=== PATIENT | female | born 1975 | race Caucasian/White ===

== ENCOUNTER 2016-08-24 03:08 | Emergency (ER) | payer OTHER ==
[2016-08-24] MEDS ORDERED: diphenhydrAMINE 50 MG/ML 1 ML VIAL IVP STA (03:38)
[2016-08-24] MEDS ORDERED: KETOROLAC 30 MG/ML 1 ML VIAL IVP STA (03:38)
[2016-08-24] MEDS ORDERED: SODIUM CHLORIDE 0.9% 1,000 ML IV STA (03:38)
[2016-08-24] MEDS ORDERED: ACETAMINOPHEN IV (For NPO) 1,000 MG in EMPTY BAG 1 BAG IVPB STA (03:38)
[2016-08-24] MEDS ORDERED: METOCLOPRAMIDE 5 MG/ML 2 ML VIAL IVP STA (03:38)
--- NOTE | 2016-08-24 03:50 | ED ---
Headache HPI - General Chief Complaint: Headache Stated Complaint: Migraine Time Seen by Provider: 08/24/16 03:33 Source: RN notes reviewed Mode of arrival: ambulatory Limitations: no limitations - History of Present Illness Initial Comments: Patient is a 41-year-old feel presenting to the with chief complaint of 1 day of migraine-like headache. Patient reports that it occurs across the right side of her forehead and radiates down towards her neck. Patient reports that she took her at-home medications including Motrin and this did not help with her headache. Patient reports that she also attempted take a Percocet at approximately 9 PM and did not help with her headache. Patient reports no neurological deficits at this time. She is been seen in the emergency room for similar symptoms as this. Patient reports that this pain is similar to her chronic migraines. Patient denies any fever or chills.Patient denies any recent fever, chills, shortness of breath, chest pain, back pain, abdominal pain , nausea vomiting, numbness or tingling, dysuria or hematuria, constipation or diarrhea, headaches or visual changes, or any other current symptoms - Related Data Home Medications Medication Instructions Recorded Confirmed oxyCODONE-APAP 10-325MG [Percocet 1 tab PO Q6HR PRN 02/09/15 08/24/16 10-325] ARIPiprazole [Abilify] 2 mg PO HS 10/18/15 08/24/16 buPROPion HCL [Wellbutrin XL] 300 mg PO DAILY 10/18/15 08/24/16 ALPRAZolam [Xanax] 2 mg PO TID 11/21/15 08/24/16 Docusate [Colace] 100 mg PO BID 11/21/15 08/24/16 Lisinopril/Hydrochlorothiazide 1 tab PO DAILY 11/21/15 08/24/16 [Lisinopril-Hctz 20-12.5 mg Tab] Ibuprofen [Motrin] 800 mg PO Q8H PRN 04/30/16 08/24/16 Previous Rx's Medication Instructions Recorded SUMAtriptan SUCCINATE [Imitrex] 50 mg PO Q2H PRN #10 tablet 11/21/15 Metoclopramide HCl [Reglan] 10 mg PO DIRECTED PRN #10 tablet 03/24/16 Metoclopramide HCl [Reglan] 10 mg PO BID #12 tablet 08/24/16 Allergies Allergy/AdvReac Type Severity Reaction Status Date / Time levofloxacin [From Levaquin] Allergy Anaphylaxis Verified 08/24/16 03:24 shellfish derived [Shellfish] Allergy Anaphylaxis Verified 08/24/16 03:24 Sulfa (Sulfonamide Allergy Unknown Verified 08/24/16 03:24 Antibiotics) Childhood doxycycline AdvReac Nausea & Verified 08/24/16 03:24 Vomiting Review of Systems ROS Statement: Those systems with pertinent positive or pertinent negative responses have been documented in the HPI. ROS Other: All systems not noted in ROS Statement are negative. Past Medical History Past Medical History: Asthma, Hypertension, Thyroid Disorder Additional Past Medical History / Comment(s): migraine headaches, thyroid biopsy at [facility] History of Any Multi-Drug Resistant Organisms: None Reported Past Surgical History: Uterine Ablation Additional Past Surgical History / Comment(s): finger reattatched. carpal tunnel Past Anesthesia/Blood Transfusion Reactions: Postoperative Nausea & Vomiting ( PONV) Past Psychological History: Anxiety, Depression Smoking Status: Current every day smoker Past Alcohol Use History: Rare Past Drug Use History: None Reported, Marijuana - Past Family History Father Additional Family Medical History / Comment(s): lymphoma General Exam - General Exam Comments Initial Comments: Patient is a 41-year-old female. She does not appear to be in any acute distress. Patient is laying in the bed in the dark with a towel over her eyes for her migraine. Limitations: no limitations General appearance: alert, in no apparent distress Head exam: Present: atraumatic, normocephalic, normal inspection Eye exam: Present: normal appearance, PERRL, EOMI. Absent: scleral icterus, conjunctival injection, periorbital swelling ENT exam: Present: normal exam, mucous membranes moist Neck exam: Present: normal inspection. Absent: tenderness, meningismus, lymphadenopathy Respiratory exam: Present: normal lung sounds bilaterally. Absent: respiratory distress, wheezes, rales, rhonchi, stridor Cardiovascular Exam: Present: regular rate, normal rhythm, normal heart sounds. Absent: systolic murmur, diastolic murmur, rubs, gallop, clicks GI/Abdominal exam: Present: soft, normal bowel sounds. Absent: distended, tenderness, guarding, rebound, rigid Extremities exam: Present: normal inspection, full ROM, normal capillary refill. Absent: tenderness, pedal edema, joint swelling, calf tenderness Back exam: Present: normal inspection Neurological exam: Present: alert, oriented X3, CN II-XII intact Expanded Patient oriented to: Present: person, place, time Speech: Present: fluid speech Cranial nerves: EOM's Intact: Normal, Gag Reflex: Normal, Tongue Deviation: Normal, Facial Sensation: Normal Cerebellar function: Finger to Nose: Normal Upper motor neuron: Pipo Neglect: Normal Sensory exam: Upper Extremity Light Touch: Normal, Lower Extremity Light Touch: Normal Motor strength exam: RUE: 5, LUE: 5, RLE: 5, LLE: 5 Eye Response: (4) open spontaneously Motor Response: (6) obeys commands Verbal Response: (5) oriented Richard Total: 15 Psychiatric exam: Present: normal affect, normal mood Skin exam: Present: warm, dry, intact, normal color. Absent: rash Course Vital Signs 08/24/16 08/24/16 03:20 04:21 Temperature 97.5 F L 98.2 F Pulse Rate 86 72 Respiratory 20 18 Rate Blood Pressure 123/83 100/62 O2 Sat by Pulse 95 98 Oximetry - Reevaluation(s) Reevaluation #1: 08/24/16 04:28Patient was reevaluated at this time and states that she feels much better after receiving IV medications. Patient reports that she feels sleepy enough and wants to be discharged home at this time to continue to sleep. Medical Decision Making - Medical Decision Making Patient is a 41 year old with chief complaint of migraine for one evening. Patient has no neurlogical deficits at this time. Patient reports it is similiar to previous migraines. Patient given toradol, reglan, benadryl, and ofirmev. Patient reports headache is relieved at this time and wants to go home. I advised primary care follow up and return parameters. Patient understands and will comply. Disposition Clinical Impression: Migraine Disposition: HOME SELF-CARE Condition: Good Instructions: Migraine Headache (ED) Additional Instructions: Patient instructed to use nausea medications as directed. Patient instructed to return to the [facility] if any alarming signs or symptoms occur. Follow-up with primary care provider regards to maintenance medication to prevent migraines. Prescriptions: Metoclopramide HCl [Reglan] 10 mg PO BID #12 tablet Referrals: Dinorah,Dieudonne, DO [Primary Care Provider] - 1-2 days Time of Disposition: 04:28
[2016-08-24 04:22] VITALS: BP 100/62; PULSE 72; RESP 18; TEMP 98.2
== END 2016-08-24 04:39 | disposition home or self-care (01) ==
LOC: EC 03:08
DX: G43.909 Migraine, unspecified, not intractable, without status migrainosus (principal); I10 Essential (primary) hypertension; F41.9 Anxiety disorder, unspecified; F32.9 Major depressive disorder, single episode, unspecified; Z79.899 Other long term (current) drug therapy; Z88.2 Allergy status to sulfonamides; Z88.1 Allergy status to other antibiotic agents; Z91.013 Allergy to seafood; F17.200 Nicotine dependence, unspecified, uncomplicated
CPT/HCPCS: 96365; 96375 ×3; 99283; J1200; J2765; J1885; J0131

== ENCOUNTER 2016-09-23 16:14 | Emergency (ER) | payer OTHER ==
[2016-09-23 16:54] VITALS: RESP 18
[2016-09-23] MEDS ORDERED: IPRATROPIUM-ALBUTEROL 3 ML NEB INHALATION STA (17:20)
--- NOTE | 2016-09-23 17:23 | ED ---
General Adult HPI - General Chief complaint: Headache Stated complaint: Headache Time Seen by Provider: 09/23/16 17:12 Source: patient, RN notes reviewed Mode of arrival: ambulatory Limitations: no limitations - History of Present Illness Initial comments: Patient 41-year-old female who presents emergency room today with chief complaint of cough congestion that started yesterday. She does admit to positive sputum production it's been green in color. Does admit to having body aches with fever and chills. Patient denies any other complaints or associated symptoms. Patient denies any shortness of breath, chest pain, back pain, abdominal pain, nausea or vomiting, numbness or tingling, dysuria or hematuria, constipation or diarrhea, headaches or visual changes, or any other complaints. - Related Data Home Medications Medication Instructions Recorded Confirmed oxyCODONE-APAP 10-325MG [Percocet 1 tab PO Q6HR PRN 02/09/15 08/24/16 10-325] ARIPiprazole [Abilify] 2 mg PO HS 10/18/15 08/24/16 buPROPion HCL [Wellbutrin XL] 300 mg PO DAILY 10/18/15 08/24/16 ALPRAZolam [Xanax] 2 mg PO TID 11/21/15 08/24/16 Docusate [Colace] 100 mg PO BID 11/21/15 08/24/16 Lisinopril/Hydrochlorothiazide 1 tab PO DAILY 11/21/15 08/24/16 [Lisinopril-Hctz 20-12.5 mg Tab] Ibuprofen [Motrin] 800 mg PO Q8H PRN 04/30/16 08/24/16 Previous Rx's Medication Instructions Recorded SUMAtriptan SUCCINATE [Imitrex] 50 mg PO Q2H PRN #10 tablet 11/21/15 Metoclopramide HCl [Reglan] 10 mg PO DIRECTED PRN #10 tablet 03/24/16 Metoclopramide HCl [Reglan] 10 mg PO BID #12 tablet 08/24/16 Azithromycin [Zithromax Z-pack] 0 mg PO DIRECTED #6 tab 09/23/16 predniSONE 60 mg PO DAILY 5 Days 09/23/16 Allergies Allergy/AdvReac Type Severity Reaction Status Date / Time levofloxacin [From Levaquin] Allergy Anaphylaxis Verified 09/23/16 16:55 shellfish derived [Shellfish] Allergy Anaphylaxis Verified 09/23/16 16:55 Sulfa (Sulfonamide Allergy Unknown Verified 09/23/16 16:55 Antibiotics) Childhood doxycycline AdvReac Nausea & Verified 09/23/16 16:55 Vomiting Review of Systems ROS Statement: Those systems with pertinent positive or pertinent negative responses have been documented in the HPI. ROS Other: All systems not noted in ROS Statement are negative. Past Medical History Past Medical History: Asthma, Hypertension, Thyroid Disorder Additional Past Medical History / Comment(s): migraine headaches, thyroid biopsy at [facility] History of Any Multi-Drug Resistant Organisms: None Reported Past Surgical History: Uterine Ablation Additional Past Surgical History / Comment(s): finger reattatched. carpal tunnel Past Anesthesia/Blood Transfusion Reactions: Postoperative Nausea & Vomiting ( PONV) Past Psychological History: Anxiety, Depression Smoking Status: Current every day smoker Past Alcohol Use History: Rare Past Drug Use History: None Reported, Marijuana - Past Family History Father Additional Family Medical History / Comment(s): lymphoma General Exam - General Exam Comments Initial Comments: General: The patient is awake and alert, in no distress, and does not appear acutely ill. Eye: Pupils are equal, round and reactive to light, extra-ocular movements are intact. No nystagmus. There is normal conjunctiva bilaterally. No signs of icterus. Ears, nose, mouth and throat: There are moist mucous membranes and no oral lesions. Neck: The neck is supple, there is no tenderness or JVD. Cardiovascular: There is a regular rate and rhythm. No murmur, rub or gallop is appreciated. Respiratory: Lungs are clear to auscultation, respirations are non-labored, breath sounds are equal. No wheezes, stridor, rales, or rhonchi. Gastrointestinal: Soft, non-distended, non-tender abdomen without masses or organomegaly noted. There is no rebound or guarding present. No CVA tenderness. Bowel sounds are unremarkable. Musculoskeletal: Normal ROM, no tenderness. Strength 5/5. Sensation intact. Pulses equal bilaterally 2+. Neurological: A&O x 3. CN II-XII intact, There are no obvious motor or sensory deficits. Coordination appears grossly intact. Speech is normal. Skin: Skin is warm and dry and no rashes or lesions are noted. Psychiatric: Cooperative, appropriate mood & affect, normal judgment. Limitations: no limitations Course Vital Signs 09/23/16 09/23/16 09/23/16 16:52 17:47 17:51 Temperature 100.5 F H Pulse Rate 104 H 100 108 H Respiratory 18 Rate Blood Pressure 115/74 O2 Sat by Pulse 94 L Oximetry Medical Decision Making - Medical Decision Making Patient reexamined at this time shows no signs of distress. Given breathing treatment here in the emergency room states she is feeling better. Lung sounds are clear bilaterally. Patient's chest x-ray reviewed and shows no sign of pneumonia. No other acute abnormalities. Results were discussed with the patient. Patient will be discharged home placed on a Z-Dez cover for a bronchitis infection due to history of asthma. Patient will also be given a steroid Dosepak. Advised follow-up family doctor over the next 2 days or return here to emergency room if any symptoms increase or worsen or for any other concerns. Disposition Clinical Impression: Acute bronchitis Disposition: HOME SELF-CARE Condition: Good Instructions: Acute Bronchitis (ED) Additional Instructions: Please use medication as discussed. Please follow-up with family doctor in the next 2 days of symptoms have not improved. Please return to emergency room if the symptoms increase or worsen or for any other concerns. Prescriptions: Azithromycin [Zithromax Z-pack] 0 mg PO DIRECTED #6 tab predniSONE 60 mg PO DAILY 5 Days Time of Disposition: 18:14
--- NOTE | 2016-09-23 17:42 | XR ---
EXAMINATION TYPE: XR chest 2V DATE OF EXAM: 09/23/2016 5:29 PM COMPARISON: Chest x-ray May 24, 2014. HISTORY: Cough and aching pain. TECHNIQUE: Frontal and lateral views of the chest are obtained. FINDINGS: There is no focal air space opacity, pleural effusion, or pneumothorax seen. The cardiac silhouette size is within normal limits. The osseous structures are intact. IMPRESSION: No acute cardiopulmonary process. No significant change from prior.
[2016-09-23 18:22] VITALS: BP 116/75; PULSE 98; TEMP 98.3
== END 2016-09-23 18:27 | disposition home or self-care (01) ==
LOC: EC 16:14
DX: J20.9 Acute bronchitis, unspecified (principal); I10 Essential (primary) hypertension; G43.909 Migraine, unspecified, not intractable, without status migrainosus; F41.9 Anxiety disorder, unspecified; F32.9 Major depressive disorder, single episode, unspecified; F17.200 Nicotine dependence, unspecified, uncomplicated; Z79.899 Other long term (current) drug therapy; Z88.1 Allergy status to other antibiotic agents; Z88.2 Allergy status to sulfonamides; Z87.09 Personal history of other diseases of the respiratory system
CPT/HCPCS: 71020; 94640; 99284

== ENCOUNTER → 2017-06-12 | Outpatient (CLI) | payer OTHER ==
--- NOTE | 2017-06-13 16:14 | CT ---
EXAMINATION TYPE: CT abdomen pelvis wo/w con DATE OF EXAM: 06/13/2017 COMPARISON: NONE HISTORY: RLQ pain, nausea, elevated WBC CT DLP: 3452.6 mGycm Automated exposure control for dose reduction was used. TECHNIQUE: Helical acquisition of images was performed from the lung bases through the pelvis. CONTRAST: Performed with Oral Contrast and without and with IV Contrast, patient injected with 100 mL of Omnipa que 300. FINDINGS: LUNG BASES: There is a pleural based soft tissue nodule measuring 7mm in the right lower lobe which i s indeterminate. LIVER/GB: The gallbladder is absent and the liver enlarged and shows low attenuation possible due to hepatic steatosis. PANCREAS: No significant abnormality is seen. SPLEEN: No significant abnormality is seen. ADRENALS: The left adrenal gland shows low attenuation 17mm nodule, 16 mm right adrenal low attenuati on nodule likely adenomas. KIDNEYS: The right kidney is lobular and shows areas of probable scarring. Small local metallic densi ty in the suprarenal fat likely of no significance. FREE AIR: No free air is visualized. RETROPERITONEAL ADENOPATHY: None visualized REPRODUCTIVE ORGANS: Left ovarian cyst measures 4 cm. Fallopian tube ligation clips are in place. URINARY BLADDER: No significant abnormality is seen. PELVIC ADENOPATHY: None visualized. OSSEOUS STRUCTURES: No significant abnormality is seen. BOWEL: Diverticular change in the colon, query wall thickening. The appendix is absent, query post o p change. OTHER: Within the rectus muscle on the right axial image 64 there is 2 cm dense focus which is indete rminate. IMPRESSION: Correlate to exclude colitis. Diverticulosis. Ovarian cyst, post op changes. Hepatomegaly. Rectus mus bogdan density as described. Additional findings above. Probable adrenal adenomas.
== END | disposition home or self-care (01) ==
LOC: RADCTMAIN 11:44
PROVIDERS: ATTEND Family Medicine
DX: N83.209 Unspecified ovarian cyst, unspecified side (principal); R16.0 Hepatomegaly, not elsewhere classified; K57.90 Diverticulosis of intestine, part unspecified, without perforation or abscess without bleeding; M62.89 Other specified disorders of muscle; Z98.890 Other specified postprocedural states
CPT/HCPCS: 74178; Q9967

== ENCOUNTER → 2017-08-23 | Outpatient (CLI) | payer OTHER ==
--- NOTE | 2017-08-23 09:48 | CT ---
EXAMINATION TYPE: CT chest wo/w con DATE OF EXAM: 08/23/2017 COMPARISON: CT scan abdomen pelvis 06/12/2017 HISTORY: Lung Nodule CT DLP: 1717 mGycm Automated exposure control for dose reduction was used. CONTRAST: CT scan of the chest is performed without and with IV Contrast, patient injected with 100 ml mL of Om nipaque 300. FINDINGS: LUNGS: There is a 4 mm pleural-based nodule right upper lobe image 17. There is a 3 mm nodule left upper lobe. There is a 3 mm nodule right upper lobe. #4 within the anterior segment right upper lobe image 30 the re is a 2 mm nodule There is a subpleural nodule anterior segment right upper lobe image 31 measuring 2 mm an additional nodule image 33 measuring 3 mm. No pleural effusion or pneumothorax. No consolidation. MEDIASTINUM: There are no greater than 1 cm hilar or mediastinal lymph nodes. No pericardial effusi on is seen. OTHER: Tiny area of presents involving the dome of the liver stable and pre and postcontrast measuri ng 3 mm and likely representing granuloma. Previously noted adrenal nodules are stable and evidence o f previous cholecystectomy. Only a portion of the upper pole the right kidney is included which demon strates cortical irregularity. Correlate with the CT abdomen and pelvis report. This could be related to chronic renal disease. Hypertrophic change of the spine noted. IMPRESSION: 1. Multiple less than 5 mm pulmonary nodules are too small to characterize. Recommend a 6 month follo w-up exam to assess for stability.
== END | disposition home or self-care (01) ==
LOC: RADCTMAIN 08:20
PROVIDERS: ATTEND Family Medicine
DX: R91.8 Other nonspecific abnormal finding of lung field (principal)
CPT/HCPCS: 71270; Q9967

== ENCOUNTER 2017-11-06 05:14 | Observation (INO) | payer OTHER ==
[2017-11-06] MEDS ORDERED: ONDANSETRON 4 MG/2 ML VIAL IVP STA (05:27)
[2017-11-06] MEDS ORDERED: PANTOPRAZOLE 40 MG/10 ML VIAL IVP STA (05:27)
[2017-11-06] MEDS ORDERED: RX INFO: IV CONTRAST WAS GIVEN 1 EACH MISC MISCELLANE PRN (05:27)
[2017-11-06] MEDS ORDERED: SODIUM CHLORIDE 0.9% 1,000 ML IV STA (05:27)
[2017-11-06] MEDS ORDERED: MORPHINE SULFATE 4MG/4ML SYRG IVP STA (05:28)
[2017-11-06 05:56] LABS: Basophils # (A) 0.1 k/uL (0-0.2); Basophils % (A) 1 %; Eosinophils # (A) 0.5 k/uL (0-0.7); Eosinophils % (A) 3 %; HCT 42.6 % (34.0-46.0); HGB 14.1 gm/dL (11.4-16.0); Lymphocytes # (A) 3.4 k/uL (1.0-4.8); Lymphocytes % (A) 20 %; MCH 27.2 pg (25.0-35.0); MCV 82.5 fL (80.0-100.0); Mean Platelet Volume 7.7; Monocytes # (A) 0.6 k/uL (0-1.0); Monocytes % (A) 4 %; Neutrophils # (A) 12.1 k/uL (1.3-7.7); Neutrophils % (A) 71 %; Platelet Count 386 k/uL (150-450); RBC 5.17 m/uL (3.80-5.40); RDW 14.5 % (11.5-15.5)
[2017-11-06 06:11] LABS: ALT 12 U/L (9-52); AST 10 U/L (14-36); Albumin 3.2 g/dL (3.5-5.0); Alkaline Phosphatase 84 U/L (38-126); Amylase 34 U/L (30-110); Anion Gap 9 mmol/L; Blood Urea Nitrogen 6 mg/dL (7-17); Calcium 8.9 mg/dL (8.4-10.2); Carbon Dioxide 28 mmol/L (22-30); Chloride 103 mmol/L (98-107); Glucose 121 mg/dL (74-99); Lipase 58 U/L (23-300); Potassium 3.4 mmol/L (3.5-5.1); Sodium 140 mmol/L (137-145); Total Bilirubin 0.5 mg/dL (0.2-1.3); Total Protein 6.3 g/dL (6.3-8.2)
--- NOTE | 2017-11-06 06:12 | ED ---
General Adult HPI - General Chief complaint: Abdominal Pain Stated complaint: Abdominal Pain, back pain Time Seen by Provider: 11/06/17 05:26 Source: patient, RN notes reviewed, old records reviewed Mode of arrival: wheelchair Limitations: no limitations - History of Present Illness Initial comments: This is a 42-year-old female the ER prevention of bowel pain. Patient has history of bowel pain. Unknown cause. Doppler his right suprapubic right flank and radiating to groin. No vaginal bleeding no dysuria no nausea vomiting. No recent fevers or travel history no sick contacts. - Related Data Home Medications Medication Instructions Recorded Confirmed oxyCODONE-APAP 10-325MG [Percocet 1 tab PO BID 02/09/15 11/07/17 10-325 mg] ALPRAZolam [Xanax] 2 mg PO TID PRN 11/21/15 11/07/17 Docusate [Colace] 100 mg PO BID 11/21/15 11/07/17 Lisinopril/Hydrochlorothiazide 1 tab PO DAILY 11/21/15 11/07/17 [Lisinopril-Hctz 20-12.5 mg Tab] DULoxetine HCL [Cymbalta] 60 mg PO DAILY 06/11/17 11/07/17 Loratadine [Claritin] 10 mg PO DAILY 06/11/17 11/07/17 Ranitidine HCl 150 mg PO DAILY 06/11/17 11/07/17 Albuterol Nebulized [Ventolin 2.5 mg INHALATION RT-QID PRN 11/06/17 11/07/17 Nebulized] Previous Rx's Medication Instructions Recorded Omeprazole 40 mg PO DAILY #20 capsule. 11/07/17 Ondansetron Odt [Zofran Odt] 4 mg PO Q8HR PRN #12 tab 11/07/17 Allergies Allergy/AdvReac Type Severity Reaction Status Date / Time levofloxacin [From Levaquin] Allergy Anaphylaxis Verified 11/07/17 18:23 shellfish derived [Shellfish] Allergy Anaphylaxis Verified 11/07/17 18:23 Sulfa (Sulfonamide Allergy Unknown Verified 11/07/17 18:23 Antibiotics) Childhood doxycycline AdvReac Nausea & Verified 11/07/17 18:23 Vomiting Review of Systems ROS Statement: Those systems with pertinent positive or pertinent negative responses have been documented in the HPI. ROS Other: All systems not noted in ROS Statement are negative. Past Medical History Past Medical History: Asthma, Hypertension, Thyroid Disorder Additional Past Medical History / Comment(s): migraine headaches, thyroid biopsy at [facility] History of Any Multi-Drug Resistant Organisms: None Reported Past Surgical History: Adenoidectomy, Appendectomy, Section, Cholecystectomy, Tonsillectomy, Uterine Ablation Additional Past Surgical History / Comment(s): finger reattatched. carpal tunnel Past Anesthesia/Blood Transfusion Reactions: Postoperative Nausea & Vomiting ( PONV) Past Psychological History: Anxiety, Depression Smoking Status: Current every day smoker Past Alcohol Use History: Rare Past Drug Use History: Marijuana - Past Family History Father Additional Family Medical History / Comment(s): lymphoma Mother Family Medical History: Coronary Artery Disease (CAD), CVA/TIA, Diabetes Mellitus Additional Family Medical History / Comment(s): Mother at the age of 73yrs. General Exam Limitations: no limitations General appearance: alert, in no apparent distress, obese Head exam: Present: atraumatic, normocephalic, normal inspection Eye exam: Present: normal appearance, PERRL, EOMI. Absent: scleral icterus, conjunctival injection, periorbital swelling ENT exam: Present: normal exam, mucous membranes moist Neck exam: Present: normal inspection, tenderness (Right lower quadrant). Absent: meningismus, lymphadenopathy Respiratory exam: Present: normal lung sounds bilaterally. Absent: respiratory distress, wheezes, rales, rhonchi, stridor Cardiovascular Exam: Present: regular rate, normal rhythm, normal heart sounds. Absent: systolic murmur, diastolic murmur, rubs, gallop, clicks GI/Abdominal exam: Present: soft, normal bowel sounds. Absent: distended, tenderness, guarding, rebound, rigid Extremities exam: Present: normal inspection, full ROM, normal capillary refill. Absent: tenderness, pedal edema, joint swelling, calf tenderness Back exam: Present: normal inspection Neurological exam: Present: alert, oriented X3, CN II-XII intact Psychiatric exam: Present: normal affect, normal mood Skin exam: Present: warm, dry, intact, normal color. Absent: rash Course Vital Signs 11/06/17 11/06/17 05:17 08:22 Temperature 98.4 F 97.4 F L Pulse Rate 89 88 Respiratory 18 18 Rate Blood Pressure 135/75 166/66 O2 Sat by Pulse 95 98 Oximetry - Reevaluation(s) Reevaluation #1: Spoke with general surgery, will see patient on the floor Medical Decision Making - Medical Decision Making 42 female with nonspecific abdominal pain. Patient is possible cyst and abdominal wall, on computed tomography scan. Patient be admitted for surgical evaluation - Lab Data Result diagrams: 11/06/17 12:42 11/06/17 05:40 Lab Results 11/06/17 11/06/17 11/06/17 Range/Units 05:40 05:40 05:40 WBC 17.0 H (3.8-10.6) k/uL RBC 5.17 (3.80-5.40) m/uL Hgb 14.1 (11.4-16.0) gm/dL Hct 42.6 (34.0-46.0) % MCV 82.5 (80.0-100.0) fL MCH 27.2 (25.0-35.0) pg MCHC 33.0 (31.0-37.0) g/dL RDW 14.5 (11.5-15.5) % Plt Count 386 (150-450) k/uL Neutrophils % 71 % Lymphocytes % 20 % Monocytes % 4 % Eosinophils % 3 % Basophils % 1 % Neutrophils # 12.1 H (1.3-7.7) k/uL Lymphocytes # 3.4 (1.0-4.8) k/uL Monocytes # 0.6 (0-1.0) k/uL Eosinophils # 0.5 (0-0.7) k/uL Basophils # 0.1 (0-0.2) k/uL Sodium 140 (137-145) mmol/L Potassium 3.4 L (3.5-5.1) mmol/L Chloride 103 (98-107) mmol/L Carbon Dioxide 28 (22-30) mmol/L Anion Gap 9 mmol/L BUN 6 L (7-17) mg/dL Creatinine 0.70 (0.52-1.04) mg/dL Est GFR (CKD-EPI)AfAm >90 (>60 ml/min/1.73 sqM) Est GFR (CKD-EPI)NonAf >90 (>60 ml/min/1.73 sqM) Glucose 121 H (74-99) mg/dL Plasma Lactic Acid Fredy 0.9 (0.7-2.0) mmol/L Calcium 8.9 (8.4-10.2) mg/dL Magnesium (1.6-2.3) mg/dL Total Bilirubin 0.5 (0.2-1.3) mg/dL AST 10 L (14-36) U/L ALT 12 (9-52) U/L Alkaline Phosphatase 84 (38-126) U/L Total Protein 6.3 (6.3-8.2) g/dL Albumin 3.2 L (3.5-5.0) g/dL Amylase 34 (30-110) U/L Lipase 58 (23-300) U/L Urine Color Urine Appearance (Clear) Urine pH (5.0-8.0) Ur Specific [place] (1.001-1.035) Urine Protein (Negative) Urine Glucose (UA) (Negative) Urine Ketones (Negative) Urine Blood (Negative) Urine Nitrite (Negative) Urine Bilirubin (Negative) Urine Urobilinogen (<2.0) mg/dL Ur Leukocyte Esterase (Negative) Urine RBC (0-5) /hpf Urine WBC (0-5) /hpf Ur Squamous Epith Cells (0-4) /hpf Urine Bacteria (None) /hpf Urine Mucus (None) /hpf 11/06/17 11/06/17 Range/Units 05:40 05:52 WBC (3.8-10.6) k/uL RBC (3.80-5.40) m/uL Hgb (11.4-16.0) gm/dL Hct (34.0-46.0) % MCV (80.0-100.0) fL MCH (25.0-35.0) pg MCHC (31.0-37.0) g/dL RDW (11.5-15.5) % Plt Count (150-450) k/uL Neutrophils % % Lymphocytes % % Monocytes % % Eosinophils % % Basophils % % Neutrophils # (1.3-7.7) k/uL Lymphocytes # (1.0-4.8) k/uL Monocytes # (0-1.0) k/uL Eosinophils # (0-0.7) k/uL Basophils # (0-0.2) k/uL Sodium (137-145) mmol/L Potassium (3.5-5.1) mmol/L Chloride (98-107) mmol/L Carbon Dioxide (22-30) mmol/L Anion Gap mmol/L BUN (7-17) mg/dL Creatinine (0.52-1.04) mg/dL Est GFR (CKD-EPI)AfAm (>60 ml/min/1.73 sqM) Est GFR (CKD-EPI)NonAf (>60 ml/min/1.73 sqM) Glucose (74-99) mg/dL Plasma Lactic Acid Fredy (0.7-2.0) mmol/L Calcium (8.4-10.2) mg/dL Magnesium 2.0 (1.6-2.3) mg/dL Total Bilirubin (0.2-1.3) mg/dL AST (14-36) U/L ALT (9-52) U/L Alkaline Phosphatase (38-126) U/L Total Protein (6.3-8.2) g/dL Albumin (3.5-5.0) g/dL Amylase (30-110) U/L Lipase (23-300) U/L Urine Color Yellow Urine Appearance Cloudy H (Clear) Urine pH 7.0 (5.0-8.0) Ur Specific [place] 1.011 (1.001-1.035) Urine Protein Negative (Negative) Urine Glucose (UA) Negative (Negative) Urine Ketones Negative (Negative) Urine Blood Trace H (Negative) Urine Nitrite Negative (Negative) Urine Bilirubin Negative (Negative) Urine Urobilinogen <2.0 (<2.0) mg/dL Ur Leukocyte Esterase Negative (Negative) Urine RBC 2 (0-5) /hpf Urine WBC 2 (0-5) /hpf Ur Squamous Epith Cells 9 H (0-4) /hpf Urine Bacteria Rare H (None) /hpf Urine Mucus Rare H (None) /hpf - Radiology Data Radiology results: report reviewed (CT of pelvis ultrasound pelvis, CT is positive for positive cystic structure abdominal wall), image reviewed Disposition Clinical Impression: Nausea & vomiting, Menorrhagia Disposition: ADMITTED IP TO THIS [facility] Condition: Good
[2017-11-06 06:22] LABS: Appearance,Urine Cloudy (Clear); Bacteria,Urine Rare /hpf; Bilirubin,Urine Negative (Negative); Blood,Urine Trace (Negative); Color,Urine Yellow; Glucose,Urine (UA) Negative (Negative); Ketones,Urine Negative (Negative); Leukocyte Esterase,Urine Negative (Negative); Mucus,Urine Rare /hpf; Nitrite,Urine Negative (Negative); Protein,Urine Negative (Negative); RBC,Urine 2 /hpf (0-5); Specific Gravity,Urine 1.011 (1.001-1.035); Squamous Epithelial Cell,Urine 9 /hpf (0-4); Urobilinogen,Urine <2.0 mg/dL (<2.0); WBC,Urine 2 /hpf (0-5)
--- NOTE | 2017-11-06 07:33 | CT ---
EXAM: CT Abdomen and Pelvis With Intravenous Contrast CLINICAL HISTORY: ITS.REASON CT Reason: abdominal pain TECHNIQUE: Axial computed tomography images of the abdomen and pelvis with intravenous contrast. DLP is 3310.1 mGy-cm. This CT exam was performed using one or more of the following dose reduction techniques: automated exposure control, adjustment of the mA and/or kV according to patient size, and/or use of iterative reconstruction technique. COMPARISON: CT abdomen pelvis dated 06/12/2017. Prior cholecystectomy. FINDINGS: Lower thorax: No acute findings. ABDOMEN: Liver: Unremarkable. No mass. Gallbladder and bile ducts: Unremarkable. No calcified stones. No ductal dilation. Pancreas: Unremarkable. No evidence of mass. No ductal dilation. Spleen: Unremarkable. No splenomegaly. Adrenals: Unchanged bilateral adrenal nodules measuring up to 13 mm on the right and 60 mm on the left. Indeterminant by today's technique. Kidneys and ureters: Reidentified multifocal right renal cortical scarring. No hydronephrosis. Stomach and bowel: Mild diverticulosis without evidence of diverticulitis. No obstruction. Appendix: Nonvisualization of the appendix and apparent postoperative findings related to prior appendectomy. PELVIS: Bladder: Unremarkable. No evidence of mass. Reproductive: Unremarkable as visualized. ABDOMEN and PELVIS: Intraperitoneal space: Unremarkable. No free air. No significant fluid collection. Bones/joints: No acute fracture. Soft tissues: Small fat-containing umbilical hernia. A hypoattenuating nodule within the medial right rectus sheath currently measures 2.6 x 1.5 cm, previously 2.3 x 1.2 cm. This is of uncertain etiology. Vasculature: Unremarkable. No abdominal aortic aneurysm. Lymph nodes: Unremarkable. No enlarged lymph nodes. IMPRESSION: 1. Unchanged bilateral adrenal nodules measuring up to 13 mm on the right and 60 mm on the left. Indeterminant by today's technique. 2. Mild diverticulosis without evidence of diverticulitis. 3. A hypoattenuating nodule within the medial right rectus sheath currently measures 2.6 x 1.5 cm, previously 2.3 x 1.2 cm. This is of uncertain etiology.
[2017-11-06] MEDS ORDERED: SODIUM CHLORIDE 0.9% 1,000 ML IV ONE ×2 (07:49→13:38)
[2017-11-06] MEDS ORDERED: MORPHINE SULF 5MG/10ML VL IVP PRN (07:50)
[2017-11-06] MEDS ORDERED: POTASSIUM CHLORIDE 20 MEQ in WATER FOR INJECTION 1 100ML.BAG IVPB SCH (09:00)
[2017-11-06] MEDS ORDERED: SODIUM CHLORIDE 0.9% 2,000 ML IV ONE (09:30)
[2017-11-06 10:03] VITALS: BP 140/91; PULSE 66; RESP 16; TEMP 98.1
[2017-11-06] MEDS ORDERED: ONDANSETRON 4 MG/2 ML VIAL IVP PRN (10:49)
--- NOTE | 2017-11-06 10:56 | US ---
EXAMINATION TYPE: US transvaginal DATE OF EXAM: 11/06/2017 COMPARISON: CT today showing unremarkable reproductive organs and a rectus sheath mass CLINICAL HISTORY: right pelvic pain. TECHNIQUE: Transvaginal (TV). Date of LMP: 2 years prior, patient had ablation EXAM MEASUREMENTS: Uterus: 7.4 x 3.3 x 4.4 cm Endometrial Stripe: unable to visualize Right Ovary: unable to visualize due to overlying bowel gas/obesity Left Ovary: unable to visualize due to overlying bowel gas/obesity Morbidly obese patient. Technically difficult study. 1. Uterus: Anteverted, small amount of free fluid in endocervical canal 2. Endometrium: Obscured by scar/ablation 3. Right Ovary: unable to visualize due to overlying bowel gas/obesity 4. Left Ovary: unable to visualize due to overlying bowel gas/obesity 5. Bilateral Adnexa: wnl 6. Posterior cul-de-sac: wnl Rectus abdominis sheath mass is not identified by transvaginal ultrasound. IMPRESSION: 1. Examination is limited due to patient body habitus. Suspicious abnormality is not identified.
[2017-11-06] MEDS ORDERED: POTASSIUM CHLORIDE ER 20 MEQ TAB.ER PO STA (11:28)
[2017-11-06 13:09] LABS: HCT 40.3 % (34.0-46.0); HGB 12.9 gm/dL (11.4-16.0); MCH 27.3 pg (25.0-35.0); MCHC 32.1 g/dL (31.0-37.0); MCV 84.9 fL (80.0-100.0); Platelet Count 373 k/uL (150-450); RBC 4.75 m/uL (3.80-5.40); RDW 14.6 % (11.5-15.5); WBC 15.3 k/uL (3.8-10.6)
--- NOTE | 2017-11-06 14:30 | P.GSHP ---
<Jessenia Villegas - Last Filed: 11/06/17 14:20> History of Present Illness H&P Date: 11/06/17 42-year-old presented on the day of admission to the emergency room with a chief complaint of developing right suprapubic pain radiating to the right flank radiating down to the groin. No vaginal bleeding. No burning on urination. Patient stated the pain came on suddenly. [place] nauseated and vomited at home. Became concerned and came into the emergency room to be evaluated for the above-mentioned symptoms. Patient stated her last hospitalization was several weeks ago at [facility] for what patient was told was for kidney stone. Patient states she was having right flank pain at that time. Patient stated passing gas no stool. No recent fever. No recent travel. No other family members sick. No sick contacts. Patient was started on IV fluid and antiemetics. Computed tomography scan of the abdomen pelvis in the emergency room obtained in summary showed mild diverticulosis no evidence of diverticulitis. Hypoattenuating nodule within the medial right rectus sheath currently measured 2.6 x 1.5 uncertain etiology. Patient was felt to be clinically dehydrated and was started on IV fluid for hydration and admitted to the services of the attending. Per patient report past surgical history appendectomy, cholecystectomy. Patient stated these were done greater than 70 years ago. Additionally has had a . Past medical history asthma, hypertension, anxiety depressive disorder, thyroid disorder. Social patient is a current every day smoker - Review of Systems Comment: Essentially unremarkable except as mentioned in the present illness Past Medical History Past Medical History: Asthma, GERD/Reflux, Hypertension, Thyroid Disorder Additional Past Medical History / Comment(s): migraine headaches, pt states she was admitted to [facility] with similar R flank/low abdominal pain and told she had kidney stones, sinus problems. History of Any Multi-Drug Resistant Organisms: None Reported Past Surgical History: Adenoidectomy, Appendectomy, Section, Cholecystectomy, Ear Surgery, Orthopedic Surgery, Tonsillectomy, Tubal Ligation , Uterine Ablation Additional Past Surgical History / Comment(s): L index finger reattatched, bilateral carpal tunnel releases, hysteroscopy with failed uterine ablation then D&C with successful uterine ablation, thyroid bx, bilateral myrinotomies/ tubes. Past Anesthesia/Blood Transfusion Reactions: Postoperative Nausea & Vomiting ( PONV) Smoking Status: Current every day smoker - Past Family History Father Additional Family Medical History / Comment(s): Father of lymphoma at the age of 60yrs. Mother Family Medical History: Coronary Artery Disease (CAD), CVA/TIA, Diabetes Mellitus Additional Family Medical History / Comment(s): Mother at the age of 73yrs. Medications and Allergies Home Medications Medication Instructions Recorded Confirmed Type oxyCODONE-APAP 10-325MG [Percocet 1 tab PO BID 02/09/15 11/06/17 History 10-325 mg] ALPRAZolam [Xanax] 2 mg PO TID PRN 11/21/15 11/06/17 History Docusate [Colace] 100 mg PO BID 11/21/15 11/06/17 History Lisinopril/Hydrochlorothiazide 1 tab PO DAILY 11/21/15 11/06/17 History [Lisinopril-Hctz 20-12.5 mg Tab] DULoxetine HCL [Cymbalta] 60 mg PO DAILY 06/11/17 11/06/17 History Loratadine [Claritin] 10 mg PO DAILY 06/11/17 11/06/17 History Ranitidine HCl 150 mg PO DAILY 06/11/17 11/06/17 History Albuterol Nebulized [Ventolin 2.5 mg INHALATION RT-QID 11/06/17 11/06/17 History Nebulized] Allergies Allergy/AdvReac Type Severity Reaction Status Date / Time levofloxacin [From Levaquin] Allergy Anaphylaxis Verified 11/06/17 08:46 shellfish derived [Shellfish] Allergy Anaphylaxis Verified 11/06/17 08:46 Sulfa (Sulfonamide Allergy Unknown Verified 11/06/17 08:46 Antibiotics) Childhood doxycycline AdvReac Nausea & Verified 11/06/17 08:46 Vomiting Surgical - Exam Vital Signs Temp Pulse Resp BP Pulse Ox 98.4 F 89 18 135/75 95 11/06/17 05:17 11/06/17 05:17 11/06/17 05:17 11/06/17 05:17 11/06/17 05:17 GENERAL APPEARANCE: 42-year-old female alert, oriented, in no acute distress. VITAL SIGNS: Reviewed HEENT: Head is normocephalic and atraumatic. Pupils are equal and reactive. The nares are patent. Oropharynx is clear without lesions. NECK: Supple without lymphadenopathy. Traches midline. HEART: S1, S2. Regular rate and rhythm. No murmur denying chest pain LUNGS: No crackles or wheezes are heard. Adequate air movement bilaterally ABDOMEN: Soft, obese to nontender, nondistended with good bowel sounds. No peritoneal signs. No palpable organomegaly or masses. Reports a nausea sensation no emesis EXTREMITIES: Normal skin color and turgor. No cyanosis, rash, ulceration, clubbing or edema. Radial pedal pulses are 2/4 bilaterally. NEUROLOGICAL: No focal deficits. Strength and sensation are grossly intact. Results - Labs 11/06/17 12:42 11/06/17 05:40 Abnormal Lab Results - Last 24 Hours (Table) 11/06/17 11/06/17 11/06/17 Range/Units 05:40 05:40 05:52 WBC 17.0 H (3.8-10.6) k/uL Neutrophils # 12.1 H (1.3-7.7) k/uL Potassium 3.4 L (3.5-5.1) mmol/L BUN 6 L (7-17) mg/dL Glucose 121 H (74-99) mg/dL AST 10 L (14-36) U/L Albumin 3.2 L (3.5-5.0) g/dL Urine Appearance Cloudy H (Clear) Urine Blood Trace H (Negative) Ur Squamous Epith Cells 9 H (0-4) /hpf Urine Bacteria Rare H (None) /hpf Urine Mucus Rare H (None) /hpf 11/06/17 Range/Units 12:42 WBC 15.3 H (3.8-10.6) k/uL Neutrophils # (1.3-7.7) k/uL Potassium (3.5-5.1) mmol/L BUN (7-17) mg/dL Glucose (74-99) mg/dL AST (14-36) U/L Albumin (3.5-5.0) g/dL Urine Appearance (Clear) Urine Blood (Negative) Ur Squamous Epith Cells (0-4) /hpf Urine Bacteria (None) /hpf Urine Mucus (None) /hpf Diabetes panel 11/06/17 Range/Units 05:40 Sodium 140 (137-145) mmol/L Potassium 3.4 L (3.5-5.1) mmol/L Chloride 103 (98-107) mmol/L Carbon Dioxide 28 (22-30) mmol/L BUN 6 L (7-17) mg/dL Creatinine 0.70 (0.52-1.04) mg/dL Glucose 121 H (74-99) mg/dL Calcium 8.9 (8.4-10.2) mg/dL AST 10 L (14-36) U/L ALT 12 (9-52) U/L Alkaline Phosphatase 84 (38-126) U/L Total Protein 6.3 (6.3-8.2) g/dL Albumin 3.2 L (3.5-5.0) g/dL Calcium panel 11/06/17 Range/Units 05:40 Calcium 8.9 (8.4-10.2) mg/dL Albumin 3.2 L (3.5-5.0) g/dL Pituitary panel 11/06/17 Range/Units 05:40 Sodium 140 (137-145) mmol/L Potassium 3.4 L (3.5-5.1) mmol/L Chloride 103 (98-107) mmol/L Carbon Dioxide 28 (22-30) mmol/L BUN 6 L (7-17) mg/dL Creatinine 0.70 (0.52-1.04) mg/dL Glucose 121 H (74-99) mg/dL Calcium 8.9 (8.4-10.2) mg/dL Adrenal panel 11/06/17 Range/Units 05:40 Sodium 140 (137-145) mmol/L Potassium 3.4 L (3.5-5.1) mmol/L Chloride 103 (98-107) mmol/L Carbon Dioxide 28 (22-30) mmol/L BUN 6 L (7-17) mg/dL Creatinine 0.70 (0.52-1.04) mg/dL Glucose 121 H (74-99) mg/dL Calcium 8.9 (8.4-10.2) mg/dL Total Bilirubin 0.5 (0.2-1.3) mg/dL AST 10 L (14-36) U/L ALT 12 (9-52) U/L Alkaline Phosphatase 84 (38-126) U/L Total Protein 6.3 (6.3-8.2) g/dL Albumin 3.2 L (3.5-5.0) g/dL Assessment and Plan Assessment: Impression Present on admission leukocytosis suspect reactive Present on admission clinical dehydration due to nausea vomiting poor oral intake Present on admission right lower quadrant abdominal pain with nausea vomiting suspect viral gastroenteritis Depressive disorder Current every day smoker CAT scan abdomen and pelvis report indicates mild diverticulosis no evidence of diverticulitis Morbid obesity BMI 46 Present on admission right suprapubic right flank pain radiating to right groin with transvaginal ultrasound no acute findings rectus abdominal sheath mass not identified Plan IV fluid bolus as ordered for hydration Anti-emetics as needed Full liquid diet advance as tolerated Home meds as appropriate Prepped for discharge Follow-up in the outpatient setting with Dr. Hatch The above impression and plan of care have been discussed and directed by signing physician. Jessenia Villegas nurse practitioner acting as scribe for signing physician. <Debi Hatch N - Last Filed: 11/06/17 19:05> Surgical - Exam Vital Signs Temp Pulse Resp BP Pulse Ox 98.4 F 89 18 135/75 95 11/06/17 05:17 11/06/17 05:17 11/06/17 05:17 11/06/17 05:17 11/06/17 05:17 Results - Labs 11/06/17 12:42 11/06/17 05:40 Abnormal Lab Results - Last 24 Hours (Table) 11/06/17 11/06/17 11/06/17 Range/Units 05:40 05:40 05:52 WBC 17.0 H (3.8-10.6) k/uL Neutrophils # 12.1 H (1.3-7.7) k/uL Potassium 3.4 L (3.5-5.1) mmol/L BUN 6 L (7-17) mg/dL Glucose 121 H (74-99) mg/dL AST 10 L (14-36) U/L Albumin 3.2 L (3.5-5.0) g/dL Urine Appearance Cloudy H (Clear) Urine Blood Trace H (Negative) Ur Squamous Epith Cells 9 H (0-4) /hpf Urine Bacteria Rare H (None) /hpf Urine Mucus Rare H (None) /hpf 11/06/17 Range/Units 12:42 WBC 15.3 H (3.8-10.6) k/uL Neutrophils # (1.3-7.7) k/uL Potassium (3.5-5.1) mmol/L BUN (7-17) mg/dL Glucose (74-99) mg/dL AST (14-36) U/L Albumin (3.5-5.0) g/dL Urine Appearance (Clear) Urine Blood (Negative) Ur Squamous Epith Cells (0-4) /hpf Urine Bacteria (None) /hpf Urine Mucus (None) /hpf Microbiology - Last 24 Hours (Table) 11/06/17 05:52 Urine Culture - Preliminary Urine,Voided Diabetes panel 11/06/17 Range/Units 05:40 Sodium 140 (137-145) mmol/L Potassium 3.4 L (3.5-5.1) mmol/L Chloride 103 (98-107) mmol/L Carbon Dioxide 28 (22-30) mmol/L BUN 6 L (7-17) mg/dL Creatinine 0.70 (0.52-1.04) mg/dL Glucose 121 H (74-99) mg/dL Calcium 8.9 (8.4-10.2) mg/dL AST 10 L (14-36) U/L ALT 12 (9-52) U/L Alkaline Phosphatase 84 (38-126) U/L Total Protein 6.3 (6.3-8.2) g/dL Albumin 3.2 L (3.5-5.0) g/dL Calcium panel 11/06/17 Range/Units 05:40 Calcium 8.9 (8.4-10.2) mg/dL Albumin 3.2 L (3.5-5.0) g/dL Pituitary panel 11/06/17 Range/Units 05:40 Sodium 140 (137-145) mmol/L Potassium 3.4 L (3.5-5.1) mmol/L Chloride 103 (98-107) mmol/L Carbon Dioxide 28 (22-30) mmol/L BUN 6 L (7-17) mg/dL Creatinine 0.70 (0.52-1.04) mg/dL Glucose 121 H (74-99) mg/dL Calcium 8.9 (8.4-10.2) mg/dL Adrenal panel 11/06/17 Range/Units 05:40 Sodium 140 (137-145) mmol/L Potassium 3.4 L (3.5-5.1) mmol/L Chloride 103 (98-107) mmol/L Carbon Dioxide 28 (22-30) mmol/L BUN 6 L (7-17) mg/dL Creatinine 0.70 (0.52-1.04) mg/dL Glucose 121 H (74-99) mg/dL Calcium 8.9 (8.4-10.2) mg/dL Total Bilirubin 0.5 (0.2-1.3) mg/dL AST 10 L (14-36) U/L ALT 12 (9-52) U/L Alkaline Phosphatase 84 (38-126) U/L Total Protein 6.3 (6.3-8.2) g/dL Albumin 3.2 L (3.5-5.0) g/dL Assessment and Plan Plan: Patient was seen and evaluated. After IV fluid hydration she reports her abdominal pain has moderately improved. Transvaginal ultrasound was negative for acute pathology. Patient will follow up as an outpatient. No acute surgical intervention needed this time.
--- NOTE | 2017-11-06 14:36 | P.DS ---
Providers Date of admission: 11/06/17 07:49 Expected date of discharge: 11/06/17 Attending physician: Debi Hatch Primary care physician: Dieudonne [facility] Course: 42-year-old presented on the day of admission to the emergency room with a chief complaint of developing right suprapubic pain radiating to the right flank radiating down to the groin. No vaginal bleeding. No burning on urination. Patient stated the pain came on suddenly. [place] nauseated and vomited at home. Became concerned and came into the emergency room to be evaluated for the above-mentioned symptoms. Patient stated her last hospitalization was several weeks ago at [facility] for what patient was told was for kidney stone. Patient states she was having right flank pain at that time. Patient stated passing gas no stool. No recent fever. No recent travel. No other family members sick. No sick contacts. Patient was started on IV fluid and antiemetics. Computed tomography scan of the abdomen pelvis in the emergency room obtained in summary showed mild diverticulosis no evidence of diverticulitis. Hypoattenuating nodule within the medial right rectus sheath currently measured 2.6 x 1.5 uncertain etiology. Transvaginal ultrasound showed no evidence of a medial right rectus sheath mass. Patient was given a total of 3 L IV fluid diet was advanced. Patient's nausea resolved abdominal pain improved patient was felt to be appropriate to be discharged home Impression Present on admission leukocytosis suspect reactive Present on admission clinical dehydration due to nausea vomiting poor oral intake Present on admission right lower quadrant abdominal pain with nausea vomiting suspect viral gastroenteritis Depressive disorder Current every day smoker CAT scan abdomen and pelvis report indicates mild diverticulosis no evidence of diverticulitis Morbid obesity BMI 46 Present on admission right suprapubic right flank pain radiating to right groin with transvaginal ultrasound no acute findings rectus abdominal sheath mass not identified Chronic pain with opiate dependency on Percocet The above impression and plan of care have been discussed and directed by signing physician. Jessenia Villegas nurse practitioner acting as scribe for signing physician. Plan - Discharge Summary Discharge Rx Participant: No New Discharge Prescriptions: Continue oxyCODONE-APAP 10-325MG [Percocet 10-325 mg] 1 tab PO BID Lisinopril/Hydrochlorothiazide [Lisinopril-Hctz 20-12.5 mg Tab] 1 tab PO DAILY Docusate [Colace] 100 mg PO BID ALPRAZolam [Xanax] 2 mg PO TID PRN PRN Reason: Anxiety Ranitidine HCl 150 mg PO DAILY Loratadine [Claritin] 10 mg PO DAILY DULoxetine HCL [Cymbalta] 60 mg PO DAILY Albuterol Nebulized [Ventolin Nebulized] 2.5 mg INHALATION RT-QID Discharge Medication List oxyCODONE-APAP 10-325MG [Percocet 10-325 mg] 1 tab PO BID 02/09/15 [History] ALPRAZolam [Xanax] 2 mg PO TID PRN 11/21/15 [History] Docusate [Colace] 100 mg PO BID 11/21/15 [History] Lisinopril/Hydrochlorothiazide [Lisinopril-Hctz 20-12.5 mg Tab] 1 tab PO DAILY 11/21/15 [History] DULoxetine HCL [Cymbalta] 60 mg PO DAILY 06/11/17 [History] Loratadine [Claritin] 10 mg PO DAILY 06/11/17 [History] Ranitidine HCl 150 mg PO DAILY 06/11/17 [History] Albuterol Nebulized [Ventolin Nebulized] 2.5 mg INHALATION RT-QID 11/06/17 [ History] Follow up Appointment(s)/Referral(s): Debi Hatch MD [STAFF PHYSICIAN] - 12/03/17 (Follow up appointment is on November 12 at 9:30am.) Dieudonne Copeland DO [Primary Care Provider] - 1-2 days Activity/Diet/Wound Care/Special Instructions: Full liquid diet advance to low fiber Discharge Disposition: HOME SELF-CARE
== END 2017-11-06 15:14 | disposition home or self-care (01) ==
LOC: EC 05:14 → 3OBS 07:49
PROVIDERS: ADMIT Surgery Plastic and Reconstructive Surgery; ATTEND Surgery Plastic and Reconstructive Surgery
DX: R10.31 Right lower quadrant pain (principal); R10.9 Unspecified abdominal pain; M54.9 Dorsalgia, unspecified; D72.829 Elevated white blood cell count, unspecified; E86.0 Dehydration; R11.2 Nausea with vomiting, unspecified; F32.9 Major depressive disorder, single episode, unspecified; F17.200 Nicotine dependence, unspecified, uncomplicated; Z68.42 Body mass index [BMI] 45.0-49.9, adult; E66.01 Morbid (severe) obesity due to excess calories; G89.29 Other chronic pain; F11.20 Opioid dependence, uncomplicated; J45.909 Unspecified asthma, uncomplicated; I10 Essential (primary) hypertension; E07.9 Disorder of thyroid, unspecified; F41.9 Anxiety disorder, unspecified; K21.9 Gastro-esophageal reflux disease without esophagitis; N92.0 Excessive and frequent menstruation with regular cycle; Z79.899 Other long term (current) drug therapy; Z88.2 Allergy status to sulfonamides; Z88.1 Allergy status to other antibiotic agents; Z91.013 Allergy to seafood; Z80.7 Family history of other malignant neoplasms of lymphoid, hematopoietic and related tissues; Z83.3 Family history of diabetes mellitus; Z82.49 Family history of ischemic heart disease and other diseases of the circulatory system; Z82.3 Family history of stroke; Z90.49 Acquired absence of other specified parts of digestive tract
CPT/HCPCS: 99285 ×2; 96375 ×4; 96361 ×3; 96365; 96366; 96376; 36415; 80053; 82150; 83605; 83690; 83735; 85025; 85027; 81001; 87086; 76830; 74177; G0378; J3480; J2405; C9113; Q9967; J2270

== ENCOUNTER 2017-11-07 16:41 | Emergency (ER) | payer OTHER ==
[2017-11-07] MEDS ORDERED: SODIUM CHLORIDE 0.9% 1,000 ML IV STA (17:49)
[2017-11-07] MEDS ORDERED: KETOROLAC 30 MG/ML 1 ML VIAL IVP STA (17:49)
[2017-11-07] MEDS ORDERED: diphenhydrAMINE 50 MG/ML 1 ML VIAL IVP STA (17:49)
[2017-11-07] MEDS ORDERED: ONDANSETRON 4 MG/2 ML VIAL IVP STA (17:49)
--- NOTE | 2017-11-07 17:52 | ED ---
General Adult HPI - General Chief complaint: Nausea/Vomiting/Diarrhea Stated complaint: Abd pain-revisit Time Seen by Provider: 11/07/17 17:35 Source: patient, RN notes reviewed, old records reviewed Mode of arrival: wheelchair Limitations: no limitations - History of Present Illness Initial comments: This patient is a 42-year-old female presents emergency Department chief complaint of episodes of dry heaving and nausea. She reports she was admitted yesterday for intractable abdominal pain in her right lower quadrant and right upper quadrant area. She was seen by Dr. Bello and discharged yesterday. She reports that she is feeling well at time of discharge but after she took a nap today she started to have more abdominal pain started dry heave. She states she's had soft stools. Normal urination or bowel habits for her. Patient states that she is just been dry heaving. She was told that she has some nodules within her abdomen which they're just going to watch acute benign while managing her out patiently. There is no acute surgical necessary for admission at that time. She had a CT and transvaginal ultrasound 2 days ago. Surgical history includes cholecystectomy, and adenoidectomy, appendectomy, D&C and 3 C-sections. She had surgery for for endometriosis. - Related Data Home Medications Medication Instructions Recorded Confirmed oxyCODONE-APAP 10-325MG [Percocet 1 tab PO BID 02/09/15 11/07/17 10-325 mg] ALPRAZolam [Xanax] 2 mg PO TID PRN 11/21/15 11/07/17 Docusate [Colace] 100 mg PO BID 11/21/15 11/07/17 Lisinopril/Hydrochlorothiazide 1 tab PO DAILY 11/21/15 11/07/17 [Lisinopril-Hctz 20-12.5 mg Tab] DULoxetine HCL [Cymbalta] 60 mg PO DAILY 06/11/17 11/07/17 Loratadine [Claritin] 10 mg PO DAILY 06/11/17 11/07/17 Ranitidine HCl 150 mg PO DAILY 06/11/17 11/07/17 Albuterol Nebulized [Ventolin 2.5 mg INHALATION RT-QID PRN 11/06/17 11/07/17 Nebulized] Previous Rx's Medication Instructions Recorded Omeprazole 40 mg PO DAILY #20 capsule. 11/07/17 Ondansetron Odt [Zofran Odt] 4 mg PO Q8HR PRN #12 tab 11/07/17 Allergies Allergy/AdvReac Type Severity Reaction Status Date / Time levofloxacin [From Levaquin] Allergy Anaphylaxis Verified 11/07/17 18:23 shellfish derived [Shellfish] Allergy Anaphylaxis Verified 11/07/17 18:23 Sulfa (Sulfonamide Allergy Unknown Verified 11/07/17 18:23 Antibiotics) Childhood doxycycline AdvReac Nausea & Verified 11/07/17 18:23 Vomiting Review of Systems ROS Statement: Those systems with pertinent positive or pertinent negative responses have been documented in the HPI. ROS Other: All systems not noted in ROS Statement are negative. Past Medical History Past Medical History: Asthma, GERD/Reflux, Hypertension, Thyroid Disorder Additional Past Medical History / Comment(s): migraine headaches, pt states she was admitted to [facility] with similar R flank/low abdominal pain and told she had kidney stones, sinus problems. History of Any Multi-Drug Resistant Organisms: None Reported Past Surgical History: Adenoidectomy, Appendectomy, Section, Cholecystectomy, Ear Surgery, Orthopedic Surgery, Tonsillectomy, Tubal Ligation , Uterine Ablation Additional Past Surgical History / Comment(s): L index finger reattatched, bilateral carpal tunnel releases, hysteroscopy with failed uterine ablation then D&C with successful uterine ablation, thyroid bx, bilateral myrinotomies/ tubes. Past Anesthesia/Blood Transfusion Reactions: Postoperative Nausea & Vomiting ( PONV) Past Psychological History: Anxiety, Depression Smoking Status: Current every day smoker Past Alcohol Use History: None Reported Past Drug Use History: Marijuana - Past Family History Father Additional Family Medical History / Comment(s): Father of lymphoma at the age of 60yrs. Mother Family Medical History: Coronary Artery Disease (CAD), CVA/TIA, Diabetes Mellitus Additional Family Medical History / Comment(s): Mother at the age of 73yrs. General Exam - General Exam Comments Initial Comments: This patient is a 42-year-old female. No acute distress. Limitations: no limitations General appearance: alert, in no apparent distress Head exam: Present: atraumatic, normocephalic, normal inspection Eye exam: Present: normal appearance, PERRL, EOMI. Absent: scleral icterus, conjunctival injection, periorbital swelling ENT exam: Present: normal exam, mucous membranes moist Neck exam: Present: normal inspection. Absent: tenderness, meningismus, lymphadenopathy Respiratory exam: Present: normal lung sounds bilaterally. Absent: respiratory distress, wheezes, rales, rhonchi, stridor Cardiovascular Exam: Present: regular rate, normal rhythm, normal heart sounds. Absent: systolic murmur, diastolic murmur, rubs, gallop, clicks GI/Abdominal exam: Present: soft, tenderness (Minimal right upper quadrant and right lower quadrant tenderness.), normal bowel sounds. Absent: distended, guarding, rebound, rigid Extremities exam: Present: normal inspection, full ROM, normal capillary refill. Absent: tenderness, pedal edema, joint swelling, calf tenderness Back exam: Present: normal inspection Neurological exam: Present: alert, oriented X3, CN II-XII intact Psychiatric exam: Present: normal affect, normal mood Skin exam: Present: warm, dry, intact, normal color. Absent: rash Course Vital Signs 11/07/17 11/07/17 17:06 18:30 Temperature 98 F Pulse Rate 89 71 Respiratory 18 16 Rate Blood Pressure 130/73 124/96 O2 Sat by Pulse 98 96 Oximetry - Reevaluation(s) Reevaluation #1: 11/07/17 19:16 is reevaluated this time she is nontender and feeling better. Her nausea subsided. Medical Decision Making - Medical Decision Making Patient is 42-year-old female presents emergency department today with worsening nausea. She was recently admitted a few days ago. Had multiple tests ran at that time. She is some nodules in her hands and she's falling up out patiently. Patient was given IV fluids labwork obtained. She is given Zofran and Benadryl. Patient's nausea subsided. Her lab work is improved from her previous admission. White blood cell count is 15,000 compared to previous 17,000. Discussed this could be related to her vomiting as well. Discussed that she should follow up out patiently. We'll discharge the patient with nausea medication. Discussed appropriate follow-up and return parameters were discussed. She agrees she does not want any further imaging studies with normal chest in [place] x-ray and abdominal x-ray. - Lab Data Result diagrams: 11/07/17 18:00 11/07/17 18:00 Lab Results 11/07/17 11/07/17 11/07/17 Range/Units 18:00 18:00 18:00 WBC 15.0 H (3.8-10.6) k/uL RBC 4.86 (3.80-5.40) m/uL Hgb 13.6 (11.4-16.0) gm/dL Hct 40.7 (34.0-46.0) % MCV 83.7 (80.0-100.0) fL MCH 27.9 (25.0-35.0) pg MCHC 33.3 (31.0-37.0) g/dL RDW 14.3 (11.5-15.5) % Plt Count 401 (150-450) k/uL Neutrophils % 75 % Lymphocytes % 17 % Monocytes % 4 % Eosinophils % 3 % Basophils % 1 % Neutrophils # 11.2 H (1.3-7.7) k/uL Lymphocytes # 2.6 (1.0-4.8) k/uL Monocytes # 0.5 (0-1.0) k/uL Eosinophils # 0.4 (0-0.7) k/uL Basophils # 0.1 (0-0.2) k/uL Sodium 140 (137-145) mmol/L Potassium 3.6 (3.5-5.1) mmol/L Chloride 105 (98-107) mmol/L Carbon Dioxide 25 (22-30) mmol/L Anion Gap 10 mmol/L BUN 7 (7-17) mg/dL Creatinine 0.71 (0.52-1.04) mg/dL Est GFR (CKD-EPI)AfAm >90 (>60 ml/min/1.73 sqM) Est GFR (CKD-EPI)NonAf >90 (>60 ml/min/1.73 sqM) Glucose 110 H (74-99) mg/dL Calcium 8.8 (8.4-10.2) mg/dL Total Bilirubin 0.4 (0.2-1.3) mg/dL AST 10 L (14-36) U/L ALT 16 (9-52) U/L Alkaline Phosphatase 93 (38-126) U/L Total Protein 6.4 (6.3-8.2) g/dL Albumin 3.3 L (3.5-5.0) g/dL Amylase 41 (30-110) U/L Lipase 65 (23-300) U/L Urine Color Light Yellow Urine Appearance Clear (Clear) Urine pH 7.0 (5.0-8.0) Ur Specific [place] 1.010 (1.001-1.035) Urine Protein Negative (Negative) Urine Glucose (UA) Negative (Negative) Urine Ketones Negative (Negative) Urine Blood Negative (Negative) Urine Nitrite Negative (Negative) Urine Bilirubin Negative (Negative) Urine Urobilinogen <2.0 (<2.0) mg/dL Ur Leukocyte Esterase Negative (Negative) Disposition Clinical Impression: Nausea & vomiting Disposition: HOME SELF-CARE Condition: Good Instructions: Acute Nausea and Vomiting (ED) Additional Instructions: Patient has a follow-up with primary care provider. He continues the nausea medicine every 8 hours. Clear liquid diet for the next 2 days and then slowly manage her diet after that. Return to the emergency department if any alarming signs or symptoms occur. Prescriptions: Omeprazole 40 mg PO DAILY #20 capsule. Ondansetron Odt [Zofran Odt] 4 mg PO Q8HR PRN #12 tab PRN Reason: Nausea Referrals: Dieudonne Copeland DO [Primary Care Provider] - 1-2 days Time of Disposition: 19:18
[2017-11-07 18:16] LABS: Appearance,Urine Clear (Clear); Bilirubin,Urine Negative (Negative); Blood,Urine Negative (Negative); Color,Urine Light Yellow; Glucose,Urine (UA) Negative (Negative); Ketones,Urine Negative (Negative); Leukocyte Esterase,Urine Negative (Negative); Nitrite,Urine Negative (Negative); Protein,Urine Negative (Negative); Urobilinogen,Urine <2.0 mg/dL (<2.0)
[2017-11-07 18:17] LABS: Basophils # (A) 0.1 k/uL (0-0.2); Basophils % (A) 1 %; Eosinophils # (A) 0.4 k/uL (0-0.7); Eosinophils % (A) 3 %; HCT 40.7 % (34.0-46.0); HGB 13.6 gm/dL (11.4-16.0); Lymphocytes # (A) 2.6 k/uL (1.0-4.8); Lymphocytes % (A) 17 %; MCH 27.9 pg (25.0-35.0); MCHC 33.3 g/dL (31.0-37.0); MCV 83.7 fL (80.0-100.0); Mean Platelet Volume 7.4; Monocytes # (A) 0.5 k/uL (0-1.0); Monocytes % (A) 4 %; Neutrophils # (A) 11.2 k/uL (1.3-7.7); Neutrophils % (A) 75 %; Platelet Count 401 k/uL (150-450); RBC 4.86 m/uL (3.80-5.40); RDW 14.3 % (11.5-15.5)
[2017-11-07 18:27] LABS: ALT 16 U/L (9-52); AST 10 U/L (14-36); Albumin 3.3 g/dL (3.5-5.0); Alkaline Phosphatase 93 U/L (38-126); Amylase 41 U/L (30-110); Anion Gap 10 mmol/L; Blood Urea Nitrogen 7 mg/dL (7-17); Calcium 8.8 mg/dL (8.4-10.2); Carbon Dioxide 25 mmol/L (22-30); Chloride 105 mmol/L (98-107); Glucose 110 mg/dL (74-99); Lipase 65 U/L (23-300); Potassium 3.6 mmol/L (3.5-5.1); Sodium 140 mmol/L (137-145); Total Bilirubin 0.4 mg/dL (0.2-1.3); Total Protein 6.4 g/dL (6.3-8.2)
[2017-11-07 18:32] VITALS: RESP 16
--- NOTE | 2017-11-07 18:32 | XR ---
EXAMINATION TYPE: XR chest 2V DATE OF EXAM: 11/07/2017 COMPARISON: 09/23/2016 INDICATION: Pain vomiting nausea TECHNIQUE: Frontal and lateral views of the chest are obtained. FINDINGS: The heart size is normal. The pulmonary vasculature is normal. The lungs are clear. IMPRESSION: 1. No acute pulmonary process.
--- NOTE | 2017-11-07 18:35 | XR ---
EXAMINATION TYPE: XR KUB DATE OF EXAM: 11/07/2017 COMPARISON: 01/01/2010 INDICATION: Abdomen pain vomiting right side abdomen pain TECHNIQUE: Single view abdomen upright view FINDINGS: There is a nonspecific bowel gas pattern. Air is within the colon. A few scattered small bowel loops contain air Psoas margins are normal. Cholecystectomy clips in the right upper quadrant. IMPRESSION: 1. Nonspecific abdomen
[2017-11-07] MEDS ORDERED: ONDANSETRON 4 MG ODT STARTER PACK 2 TAB BTL PO STA (19:18)
[2017-11-07 19:27] VITALS: BP 133/65; PULSE 61; TEMP 98.5
== END 2017-11-07 19:44 | disposition home or self-care (01) ==
LOC: EC 16:41
DX: R11.2 Nausea with vomiting, unspecified (principal); K21.9 Gastro-esophageal reflux disease without esophagitis; I10 Essential (primary) hypertension; F41.9 Anxiety disorder, unspecified; F32.9 Major depressive disorder, single episode, unspecified; F17.200 Nicotine dependence, unspecified, uncomplicated; Z90.49 Acquired absence of other specified parts of digestive tract; Z98.51 Tubal ligation status; Z79.891 Long term (current) use of opiate analgesic; Z79.899 Other long term (current) drug therapy; Z88.1 Allergy status to other antibiotic agents; Z88.2 Allergy status to sulfonamides; Z91.030 Bee allergy status
CPT/HCPCS: 36415; 80053; 82150; 83690; 85025; 81003; 71046; 74018; 99284; 96374; 96375 ×2; 96361; J1200; J2405; J1885; S0119

== ENCOUNTER 2018-01-23 00:32 | Observation (INO) | payer OTHER ==
--- NOTE | 2018-01-23 00:44 | ED ---
General Adult HPI - General Chief complaint: Shortness of Breath Stated complaint: OSMAR Time Seen by Provider: 01/23/18 00:41 Source: patient, RN notes reviewed, old records reviewed Mode of arrival: wheelchair Limitations: physical limitation - History of Present Illness Initial comments: This is a 42-year-old female the ER for evaluation. Patient states she comes in today for inability inability to catch her breath. Symptoms for a few days now. Initially worse today. She does have increased cough and congestion. No travel history no fevers. Hospitalization a few months ago for unrelated issue. Patient denies fever. Denies chest pain. Patient admits to mild increased anxiety and inability to catch her breath. No modifying factors for symptoms. Increased recent fatigue sleeping, shortness of breath - Related Data Home Medications Medication Instructions Recorded Confirmed oxyCODONE-APAP 10-325MG [Percocet 1 tab PO BID 02/09/15 11/07/17 10-325 mg] ALPRAZolam [Xanax] 2 mg PO TID PRN 11/21/15 11/07/17 Docusate [Colace] 100 mg PO BID 11/21/15 11/07/17 Lisinopril/Hydrochlorothiazide 1 tab PO DAILY 11/21/15 11/07/17 [Lisinopril-Hctz 20-12.5 mg Tab] DULoxetine HCL [Cymbalta] 60 mg PO DAILY 06/11/17 11/07/17 Loratadine [Claritin] 10 mg PO DAILY 06/11/17 11/07/17 Ranitidine HCl 150 mg PO DAILY 06/11/17 11/07/17 Albuterol Nebulized [Ventolin 2.5 mg INHALATION RT-QID PRN 11/06/17 11/07/17 Nebulized] Previous Rx's Medication Instructions Recorded Omeprazole 40 mg PO DAILY #20 capsule. 11/07/17 Ondansetron Odt [Zofran Odt] 4 mg PO Q8HR PRN #12 tab 11/07/17 Allergies Allergy/AdvReac Type Severity Reaction Status Date / Time levofloxacin [From Levaquin] Allergy Anaphylaxis Verified 01/23/18 00:38 shellfish derived [Shellfish] Allergy Anaphylaxis Verified 01/23/18 00:38 Sulfa (Sulfonamide Allergy Unknown Verified 01/23/18 00:38 Antibiotics) Childhood doxycycline AdvReac Nausea & Verified 01/23/18 00:38 Vomiting Review of Systems ROS Statement: Those systems with pertinent positive or pertinent negative responses have been documented in the HPI. ROS Other: All systems not noted in ROS Statement are negative. Past Medical History Past Medical History: Asthma, GERD/Reflux, Hypertension, Thyroid Disorder Additional Past Medical History / Comment(s): migraine headaches, pt states she was admitted to [facility] with similar R flank/low abdominal pain and told she had kidney stones, sinus problems. History of Any Multi-Drug Resistant Organisms: None Reported Past Surgical History: Adenoidectomy, Appendectomy, Section, Cholecystectomy, Ear Surgery, Orthopedic Surgery, Tonsillectomy, Tubal Ligation , Uterine Ablation Additional Past Surgical History / Comment(s): L index finger reattatched, bilateral carpal tunnel releases, hysteroscopy with failed uterine ablation then D&C with successful uterine ablation, thyroid bx, bilateral myrinotomies/ tubes. Past Anesthesia/Blood Transfusion Reactions: Postoperative Nausea & Vomiting ( PONV) Past Psychological History: Anxiety, Depression Smoking Status: Current every day smoker Past Alcohol Use History: None Reported Past Drug Use History: Marijuana - Past Family History Father Additional Family Medical History / Comment(s): lymphoma Mother Family Medical History: Coronary Artery Disease (CAD), CVA/TIA, Diabetes Mellitus Additional Family Medical History / Comment(s): Mother at the age of 73yrs. General Exam Limitations: physical limitation General appearance: alert, in no apparent distress, anxious Head exam: Present: atraumatic, normocephalic, normal inspection Eye exam: Present: normal appearance, PERRL, EOMI. Absent: scleral icterus, conjunctival injection, periorbital swelling ENT exam: Present: normal exam, mucous membranes moist Neck exam: Present: normal inspection. Absent: tenderness, meningismus, lymphadenopathy Respiratory exam: Present: wheezes, accessory muscle use, decreased breath sounds, prolonged expiratory. Absent: respiratory distress, rales, rhonchi, stridor Cardiovascular Exam: Present: regular rate, normal rhythm, normal heart sounds. Absent: systolic murmur, diastolic murmur, rubs, gallop, clicks GI/Abdominal exam: Present: soft, normal bowel sounds. Absent: distended, tenderness, guarding, rebound, rigid Extremities exam: Present: normal inspection, full ROM, normal capillary refill. Absent: tenderness, pedal edema, joint swelling, calf tenderness Back exam: Present: normal inspection Neurological exam: Present: alert, oriented X3, CN II-XII intact Psychiatric exam: Present: normal affect, normal mood Skin exam: Present: warm, dry, intact, normal color. Absent: rash Course Vital Signs 01/23/18 01/23/18 01/23/18 00:35 00:57 01:05 Temperature 98.9 F Pulse Rate 97 87 Respiratory 22 22 Rate Blood Pressure 130/83 O2 Sat by Pulse 99 Oximetry 01/23/18 01:23 Temperature Pulse Rate 97 Respiratory Rate Blood Pressure O2 Sat by Pulse Oximetry - Reevaluation(s) Reevaluation #1: 01/23/18 01:49 Mild improvement with breathing treatment EKG Findings - EKG Comments: EKG Findings:: EKG shows normal sinus rhythm rate of 90, MA 176, QRS 90, QTc 435 Medical Decision Making - Medical Decision Making 42 female the ER for shortness of breath increased cough and congestion, mild improvement with breathing treatment will admit for continued breathing treatments and steroids, patient also complaining of anxiety. Patient feeling better with anxiolysis - Lab Data Result diagrams: 01/23/18 00:54 01/23/18 00:54 Lab Results 01/23/18 01/23/18 01/23/18 Range/Units 00:54 00:54 00:54 WBC 15.0 H (3.8-10.6) k/uL RBC 5.08 (3.80-5.40) m/uL Hgb 14.0 (11.4-16.0) gm/dL Hct 41.9 (34.0-46.0) % MCV 82.5 (80.0-100.0) fL MCH 27.6 (25.0-35.0) pg MCHC 33.4 (31.0-37.0) g/dL RDW 14.5 (11.5-15.5) % Plt Count 405 (150-450) k/uL Neutrophils % 63 % Lymphocytes % 28 % Monocytes % 4 % Eosinophils % 3 % Basophils % 1 % Neutrophils # 9.4 H (1.3-7.7) k/uL Lymphocytes # 4.2 (1.0-4.8) k/uL Monocytes # 0.6 (0-1.0) k/uL Eosinophils # 0.5 (0-0.7) k/uL Basophils # 0.1 (0-0.2) k/uL PT (9.0-12.0) sec INR (<1.2) APTT (22.0-30.0) sec Sodium 138 (137-145) mmol/L Potassium 3.5 (3.5-5.1) mmol/L Chloride 104 (98-107) mmol/L Carbon Dioxide 28 (22-30) mmol/L Anion Gap 6 mmol/L BUN 8 (7-17) mg/dL Creatinine 0.80 (0.52-1.04) mg/dL Est GFR (CKD-EPI)AfAm >90 (>60 ml/min/1.73 sqM) Est GFR (CKD-EPI)NonAf >90 (>60 ml/min/1.73 sqM) Glucose 93 (74-99) mg/dL Calcium 8.7 (8.4-10.2) mg/dL Magnesium 2.2 (1.6-2.3) mg/dL Total Bilirubin 0.3 (0.2-1.3) mg/dL AST 14 (14-36) U/L ALT 21 (9-52) U/L Alkaline Phosphatase 80 (38-126) U/L Total Creatine Kinase 34 (30-135) U/L CK-MB (CK-2) <0.2 (0.0-2.4) ng/mL CK-MB (CK-2) Rel Index Troponin I <0.012 (0.000-0.034) ng/mL NT-Pro-B Natriuret Pep pg/mL Total Protein 5.9 L (6.3-8.2) g/dL Albumin 3.3 L (3.5-5.0) g/dL 01/23/18 01/23/18 Range/Units 00:54 00:54 WBC (3.8-10.6) k/uL RBC (3.80-5.40) m/uL Hgb (11.4-16.0) gm/dL Hct (34.0-46.0) % MCV (80.0-100.0) fL MCH (25.0-35.0) pg MCHC (31.0-37.0) g/dL RDW (11.5-15.5) % Plt Count (150-450) k/uL Neutrophils % % Lymphocytes % % Monocytes % % Eosinophils % % Basophils % % Neutrophils # (1.3-7.7) k/uL Lymphocytes # (1.0-4.8) k/uL Monocytes # (0-1.0) k/uL Eosinophils # (0-0.7) k/uL Basophils # (0-0.2) k/uL PT 9.7 (9.0-12.0) sec INR 1.0 (<1.2) APTT 25.1 (22.0-30.0) sec Sodium (137-145) mmol/L Potassium (3.5-5.1) mmol/L Chloride (98-107) mmol/L Carbon Dioxide (22-30) mmol/L Anion Gap mmol/L BUN (7-17) mg/dL Creatinine (0.52-1.04) mg/dL Est GFR (CKD-EPI)AfAm (>60 ml/min/1.73 sqM) Est GFR (CKD-EPI)NonAf (>60 ml/min/1.73 sqM) Glucose (74-99) mg/dL Calcium (8.4-10.2) mg/dL Magnesium (1.6-2.3) mg/dL Total Bilirubin (0.2-1.3) mg/dL AST (14-36) U/L ALT (9-52) U/L Alkaline Phosphatase (38-126) U/L Total Creatine Kinase (30-135) U/L CK-MB (CK-2) (0.0-2.4) ng/mL CK-MB (CK-2) Rel Index Troponin I (0.000-0.034) ng/mL NT-Pro-B Natriuret Pep 475 pg/mL Total Protein (6.3-8.2) g/dL Albumin (3.5-5.0) g/dL - Radiology Data Radiology results: report reviewed (Chest x-rays negative for acute disease), image reviewed Disposition Clinical Impression: Nausea & vomiting, Acute exacerbation of chronic obstructive airways disease, Anxiety Disposition: ADMITTED IP TO THIS [facility] Condition: Good Instructions: Acute Bronchitis (ED), Asthma (ED) Is patient prescribed a controlled substance at d/c from ED?: No Referrals: Dieudonne Copeland DO [Primary Care Provider] - 1-2 days
[2018-01-23] MEDS ORDERED: IPRATROPIUM 0.5 MG/2.5 ML NEBU INHALATION STA (00:56)
[2018-01-23] MEDS ORDERED: SODIUM CHLORIDE 0.9% 1,000 ML IV STA (00:56)
[2018-01-23] MEDS ORDERED: ALBUTEROL NEBULIZED 2.5 MG/3 ML INHALATION STA (00:56)
[2018-01-23] MEDS ORDERED: LORazepam 2 MG/ML INJ IV STA (00:57)
[2018-01-23 01:06] LABS: Basophils # (A) 0.1 k/uL (0-0.2); Basophils % (A) 1 %; Eosinophils # (A) 0.5 k/uL (0-0.7); Eosinophils % (A) 3 %; HCT 41.9 % (34.0-46.0); Lymphocytes # (A) 4.2 k/uL (1.0-4.8); Lymphocytes % (A) 28 %; MCH 27.6 pg (25.0-35.0); MCHC 33.4 g/dL (31.0-37.0); MCV 82.5 fL (80.0-100.0); Mean Platelet Volume 7.4; Monocytes # (A) 0.6 k/uL (0-1.0); Monocytes % (A) 4 %; Neutrophils # (A) 9.4 k/uL (1.3-7.7); Neutrophils % (A) 63 %; Platelet Count 405 k/uL (150-450); RBC 5.08 m/uL (3.80-5.40); RDW 14.5 % (11.5-15.5)
[2018-01-23 01:16] LABS: ALT 21 U/L (9-52); AST 14 U/L (14-36); Albumin 3.3 g/dL (3.5-5.0); Alkaline Phosphatase 80 U/L (38-126); Anion Gap 6 mmol/L; Blood Urea Nitrogen 8 mg/dL (7-17); Calcium 8.7 mg/dL (8.4-10.2); Carbon Dioxide 28 mmol/L (22-30); Chloride 104 mmol/L (98-107); Glucose 93 mg/dL (74-99); Magnesium 2.2 mg/dL (1.6-2.3); Potassium 3.5 mmol/L (3.5-5.1); Sodium 138 mmol/L (137-145); Total Bilirubin 0.3 mg/dL (0.2-1.3); Total Protein 5.9 g/dL (6.3-8.2)
[2018-01-23 01:17] LABS: Partial Thromboplastin Time 25.1 sec (22.0-30.0); Prothrombin Time 9.7 sec (9.0-12.0)
[2018-01-23 01:19] LABS: Creatine Kinase 34 U/L (30-135)
[2018-01-23 01:33] LABS: Creatine Kinase MB <0.2 ng/mL (0.0-2.4); Troponin I <0.012 ng/mL (0.000-0.034)
[2018-01-23] MEDS ORDERED: methylPREDNISolone SOD SUCCI 125 MG/2 ML VIAL IV STA (01:47)
--- NOTE | 2018-01-23 01:56 | XR ---
EXAMINATION TYPE: XR chest 1V portable DATE OF EXAM: 01/23/2018 COMPARISON: 11/07/2017 HISTORY: Difficulty breathing TECHNIQUE: Single frontal view of the chest is obtained. FINDINGS: Heart and mediastinum are normal. Lungs are clear of infiltrate. There is no pleural effu cesar. There are chest leads. IMPRESSION: Normal chest. No change.
[2018-01-23] MEDS ORDERED: SODIUM CHLORIDE 0.9% 1,000 ML IV SCH (02:00)
--- NOTE | 2018-01-23 03:20 | CT ---
EXAMINATION TYPE: CT angio chest DATE OF EXAM: 01/23/2018 2:59 AM COMPARISON: NONE HISTORY: OSMAR, elevated d-dimer, R/O PE CT DLP: 796.30 mGycm Automated exposure control for dose reduction was used. CONTRAST: CTA scan of the thorax is performed with IV Contrast, patient injected with 70 mL of Isovue 370, pulm onary embolism protocol. There are 3-D post processed images.. FINDINGS: The lungs are clear of consolidation. There is minimal subsegmental atelectasis at the lung bases. He art size is normal. There is no pericardial effusion. There is suboptimal contrast density in the pul monary arteries. I see no filling defects. There is no evidence of thoracic aortic aneurysm or dissec tion. There are mediastinal and bronchial lymph nodes that measure less than 1 cm. The bony thorax ap pears intact. IMPRESSION: NO EVIDENCE OF PULMONARY EMBOLISM. MILD SUBSEGMENTAL ATELECTASIS AT THE LUNG BASES. SUBOPTIMAL EXAM.
[2018-01-23 06:24] VITALS: BP 118/67; RESP 18; TEMP 97.9
[2018-01-23] MEDS: methylPREDNISolone SOD SUCCI 125 MG/2 ML VIAL IV SCH ×2 (06:31→11:14)
[2018-01-23] MEDS: IPRATROPIUM-ALBUTEROL 3 ML NEB INHALATION SCH ×2 (07:32→11:31)
[2018-01-23] MEDS ORDERED: AZITHROMYCIN 500 MG TAB PO SCH (09:00)
[2018-01-23] MEDS ORDERED: NICOTINE 21MG/24HR PATCH TRANSDERM SCH (09:45)
[2018-01-23] MEDS ORDERED: ALPRAZolam 0.5 MG TAB PO PRN (10:15)
[2018-01-23] MEDS ORDERED: ALBUTEROL INHALER 60 PUFF/8 GM INHALER INHALATION PRN (10:15)
[2018-01-23] MEDS ORDERED: ALBUTEROL NEBULIZED 2.5 MG/3 ML INHALATION PRN (10:15)
[2018-01-23] MEDS ORDERED: FAMOTIDINE 20 MG TAB PO SCH (10:30)
[2018-01-23] MEDS ORDERED: HEPARIN SODIUM,PORCINE 5,000 UNIT/ML 1 ML VIAL SQ SCH (10:30)
[2018-01-23] MEDS ORDERED: NICOTINE 14MG/24HR PATCH TRANSDERM SCH (10:30)
[2018-01-23 11:47] VITALS: PULSE 104
--- NOTE | 2018-01-23 12:48 | P.HPIM ---
History of Present Illness H&P Date: 01/23/18 Chief Complaint: Respiratory failure, COPD exacerbation, severe bronchitis, 42-year-old female one of Dr. Lopez patient was morbidly obese with history of chronic smoking history of COPD multiple other medical problem who presented to demurs department at [facility] on 01/23/2018 shortly after midnight complaining of worsening shortness of breath cough wheezes with productive sputum and extremely tight lung hearing herself wheezing in and out not been able to ambulate and walk become and worsening respiratory failure over the last few days. Was giving steroid IV started on bronchodilator and oxygen patient started to feel much better shortly after her presentation to the emergency department. Patient was started on azithromycin IV along with Solu-Medrol and started on bronchodilator O2 and admitted to the hospital shortly after with above problem. Review of Systems CONSTITUTIONAL: More beat obesity with significant shortness of breath EYES: negative. EARS, NOSE, MOUTH, THROAT and FACE: negative. RESPIRATORY: Shortness of breath cough wheezes.. CARDIOVASCULAR: No CP, Palpitation,PND or Orthopnea. GASTROINTESTINAL: No Abd pain, Nausea or vomiting, no Diarrhea or constipation , No GI Bleed.. GENITOURINARY: Negative for Hematuria,or UTI, no kidney stones. INTEGUMENT/BREAST: Negative. HEMATOLOGIC/LYMPHATIC: Negative for Bleed or purpura. MUSCULOSKELETAL: Negative for Myalgia or arthralgia. NEUROLOGICAL: No LOC, Sz or syncope. BEHAVIORAL/PSYCH: Negative. ENDOCRINE: Negative . Past Medical History Past Medical History: Asthma, GERD/Reflux, Hypertension, Thyroid Disorder Additional Past Medical History / Comment(s): migraine headaches, pt states she was admitted to [facility] with similar R flank/low abdominal pain and told she had kidney stones, sinus problems. History of Any Multi-Drug Resistant Organisms: None Reported Past Surgical History: Adenoidectomy, Appendectomy, Section, Cholecystectomy, Ear Surgery, Orthopedic Surgery, Tonsillectomy, Tubal Ligation , Uterine Ablation Additional Past Surgical History / Comment(s): L index finger reattatched, bilateral carpal tunnel releases, hysteroscopy with failed uterine ablation then D&C with successful uterine ablation, thyroid bx, bilateral myrinotomies/ tubes. Past Anesthesia/Blood Transfusion Reactions: Postoperative Nausea & Vomiting ( PONV) Past Psychological History: Anxiety, Depression Additional Psychological History / Comment(s): Pt resides with her significant other and 3 children ages 25, 22 and 7 yrs. Pt is independent. She is a homemaker. Smoking Status: Current every day smoker Past Alcohol Use History: None Reported Additional Past Alcohol Use History / Comment(s): Pt started smoking in 1956 and smokes 3-4 packs of cigarettes per week. Past Drug Use History: Marijuana Additional Drug Use History / Comment(s): Pt smokes 3 joints per day. Last smoked alittle yesterday. - Past Family History Father Additional Family Medical History / Comment(s): lymphoma Mother Family Medical History: Coronary Artery Disease (CAD), CVA/TIA, Diabetes Mellitus Additional Family Medical History / Comment(s): Mother at the age of 73yrs. Medications and Allergies Home Medications Medication Instructions Recorded Confirmed Type ALPRAZolam [Xanax] 2 mg PO TID PRN 11/21/15 01/23/18 History Docusate [Colace] 100 mg PO DAILY 11/21/15 01/23/18 History Lisinopril/Hydrochlorothiazide 1 tab PO DAILY 11/21/15 01/23/18 History [Lisinopril-Hctz 20-12.5 mg Tab] Loratadine [Claritin] 10 mg PO DAILY 06/11/17 01/23/18 History Ranitidine HCl 150 mg PO DAILY 06/11/17 01/23/18 History Albuterol Nebulized [Ventolin 2.5 mg INHALATION RT-QID PRN 11/06/17 01/23/18 History Nebulized] ARIPiprazole [Abilify] 10 mg PO HS 01/23/18 01/23/18 History Albuterol Inhaler [Ventolin Hfa 1 - 2 puff INHALATION RT-Q6H PRN 01/23/18 History Inhaler] Allergies Allergy/AdvReac Type Severity Reaction Status Date / Time levofloxacin [From Levaquin] Allergy Anaphylaxis Verified 01/23/18 00:38 shellfish derived [Shellfish] Allergy Anaphylaxis Verified 01/23/18 00:38 Sulfa (Sulfonamide Allergy Unknown Verified 01/23/18 00:38 Antibiotics) Childhood doxycycline AdvReac Nausea & Verified 01/23/18 00:38 Vomiting Physical Exam Vitals: Vital Signs Temp Pulse Pulse Resp BP BP Pulse Ox 01/23/18 07:44 108 H 01/23/18 07:32 104 H 01/23/18 06:00 97.9 F 103 H 18 118/67 95 01/23/18 04:22 102 H 01/23/18 03:40 98.1 F 102 H 20 118/69 95 01/23/18 03:26 98.7 F 100 18 112/66 97 01/23/18 02:31 108 H 18 110/55 94 L 01/23/18 01:53 104 H 01/23/18 01:23 97 01/23/18 01:05 87 01/23/18 00:57 22 01/23/18 00:35 98.9 F 97 22 130/83 99 Intake and Output 01/22/18 01/23/18 01/23/18 22:59 06:59 14:59 Other: # Voids 0 Weight 113.398 kg General Appearance: Morbidly obese, alert oriented moving all her 4 extremity look in mild respiratory distress. Neck HEENT supple, no lymphadenopathy, no thyroid enlargement, no carotid bruits Lungs: Decreased breath sounds bilaterally with fine rhonchi with mild crackles in the bases positive inspiratory expiratory wheezes more on the right than the left side. Chest Wall: Chest wall decrease expansion with deep inspiration no tenderness and no deformity was found on exam, no costochondral pain or discomfort. Heart: Regular rate and rhythm, S1, S2 normal, no murmur, rub or gallop Back Symmetric, no curvature, ROM normal, no CVA tenderness Abdomen: Soft, non-tender, bowel sounds active all four quadrants, no masses , no organomegaly Extremities: Extremities normal, atraumatic, no cyanosis, trace edema Pulses: >2+ and symmetric Skin: Skin color, texture, turgor normal, no rashes or lesions Neurologic: alert oriented 3 cranial nerves II through XII intact, no motor deficit, no abnormal balance or gait. Results CBC & Chem 7: 01/23/18 00:54 01/23/18 00:54 Labs: Abnormal Lab Results - Last 24 Hours (Table) 01/23/18 01/23/18 01/23/18 Range/Units 00:54 00:54 00:54 WBC 15.0 H (3.8-10.6) k/uL Neutrophils # 9.4 H (1.3-7.7) k/uL D-Dimer 0.63 H (<0.60) mg/L FEU Total Protein 5.9 L (6.3-8.2) g/dL Albumin 3.3 L (3.5-5.0) g/dL Thrombosis Risk Factor Assmnt - DVT/VTE Prophylaxis DVT/VTE Prophylaxis: Pharmacologic Prophylaxis ordered, Mechanical Prophylaxis ordered - Choose All That Apply Any of the Below Risk Factors Present?: Yes Each Factor Represents 1 point: Age 41-60 years, Obesity (BMI >25), Swollen legs (current) Thrombosis Risk Factor Assessment Total Risk Factor Score: 3 Thrombosis Risk Factor Assessment Level: Moderate Risk Assessment and Plan Plan: 1 acute respiratory failure: Combination of severe COPD with mild exacerbation along with severe bronchitis. We'll admit patient to the hospital, continue updraft, continue steroid, continue antibiotics for now. 2 COPD excessive patient: Most likely brought by severe bronchitis, patient will continue on DuoNeb along with Pulmicort continue Solu-Medrol and O2. 3 severe bronchitis: Most likely community-acquired at this point specially in a smoker patient. Patient was started on Zithromax 500 mg daily we'll continue same antibiotic for total of 7 days as an outpatient when she is ready to leave the hospital. If sputum for Gram stain and culture was done. Change the antibiotic accordingly. 4 chronic smoking: Smoking cessation was addressed, patient is agreeable to go on nicotine patch. 5 hypertension: Has been on lisinopril HCTZ 20/12.5 mg daily continue medication. 6 depression: Has been on Cymbalta along with Xanax, Xanax dose will be decreased to 0.5 mg only. 7 severe GERD/hiatal hernia: Patient has been on ranitidine 150 mg daily. 8 chronic pain syndrome: Has been on oxycodone 10 mg every 12 hours as needed. 9 DVT prophylaxis: Patient was started on heparin subcutaneous along with knee- high MARY LOU hose. 10 GI prophylaxis: Patient will be on ranitidine 150 mg daily. CODE STATUS: Full code. Admit patient to inpatient status for more than 2 nights.
--- NOTE | 2018-01-23 12:52 | P.DS ---
Providers Date of admission: 01/23/18 01:47 Attending physician: Geeta Nelson Consults: 01/23/18 10:13 Consult Physician Routine Consulting Provider: Sally Cazares Consult Reason/Comments: COPD Do you want consulting provider notified?: Yes Primary care physician: Dieudonne [facility] Course: Chief Complaint: Respiratory failure, COPD exacerbation, severe bronchitis, 42-year-old female one of Dr. Lopez patient was morbidly obese with history of chronic smoking history of COPD multiple other medical problem who presented to demurs department at [facility] on 01/23/2018 shortly after midnight complaining of worsening shortness of breath cough wheezes with productive sputum and extremely tight lung hearing herself wheezing in and out not been able to ambulate and walk become and worsening respiratory failure over the last few days. Was giving steroid IV started on bronchodilator and oxygen patient started to feel much better shortly after her presentation to the emergency department. Patient was started on azithromycin IV along with Solu-Medrol and started on bronchodilator O2 and admitted to the hospital shortly after with above problem. Patient started to feel much better after few hours be in the hospital. She decided to sign AGAINST MEDICAL ADVICE because nobody staying with her kids. Despite going AMA send her Zithromax and Medrol Dosepak to prevent patient from worsening symptoms and prevent her from coming back to the emergency room until she seen her PCP. Assessment and Plan Plan: 1 acute respiratory failure: Combination of severe COPD with mild exacerbation along with severe bronchitis. We'll admit patient to the hospital, continue updraft, continue steroid, continue antibiotics for now. 2 COPD excessive patient: Most likely brought by severe bronchitis, patient will continue on DuoNeb along with Pulmicort continue Solu-Medrol and O2. 3 severe bronchitis: Most likely community-acquired at this point specially in a smoker patient. Patient was started on Zithromax 500 mg daily we'll continue same antibiotic for total of 7 days as an outpatient when she is ready to leave the hospital. If sputum for Gram stain and culture was done. Change the antibiotic accordingly. 4 chronic smoking: Smoking cessation was addressed, patient is agreeable to go on nicotine patch. 5 hypertension: Has been on lisinopril HCTZ 20/12.5 mg daily continue medication. 6 depression: Has been on Cymbalta along with Xanax, Xanax dose will be decreased to 0.5 mg only. 7 severe GERD/hiatal hernia: Patient has been on ranitidine 150 mg daily. 8 chronic pain syndrome: Has been on oxycodone 10 mg every 12 hours as needed. 9 DVT prophylaxis: Patient was started on heparin subcutaneous along with knee- high MARY LOU hose. 10 GI prophylaxis: Patient will be on ranitidine 150 mg daily. Patient left AMA. Patient Condition at Discharge: Fair Plan - Discharge Summary New Discharge Prescriptions: New Azithromycin [Zithromax] 500 mg PO DAILY #7 tab methylPREDNISolone [Medrol Dose Pack] 4 mg PO DIRECTED #1 pack Continue Lisinopril/Hydrochlorothiazide [Lisinopril-Hctz 20-12.5 mg Tab] 1 tab PO DAILY Docusate [Colace] 100 mg PO DAILY ALPRAZolam [Xanax] 2 mg PO TID PRN PRN Reason: Anxiety Ranitidine HCl 150 mg PO DAILY Loratadine [Claritin] 10 mg PO DAILY Albuterol Nebulized [Ventolin Nebulized] 2.5 mg INHALATION RT-QID PRN PRN Reason: Shortness Of Breath ARIPiprazole [Abilify] 10 mg PO HS Albuterol Inhaler [Ventolin Hfa Inhaler] 1 - 2 puff INHALATION RT-Q6H PRN PRN Reason: Shortness Of Breath Discharge Medication List ALPRAZolam [Xanax] 2 mg PO TID PRN 11/21/15 [History] Docusate [Colace] 100 mg PO DAILY 11/21/15 [History] Lisinopril/Hydrochlorothiazide [Lisinopril-Hctz 20-12.5 mg Tab] 1 tab PO DAILY 11/21/15 [History] Loratadine [Claritin] 10 mg PO DAILY 06/11/17 [History] Ranitidine HCl 150 mg PO DAILY 06/11/17 [History] Albuterol Nebulized [Ventolin Nebulized] 2.5 mg INHALATION RT-QID PRN 11/06/17 [ History] ARIPiprazole [Abilify] 10 mg PO HS 01/23/18 [History] Albuterol Inhaler [Ventolin Hfa Inhaler] 1 - 2 puff INHALATION RT-Q6H PRN [History] Azithromycin [Zithromax] 500 mg PO DAILY #7 tab 01/23/18 [Rx] methylPREDNISolone [Medrol Dose Pack] 4 mg PO DIRECTED #1 pack 01/23/18 [Rx] Follow up Appointment(s)/Referral(s): Dieudonne Copeland DO [Primary Care Provider] - 1-2 days Patient Instructions/Handouts: Asthma (ED), Acute Bronchitis (ED) Discharge Disposition: Left Against Medical Advice
[2018-01-23] MEDS ORDERED: BUDESONIDE 0.5 MG/2 ML NEBU INHALATION SCH (20:00)
[2018-01-23] MEDS ORDERED: ARIPiprazole 10 MG TAB PO SCH (21:00)
[2018-01-24] MEDS ORDERED: DOCUSATE 100 MG CAP PO SCH (09:00)
[2018-01-24] MEDS ORDERED: LISINOPRIL-HCTZ 20-12.5 MG 1 EACH TAB PO SCH (09:00)
[2018-01-24] MEDS ORDERED: LORATADINE 10 MG TAB PO SCH (09:00)
== END 2018-01-23 12:14 | disposition left against medical advice (07) ==
LOC: EC 00:32 → 4MS4W 01:47
PROVIDERS: ADMIT Internal Medicine; ATTEND Internal Medicine
DX: J96.00 Acute respiratory failure, unspecified whether with hypoxia or hypercapnia (principal); J44.1 Chronic obstructive pulmonary disease with (acute) exacerbation; J44.0 Chronic obstructive pulmonary disease with (acute) lower respiratory infection; F17.210 Nicotine dependence, cigarettes, uncomplicated; J20.9 Acute bronchitis, unspecified; K21.9 Gastro-esophageal reflux disease without esophagitis; I10 Essential (primary) hypertension; E07.9 Disorder of thyroid, unspecified; G43.909 Migraine, unspecified, not intractable, without status migrainosus; F41.9 Anxiety disorder, unspecified; F32.9 Major depressive disorder, single episode, unspecified; F12.90 Cannabis use, unspecified, uncomplicated; K44.9 Diaphragmatic hernia without obstruction or gangrene; G89.4 Chronic pain syndrome; E66.01 Morbid (severe) obesity due to excess calories; Z68.41 Body mass index [BMI] 40.0-44.9, adult; Z79.891 Long term (current) use of opiate analgesic; Z79.899 Other long term (current) drug therapy; Z88.2 Allergy status to sulfonamides; Z88.1 Allergy status to other antibiotic agents; Z91.013 Allergy to seafood; Z87.442 Personal history of urinary calculi; Z90.49 Acquired absence of other specified parts of digestive tract; Z90.89 Acquired absence of other organs; Z80.7 Family history of other malignant neoplasms of lymphoid, hematopoietic and related tissues; Z83.3 Family history of diabetes mellitus; Z82.49 Family history of ischemic heart disease and other diseases of the circulatory system; Z82.3 Family history of stroke
CPT/HCPCS: 99285 ×2; 96374 ×2; 96375 ×2; 96361 ×5; 96376; 36415; 94640; 94644; 93005; 85379; 83880; 80053; 82550; 82553; 83735; 84484; 85025; 85610; 85730; 71045; 71275; G0378; S4990; J2060; J2930; Q9967

== ENCOUNTER 2018-10-28 23:09 | Emergency (ER) | payer OTHER ==
[2018-10-28 23:39] VITALS: TEMP 97.8
[2018-10-29] MEDS ORDERED: HYDROcodone/APAP 5-325MG 1 EACH TAB PO STA (00:09)
--- NOTE | 2018-10-29 00:37 | XR ---
EXAM: XR Right Ankle Complete, 3 or More Views CLINICAL HISTORY: ITS.REASON XR Reason: Pain TECHNIQUE: Frontal, lateral and oblique views of the right ankle. COMPARISON: Right ankle radiographs on 02/09/2015 FINDINGS: Bones/joints: No acute fracture or dislocation identified. Ankle mortise is intact. Small well-corticated ossification adjacent to the medial malleolus is likely related to remote trauma. Plantar and posterior calcaneal spurs. Degenerative changes of the midfoot. Soft tissues: Soft tissue swelling /edema over the right medial malleolus in the right lower leg. Edema in Kager's fat pad with right ankle joint effusion. IMPRESSION: No acute fracture or dislocation identified.
--- NOTE | 2018-10-29 01:33 | ED ---
Lower Extremity Injury HPI - General Chief Complaint: Extremity Injury, Lower Stated Complaint: Ankle Pain/Injury Time Seen by Provider: 10/28/18 23:40 Source: patient Mode of arrival: wheelchair Limitations: physical limitation - History of Present Illness Initial Comments: The patient presents with complaint of right ankle pain. She denies any trauma. States the pain began earlier today and progress over the day. Admits that she has been able to walk however it is painful. The pain is located on the medial aspect of her right ankle. There is an area of redness appreciated in this region. She has not taken any medications at home for her symptoms. Denies any numbness or tingling in her foot. Admits to painful range of motion at the ankl e. Denies any pain in her toes or knee. No calf pain or swelling. No history of DVT or PE. No chest pain, shortness of breath. No reported fevers or chills. She did go to [facility] for evaluation. She was told it was cellulitis however she wanted a second opinion and so came to our emergency department for evaluation. - Related Data Home Medications Medication Instructions Recorded Confirmed ALPRAZolam [Xanax] 2 mg PO TID PRN 11/21/15 01/23/18 Docusate [Colace] 100 mg PO DAILY 11/21/15 01/23/18 Lisinopril/Hydrochlorothiazide 1 tab PO DAILY 11/21/15 01/23/18 [Lisinopril-Hctz 20-12.5 mg Tab] Loratadine [Claritin] 10 mg PO DAILY 06/11/17 01/23/18 Ranitidine HCl 150 mg PO DAILY 06/11/17 01/23/18 Albuterol Nebulized [Ventolin 2.5 mg INHALATION RT-QID PRN 11/06/17 01/23/18 Nebulized] ARIPiprazole [Abilify] 10 mg PO HS 01/23/18 01/23/18 Albuterol Inhaler [Ventolin Hfa 1 - 2 puff INHALATION RT-Q6H PRN 01/23/18 01/23/18 Inhaler] Previous Rx's Medication Instructions Recorded Azithromycin [Zithromax] 500 mg PO DAILY #7 tab 01/23/18 methylPREDNISolone [Medrol Dose 4 mg PO DIRECTED #1 pack 01/23/18 Pack] Cephalexin [Keflex] 500 mg PO QID 7 Days #28 cap 10/29/18 Allergies Allergy/AdvReac Type Severity Reaction Status Date / Time levofloxacin [From Levaquin] Allergy Anaphylaxis Verified 10/28/18 23:39 shellfish derived [Shellfish] Allergy Anaphylaxis Verified 10/28/18 23:39 Sulfa (Sulfonamide Allergy Unknown Verified 10/28/18 23:39 Antibiotics) Childhood doxycycline AdvReac Nausea & Verified 10/28/18 23:39 Vomiting Review of Systems ROS Statement: Those systems with pertinent positive or pertinent negative responses have been documented in the HPI. ROS Other: All systems not noted in ROS Statement are negative. Past Medical History Past Medical History: Asthma, GERD/Reflux, Hypertension, Thyroid Disorder Additional Past Medical History / Comment(s): migraine headaches, pt states she was admitted to [facility] with similar R flank/low abdominal pain and told she had kidney stones, sinus problems., History of Any Multi-Drug Resistant Organisms: None Reported Past Surgical History: Adenoidectomy, Appendectomy, Section, Cholecystectomy, Ear Surgery, Orthopedic Surgery, Tonsillectomy, Tubal Ligation, Uterine Ablation Additional Past Surgical History / Comment(s): L index finger reattatched, bilateral carpal tunnel releases, hysteroscopy with failed uterine ablation then D&C with successful uterine ablation, thyroid bx, bilateral myrinotomies/tubes. Past Anesthesia/Blood Transfusion Reactions: Postoperative Nausea & Vomiting (PONV) Past Psychological History: Anxiety, Depression Smoking Status: Current every day smoker Past Alcohol Use History: None Reported Past Drug Use History: Marijuana - Past Family History Father Additional Family Medical History / Comment(s): lymphoma Mother Family Medical History: Coronary Artery Disease (CAD), CVA/TIA, Diabetes Mellitus Additional Family Medical History / Comment(s): Mother at the age of 73yrs. General Exam Limitations: physical limitation Extremities exam: Present: other (The patient has no calf pain or swelling. Negative Homans sign. Intact Achilles and patellar reflexes. Intact 2 point discrimination and soft touch over the medial, lateral dorsal aspect of the foot. 2 postersand posterior tibial pulses. The patient does have an area of redness over the right medial malleolus. Tenderness to palpation in this area. There is minimal soft tissue swelling. She does demonstrate 5 out of 5 muscle strength in her bilateral lower extremity strength include her hip flexors, knee extensors, ankle and great toe dorsiflexors and foot plantar flexors.) Course Vital Signs 10/28/18 10/29/18 23:36 01:36 Temperature 97.8 F Pulse Rate 87 88 Respiratory 18 16 Rate Blood Pressure 97/66 109/68 O2 Sat by Pulse 97 Oximetry Medical Decision Making - Medical Decision Making The patient's seen in room 17. I did ultrasound the area and there is no identifiable fluid collection for drainage. I did recommend an x-ray of the patient's right lower extremity. She is given a [place] 5/325 mg for pain. Upon return of the results I did discuss them with the patient. The patient was placed in an Manish bandage. She is given a prescription for Keflex 500 mg to be taken 4 times a day for cellulitis. There were no concerning signs of septic joint. She is going to follow up with her primary care physician in the morning. If she has any new or worsening symptoms she should return to the emergency room. Patient was in agreement treatment plan and discharged home ambulatory in stable condition - Differential Diagnosis Ankle sprain, cellulitis - Radiology Data Right ankle x-ray demonstrates no acute fracture. There is mild soft tissue swelling noted over the medial malleolus. No subcutaneous emphysema Disposition Clinical Impression: Cellulitis Disposition: HOME SELF-CARE Condition: Good Instructions (If sedation given, give patient instructions): Cellulitis (ED) Prescriptions: Cephalexin [Keflex] 500 mg PO QID 7 Days #28 cap Is patient prescribed a controlled substance at d/c from ED?: No Referrals: Dieudonne Copeland DO [Primary Care Provider] - 1-2 days Time of Disposition: 01:39
[2018-10-29 01:37] VITALS: BP 109/68; PULSE 88; RESP 16
== END 2018-10-29 01:54 | disposition home or self-care (01) ==
LOC: EC 23:09
DX: L03.115 Cellulitis of right lower limb (principal); J45.909 Unspecified asthma, uncomplicated; K21.9 Gastro-esophageal reflux disease without esophagitis; I10 Essential (primary) hypertension; F17.200 Nicotine dependence, unspecified, uncomplicated; Z79.899 Other long term (current) drug therapy; Z88.1 Allergy status to other antibiotic agents; Z91.013 Allergy to seafood; Z88.2 Allergy status to sulfonamides
CPT/HCPCS: 99283

== ENCOUNTER → 2018-11-18 | Outpatient (CLI) | payer OTHER ==
[2018-11-18 19:24] LABS: Uric Acid 24 Hour,Urine 1.13 g/24Hr (0.25-0.75)
== END | disposition home or self-care (01) ==
LOC: LABWHC1 11:19
PROVIDERS: ATTEND Family Medicine
DX: M10.9 Gout, unspecified (principal)
CPT/HCPCS: 81050; 84560

== ENCOUNTER 2019-02-24 17:03 | Inpatient (IN) | payer OTHER ==
[2019-02-24] MEDS ORDERED: SODIUM CHLORIDE 0.9% 1,000 ML IV STA (19:05)
[2019-02-24] MEDS ORDERED: ONDANSETRON 4 MG/2 ML VIAL IVP STA (19:05)
[2019-02-24] MEDS ORDERED: KETOROLAC 30 MG/ML 1 ML VIAL IVP STA (19:05)
[2019-02-24] MEDS ORDERED: FAMOTIDINE 20 MG/2 ML VIAL IV STA (19:08)
[2019-02-24] MEDS ORDERED: MORPHINE SULFATE 4 MG/ML SYRINGE IVP STA (19:08)
--- NOTE | 2019-02-24 19:09 | ED ---
General Adult HPI - General Source: patient, RN notes reviewed Mode of arrival: ambulatory Limitations: no limitations <Jonah Bangura P - Last Filed: 02/24/19 22:03> <Sheila Paiz P - Last Filed: 02/27/19 13:33> - General Chief complaint: Nausea/Vomiting/Diarrhea Stated complaint: N/V/D Time Seen by Provider: 02/24/19 18:52 - History of Present Illness Initial comments: Stacy is a 43-year-old female with a past medical history of asthma, GERD, hypertension who presents to the emergency department for a chief complaint of diarrhea. Patient states she has had diarrhea about 10 times per day for about 5 days. Patient states she has had intermittent right lower quadrant abdominal pain as well. Denies any alleviating or aggravating factors. Does admit to nausea but denies vomiting. Admits that she has some body aches. Denies any recent camping or recent travel. 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 Denies any blood in the stool.Patient has no other complaints at this time including shortness of breath, chest pain, abdominal pain, nausea or vomiting, headache, or visual changes. (Jonah Bangura) - Related Data Home Medications Medication Instructions Recorded Confirmed Docusate [Colace] 100 mg PO DAILY 11/21/15 02/24/19 Lisinopril/Hydrochlorothiazide 1 tab PO DAILY 11/21/15 02/24/19 [Lisinopril-Hctz 20-12.5 mg Tab] Albuterol Nebulized [Ventolin 2.5 mg INHALATION RT-QID PRN 11/06/17 02/24/19 Nebulized] Albuterol Inhaler [Ventolin Hfa 1 - 2 puff INHALATION RT-Q6H PRN 01/23/18 02/24/19 Inhaler] Allopurinol [Zyloprim] 100 mg PO DAILY 02/24/19 02/24/19 Citalopram Hydrobromide [CeleXA] 20 mg PO DAILY 02/24/19 02/24/19 DULoxetine HCL [Cymbalta] 60 mg PO DAILY 02/24/19 02/24/19 Ibuprofen [Motrin] 800 mg PO TID PRN 02/24/19 02/24/19 Previous Rx's Medication Instructions Recorded Loperamide [Imodium] 2 mg PO QID PRN cap 02/27/19 metroNIDAZOLE [Flagyl] 500 mg PO TID #21 tab 02/27/19 Allergies Allergy/AdvReac Type Severity Reaction Status Date / Time levofloxacin [From Levaquin] Allergy Anaphylaxis Verified 02/24/19 23:49 shellfish derived [Shellfish] Allergy Anaphylaxis Verified 02/24/19 23:49 Sulfa (Sulfonamide Allergy Unknown Verified 02/24/19 23:49 Antibiotics) Childhood doxycycline AdvReac Nausea & Verified 02/24/19 23:49 Vomiting Review of Systems ROS Other: All systems not noted in ROS Statement are negative. <Jonah Bangura P - Last Filed: 02/24/19 22:03> ROS Other: All systems not noted in ROS Statement are negative. <Sheila Paiz P - Last Filed: 02/27/19 13:33> ROS Statement: Those systems with pertinent positive or pertinent negative responses have been documented in the HPI. Past Medical History Past Medical History: Asthma, GERD/Reflux, Hypertension, Thyroid Disorder Additional Past Medical History / Comment(s): migraine headaches, pt states she was admitted to [facility] with similar R flank/low abdominal pain and told she had kidney stones, sinus problems., History of Any Multi-Drug Resistant Organisms: None Reported Past Surgical History: Adenoidectomy, Appendectomy, Section, Cholecystectomy, Ear Surgery, Orthopedic Surgery, Tonsillectomy, Tubal Ligation, Uterine Ablation Additional Past Surgical History / Comment(s): L index finger reattatched, bilateral carpal tunnel releases, hysteroscopy with failed uterine ablation then D&C with successful uterine ablation, thyroid bx, bilateral myrinotomies/tubes. Past Anesthesia/Blood Transfusion Reactions: Postoperative Nausea & Vomiting (PONV) Past Psychological History: Anxiety, Depression Smoking Status: Current every day smoker Past Alcohol Use History: None Reported Past Drug Use History: Marijuana - Past Family History Father Additional Family Medical History / Comment(s): lymphoma Mother Family Medical History: Coronary Artery Disease (CAD), CVA/TIA, Diabetes Mellitus Additional Family Medical History / Comment(s): Mother at the age of 73yrs. <Jonah Bangura P - Last Filed: 02/24/19 22:03> - Past Family History Sister(s) Family Medical History: No Reported History (Patient has 2 sisters no major medical problems.) Additional Family Medical History / Comment(s): Patient is living with her fianc has 8 kids 2 are not hers. <Sheila Paiz P - Last Filed: 02/27/19 13:33> General Exam Limitations: no limitations General appearance: alert, in no apparent distress Head exam: Present: atraumatic, normocephalic, normal inspection Eye exam: Present: normal appearance, PERRL, EOMI. Absent: scleral icterus, conjunctival injection, periorbital swelling ENT exam: Present: normal exam, mucous membranes moist Neck exam: Present: normal inspection, full ROM. Absent: tenderness, meningismus, lymphadenopathy Respiratory exam: Present: normal lung sounds bilaterally. Absent: respiratory distress, wheezes, rales, rhonchi, stridor Cardiovascular Exam: Present: regular rate, normal rhythm, normal heart sounds. Absent: systolic murmur, diastolic murmur, rubs, gallop, clicks GI/Abdominal exam: Present: soft, tenderness (Mild epigastric tenderness as well as right lower quadrant tenderness), normal bowel sounds. Absent: distended, guarding, rebound, rigid Neurological exam: Present: alert, oriented X3, CN II-XII intact Psychiatric exam: Present: normal affect, normal mood <Jonah Bangura P - Last Filed: 02/24/19 22:03> Course Vital Signs 02/24/19 02/24/19 02/24/19 17:27 19:34 21:54 Temperature 98.9 F 101.1 F H 98.8 F Pulse Rate 96 92 96 Respiratory 18 18 18 Rate Blood Pressure 138/85 124/82 133/86 O2 Sat by Pulse 95 94 L 94 L Oximetry Medical Decision Making - Lab Data Result diagrams: 02/24/19 19:33 02/24/19 19:33 <Jonah Bangura P - Last Filed: 02/24/19 22:03> - Lab Data Result diagrams: 02/24/19 19:33 02/24/19 19:33 <Sheila Paiz P - Last Filed: 02/27/19 13:33> - Medical Decision Making Stacy is a 43-year-old female with a past medical history of asthma GERD and hypertension who presents for a chief complaint of diarrhea. States she has had diarrhea about 10 times per day for 5 days. Patient states she is also having diffuse abdominal pain worsen the right lower quadrant and epigastric area. Denies alleviating or aggravating factors. Does admit to nausea but denies vomiting. Denies any recent travel, denies camping denies correction visits. Denies hematochezia or melena. Admits to body aches and chills but denies fevers. However patient did develop a fever while in the emergency department. Patient given Tylenol. Exam shows mild generalized tenderness worse in the right lower quadrant epigastric areas without guarding or rebound. She has a history of appendectomy and cholecystectomy. CBC shows a white count of 11. CMP is unremarkable. Lactic acid within normal limits. Urine shows 27 red blood cells however no evidence of infection. CT abdomen and pelvis shows mild pancreatic nonspecific findings suggest subtle edematous reticular pattern in the anterior pararenal space. Amylase and lipase are WNL. C. diff pending. Gi timbo patient's symptoms with fever and diarrhea she'll be admitted for IV antibiotics. Dr. Paiz spoke with Dr. Nelson about this. (Jonah Bangura) I personally saw and evaluated the patient. I discussed patient care with Dr. Diamond her who suspects that the patient's fever and GI symptoms are secondary to a viral illness he recommends we not administer any antibiotics. He does accept the patient to observation for IV fluid resuscitation and reevaluation. (Sheila Alba) - Lab Data Lab Results 02/24/19 02/24/19 02/24/19 Range/Units 19:33 19:33 19:33 WBC 11.4 H (3.8-10.6) k/uL RBC 5.41 H (3.80-5.40) m/uL Hgb 14.8 (11.4-16.0) gm/dL Hct 45.9 (34.0-46.0) % MCV 84.8 (80.0-100.0) fL MCH 27.3 (25.0-35.0) pg MCHC 32.2 (31.0-37.0) g/dL RDW 15.1 (11.5-15.5) % Plt Count 319 (150-450) k/uL Neutrophils % 79 % Lymphocytes % 12 % Monocytes % 5 % Eosinophils % 2 % Basophils % 1 % Neutrophils # 9.0 H (1.3-7.7) k/uL Lymphocytes # 1.4 (1.0-4.8) k/uL Monocytes # 0.6 (0-1.0) k/uL Eosinophils # 0.2 (0-0.7) k/uL Basophils # 0.1 (0-0.2) k/uL Sodium 138 (137-145) mmol/L Potassium 3.6 (3.5-5.1) mmol/L Chloride 103 (98-107) mmol/L Carbon Dioxide 27 (22-30) mmol/L Anion Gap 8 mmol/L BUN 9 (7-17) mg/dL Creatinine 0.82 (0.52-1.04) mg/dL Est GFR (CKD-EPI)AfAm >90 (>60 ml/min/1.73 sqM) Est GFR (CKD-EPI)NonAf 87 (>60 ml/min/1.73 sqM) Glucose 122 H (74-99) mg/dL Plasma Lactic Acid Timbo (0.7-2.0) mmol/L Calcium 8.8 (8.4-10.2) mg/dL Total Bilirubin 0.5 (0.2-1.3) mg/dL AST 15 (14-36) U/L ALT 6 L (9-52) U/L Alkaline Phosphatase 86 (38-126) U/L Total Protein 6.7 (6.3-8.2) g/dL Albumin 3.7 (3.5-5.0) g/dL Amylase 40 (30-110) U/L Lipase 46 (23-300) U/L Urine Color Urine Appearance (Clear) Urine pH (5.0-8.0) Ur Specific [place] (1.001-1.035) Urine Protein (Negative) Urine Glucose (UA) (Negative) Urine Ketones (Negative) Urine Blood (Negative) Urine Nitrite (Negative) Urine Bilirubin (Negative) Urine Urobilinogen (<2.0) mg/dL Ur Leukocyte Esterase (Negative) Urine RBC (0-5) /hpf Urine WBC (0-5) /hpf Ur Squamous Epith Cells (0-4) /hpf Amorphous Sediment (None) /hpf Urine Bacteria (None) /hpf Urine Mucus (None) /hpf Urine HCG, Qual Not Detected (Not Detectd) Stool Lactoferrin (NEGATIVE) C. difficile (EIA) Intrp (Negative) 02/24/19 02/24/19 02/25/19 Range/Units 19:33 21:20 11:54 WBC (3.8-10.6) k/uL RBC (3.80-5.40) m/uL Hgb (11.4-16.0) gm/dL Hct (34.0-46.0) % MCV (80.0-100.0) fL MCH (25.0-35.0) pg MCHC (31.0-37.0) g/dL RDW (11.5-15.5) % Plt Count (150-450) k/uL Neutrophils % % Lymphocytes % % Monocytes % % Eosinophils % % Basophils % % Neutrophils # (1.3-7.7) k/uL Lymphocytes # (1.0-4.8) k/uL Monocytes # (0-1.0) k/uL Eosinophils # (0-0.7) k/uL Basophils # (0-0.2) k/uL Sodium (137-145) mmol/L Potassium (3.5-5.1) mmol/L Chloride (98-107) mmol/L Carbon Dioxide (22-30) mmol/L Anion Gap mmol/L BUN (7-17) mg/dL Creatinine (0.52-1.04) mg/dL Est GFR (CKD-EPI)AfAm (>60 ml/min/1.73 sqM) Est GFR (CKD-EPI)NonAf (>60 ml/min/1.73 sqM) Glucose (74-99) mg/dL Plasma Lactic Acid Timbo 0.7 (0.7-2.0) mmol/L Calcium (8.4-10.2) mg/dL Total Bilirubin (0.2-1.3) mg/dL AST (14-36) U/L ALT (9-52) U/L Alkaline Phosphatase (38-126) U/L Total Protein (6.3-8.2) g/dL Albumin (3.5-5.0) g/dL Amylase (30-110) U/L Lipase (23-300) U/L Urine Color Yellow Urine Appearance Cloudy H (Clear) Urine pH 6.5 (5.0-8.0) Ur Specific [place] 1.025 (1.001-1.035) Urine Protein 1+ H (Negative) Urine Glucose (UA) Negative (Negative) Urine Ketones Negative (Negative) Urine Blood Moderate H (Negative) Urine Nitrite Negative (Negative) Urine Bilirubin Negative (Negative) Urine Urobilinogen 6.0 (<2.0) mg/dL Ur Leukocyte Esterase Negative (Negative) Urine RBC 27 H (0-5) /hpf Urine WBC 5 (0-5) /hpf Ur Squamous Epith Cells 36 H (0-4) /hpf Amorphous Sediment Occasional H (None) /hpf Urine Bacteria Rare H (None) /hpf Urine Mucus Rare H (None) /hpf Urine HCG, Qual (Not Detectd) Stool Lactoferrin POSITIVE H (NEGATIVE) C. difficile (EIA) Intrp (Negative) 02/25/19 Range/Units 13:15 WBC (3.8-10.6) k/uL RBC (3.80-5.40) m/uL Hgb (11.4-16.0) gm/dL Hct (34.0-46.0) % MCV (80.0-100.0) fL MCH (25.0-35.0) pg MCHC (31.0-37.0) g/dL RDW (11.5-15.5) % Plt Count (150-450) k/uL Neutrophils % % Lymphocytes % % Monocytes % % Eosinophils % % Basophils % % Neutrophils # (1.3-7.7) k/uL Lymphocytes # (1.0-4.8) k/uL Monocytes # (0-1.0) k/uL Eosinophils # (0-0.7) k/uL Basophils # (0-0.2) k/uL Sodium (137-145) mmol/L Potassium (3.5-5.1) mmol/L Chloride (98-107) mmol/L Carbon Dioxide (22-30) mmol/L Anion Gap mmol/L BUN (7-17) mg/dL Creatinine (0.52-1.04) mg/dL Est GFR (CKD-EPI)AfAm (>60 ml/min/1.73 sqM) Est GFR (CKD-EPI)NonAf (>60 ml/min/1.73 sqM) Glucose (74-99) mg/dL Plasma Lactic Acid Timbo (0.7-2.0) mmol/L Calcium (8.4-10.2) mg/dL Total Bilirubin (0.2-1.3) mg/dL AST (14-36) U/L ALT (9-52) U/L Alkaline Phosphatase (38-126) U/L Total Protein (6.3-8.2) g/dL Albumin (3.5-5.0) g/dL Amylase (30-110) U/L Lipase (23-300) U/L Urine Color Urine Appearance (Clear) Urine pH (5.0-8.0) Ur Specific [place] (1.001-1.035) Urine Protein (Negative) Urine Glucose (UA) (Negative) Urine Ketones (Negative) Urine Blood (Negative) Urine Nitrite (Negative) Urine Bilirubin (Negative) Urine Urobilinogen (<2.0) mg/dL Ur Leukocyte Esterase (Negative) Urine RBC (0-5) /hpf Urine WBC (0-5) /hpf Ur Squamous Epith Cells (0-4) /hpf Amorphous Sediment (None) /hpf Urine Bacteria (None) /hpf Urine Mucus (None) /hpf Urine HCG, Qual (Not Detectd) Stool Lactoferrin (NEGATIVE) C. difficile (EIA) Intrp Negative (Negative) Disposition Is patient prescribed a controlled substance at d/c from ED?: No Time of Disposition: 22:04 <Jonah Bangura P - Last Filed: 02/24/19 22:03> <Sheila Paiz P - Last Filed: 02/27/19 13:33> Clinical Impression: Fever, Infectious diarrhea, Abdominal pain Disposition: ADMITTED IP TO THIS HOSP Condition: Good
[2019-02-24 19:41] LABS: Basophils # (A) 0.1 k/uL (0-0.2); Basophils % (A) 1 %; Eosinophils # (A) 0.2 k/uL (0-0.7); Eosinophils % (A) 2 %; HCT 45.9 % (34.0-46.0); HGB 14.8 gm/dL (11.4-16.0); Lymphocytes # (A) 1.4 k/uL (1.0-4.8); Lymphocytes % (A) 12 %; MCH 27.3 pg (25.0-35.0); MCHC 32.2 g/dL (31.0-37.0); MCV 84.8 fL (80.0-100.0); Mean Platelet Volume 7.5; Monocytes # (A) 0.6 k/uL (0-1.0); Monocytes % (A) 5 %; Neutrophils % (A) 79 %; Platelet Count 319 k/uL (150-450); RBC 5.41 m/uL (3.80-5.40); RDW 15.1 % (11.5-15.5); WBC 11.4 k/uL (3.8-10.6)
[2019-02-24] MEDS ORDERED: ACETAMINOPHEN TAB 500 MG TAB PO STA (19:42)
[2019-02-24 19:50] LABS: ALT 6 U/L (9-52); AST 15 U/L (14-36); African American GFR (CKD) >90 (>60 ml/min/1.73 sqM); Albumin 3.7 g/dL (3.5-5.0); Alkaline Phosphatase 86 U/L (38-126); Amylase 40 U/L (30-110); Anion Gap 8 mmol/L; Blood Urea Nitrogen 9 mg/dL (7-17); Calcium 8.8 mg/dL (8.4-10.2); Carbon Dioxide 27 mmol/L (22-30); Chloride 103 mmol/L (98-107); Glucose 122 mg/dL (74-99); Potassium 3.6 mmol/L (3.5-5.1); Sodium 138 mmol/L (137-145); Total Bilirubin 0.5 mg/dL (0.2-1.3); Total Protein 6.7 g/dL (6.3-8.2)
[2019-02-24 19:51] LABS: Amorphous Sediment,Urine Occasional /hpf; Appearance,Urine Cloudy (Clear); Bacteria,Urine Rare /hpf; Bilirubin,Urine Negative (Negative); Blood,Urine Moderate (Negative); Color,Urine Yellow; Glucose,Urine (UA) Negative (Negative); Ketones,Urine Negative (Negative); Leukocyte Esterase,Urine Negative (Negative); Mucus,Urine Rare /hpf; Nitrite,Urine Negative (Negative); PH, Urine 6.5 (5.0-8.0); Protein,Urine 1+ (Negative); RBC,Urine 27 /hpf (0-5); Specific Gravity,Urine 1.025 (1.001-1.035); Squamous Epithelial Cell,Urine 36 /hpf (0-4); WBC,Urine 5 /hpf (0-5)
--- NOTE | 2019-02-24 20:28 | XR ---
EXAMINATION: XR chest 2V DATE AND TIME: 02/24/2019 7:55 PM CLINICAL INDICATION: PHH; Pain TECHNIQUE: Departmental protocol COMPARISON: 01/23/2018 FINDINGS: The lungs are clear. The pleural spaces are negative. The cardiac silhouette is not enlarged. The remainder of the mediastinal silhouette is unremarkable. The skeletal structures and soft tissues are negative for acute findings. IMPRESSION: NO ACUTE PROCESS.
--- NOTE | 2019-02-24 21:13 | CT ---
EXAMINATION TYPE: CT abdomen pelvis w con DATE OF EXAM: 02/24/2019 COMPARISON: 11/06/2017 HISTORY: abdominal pain, fever, N/V/D. hx of stones. CT DLP: 2567.4 mGycm Automated exposure control for dose reduction was used. TECHNIQUE: Helical acquisition of images was performed from the lung bases through the pelvis. CONTRAST: Performed without Oral Contrast and with IV Contrast, patient injected with 100 mL of Isovue 300. FINDINGS: LUNG BASES: No acute findings. LIVER/GB: No significant abnormality is appreciated. PANCREAS: There is a subtle finding in the peripancreatic anterior pararenal space, related to the un cinate process, but there is a subtle edematous reticulation pattern. This nonspecific subtle finding can correlate with a clinical diagnosis of acute pancreatitis. The pancreatic parenchymal contrast e nhancement pattern is normal. SPLEEN: No significant abnormality is seen. ADRENALS: Left adrenal nodule redemonstrated, similar in appearance. Negative for adrenal. KIDNEYS: No significant abnormality is seen. FREE AIR: No free air is visualized. RETROPERITONEAL ADENOPATHY: None visualized REPRODUCTIVE ORGANS: No significant abnormality is seen URINARY BLADDER: No significant abnormality is seen. PELVIC ADENOPATHY: None visualized. OSSEOUS STRUCTURES: No significant abnormality is seen. BOWEL: No significant abnormality is seen. OTHER: No acute vascular findings. IMPRESSION: MILD PANCREATIC NONSPECIFIC FINDINGS, DISCUSSED.
[2019-02-24] MEDS ORDERED: metroNIDAZOLE-NS PMX 500 MG in SALINE 1 100ML.BAG IVPB SCH (22:00)
[2019-02-24] MEDS ORDERED: metroNIDAZOLE-NS PMX 500 MG in SALINE 1 100ML.BAG IVPB ONE (22:00)
[2019-02-24] MEDS ORDERED: NALOXONE 0.4 MG/ML 1 ML VIAL IV PRN (22:05)
[2019-02-24] MEDS: SODIUM CHLORIDE 0.9% 1,000 ML IV SCH (22:51)
[2019-02-25] MEDS: SODIUM CHLORIDE 0.9% 1,000 ML IV SCH ×3 (06:06→20:40)
[2019-02-25] MEDS: MORPHINE SULFATE 2 MG/ML SYRINGE IV PRN (08:06)
[2019-02-25] MEDS ORDERED: ALBUTEROL NEBULIZED 2.5 MG/3 ML INHALATION PRN (11:04)
[2019-02-25] MEDS ORDERED: IBUPROFEN 800 MG TAB PO PRN (11:04)
[2019-02-25] MEDS ORDERED: ONDANSETRON 4 MG/2 ML VIAL IVP PRN (11:04)
[2019-02-25] MEDS: DULoxetine HCL 60 MG CAPSULE.DR PO SCH (12:11)
[2019-02-25] MEDS: CITALOPRAM HYDROBROMIDE 20 MG TAB PO SCH (12:11)
[2019-02-25] MEDS: ALLOPURINOL 100 MG TAB PO SCH (12:56)
[2019-02-25] MEDS: LISINOPRIL-HCTZ 20-12.5 MG 1 EACH TAB PO SCH (12:56)
[2019-02-25] MEDS: metroNIDAZOLE-NS PMX 500 MG in SALINE 1 100ML.BAG IVPB SCH ×2 (12:57→20:40)
--- NOTE | 2019-02-25 13:06 | P.HPIM ---
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 Copeland with a previous medical history significant for hypertension and hypertensive cardiovascular disease, gout, obesity, aspirin, GERD, depression, osteoarthritis, patient presented to the emergency department at [facility] after on and off abdominal pain/cramping associated with increased diarrhea over the last week him a patient was supposed to see Dr. Copeland next month however he started to have increase abdominal cramps about a week ago associated with increased diarrhea the patient initially was in the right side subsequently was diffuse all over she was nauseated without any vomiting she did complain of fever and chills she denies any recent travel she denies any recent sick contacts and no recent antibiotic use, patient was evaluated in the ER she was started on IV fluid and she underwent computed tomography scan of the abdomen that showed pancreatic edema without evidence of any acute abnormalities, patient was admitted to the hospital for possible infectious diarrhea and she was started on IV antibiotic in the form of metronidazole 500 mg IV piggyback every 8 hours stools will be send for Clostridium difficile toxins a and B along with culture and sensitivity, WBC in the stool, Gram stain and culture as well. Review of Systems Constitutional: Reports weight gain, Denies anorexia, Denies chronic headaches, Denies chronic pain, Denies fever, Denies lethargy, Denies malaise, Denies weakness, Denies weight loss Eyes: denies blurred vision, denies bulging eye, denies decreased vision Ears: deny: decreased hearing Ears, nose, mouth and throat: Denies dysphagia, Denies neck lump, Denies swelling in throat, Denies sore throat Cardiovascular: Reports decreased exercise tolerance, Reports dyspnea on exertion, Denies chest pain, Denies lightheadedness, Denies rapid heart beat, Denies shortness of breath, Denies syncope Respiratory: Reports snoring, Denies congestion, Denies cough with sputum, Denies home oxygen, Denies sleep apnea, Denies wheezing Gastrointestinal: Reports abdominal pain, Reports bloating, Reports change in bowel habits, Reports diarrhea, Reports excessive gas, Reports nausea, Denies dyspepsia, Denies heartburn, Denies hematemesis, Denies hematochezia, Denies indigestion, Denies jaundice, Denies lactose intolerance, Denies loss of appetite, Denies melena, Denies vomiting Genitourinary: Denies dysuria, Denies hematuria Musculoskeletal: Denies myalgias Musculoskeletal: absent: ankle pain, ankle stiffness, ankle swelling, elbow pain, elbow stiffness, elbow swelling, foot pain, foot stiffness, foot swelling, hand pain, hand stiffness, hand swelling, hip pain, hip stiffness, hip swelling, knee pain, knee stiffness, knee swelling, shoulder pain, shoulder stiffness, shoulder swelling, wrist pain, wrist stiffness, wrist swelling Integumentary: Denies pruritus, Denies rash Neurological: Denies numbness, Denies weakness Psychiatric: Reports anxiety, Reports depression, Denies paranoia, Denies sadness/tearfulness, Denies sleep disturbances, Denies suicidal ideation Endocrine: Denies fatigue, Denies weight change Past Medical History Past Medical History: Asthma, GERD/Reflux, Hypertension, Thyroid Disorder Additional Past Medical History / Comment(s): migraine headaches, pt states she was admitted to [facility] with similar R flank/low abdominal pain and told she had kidney stones, sinus problems., History of Any Multi-Drug Resistant Organisms: None Reported Past Surgical History: Adenoidectomy, Appendectomy, Section, Cholecystectomy, Ear Surgery, Orthopedic Surgery, Tonsillectomy, Tubal Ligation, Uterine Ablation Additional Past Surgical History / Comment(s): L index finger reattatched, bi lateral carpal tunnel releases, hysteroscopy with failed uterine ablation then D&C with successful uterine ablation, thyroid bx, bilateral myrinotomies/tubes. Past Anesthesia/Blood Transfusion Reactions: Postoperative Nausea & Vomiting (PONV) Past Psychological History: Anxiety, Depression Smoking Status: Current every day smoker (Patient currently smokes about half a pack every day she used to smoke 2 pack every day for 32 years.) Past Alcohol Use History: None Reported Past Drug Use History: Marijuana - Past Family History Father Family Medical History: Cancer (Father at age of 60 from T-cell lymphoma.) Additional Family Medical History / Comment(s): lymphoma Mother Family Medical History: Coronary Artery Disease (CAD) (Mother at age 73 from CAD also has history of diabetes and CVA.), CVA/TIA, Diabetes Mellitus Additional Family Medical History / Comment(s): Mother at the age of 73yrs. Sister(s) Family Medical History: No Reported History (Patient has 2 sisters no major medical problems.) Additional Family Medical History / Comment(s): Patient is living with her fianc has 8 kids 2 are not hers. Medications and Allergies Home Medications Medication Instructions Recorded Confirmed Type Docusate [Colace] 100 mg PO DAILY 11/21/15 02/24/19 History Lisinopril/Hydrochlorothiazide 1 tab PO DAILY 11/21/15 02/24/19 History [Lisinopril-Hctz 20-12.5 mg Tab] Albuterol Nebulized [Ventolin 2.5 mg INHALATION RT-QID PRN 11/06/17 02/24/19 History Nebulized] Albuterol Inhaler [Ventolin Hfa 1 - 2 puff INHALATION RT-Q6H PRN 01/23/18 02/24/19 History Inhaler] Allopurinol [Zyloprim] 100 mg PO DAILY 02/24/19 02/24/19 History Citalopram Hydrobromide [CeleXA] 20 mg PO DAILY 02/24/19 02/24/19 History DULoxetine HCL [Cymbalta] 60 mg PO DAILY 02/24/19 02/24/19 History Ibuprofen [Motrin] 800 mg PO TID PRN 02/24/19 02/24/19 History Allergies Allergy/AdvReac Type Severity Reaction Status Date / Time levofloxacin [From Levaquin] Allergy Anaphylaxis Verified 02/24/19 23:49 shellfish derived [Shellfish] Allergy Anaphylaxis Verified 02/24/19 23:49 Sulfa (Sulfonamide Allergy Unknown Verified 02/24/19 23:49 Antibiotics) Childhood doxycycline AdvReac Nausea & Verified 02/24/19 23:49 Vomiting Physical Exam Vitals: Vital Signs Temp Pulse Pulse Resp BP BP Pulse Ox 02/25/19 07:55 98.7 F 94 16 146/90 93 L 02/24/19 23:18 98.0 F 68 15 147/72 96 02/24/19 23:12 98.3 F 68 18 125/75 95 02/24/19 21:54 98.8 F 96 18 133/86 94 L 02/24/19 19:34 101.1 F H 92 18 124/82 94 L 02/24/19 17:27 98.9 F 96 18 138/85 95 Intake and Output 02/24/19 02/25/19 02/25/19 22:59 06:59 14:59 Other: Voiding Method Toilet Toilet Weight 122.47 kg - Constitutional General appearance: no acute distress, obese - EENT Eyes: anicteric sclerae, EOMI, PERRLA, no ptosis, no scleral icterus, normal appearance ENT: hearing grossly normal, NA/AT, normal oropharynx, no thrush Ears: bilateral: normal - Neck Neck: no lymphadenopathy, normal ROM, no rigidity, no stridor, no thyromegaly Carotids: bilateral: upstroke normal Thyroid: bilateral: normal size - Respiratory Respiratory: bilateral: diminished, negative: dullness, rales, rhonchi, wheezing, prolonged expiration, prolonged inspiration - Cardiovascular Rhythm: regular Heart sounds: normal: S1, S2 Abnormal Heart Sounds: no systolic murmur, no diastolic murmur, no S3 Gallop, no S4 Gallop - Gastrointestinal General gastrointestinal: normal bowel sounds, soft, no splenomegaly, tenderness, no umbilical hernia, no ventral hernia - Integumentary Integumentary: normal, normal turgor - Neurologic Neurologic: CNII-XII intact - Musculoskeletal Musculoskeletal: gait normal, strength equal bilaterally - Psychiatric Psychiatric: A&O x's 3, appropriate affect, intact judgment & insight Results CBC & Chem 7: 02/24/19 19:33 02/24/19 19:33 Labs: Abnormal Lab Results - Last 24 Hours (Table) 02/24/19 02/24/19 02/24/19 Range/Units 19:33 19:33 19:33 WBC 11.4 H (3.8-10.6) k/uL RBC 5.41 H (3.80-5.40) m/uL Neutrophils # 9.0 H (1.3-7.7) k/uL Glucose 122 H (74-99) mg/dL ALT 6 L (9-52) U/L Urine Appearance Cloudy H (Clear) Urine Protein 1+ H (Negative) Urine Blood Moderate H (Negative) Urine RBC 27 H (0-5) /hpf Ur Squamous Epith Cells 36 H (0-4) /hpf Amorphous Sediment Occasional H (None) /hpf Urine Bacteria Rare H (None) /hpf Urine Mucus Rare H (None) /hpf Thrombosis Risk Factor Assmnt - DVT/VTE Prophylaxis DVT/VTE Prophylaxis: Pharmacologic Prophylaxis ordered, Mechanical Prophylaxis ordered - Choose All That Apply Any of the Below Risk Factors Present?: Yes Each Factor Represents 1 point: Age 41-60 years, Obesity (BMI >25), Swollen legs (current) Other Risk Factors: No Other congenital or acquired thrombophilia - If yes, enter type in comment: No Thrombosis Risk Factor Assessment Total Risk Factor Score: 3 Thrombosis Risk Factor Assessment Level: Moderate Risk Assessment and Plan Assessment: Assessment and plan: 1. Acute abdominal pain with diarrhea likely secondary to infectious etiology. IV fluid resuscitation in the form of normal saline at 100 mL an hour, metronidazole 500 mg IV piggyback every 8 hours, stool cultures, stool for C. diff toxins a and B, Gram stain and culture as well as WBC in the stool. 2. Hypertension and hypertensive cardiovascular disease. Continue lisinopril 20/12.5 mg orally once every day. 3. Gout. Continue allopurinol 100 mg orally once every day. 4. Asthma. Continue patient on current medical history. 5. Depression. Currently on Cymbalta 60 mg orally once every day as well as citalopram 20 mg orally once every day. 6. Obesity. Patient may have underlying sleep apnea she was counseled about getting sleep study as an outpatient. 7. DVT prophylaxis. Continue heparin 5000 units subcutaneously every 8 hours. 8. GI prophylaxis. Continue patient on PPI. 9. Observation. 10. Patient is full code.
[2019-02-26] MEDS: metroNIDAZOLE-NS PMX 500 MG in SALINE 1 100ML.BAG IVPB SCH ×3 (03:35→19:54)
[2019-02-26] MEDS ORDERED: ALLOPURINOL 100 MG TAB PO SCH (09:00)
[2019-02-26] MEDS ORDERED: LISINOPRIL-HCTZ 20-12.5 MG 1 EACH TAB PO SCH (09:00)
[2019-02-26] MEDS: DULoxetine HCL 60 MG CAPSULE.DR PO SCH (09:06)
[2019-02-26] MEDS: ALLOPURINOL 100 MG TAB PO SCH (09:07)
[2019-02-26] MEDS: LISINOPRIL-HCTZ 20-12.5 MG 1 EACH TAB PO SCH (09:07)
[2019-02-26] MEDS: CITALOPRAM HYDROBROMIDE 20 MG TAB PO SCH (09:07)
[2019-02-26] MEDS: MORPHINE SULFATE 2 MG/ML SYRINGE IV PRN (12:36)
[2019-02-26] MEDS ORDERED: LOPERAMIDE 2 MG CAP PO STA (12:42)
[2019-02-26] MEDS ORDERED: LOPERAMIDE 2 MG CAP PO PRN (12:42)
--- NOTE | 2019-02-26 15:00 | P.PN ---
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 Copeland next month however he started to have increase abdominal cramps about a week ago associated with increased diarrhea the patient initially was in the right side subsequently was diffuse all over she was nauseated without any vomiting she did complain of fever and chills she denies any recent travel she denies any recent sick contacts and no recent antibiotic use, patient was evaluated in the ER she was started on IV fluid and she underwent computed tomography scan of the abdomen that showed pancreatic edema without evidence of any acute abnormalities, patient was adm itted to the hospital for possible infectious diarrhea and she was started on IV antibiotic in the form of metronidazole 500 mg IV piggyback every 8 hours stools will be send for Clostridium difficile toxins a and B along with culture and sensitivity, WBC in the stool, Gram stain and culture as well. 02/26: Stool for lactoferrin was positive, C. difficile toxin negative. Stool culture in progress. Blood culture no growth at 24 hours. The patient is currently on a regular diet. She is still having diarrhea 4-5 times. She complains of abdominal cramping. We will start her on Imodium and plan for discharge home tomorrow. Objective - Vital Signs Vital signs: Vital Signs Temp 98.7 F 02/26/19 07:46 Pulse 77 02/26/19 07:46 Resp 18 02/26/19 07:46 BP 130/86 02/26/19 07:46 Pulse Ox 92 L 02/26/19 07:46 Intake & Output 02/25/19 02/26/19 02/26/19 18:59 06:59 18:59 Intake Total 340 Balance 340 Intake: Oral 340 Other: Voiding Method Toilet Toilet Toilet # Voids 1 # Bowel Movements 1 - Exam Review of Systems Constitutional: Reports weight gain, Denies anorexia, Denies chronic headaches, Denies chronic pain, Denies fever, Denies lethargy, Denies malaise, Denies weakness, Denies weight loss Eyes: denies blurred vision, denies bulging eye, denies decreased vision Ears: deny: decreased hearing Ears, nose, mouth and throat: Denies dysphagia, Denies neck lump, Denies swelling in throat, Denies sore throat Cardiovascular: Reports decreased exercise tolerance, Reports dyspnea on exertion, Denies chest pain, Denies lightheadedness, Denies rapid heart beat, Denies shortness of breath, Denies syncope Respiratory: Reports snoring, Denies congestion, Denies cough with sputum, Denies home oxygen, Denies sleep apnea, Denies wheezing Gastrointestinal: Reports abdominal pain, Reports bloating, Reports diarrhea, Reports excessive gas, denies nausea, Denies dyspepsia, Denies heartburn, Denies hematemesis, Denies hematochezia, Denies indigestion, Denies jaundice, Denies lactose intolerance, Denies loss of appetite, Denies melena, Denies vomiting Genitourinary: Denies dysuria, Denies hematuria Musculoskeletal: Denies myalgias Musculoskeletal: absent: ankle pain, ankle stiffness, ankle swelling, elbow pain, elbow stiffness, elbow swelling, foot pain, foot stiffness, foot swelling, hand pain, hand stiffness, hand swelling, hip pain, hip stiffness, hip swelling, knee pain, knee stiffness, knee swelling, shoulder pain, shoulder stiffness, shoulder swelling, wrist pain, wrist stiffness, wrist swelling Integumentary: Denies pruritus, Denies rash Neurological: Denies numbness, Denies weakness Psychiatric: Reports anxiety, Reports depression, Denies paranoia, Denies sadness/tearfulness, Denies sleep disturbances, Denies suicidal ideation Endocrine: Denies fatigue, Denies weight change - Constitutional General appearance: no acute distress, obese female. She is sitting up in bed and appears to be comfortable. - EENT Eyes: anicteric sclerae, EOMI, PERRLA, no ptosis, no scleral icterus, normal appearance ENT: hearing grossly normal, NA/AT, normal oropharynx, no thrush Ears: bilateral: normal - Neck Neck: no lymphadenopathy, normal ROM, no rigidity, no stridor, no thyromegaly Carotids: bilateral: upstroke normal Thyroid: bilateral: normal size - Respiratory Respiratory: bilateral: diminished, negative: dullness, rales, rhonchi, wheezing, prolonged expiration, prolonged inspiration - Cardiovascular Rhythm: regular Heart sounds: normal: S1, S2 Abnormal Heart Sounds: no systolic murmur, no diastolic murmur, no S3 Gallop, no S4 Gallop - Gastrointestinal General gastrointestinal: normal bowel sounds, soft, no splenomegaly, tenderness, no umbilical hernia, no ventral hernia - Integumentary Integumentary: normal, normal turgor - Neurologic Neurologic: CNII-XII intact - Musculoskeletal Musculoskeletal: gait normal, strength equal bilaterally - Psychiatric Psychiatric: A&O x's 3, appropriate affect, intact judgment & insight - Labs CBC & Chem 7: 02/24/19 19:33 02/24/19 19:33 Labs: Abnormal Lab Results - Last 24 Hours (Table) 02/25/19 Range/Units 11:54 Stool Lactoferrin POSITIVE H (NEGATIVE) Microbiology - Last 24 Hours (Table) 02/24/19 21:20 Blood Culture - Preliminary Blood No Growth after 24 hours 02/25/19 11:54 Stool Culture - Preliminary Stool Assessment and Plan Plan: 1. Acute abdominal pain with diarrhea likely secondary to infectious etiology. IV fluid discontinued today. Continue metronidazole 500 mg IV piggyback every 8 hours. Stool studies as above. Patient started on Imodium. 2. Hypertension and hypertensive cardiovascular disease. Continue lisinopril 20/12.5 mg orally once every day. 3. Gout. Continue allopurinol 100 mg orally once every day. 4. Asthma. Continue patient on current medical history. 5. Depression. Currently on Cymbalta 60 mg orally once every day as well as citalopram 20 mg orally once every day. 6. Obesity. Patient may have underlying sleep apnea she was counseled about getting sleep study as an outpatient. 7. DVT prophylaxis. Continue heparin 5000 units subcutaneously every 8 hours. 8. GI prophylaxis. Continue patient on PPI. Patient is full code. Discharge plan: Home tomorrow Impression and plan of care have been directed as dictated by the signing physician. Marry Rodriguez nurse practitioner acting as scribe for signing physician.
[2019-02-26] MEDS: SODIUM CHLORIDE 0.9% 1,000 ML IV SCH (19:32)
[2019-02-27 07:36] VITALS: BP 137/84; PULSE 72; RESP 16; TEMP 98.7
[2019-02-27] MEDS: metroNIDAZOLE-NS PMX 500 MG in SALINE 1 100ML.BAG IVPB SCH (08:55)
[2019-02-27] MEDS: CITALOPRAM HYDROBROMIDE 20 MG TAB PO SCH (08:55)
[2019-02-27] MEDS: ALLOPURINOL 100 MG TAB PO SCH (08:55)
[2019-02-27] MEDS: DULoxetine HCL 60 MG CAPSULE.DR PO SCH (08:56)
[2019-02-27] MEDS: LISINOPRIL-HCTZ 20-12.5 MG 1 EACH TAB PO SCH (08:56)
--- NOTE | 2019-02-27 14:06 | P.DS ---
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 Copeland next month however he started to have increase abdominal cramps about a week ago associated with increased diarrhea the patient initially was in the right side subsequently was diffuse all over she was nauseated without any vomiting she did complain of fever and chills she denies any recent travel she denies any recent sick contacts and no recent antibiotic use, patient was evaluated in the ER she was started on IV fluid and she underwent computed tomography scan of the abdomen that showed pancreatic edema without evidence of any acute abnormalities, patient was admitted to the hospital for possible infectious diarrhea and she was started on IV antibiotic in the form of metronidazole 500 mg IV piggyback every 8 hours stools will be send for Clostridium difficile toxins a and B along with culture and sensitivity, WBC in the stool, Gram stain and culture as well. 02/26: Stool for lactoferrin was positive, C. difficile toxin negative. Stool culture in progress. Blood culture no growth at 24 hours. The patient is currently on a regular diet. She is still having diarrhea 4-5 times. She complains of abdominal cramping. We will start her on Imodium and plan for discharge home tomorrow. 02/27: Patient remains afebrile, heart rate 72, blood pressure 137/84, pulse ox 94% on room air. The patient is eating 75% of arm meals, regular diet. She is tolerating without nausea or vomiting. Patient was started on Imodium yesterday and is only received initial 4 mg dose and has had no diarrhea since that time. Abdominal pain is improved. Patient will be discharged home today in stable condition. Discharge diagnoses: 1. Acute abdominal pain with diarrhea likely secondary to infectious etiology. 2. Hypertension and hypertensive cardiovascular disease. 3. Gout, chronic. 4. Asthma, mild intermittent. 5. Depression, recurrent. 6. Obesity, morbid with BMI 43. Discharge plan: Home Impression and plan of care have been directed as dictated by the signing physician. Marry Rodriguez nurse practitioner acting as scribe for signing physician. Patient Condition at Discharge: Good Plan - Discharge Summary Discharge Rx Participant: No New Discharge Prescriptions: New metroNIDAZOLE [Flagyl] 500 mg PO TID #21 tab Loperamide [Imodium] 2 mg PO QID PRN cap PRN Reason: Diarrhea Continue Lisinopril/Hydrochlorothiazide [Lisinopril-Hctz 20-12.5 mg Tab] 1 tab PO DAILY Docusate [Colace] 100 mg PO DAILY Albuterol Nebulized [Ventolin Nebulized] 2.5 mg INHALATION RT-QID PRN PRN Reason: Shortness Of Breath Albuterol Inhaler [Ventolin Hfa Inhaler] 1 - 2 puff INHALATION RT-Q6H PRN PRN Reason: Shortness Of Breath Allopurinol [Zyloprim] 100 mg PO DAILY Ibuprofen [Motrin] 800 mg PO TID PRN PRN Reason: Pain DULoxetine HCL [Cymbalta] 60 mg PO DAILY Citalopram Hydrobromide [CeleXA] 20 mg PO DAILY Discharge Medication List Docusate [Colace] 100 mg PO DAILY 11/21/15 [History] Lisinopril/Hydrochlorothiazide [Lisinopril-Hctz 20-12.5 mg Tab] 1 tab PO DAILY 11/21/15 [History] Albuterol Nebulized [Ventolin Nebulized] 2.5 mg INHALATION RT-QID PRN 11/06/17 [History] Albuterol Inhaler [Ventolin Hfa Inhaler] 1 - 2 puff INHALATION RT-Q6H PRN 01/23/18 [History] Allopurinol [Zyloprim] 100 mg PO DAILY 02/24/19 [History] Citalopram Hydrobromide [CeleXA] 20 mg PO DAILY 02/24/19 [History] DULoxetine HCL [Cymbalta] 60 mg PO DAILY 02/24/19 [History] Ibuprofen [Motrin] 800 mg PO TID PRN 02/24/19 [History] Loperamide [Imodium] 2 mg PO QID PRN cap 02/27/19 [Rx] metroNIDAZOLE [Flagyl] 500 mg PO TID #21 tab 02/27/19 [Rx] Follow up Appointment(s)/Referral(s): Dieudonne Copeland DO [Primary Care Provider] - 1 Week (please call to make follow up appointment) Patient Instructions/Handouts: Acute Nausea and Vomiting (DC), Acute Diarrhea (ED), Acute Abdominal Pain (DC) Discharge Disposition: HOME SELF-CARE
== END 2019-02-27 12:44 | disposition home or self-care (01) | DRG 392 ==
LOC: EC 17:03 → 1SOBS 22:01 → OBSVTOIN 02-26 14:14
PROVIDERS: ADMIT Internal Medicine; ATTEND Internal Medicine
DX: A09 Infectious gastroenteritis and colitis, unspecified (principal); Z68.41 Body mass index [BMI] 40.0-44.9, adult; I11.9 Hypertensive heart disease without heart failure; K21.9 Gastro-esophageal reflux disease without esophagitis; F32.9 Major depressive disorder, single episode, unspecified; M19.90 Unspecified osteoarthritis, unspecified site; J45.909 Unspecified asthma, uncomplicated; G43.909 Migraine, unspecified, not intractable, without status migrainosus; E66.01 Morbid (severe) obesity due to excess calories; M1A.9XX0 Chronic gout, unspecified, without tophus (tophi); F41.9 Anxiety disorder, unspecified; F17.200 Nicotine dependence, unspecified, uncomplicated; Z79.899 Other long term (current) drug therapy; Z88.2 Allergy status to sulfonamides; Z88.1 Allergy status to other antibiotic agents; Z91.013 Allergy to seafood; Z80.7 Family history of other malignant neoplasms of lymphoid, hematopoietic and related tissues; Z90.49 Acquired absence of other specified parts of digestive tract; Z90.89 Acquired absence of other organs; Z82.3 Family history of stroke; Z82.49 Family history of ischemic heart disease and other diseases of the circulatory system; Z83.3 Family history of diabetes mellitus; Z98.51 Tubal ligation status; Z87.442 Personal history of urinary calculi
CPT/HCPCS: 36415; 71046; 74177; 80053; 81001; 81025; 82150; 83605; 83630; 83690; 85025; 87040; 87045; 87046; 87324; 96361; 96374; 96375; 99285

== ENCOUNTER 2019-05-06 08:40 | Emergency (ER) | payer OTHER ==
[2019-05-06 08:45] VITALS: TEMP 98
[2019-05-06] MEDS ORDERED: SODIUM CHLORIDE 0.9% 1,000 ML IV ONE (09:01)
--- NOTE | 2019-05-06 09:04 | ED ---
Skin/Abscess/FB HPI - General Chief complaint: Skin/Abscess/Foreign Body Stated complaint: Abcess Time Seen by Provider: 05/06/19 08:47 Source: patient, RN notes reviewed, old records reviewed Mode of arrival: ambulatory - History of Present Illness Initial comments: Patient is a 43-year-old female, she presents emergency department today for concerns for an abscess over her left buttocks. Patient reports that she started to notice the area of redness and swelling and abscess One week ago. She states that she is currently on Keflex for a cyst on her groin which is improved. Patient states that she is not diabetic. Patient states that she was supposed to see surgery but has not been able to. Patient reports that it's painful for her to have a bowel movement or sit for long period of time due to the swelling and pain. - Related Data Home Medications Medication Instructions Recorded Confirmed Docusate [Colace] 100 mg PO BID 11/21/15 05/06/19 Lisinopril/Hydrochlorothiazide 1 tab PO DAILY 11/21/15 05/06/19 [Lisinopril-Hctz 20-12.5 mg Tab] Albuterol Inhaler [Ventolin Hfa 1 - 2 puff INHALATION RT-Q6H PRN 01/23/18 05/06/19 Inhaler] Allopurinol [Zyloprim] 100 mg PO DAILY 02/24/19 05/06/19 Citalopram Hydrobromide [CeleXA] 20 mg PO DAILY 02/24/19 05/06/19 DULoxetine HCL [Cymbalta] 60 mg PO DAILY 02/24/19 05/06/19 Ibuprofen [Motrin] 800 mg PO TID PRN 02/24/19 05/06/19 ALPRAZolam [Xanax] 1 mg PO TID 05/06/19 05/06/19 ARIPiprazole [Abilify] 10 mg PO HS 05/06/19 05/06/19 Cetirizine HCl [Zyrtec] 10 mg PO DAILY 05/06/19 05/06/19 DULoxetine HCL [Cymbalta] 30 mg PO DAILY 05/06/19 05/06/19 Ranitidine HCl 150 mg PO DAILY 05/06/19 05/06/19 Previous Rx's Medication Instructions Recorded Acetaminophen-Codeine 300-30mg 1 tab PO Q6H PRN 3 Days #12 tablet 05/06/19 [Tylenol w/codeine #3] Clindamycin [Cleocin] 450 mg PO TID 7 Days capsule 05/06/19 Allergies Allergy/AdvReac Type Severity Reaction Status Date / Time levofloxacin [From Levaquin] Allergy Anaphylaxis Verified 05/06/19 08:54 milk Allergy Unknown Verified 05/06/19 08:54 shellfish derived [Shellfish] Allergy Anaphylaxis Verified 05/06/19 08:54 Sulfa (Sulfonamide Allergy Unknown Verified 05/06/19 08:54 Antibiotics) Childhood doxycycline AdvReac Nausea & Verified 05/06/19 08:54 Vomiting RYE BREAD Allergy Unknown Uncoded 05/06/19 08:54 Review of Systems ROS Statement: Those systems with pertinent positive or pertinent negative responses have been documented in the HPI. ROS Other: All systems not noted in ROS Statement are negative. Past Medical History Past Medical History: Asthma, GERD/Reflux, Hypertension, Thyroid Disorder Additional Past Medical History / Comment(s): migraine headaches, pt states she was admitted to [facility] with similar R flank/low abdominal pain and told she had kidney stones, sinus problems., History of Any Multi-Drug Resistant Organisms: None Reported Past Surgical History: Adenoidectomy, Appendectomy, Section, C holecystectomy, Ear Surgery, Orthopedic Surgery, Tonsillectomy, Tubal Ligation, Uterine Ablation Additional Past Surgical History / Comment(s): L index finger reattatched, nicolas ateral carpal tunnel releases, hysteroscopy with failed uterine ablation then D&C with successful uterine ablation, thyroid bx, bilateral myrinotomies/tubes. Past Anesthesia/Blood Transfusion Reactions: Postoperative Nausea & Vomiting (PONV) Past Psychological History: Anxiety, Depression Smoking Status: Current every day smoker Past Alcohol Use History: None Reported Past Drug Use History: Marijuana - Past Family History Sister(s) Family Medical History: No Reported History (Patient has 2 sisters no major medical problems.) Additional Family Medical History / Comment(s): Patient is living with her fianc has 8 kids 2 are not hers. General Exam - General Exam Comments Initial Comments: 43-year-old female. No distress. General appearance: alert, in no apparent distress Head exam: Present: atraumatic, normocephalic, normal inspection Eye exam: Present: normal appearance, PERRL, EOMI. Absent: scleral icterus, conjunctival injection, periorbital swelling ENT exam: Present: normal exam, mucous membranes moist Neck exam: Present: normal inspection. Absent: tenderness, meningismus, lympha denopathy Respiratory exam: Present: normal lung sounds bilaterally. Absent: respiratory distress, wheezes, rales, rhonchi, stridor Cardiovascular Exam: Present: regular rate, normal rhythm, normal heart sounds. Absent: systolic murmur, diastolic murmur, rubs, gallop, clicks GI/Abdominal exam: Present: soft, normal bowel sounds. Absent: distended, tenderness, guarding, rebound, rigid Extremities exam: Present: normal inspection, full ROM, normal capillary refill. Absent: tenderness, pedal edema, joint swelling, calf tenderness Back exam: Present: normal inspection Neurological exam: Present: alert, oriented X3, CN II-XII intact Psychiatric exam: Present: normal affect, normal mood Skin exam: Present: warm, dry, intact, normal color, erythema ( is erythema, sinusitis of the left gluteus, with a central abscess. somewhat the rectum but no rectal tenderness.), other. Absent: rash Course Vital Signs 05/06/19 08:42 Temperature 98.0 F Pulse Rate 105 H Respiratory 18 Rate Blood Pressure 131/70 O2 Sat by Pulse 98 Oximetry Procedures - Incision & Drainage Indication: 2 Site: buttock Size (cm): 3 Anesthetic Used: lidocaine 1% Amount (mLs): 4 I&D Cleaning Method: Iodine Sterile Field Used?: Yes Scalpel Used: #11 Needle Aspiration Performed?: Yes Irrigation Performed?: Yes I&D Drainage Obtained: Pus, Blood Packing: Iodoform Culture Obtained?: Yes Patient Tolerated Procedure: well, no complications Medical Decision Making - Medical Decision Making 43-year-old female presents prescribed today for one week of a gluteal abscess. She states that she needs to have this area drained. She is to see a surgeon by from her PCP but referrals left in place. At this time Patient does report ALLERGY to multiple antibiotics that would cover for MRSA. Patient has been on Keflex and finish this week ago for a set abscess in her groin. At this time Patient had a CT head and pelvis completed, concern for possible perirectal abscess. There are signs of gluteal sinus infection but no deep abscess at this time. I discussed this with Dr. MUHAMMAD he recommended incision and drainage here. We'll put Patient on clindamycin to cover for MRSA. Culture was completed. Blood work was reviewed, mildly sick leukocytosis is noted as well. Patient understands that she has follow up with a surgeon and have packing removed. All questions were answered. - Lab Data Result diagrams: 05/06/19 09:30 05/06/19 09:30 Lab Results 05/06/19 05/06/19 Range/Units 09:30 09:30 WBC 14.2 H (3.8-10.6) k/uL RBC 5.30 (3.80-5.40) m/uL Hgb 14.5 (11.4-16.0) gm/dL Hct 45.5 (34.0-46.0) % MCV 86.0 (80.0-100.0) fL MCH 27.4 (25.0-35.0) pg MCHC 31.8 (31.0-37.0) g/dL RDW 13.9 (11.5-15.5) % Plt Count 359 (150-450) k/uL Neutrophils % 64 % Lymphocytes % 25 % Monocytes % 5 % Eosinophils % 4 % Basophils % 1 % Neutrophils # 9.1 H (1.3-7.7) k/uL Lymphocytes # 3.5 (1.0-4.8) k/uL Monocytes # 0.7 (0-1.0) k/uL Eosinophils # 0.5 (0-0.7) k/uL Basophils # 0.2 (0-0.2) k/uL Sodium 141 (137-145) mmol/L Potassium 3.4 L (3.5-5.1) mmol/L Chloride 101 (98-107) mmol/L Carbon Dioxide 33 H (22-30) mmol/L Anion Gap 7 mmol/L BUN 9 (7-17) mg/dL Creatinine 0.80 (0.52-1.04) mg/dL Est GFR (CKD-EPI)AfAm >90 (>60 ml/min/1.73 sqM) Est GFR (CKD-EPI)NonAf 90 (>60 ml/min/1.73 sqM) Glucose 114 H (74-99) mg/dL Calcium 9.6 (8.4-10.2) mg/dL Total Bilirubin 0.5 (0.2-1.3) mg/dL AST 13 L (14-36) U/L ALT 8 L (9-52) U/L Alkaline Phosphatase 88 (38-126) U/L Total Protein 7.0 (6.3-8.2) g/dL Albumin 3.7 (3.5-5.0) g/dL - Radiology Data Radiology results: report reviewed (Little soft tissue infection or cellulitis with tiny subcentimeter manner focal fluid collection or abscess are present. Disposition Clinical Impression: Cellulitis, gluteal, Gluteal abscess Disposition: HOME SELF-CARE Condition: Good Instructions (If sedation given, give patient instructions): Abscess Incision and Drainage (ED) Additional Instructions: Patient is advised to follow-up with surgeon in 2 days to have packing reassessed and removed. Take the antibiotics as prescribed. Return to the emergency department if any alarming signs or symptoms occur. Prescriptions: Clindamycin [Cleocin] 450 mg PO TID 7 Days capsule Acetaminophen-Codeine 300-30mg [Tylenol w/codeine #3] 1 tab PO Q6H PRN 3 Days #12 tablet PRN Reason: Pain Is patient prescribed a controlled substance at d/c from ED?: Yes If prescribed controlled substance>3 days was MAPS reviewed?: Prescribed <3 Days If opioid is for acute pain is fill amount 7 days or less?: Yes If Rx opioid, was Start Talking consent form obtained?: Yes Referrals: Dieudonne Copeland DO [Primary Care Provider] - 1-2 days Time of Disposition: 11:29
[2019-05-06] MEDS ORDERED: SODIUM CHLORIDE 0.9% 1,000 ML IV SCH (09:15)
[2019-05-06 10:13] LABS: ALT 8 U/L (9-52); AST 13 U/L (14-36); African American GFR (CKD) >90 (>60 ml/min/1.73 sqM); Albumin 3.7 g/dL (3.5-5.0); Alkaline Phosphatase 88 U/L (38-126); Anion Gap 7 mmol/L; Blood Urea Nitrogen 9 mg/dL (7-17); Calcium 9.6 mg/dL (8.4-10.2); Carbon Dioxide 33 mmol/L (22-30); Chloride 101 mmol/L (98-107); Glucose 114 mg/dL (74-99); Potassium 3.4 mmol/L (3.5-5.1); Sodium 141 mmol/L (137-145); Total Bilirubin 0.5 mg/dL (0.2-1.3)
[2019-05-06 10:14] LABS: Basophils # (A) 0.2 k/uL (0-0.2); Basophils % (A) 1 %; Eosinophils # (A) 0.5 k/uL (0-0.7); Eosinophils % (A) 4 %; HCT 45.5 % (34.0-46.0); HGB 14.5 gm/dL (11.4-16.0); Lymphocytes # (A) 3.5 k/uL (1.0-4.8); Lymphocytes % (A) 25 %; MCH 27.4 pg (25.0-35.0); MCHC 31.8 g/dL (31.0-37.0); Mean Platelet Volume 7.6; Monocytes # (A) 0.7 k/uL (0-1.0); Monocytes % (A) 5 %; Neutrophils # (A) 9.1 k/uL (1.3-7.7); Neutrophils % (A) 64 %; Platelet Count 359 k/uL (150-450); RDW 13.9 % (11.5-15.5); WBC 14.2 k/uL (3.8-10.6)
--- NOTE | 2019-05-06 10:17 | CT ---
EXAMINATION TYPE: CT pelvis w con DATE OF EXAM: 05/06/2019 COMPARISON: CT abdomen and pelvis February 24, 2019 HISTORY: cheryl rectal abscess x [address] DLP: 2420 mGycm Automated exposure control for dose reduction was used. CONTRAST: Performed with IV Contrast, patient injected with 100 mL of Isovue 300. FINDINGS: Corresponding to patient history there is moderate ill-defined fluid and fat stranding involving the left gluteal soft tissue with suspected tiny 6 to 7 mm fluid collection axial image 60 near skin surf charly could reflect subcentimeter abscess and surrounding inflammatory change. The perirectal fat planes superior to this are maintained near Axial image 46. No concerning pelvic fluid collection or adenopathy. Prominent bilateral groin lymph nodes slightly l arger on the left with few enlarged lymph nodes measuring up to 1.9 x 1.4 cm noted axial image 49. Anteverted uterus with tubal ligation clips along the periphery. No bowel dilatation. Small fat-conta ining umbilical hernia axial image 16. Transitional type vertebra lumbosacral junction redemonstrated . IMPRESSION: Left periGluteal soft tissue infection or cellulitis with tiny subcentimeter focal fluid collection or abscess though Present.
[2019-05-06] MEDS ORDERED: LIDOCAINE 1% INJ 10MG/ML (20 ML MDV) SQ ONE (11:10)
[2019-05-06] MEDS ORDERED: CLINDAMYCIN 150 MG CAP PO STA (11:26)
[2019-05-06 11:43] VITALS: BP 130/90; PULSE 90; RESP 16
== END 2019-05-06 11:43 | disposition home or self-care (01) ==
LOC: EC 08:40
DX: L02.31 Cutaneous abscess of buttock (principal); L03.317 Cellulitis of buttock; J45.909 Unspecified asthma, uncomplicated; I10 Essential (primary) hypertension; F41.9 Anxiety disorder, unspecified; F32.9 Major depressive disorder, single episode, unspecified; F17.200 Nicotine dependence, unspecified, uncomplicated; Z79.899 Other long term (current) drug therapy; Z88.1 Allergy status to other antibiotic agents; Z88.2 Allergy status to sulfonamides; Z91.011 Allergy to milk products; Z91.018 Allergy to other foods
CPT/HCPCS: 36415; 80053; 85025; 87040; 87070; 87205; 72193; 99284; 10060; 96360; 96361; Q9967

== ENCOUNTER 2019-06-30 00:41 | Emergency (ER) | payer OTHER ==
--- NOTE | 2019-06-30 15:52 | US ---
EXAM: US Duplex Left Lower Extremity Veins CLINICAL HISTORY: Left lower extremity swelling x 5 days. TECHNIQUE: Real-time duplex ultrasound scan of the left lower extremity veins integrating B-mode two-dimensional vascular structure, Doppler spectral analysis, color flow Doppler imaging and compression. COMPARISON: No relevant prior studies available. FINDINGS: Deep veins: No DVT. Superficial veins: Unremarkable. No thrombus in the visualized great saphenous vein. Soft tissues: There also appears to be an anechoic area in the popliteal fossa measurin.2 x 3.8 x 1.1 cm. This is compatible with a popliteal cyst. Lymph nodes: There appears to be a hypoechoic area with hyperechoic center in the left groin measurin.0 x 1.1 x 0.7 cm. This either represents an enlarged lymph node. IMPRESSION: 1. No DVT. 2. Left groin adenopathy, nonspecific. Correlate and follow clinically. 3. Left popliteal cyst.
== END 2019-06-30 05:40 | disposition home or self-care (01) ==
LOC: EC 00:41
DX: M71.22 Synovial cyst of popliteal space [Baker], left knee (principal); F32.9 Major depressive disorder, single episode, unspecified; F41.9 Anxiety disorder, unspecified; Z79.899 Other long term (current) drug therapy; Z88.1 Allergy status to other antibiotic agents; Z88.2 Allergy status to sulfonamides; Z91.013 Allergy to seafood; Z88.8 Allergy status to other drugs, medicaments and biological substances
CPT/HCPCS: 99283

== ENCOUNTER → 2020-01-29 | Outpatient (CLI) | payer OTHER ==
[2020-01-29 09:59] LABS: Basophils # (A) 0.1 k/uL (0-0.2); Basophils % (A) 1 %; Eosinophils # (A) 0.6 k/uL (0-0.7); Eosinophils % (A) 4 %; HCT 46.6 % (34.0-46.0); HGB 14.6 gm/dL (11.4-16.0); Lymphocytes # (A) 3.5 k/uL (1.0-4.8); Lymphocytes % (A) 21 %; MCH 27.3 pg (25.0-35.0); MCHC 31.3 g/dL (31.0-37.0); MCV 87.2 fL (80.0-100.0); Mean Platelet Volume 8.3; Monocytes # (A) 0.7 k/uL (0-1.0); Monocytes % (A) 4 %; Neutrophils # (A) 11.7 k/uL (1.3-7.7); Neutrophils % (A) 69 %; Platelet Count 302 k/uL (150-450); RBC 5.35 m/uL (3.80-5.40); RDW 14.8 % (11.5-15.5)
[2020-01-29 16:44] LABS: African American GFR (CKD) 69.7 (60.0-200.0); Albumin 3.9 g/dL (3.80-4.90); Albumin/Globulin Ratio 1.56 (1.60-3.17); Anion Gap 7.3 mmol/L (4.00-12.00); BUN/Creat Ratio 11.82 Ratio (12.00-20.00); Calcium 8.8 mg/dL (8.7-10.3); Carbon Dioxide 29.7 mmol/L (21.6-31.8); Globulin 2.5 g/dL (1.6-3.3); Non-African American GFR(CKD) 60.2 (60.0-200.0); Potassium 3.3 mmol/L (3.5-5.5); Total Bilirubin 0.5 mg/dL (0.3-1.2); Total Protein 6.4 g/dL (6.2-8.2); Uric Acid 5.1 mg/dL (2.9-7.7)
[2020-01-29 17:37] LABS: Hemoglobin A1C 6.4 % (4.0-6.0)
== END | disposition home or self-care (01) ==
LOC: LABWHC1 09:20
PROVIDERS: ATTEND Family Medicine
DX: M10.9 Gout, unspecified (principal); I50.9 Heart failure, unspecified; R06.02 Shortness of breath; R73.9 Hyperglycemia, unspecified; R60.9 Edema, unspecified
CPT/HCPCS: 36415; 80053; 83036; 83880; 84439; 84443; 84484; 84550; 85025; 85379

== ENCOUNTER → 2020-02-02 | Outpatient (CLI) | payer OTHER ==
--- NOTE | 2020-02-02 16:52 | XR ---
EXAMINATION TYPE: XR chest 2V DATE OF EXAM: 02/02/2020 COMPARISON: Prior chest x-ray 02/24/2019 HISTORY: Pneumonia, cough and shortness of breath TECHNIQUE: Frontal and lateral views of the chest are obtained. FINDINGS: There is no focal air space opacity, pleural effusion, or pneumothorax seen. The cardiac silhouette size is within normal limits. The osseous structures are intact. There is bronchial wall thickening. IMPRESSION: Correlate for reactive airways disease, bronchiolitis.
== END | disposition home or self-care (01) ==
LOC: RADXRMAIN 14:13
PROVIDERS: ATTEND Family Medicine
DX: J15.9 Unspecified bacterial pneumonia (principal)
CPT/HCPCS: 71046

== ENCOUNTER → 2020-02-02 | Outpatient (CLI) | payer OTHER ==
--- NOTE | 2020-02-02 11:13 | US ---
EXAMINATION TYPE: US venous doppler duplex LE DATE OF EXAM: 02/02/2020 10:38 AM COMPARISON: NONE CLINICAL HISTORY: I82.90 Acute embolism and thrombosis of unspecified SIDE PERFORMED: Bilateral TECHNIQUE: The lower extremity deep venous system is examined utilizing real time linear array sonog funmi with graded compression, doppler sonography and color-flow sonography. VESSELS IMAGED: External Iliac Vein (EIV) Common Femoral Vein Deep Femoral Vein Greater Saphenous Vein * Femoral Vein Popliteal Vein Small Saphenous Vein * Proximal Calf Veins (* superficial vessels) Morbidly obese patient, technically difficult and somewhat limited study. Right Leg: Appears negative for DVT as seen. Left Leg: Appears negative for DVT as seen. Swelling worse on this leg unable to visualize mid or di stal femoral vein for compression views. Bilateral Narayanan's cysts measuring 5.3 x 0.8 x 3.8 on right, left 6.6 x 1.2 x 5.4cm IMPRESSION: negative for DVT
== END | disposition home or self-care (01) ==
LOC: RADUSWWP 09:50
PROVIDERS: ATTEND Family Medicine
DX: I82.90 Acute embolism and thrombosis of unspecified vein (principal); Z88.2 Allergy status to sulfonamides; Z88.1 Allergy status to other antibiotic agents
CPT/HCPCS: 93970

== ENCOUNTER → 2020-03-17 | Outpatient (CLI) | payer OTHER ==
--- NOTE | 2020-03-17 14:56 | US ---
EXAMINATION TYPE: US thyroid st tissue head/neck DATE OF EXAM: 03/17/2020 COMPARISON: US 2015 CLINICAL HISTORY: E06.3 Autoimmune thyroiditis. abnormal labs. Hx of nodules with FNA GLAND SIZE: Right Lobe: 4.7 x 2.2 x 1.5 cm Overall Parenchyma: heterogenous Left Lobe: 4.1 x 1.5 x 1.5 cm Overall Parenchyma: heterogeneous Isthmus Thickness: 0.8 cm NODULES RIGHT: # of nodules measured on right: 2 1. 1.7 x 1.4 x 1.1 cm hypoechoic nodule at the upper pole with well-defined margins. This nodule is wider than tall and shows intranodular vascularity. Prior size: Unable to accurately follow ultrasound nodules from US 2015 2. 1.4 X 1.4 x 1.0 cm isoechoic nodule at the lower pole with well-defined margins. This nodule is wider than tall and shows intranodular vascularity. Prior size: Unable to accurately follow ultrasound nodules from US 2015 LEFT: # of nodules measured on left: 1 1. 1.5 x 0.8 x 1.3 cm hypoechoic nodule at the mid lateral pole with well-defined margins. This nod ule is taller than wide and shows no intranodular vascularity. Prior size: Unable to accurately follow ultrasound nodules from US 2015 ISTHMUS: # of nodules measured in the isthmus: 0 Bilateral neck scanned. Prominent lymph node seen in upper right neck = 1.6 x 1.4 x 1.2 cm and upper left neck= 2.8 x 1.6 x 1.2 cm IMPRESSION: Correlate for thyroiditis. There are multinodular thyroid changes seen. There also is evidence of lym phadenopathy within the neck bilaterally. Correlate clinically.
== END | disposition home or self-care (01) ==
LOC: RADUSWWP 14:20
PROVIDERS: ATTEND Family Medicine
DX: E04.2 Nontoxic multinodular goiter (principal); R59.1 Generalized enlarged lymph nodes; E06.3 Autoimmune thyroiditis
CPT/HCPCS: 76536

== ENCOUNTER → 2020-04-13 | Outpatient (CLI) | payer OTHER | END | disposition home or self-care (01) | LOC: LABWHC1 14:45 | PROVIDERS: ATTEND Family Medicine | DX: Z03.818 Encounter for observation for suspected exposure to other biological agents ruled out (principal) | CPT/HCPCS: U0003; C9803 ==

== ENCOUNTER 2020-05-27 13:27 | Observation (INO) | payer OTHER ==
[2020-05-27] MEDS ORDERED: ASPIRIN 81 MG PO STA (14:42)
[2020-05-27] MEDS ORDERED: LORazepam 2 MG/ML INJ IV STA (14:44)
[2020-05-27 15:07] LABS: Basophils # (A) 0.2 k/uL (0-0.2); Basophils % (A) 1 %; Eosinophils # (A) 0.5 k/uL (0-0.7); Eosinophils % (A) 3 %; HCT 46.7 % (34.0-46.0); HGB 15.3 gm/dL (11.4-16.0); Lymphocytes # (A) 3.2 k/uL (1.0-4.8); Lymphocytes % (A) 18 %; MCH 28.3 pg (25.0-35.0); MCHC 32.9 g/dL (31.0-37.0); MCV 86.2 fL (80.0-100.0); Mean Platelet Volume 7.5; Monocytes # (A) 0.7 k/uL (0-1.0); Monocytes % (A) 4 %; Neutrophils # (A) 12.8 k/uL (1.3-7.7); Neutrophils % (A) 73 %; Platelet Count 405 k/uL (150-450); RBC 5.42 m/uL (3.80-5.40); RDW 14.7 % (11.5-15.5); WBC 17.5 k/uL (3.8-10.6)
[2020-05-27 15:19] LABS: ALT 8 U/L (4-34); AST 14 U/L (14-36); African American GFR (CKD) >90 (>60 ml/min/1.73 sqM); Albumin 3.7 g/dL (3.5-5.0); Alkaline Phosphatase 110 U/L (38-126); Anion Gap 8 mmol/L; Blood Urea Nitrogen 7 mg/dL (7-17); Calcium 9.5 mg/dL (8.4-10.2); Carbon Dioxide 33 mmol/L (22-30); Chloride 98 mmol/L (98-107); Glucose 122 mg/dL (74-99); Lipase 67 U/L (23-300); Magnesium 2.3 mg/dL (1.6-2.3); Non-African American GFR(CKD) 80 (>60 ml/min/1.73 sqM); Potassium 3.1 mmol/L (3.5-5.1); Sodium 139 mmol/L (137-145); Total Bilirubin 0.5 mg/dL (0.2-1.3)
--- NOTE | 2020-05-27 15:19 | ED ---
Chest Pain HPI - General Chief Complaint: Chest Pain Stated Complaint: SOB, Chest pain Time Seen by Provider: 05/27/20 14:34 Source: patient Mode of arrival: wheelchair Limitations: no limitations - History of Present Illness Initial Comments: 44yo female with smoking history, HTN history, "borderline" diabetes presents today for chief complaint of chest pain, SOB. Patient states for the past day she has had intermittent chest pressure and SOB. Pt dneies jaw or arm pain. States she feel panicked. Pt states it feels like when she has had panick attack s in the past. Patient states she is out of her xanax. Patient denies nausea, vomiting, diarrhea, fevers, cough, leg swelling. Denies known cardiac history. Patient states that she has no stents, no historyo of PE/DVT, no unilateral calf pain or swelling, no recent surgeries, hemoptysis, recent travel, no exogenous hormone use. Patient denies pain with deep breath. Denies known history of cancer. Patient upon arrival appears well nontoxic in no acute distress. Afebrile. - Related Data Home Medications Medication Instructions Recorded Confirmed Docusate [Colace] 100 mg PO BID 11/21/15 05/27/20 Lisinopril/Hydrochlorothiazide 1 tab PO DAILY 11/21/15 05/27/20 [Lisinopril-Hctz 20-12.5 mg Tab] Citalopram Hydrobromide [CeleXA] 20 mg PO DAILY 02/24/19 05/27/20 DULoxetine HCL [Cymbalta] 60 mg PO DAILY 02/24/19 05/27/20 Ibuprofen [Motrin] 800 mg PO TID PRN 02/24/19 05/27/20 allopurinoL [Zyloprim] 100 mg PO DAILY 02/24/19 05/27/20 ALPRAZolam [Xanax] 1 mg PO TID 05/06/19 05/27/20 Cetirizine HCl [Zyrtec] 10 mg PO DAILY 05/06/19 05/27/20 DULoxetine HCL [Cymbalta] 30 mg PO DAILY 05/06/19 05/27/20 Potassium Chloride ER [K-Dur 20] 20 meq PO DAILY 05/27/20 05/27/20 Allergies Allergy/AdvReac Type Severity Reaction Status Date / Time levofloxacin [From Levaquin] Allergy Anaphylaxis Verified 05/27/20 16:05 milk Allergy Unknown Verified 05/27/20 16:05 shellfish derived [Shellfish] Allergy Anaphylaxis Verified 05/27/20 16:05 Sulfa (Sulfonamide Allergy Unknown Verified 05/27/20 16:05 Antibiotics) Childhood doxycycline AdvReac Nausea & Verified 05/27/20 16:05 Vomiting RYE BREAD Allergy Unknown Uncoded 05/27/20 16:05 Review of Systems ROS Statement: Those systems with pertinent positive or pertinent negative responses have been documented in the HPI. ROS Other: All systems not noted in ROS Statement are negative. EKG Findings - EKG Comments: EKG Findings:: Ventricular rate 94 bpm, CA interval 174 ms which she worse or should 98 ms, QT/QTC 360/450 ms. This is normal sinus rhythm with low-voltage QRS poor baseline due to artifact. Patient EKG was shown to Dr. Diamond at 1416 Past Medical History Past Medical History: Asthma, GERD/Reflux, Hypertension, Thyroid Disorder Additional Past Medical History / Comment(s): migraine headaches, pt states she was admitted to [facility] with similar R flank/low abdominal pain and told she had kidney stones, sinus problems., History of Any Multi-Drug Resistant Organisms: None Reported Past Surgical History: Adenoidectomy, Appendectomy, Section, Cholecystectomy, Ear Surgery, Orthopedic Surgery, Tonsillectomy, Tubal Ligation, Uterine Ablation Additional Past Surgical History / Comment(s): L index finger reattatched, bilateral carpal tunnel releases, hysteroscopy with failed uterine ablation then D&C with successful uterine ablation, thyroid bx, bilateral myrinotomies/tubes. Past Anesthesia/Blood Transfusion Reactions: Postoperative Nausea & Vomiting (PONV) Past Psychological History: Anxiety, Depression Smoking Status: Current every day smoker Past Alcohol Use History: None Reported Past Drug Use History: Marijuana - Past Family History Sister(s) Family Medical History: No Reported History (Patient has 2 sisters no major medical problems.) Additional Family Medical History / Comment(s): Patient is living with her fianc has 8 kids 2 are not hers. General Exam - General Exam Comments Initial Comments: General: The patient is awake and alert, in no distress Eye: Pupils are equal, round and reactive to light, extra-ocular movements are intact. No nystagmus. There is normal conjunctiva bilaterally. No signs of icterus. Ears, nose, mouth and throat: There are moist mucous membranes and no oral lesions. Neck: The neck is supple, there is no tenderness or JVD. Cardiovascular: There is a regular rate and rhythm. No murmur, rub or gallop is appreciated. Respiratory: Lungs are clear to auscultation, respirations are non-labored, breath sounds are equal. No wheezes, stridor, rales, or rhonchi. Gastrointestinal: Soft, non-distended, non-tender abdomen without masses or organomegaly noted. There is no rebound or guarding present. Musculoskeletal: Normal ROM, no tenderness. Strength 5/5. Sensation intact. Radial and DP pulses equal bilaterally 2+. Neurological: A&O x 3. CN II-XII intact grossly, There are no obvious motor or sensory deficits. Coordination appears grossly intact. Speech is normal. Skin: Skin is warm and dry and no rashes or lesions are noted. Psychiatric: Cooperative, appropriate mood & affect, normal judgment. Limitations: no limitations Course Vital Signs 05/27/20 05/27/20 13:54 15:53 Temperature 98.0 F Pulse Rate 97 90 Respiratory 20 16 Rate Blood Pressure 109/78 138/80 O2 Sat by Pulse 96 96 Oximetry Chest Pain MDM - MDM 44yo female presented for chief complaint of chest pressure x 1 day. Patient complaining of chest pressure 1 day she believes it is a panic attack patient has history concerning for ACS. EKG no acute findings concerning for ST elevation ND. Initial troponin negative. Patient currently asymptomatic patient will be admitted for serial troponins and further cardiology evaluation. Disposition Clinical Impression: Chest pressure, Dyspnea Disposition: ADMITTED IP TO THIS HOSP Condition: Stable Is patient prescribed a controlled substance at d/c from ED?: No Referrals: Dieudonne Copeland DO [Primary Care Provider] - 1-2 days Time of Disposition: 16:36 Decision to Admit Reason: Admit from EC Decision Date: 05/27/20 Decision Time: 16:36
[2020-05-27 15:23] LABS: D-Dimer 0.4 mg/L FEU (<0.60); INR 0.9 (<1.2); Partial Thromboplastin Time 26.6 sec (22.0-30.0); Prothrombin Time 9.4 sec (9.0-12.0)
--- NOTE | 2020-05-27 15:49 | XR ---
EXAMINATION TYPE: XR chest 2V DATE OF EXAM: 05/27/2020 COMPARISON: Chest x-ray 02/02/2020 HISTORY: Chest pain and shortness of breath TECHNIQUE: Frontal and lateral views of the chest are obtained. FINDINGS: There is no focal air space opacity, pleural effusion, or pneumothorax seen. The cardiac silhouette size is within normal limits. The osseous structures are intact. Some bronchial wall thi ckening is present. IMPRESSION: Correlate for bronchitis, reactive airways disease.
[2020-05-27] MEDS ORDERED: POTASSIUM CHLORIDE ER 20 MEQ TAB.ER PO STA (15:54)
[2020-05-27] MEDS ORDERED: NITROGLYCERIN SL TABS 0.4 MG TAB SUBLINGUAL PRN (16:29)
[2020-05-28 03:18] LABS: Cholesterol 238 mg/dL (<200); HDL Cholesterol 36 mg/dL (40-60); LDL Cholesterol,Calculated 160 mg/dL (0-99); Triglycerides 208 mg/dL (<150)
[2020-05-28] MEDS ORDERED: DULoxetine HCL 60 MG CAPSULE.DR PO SCH (09:00)
[2020-05-28] MEDS ORDERED: CITALOPRAM HYDROBROMIDE 20 MG TAB PO SCH (09:00)
[2020-05-28] MEDS ORDERED: ASPIRIN 325 MG TAB PO SCH (09:00)
[2020-05-28] MEDS ORDERED: allopurinoL 100 MG TAB PO SCH (09:00)
[2020-05-28] MEDS ORDERED: DULoxetine HCL 30 MG CAPSULE.DR PO SCH (09:00)
[2020-05-28] MEDS ORDERED: LISINOPRIL-HCTZ 20-12.5 MG 1 EACH TAB PO SCH (09:00)
[2020-05-28] MEDS ORDERED: POTASSIUM CHLORIDE ER 20 MEQ TAB.ER PO SCH (09:00)
[2020-05-28] MEDS ORDERED: RX INFO: IV CONTRAST WAS GIVEN 1 EACH MISC MISCELLANE PRN (09:21)
--- NOTE | 2020-05-28 11:41 | CT ---
EXAMINATION TYPE: CT chest w con DATE OF EXAM: 05/28/2020 COMPARISON: Chest radiograph 05/27/2020. CT abdomen pelvis 02/24/2019. HISTORY: chest pain CT DLP: 634.5 mGycm Automated exposure control for dose reduction was used. CONTRAST: CT scan of the chest is performed with IV Contrast, patient injected with 100 mL of Isovue 300. FINDINGS: LUNGS: Lungs are grossly clear. Mild dependent bilateral atelectasis. No concerning parenchymal mass or nodule identified. No pleural effusion. No pneumothorax. The tracheobronchial tree is patent. MEDIASTINUM/SOFT TISSUES: No axillary, hilar, or mediastinal lymphadenopathy greater than 1 cm. Cardi ac size is normal. Calcified coronary artery disease. No pericardial effusion. No thoracic aortic ane urysm. UPPER ABDOMEN: Nodule of the left adrenal gland unchanged versus 02/24/2019 CT. Calcified granuloma of the hepatic dome. OSSEOUS: Degenerative changes of the spine. IMPRESSION: 1. No acute cardiopulmonary process. 2. Calcified coronary artery disease.
[2020-05-28] MEDS ORDERED: HEPARIN SODIUM,PORCINE 5,000 UNIT/ML 1 ML VIAL SQ SCH (11:45)
[2020-05-28] MEDS ORDERED: METOPROLOL TARTRATE 12.5 MG TAB PO SCH (11:45)
--- NOTE | 2020-05-28 12:33 | P.CRDCN ---
History of Present Illness Consult date: 05/28/20 History of present illness: CHIEF COMPLAINT: Chest pain HISTORY OF PRESENT ILLNESS: This is a 44 -year old female with a past medical history significant for hypertension and nicotine dependence. 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 We have been asked to see the patient in consultation for chest pain. Patient examined this morning at the bedside. She reports on she had a panic attack and about 20 minutes afterwards she began having some chest discomfort. She describes the discomfort as a tightness. She denies radiation to jaw or arm or back. She does report some associated shortness of breath when she was having the chest pain. She states this pain lasted for over 24 hours and resolved after she came to the emergency room and received Ativan. At the time of examination this morning, the patient denies chest pain or pressure. She denies shortness of breath. DIAGNOSTICS: EKG reveals sinus rhythm Chest xray correlate for bronchitis, reactive airway diseases Laboratory data: WBC 17.5. Hemoglobin 15.3. Platelet count 405. D-dimer 0.40. Sodium 139. Potassium 3.1. BUN 7. Creatinine 0.87. Magnesium 2.3. Troponin negative 3. BNP 56. Current home cardiac medications include lisinopril-hydrochlorothiazide 20- 12.5mg daily REVIEW OF SYSTEMS: At the time of my exam: CONSTITUTIONAL: Denies fever or chills. HEENT: Denies blurred vision, vision changes, or eye pain. Denies hemoptysis CARDIOVASCULAR: Denies chest pain, orthopnea, PND or palpitations RESPIRATORY: No shortness of breath. GASTROINTESTINAL: Denies abdominal pain. Denies nausea or vomiting. HEMATOLOGIC: Denies bleeding disorders. GENITOURINARY: Denies any blood in urine. SKIN: Denies pruitis. Denies rash. PHYSICAL EXAM: VITAL SIGNS: Reviewed. GENERAL: Well-developed in no acute distress. HEENT: Head is normocephalic. Pupils are equal, round. Sclerae anicteric. Mucous membranes of the mouth are moist. Neck supple. No JVD or thyromegaly LUNGS: Respirations even and unlabored. Lungs diminished. HEART: Regular rate and rhythm. S1 and S2 heard. ABDOMEN: Soft. Nondistended. Nontender. EXTREMITIES: Normal range of motion. No clubbing or cyanosis. Peripheral pulses intact. No lower extremity edema NEUROLOGIC: Awake and alert. Oriented x 3. ASSESSMENT: Chest pain, atypical, troponin negative 3 Hypertension Nicotine dependence Hyperlipidemia, LDL 160 PLAN: An acute coronary event has been ruled out Resume home cardiac medications Smoking cessation encouraged Recommend dietary modifications for increased LDL. Begin Lipitor 20 mg daily. Begin metoprolol 12.5 mg twice a day Obtain 2-D echo to assess cardiac structure and function If no significant abnormalities noted on echocardiogram, patient may be discharged home from a cardiac standpoint and follow up outpatient. Patient to have stress test performed on an outpatient basis. Nurse practitioner note has been reviewed by physician. Signing provider agrees with the documented findings, assessment, and plan of care. Past Medical History Past Medical History: Asthma, GERD/Reflux, Hypertension, Thyroid Disorder Additional Past Medical History / Comment(s): migraine headaches, pt states she was admitted to [facility] with similar R flank/low abdominal pain and told she had kidney stones, sinus problems., History of Any Multi-Drug Resistant Organisms: None Reported Past Surgical History: Adenoidectomy, Appendectomy, Section, Cholecystectomy, Ear Surgery, Orthopedic Surgery, Tonsillectomy, Tubal Ligation, Uterine Ablation Additional Past Surgical History / Comment(s): L index finger reattatched, bilateral carpal tunnel releases, hysteroscopy with failed uterine ablation then D&C with successful uterine ablation, thyroid bx, bilateral myrinotomies/tubes. Past Anesthesia/Blood Transfusion Reactions: Postoperative Nausea & Vomiting (PONV) Past Psychological History: Anxiety, Depression Smoking Status: Current every day smoker Past Alcohol Use History: None Reported Additional Past Alcohol Use History / Comment(s): Pt started smoking in 1956 and smokes 1 pack every day and a half. Past Drug Use History: Marijuana - Past Family History Sister(s) Family Medical History: No Reported History Additional Family Medical History / Comment(s): Patient is living with her fianc has 8 kids 2 are not hers. Father Additional Family Medical History / Comment(s): pacemaker Mother Family Medical History: AFIB, Myocardial Infarction ([place]) Additional Family Medical History / Comment(s): TIA/mini strokes Medications and Allergies Home Medications Medication Instructions Recorded Confirmed Type Docusate [Colace] 100 mg PO BID 11/21/15 05/27/20 History Lisinopril/Hydrochlorothiazide 1 tab PO DAILY 11/21/15 05/27/20 History [Lisinopril-Hctz 20-12.5 mg Tab] Citalopram Hydrobromide [CeleXA] 20 mg PO DAILY 02/24/19 05/27/20 History DULoxetine HCL [Cymbalta] 60 mg PO DAILY 02/24/19 05/27/20 History Ibuprofen [Motrin] 800 mg PO TID PRN 02/24/19 05/27/20 History allopurinoL [Zyloprim] 100 mg PO DAILY 02/24/19 05/27/20 History ALPRAZolam [Xanax] 1 mg PO TID 05/06/19 05/27/20 History Cetirizine HCl [Zyrtec] 10 mg PO DAILY 05/06/19 05/27/20 History DULoxetine HCL [Cymbalta] 30 mg PO DAILY 05/06/19 05/27/20 History Potassium Chloride ER [K-Dur 20] 20 meq PO DAILY 05/27/20 05/27/20 History Atorvastatin Calcium [Lipitor] 20 mg PO HS #30 tab 05/28/20 Rx Metoprolol Tartrate [Lopressor] 12.5 mg PO BID #60 dose 05/28/20 Rx Allergies Allergy/AdvReac Type Severity Reaction Status Date / Time levofloxacin [From Levaquin] Allergy Anaphylaxis Verified 05/27/20 16:05 milk Allergy Unknown Verified 05/27/20 16:05 shellfish derived [Shellfish] Allergy Anaphylaxis Verified 05/27/20 16:05 Sulfa (Sulfonamide Allergy Unknown Verified 05/27/20 16:05 Antibiotics) Childhood doxycycline AdvReac Nausea & Verified 05/27/20 16:05 Vomiting RYE BREAD Allergy Unknown Uncoded 05/27/20 16:05 Physical Exam Vitals: Vital Signs Temp Pulse Pulse Resp BP BP Pulse Ox 05/28/20 09:00 97.3 F L 82 18 116/91 92 L 05/28/20 03:30 98.2 F 92 18 107/75 94 L 05/27/20 22:27 97.4 F L 88 16 113/75 05/27/20 20:30 85 18 111/68 92 L 05/27/20 18:50 98 05/27/20 18:40 96 05/27/20 18:30 107/91 96 05/27/20 18:20 107/91 96 05/27/20 18:10 107/91 98 05/27/20 18:00 97 05/27/20 17:50 98 05/27/20 17:40 96 05/27/20 17:30 96/68 05/27/20 17:20 89 96/68 96 05/27/20 17:10 91 96/68 99 05/27/20 17:00 87 111/83 97 05/27/20 16:50 87 111/83 94 L 05/27/20 16:40 84 111/83 93 L 05/27/20 16:30 92 128/90 95 05/27/20 16:20 86 128/90 93 L 05/27/20 16:10 86 128/90 93 L 05/27/20 16:00 87 138/80 93 L 05/27/20 15:53 90 16 138/80 96 05/27/20 15:50 88 05/27/20 15:40 95 05/27/20 15:30 90 18 99 05/27/20 15:20 89 05/27/20 15:13 87 05/27/20 15:00 92 99 05/27/20 14:50 90 16 99 05/27/20 14:40 93 05/27/20 13:54 98.0 F 97 20 109/78 96 Intake and Output 05/27/20 05/28/20 05/28/20 22:59 06:59 14:59 Other: Voiding Method Toilet Toilet # Voids 1 1 1 Weight 149.685 kg Results 05/27/20 14:54 05/27/20 14:54 Cardiac Enzymes 05/27/20 05/27/20 05/27/20 Range/Units 14:54 14:54 18:33 AST 14 (14-36) U/L Troponin I <0.012 <0.012 (0.000-0.034) ng/mL 05/27/20 Range/Units 22:35 AST (14-36) U/L Troponin I <0.012 (0.000-0.034) ng/mL Coagulation 05/27/20 Range/Units 14:54 PT 9.4 (9.0-12.0) sec APTT 26.6 (22.0-30.0) sec Lipids 05/27/20 Range/Units 14:54 Triglycerides 208 H (<150) mg/dL Cholesterol 238 H (<200) mg/dL HDL Cholesterol 36 L (40-60) mg/dL CBC 05/27/20 Range/Units 14:54 WBC 17.5 H (3.8-10.6) k/uL RBC 5.42 H (3.80-5.40) m/uL Hgb 15.3 (11.4-16.0) gm/dL Hct 46.7 H (34.0-46.0) % Plt Count 405 (150-450) k/uL Comprehensive Metabolic Panel 05/27/20 Range/Units 14:54 Sodium 139 (137-145) mmol/L Potassium 3.1 L (3.5-5.1) mmol/L Chloride 98 (98-107) mmol/L Carbon Dioxide 33 H (22-30) mmol/L BUN 7 (7-17) mg/dL Creatinine 0.87 (0.52-1.04) mg/dL Glucose 122 H (74-99) mg/dL Calcium 9.5 (8.4-10.2) mg/dL AST 14 (14-36) U/L ALT 8 (4-34) U/L Alkaline Phosphatase 110 (38-126) U/L Total Protein 7.0 (6.3-8.2) g/dL Albumin 3.7 (3.5-5.0) g/dL Current Medications Generic Name Dose Route Start Last Admin Trade Name Freq PRN Reason Stop Dose Admin Allopurinol 100 mg 05/28/20 09:00 Allopurinol 100 Mg Tab PO DAILY [facility] Alprazolam 0.5 mg 05/28/20 16:00 Alprazolam 0.5 Mg Tab PO TID [facility] Aspirin 325 mg 05/28/20 09:00 05/28/20 08:11 Aspirin 325 Mg Tab PO 325 mg DAILY [facility] Administration Citalopram Hydrobromide 20 mg 05/28/20 09:00 Citalopram Hydrobromide 20 Mg Tab PO DAILY [facility] Duloxetine HCl 30 mg 05/28/20 09:00 Duloxetine Hcl 30 Mg Capsule. PO DAILY [facility] Duloxetine HCl 60 mg 05/28/20 09:00 Duloxetine Hcl 60 Mg Capsule. PO DAILY [facility] Lisinopril/HCTZ 1 each 05/28/20 09:00 Lisinopril-Hctz 20-12.5 Mg 1 Each Tab PO DAILY [facility] Miscellaneous Information 1 each 05/28/20 09:21 Rx Info: Iv Contrast Was Given 1 Each Misc MISCELLANE 05/30/20 09:24 DAILY PRN Per Protocol Nitroglycerin 0.4 mg 05/27/20 16:29 Nitroglycerin Sl Tabs 0.4 Mg Tab SUBLINGUAL Q5M PRN Chest Pain Potassium Chloride 20 meq 05/28/20 09:00 Potassium Chloride Er 20 Meq Tab.Er PO DAILY [facility] Intake and Output 05/27/20 05/28/20 05/28/20 22:59 06:59 14:59 Other: Voiding Method Toilet Toilet # Voids 1 1 1 Weight 149.685 kg 05/27/20 14:54 05/27/20 14:54
--- NOTE | 2020-05-28 12:35 | P.HPIM ---
History of Present Illness H&P Date: 05/28/20 Chief Complaint: chest pain HISTORY AND PHYSICAL AND DISCHARGE SUMMARY: HISTORY OF PRESENT ILLNESS This is a 44-year-old female patient of Dr. Copeland with a past medical history of mild intermittent asthma, gastroesophageal reflux disease, hypertension, hyperlipidemia, hypothyroidism, migraine headaches, borderline diabetes, morbid obesity, tobacco use and dependence, generalized anxiety disorder and recurrent depression. Patient gives history on Saturday that she had developed a panic attack and she tried to breathe through it and went into her bedroom. She did not take Xanax at that time. She does have trouble with anxiety and panic attacks and states she had a very stressful week. She developed chest pain that was in the midsternal area and radiated through to her back. She continued to have pain all day and thought it was related to anxiety. She still complains of shortness of breath with exertion that has been going on for a couple weeks. She denies having any wheezing. She denies any sweats, radiation of the pain to the arm or jaw. Patient has not seen a bone plant supervisor in the past and has never had a stress test. Patient states that she is scheduled to follow-up with a doctor regarding her thyroid. She is also to meet with the certified lactation educator regarding borderline diabetes. Patient came into [facility] emergency center for evaluation and found to be afebrile, heart rate 97, blood pressure 109/78, pulse ox 96% on room air. Blood work revealed WBC 17.5, hemoglobin 15.3. D-dimer 0.4. Sodium 139, potassium 3.1, chloride 98, CO2 33, BUN 17 creatinine 0.87. Troponins negative on 3 draws. EKG was a sinus rhythm with no acute ST changes. Chest x- ray showed bronchitis, reactive airway disease. Patient was placed on the observation unit and consult with cardiology requested. CT of the chest was ordered to rule out aortic aneurysm. She is currently without chest pain. CAT scan of the chest revealed no acute cardiopulmonary process. Calcified coronary artery disease. Echocardiogram reveals EF of 55-60%, valves were not well visualized due to morbid obesity. Patient was seen by cardiology and acute cardiac syndrome was ruled out with recommendations to resume home cardiac medications and was cleared for discharge home with plan for stress test as an outpatient. REVIEW OF SYSTEMS Constitutional: No fever, no chills, no night sweats. No weight change. No weakness, fatigue or lethargy. No daytime sleepiness. EENT: No headache. No blurred vision or double vision, no loss of vision. No loss of Hearing, no ringing in the ears, no dizziness. No nasal drainage or congestion. No epistaxis. No sore throat. Lungs: Reports shortness of breath, cough, no sputum production. No wheezing. Reports dyspnea on exertion Cardiovascular: Reports chest pain, no lower extremity edema. No palpitations. No paroxysmal nocturnal dyspnea. No orthopnea. No lightheadedness or dizziness. No syncopal episodes. Abdominal: No abdominal pain. No nausea, vomiting. No diarrhea. No constipat ion. No bloody or tarry stools.. No loss of appetite. Genitourinary: No dysuria, increased frequency, urgency. No urinary retention. Musculoskeletal: No myalgias. No muscle weakness, no gait dysfunction, no frequent falls. No back pain. No neck pain. Integumentary: No wounds, no lesions. No rash or pruritus. No unusual bruising. No change in hair or nails. Neurologic: No aphasia. No facial droop. No change in mentation. No head injury. No headache. No paralysis. No paresthesia. Psychiatric: No depression. Reports anxiety. Reports anxiety attacks. Endocrine: Reports abnormal blood sugars. SOCIAL HISTORY Patient is a smoker up to 2 packs per day for 32 years and recently cut down to one pack every 1-1/2 day. She uses marijuana on a daily basis. She denies any alcohol use or street drug use. She lives at home with 6 people. FAMILY HISTORY Father at age 60 from T-cell lymphoma. Mother at age 73 from coronary artery disease and had her first myocardial infarction in her 50s. She also had diabetes and strokes. Patient has 2 sisters one has breast cancer with metastatic disease and one with no major medical problems. Patient has 3 biological children with no major medical problems. PHYSICAL EXAMINATION Gen: This is a morbidly obese 44-year-old female. She is sitting up in bed and appears to be comfortable and in no acute distress. HEENT: Head is atraumatic, normocephalic. Pupils equal, round. Sclerae is anicteric. Oral mucous membranes are moist. Dentition is in poor order. NECK: Supple. No JVD. No lymphadenopathy. No thyromegaly. LUNGS: Clear to auscultation. No wheezes or rhonchi. No intercostal retractions. HEART: Regular rate and rhythm. No murmur. ABDOMEN: Soft. Bowel sounds are present. No masses. No tenderness. EXTREMITIES: No pedal edema. No calf tenderness. Dorsalis pedis +2 bilaterally. NEUROLOGICAL: Patient is awake, alert and oriented x3. Cranial nerves 2 through 12 are grossly intact. ASSESSMENT AND PLAN 1. Chest pain with negative troponins. Cardiology consult. Echocardiogram as above. CAT scan of the chest as above. 2. Mild intermittent asthma, stable without exacerbation. 3. Gastroesophageal reflux disease. 4. Hypertension. Continue lisinopril/hydrochlorothiazide 1 tablet daily, Lopressor 12.5 mg twice daily. 5. Generalized anxiety disorder with panic attacks. Continue Xanax. 6. Recurrent depression. Continue Cymbalta 60 mg daily and Celexa 20 mg daily. 7. Chronic Gout. Continue allopurinol 100 mg daily. Patient placed as an observation status. Discharge plan: Home. Discharge Medication List Docusate [Colace] 100 mg PO BID 11/21/15 [History] Lisinopril/Hydrochlorothiazide [Lisinopril-Hctz 20-12.5 mg Tab] 1 tab PO DAILY 11/21/15 [History] Citalopram Hydrobromide [CeleXA] 20 mg PO DAILY 02/24/19 [History] DULoxetine HCL [Cymbalta] 60 mg PO DAILY 02/24/19 [History] Ibuprofen [Motrin] 800 mg PO TID PRN 02/24/19 [History] allopurinoL [Zyloprim] 100 mg PO DAILY 02/24/19 [History] ALPRAZolam [Xanax] 1 mg PO TID 05/06/19 [History] Cetirizine HCl [Zyrtec] 10 mg PO DAILY 05/06/19 [History] DULoxetine HCL [Cymbalta] 30 mg PO DAILY 05/06/19 [History] Potassium Chloride ER [K-Dur 20] 20 meq PO DAILY 05/27/20 [History] Atorvastatin Calcium [Lipitor] 20 mg PO HS #30 tab 05/28/20 [Rx] Metoprolol Tartrate [Lopressor] 12.5 mg PO BID #60 dose 05/28/20 [Rx] Impression and plan of care have been directed as dictated by the signing physician. Marry Rodriguez nurse practitioner acting as scribe for signing physician. Past Medical History Past Medical History: Asthma, GERD/Reflux, Hypertension, Thyroid Disorder Additional Past Medical History / Comment(s): migraine headaches, pt states she was admitted to [facility] with similar R flank/low abdominal pain and told she had kidney stones, sinus problems., History of Any Multi-Drug Resistant Organisms: None Reported Past Surgical History: Adenoidectomy, Appendectomy, Section, Cholecystectomy, Ear Surgery, Orthopedic Surgery, Tonsillectomy, Tubal Ligation, Uterine Ablation Additional Past Surgical History / Comment(s): L index finger reattatched, bilateral carpal tunnel releases, hysteroscopy with failed uterine ablation then D&C with successful uterine ablation, thyroid bx, bilateral myrinotomies/tubes. Past Anesthesia/Blood Transfusion Reactions: Postoperative Nausea & Vomiting (PONV) Past Psychological History: Anxiety, Depression Smoking Status: Current every day smoker Past Alcohol Use History: None Reported Additional Past Alcohol Use History / Comment(s): Pt started smoking in 1956 and smokes 1 pack every day and a half. Past Drug Use History: Marijuana - Past Family History Sister(s) Family Medical History: No Reported History Additional Family Medical History / Comment(s): Patient is living with her fianc has 8 kids 2 are not hers. Father Additional Family Medical History / Comment(s): pacemaker Mother Family Medical History: AFIB, Myocardial Infarction ([place]) Additional Family Medical History / Comment(s): TIA/mini strokes Medications and Allergies Home Medications Medication Instructions Recorded Confirmed Type Docusate [Colace] 100 mg PO BID 11/21/15 05/27/20 History Lisinopril/Hydrochlorothiazide 1 tab PO DAILY 11/21/15 05/27/20 History [Lisinopril-Hctz 20-12.5 mg Tab] Citalopram Hydrobromide [CeleXA] 20 mg PO DAILY 02/24/19 05/27/20 History DULoxetine HCL [Cymbalta] 60 mg PO DAILY 02/24/19 05/27/20 History Ibuprofen [Motrin] 800 mg PO TID PRN 02/24/19 05/27/20 History allopurinoL [Zyloprim] 100 mg PO DAILY 02/24/19 05/27/20 History ALPRAZolam [Xanax] 1 mg PO TID 05/06/19 05/27/20 History Cetirizine HCl [Zyrtec] 10 mg PO DAILY 05/06/19 05/27/20 History DULoxetine HCL [Cymbalta] 30 mg PO DAILY 05/06/19 05/27/20 History Potassium Chloride ER [K-Dur 20] 20 meq PO DAILY 05/27/20 05/27/20 History Atorvastatin Calcium [Lipitor] 20 mg PO HS #30 tab 05/28/20 Rx Metoprolol Tartrate [Lopressor] 12.5 mg PO BID #60 dose 05/28/20 Rx Allergies Allergy/AdvReac Type Severity Reaction Status Date / Time levofloxacin [From Levaquin] Allergy Anaphylaxis Verified 05/27/20 16:05 milk Allergy Unknown Verified 05/27/20 16:05 shellfish derived [Shellfish] Allergy Anaphylaxis Verified 05/27/20 16:05 Sulfa (Sulfonamide Allergy Unknown Verified 05/27/20 16:05 Antibiotics) Childhood doxycycline AdvReac Nausea & Verified 05/27/20 16:05 Vomiting RYE BREAD Allergy Unknown Uncoded 05/27/20 16:05 Physical Exam Vitals: Vital Signs Temp Pulse Pulse Resp BP BP Pulse Ox 05/28/20 03:30 98.2 F 92 18 107/75 94 L 05/27/20 22:27 97.4 F L 88 16 113/75 05/27/20 20:30 85 18 111/68 92 L 05/27/20 18:50 98 05/27/20 18:40 96 05/27/20 18:30 107/91 96 05/27/20 18:20 107/91 96 05/27/20 18:10 107/91 98 05/27/20 18:00 97 05/27/20 17:50 98 05/27/20 17:40 96 05/27/20 17:30 96/68 05/27/20 17:20 89 96/68 96 05/27/20 17:10 91 96/68 99 05/27/20 17:00 87 111/83 97 05/27/20 16:50 87 111/83 94 L 05/27/20 16:40 84 111/83 93 L 05/27/20 16:30 92 128/90 95 05/27/20 16:20 86 128/90 93 L 05/27/20 16:10 86 128/90 93 L 05/27/20 16:00 87 138/80 93 L 05/27/20 15:53 90 16 138/80 96 05/27/20 15:50 88 05/27/20 15:40 95 05/27/20 15:30 90 18 99 05/27/20 15:20 89 05/27/20 15:13 87 05/27/20 15:00 92 99 05/27/20 14:50 90 16 99 05/27/20 14:40 93 05/27/20 13:54 98.0 F 97 20 109/78 96 Intake and Output 05/27/20 05/28/20 05/28/20 22:59 06:59 14:59 Other: Voiding Method Toilet # Voids 1 1 Weight 149.685 kg Results CBC & Chem 7: 05/27/20 14:54 05/27/20 14:54 Labs: Abnormal Lab Results - Last 24 Hours (Table) 05/27/20 05/27/20 05/27/20 Range/Units 14:54 14:54 14:54 WBC 17.5 H (3.8-10.6) k/uL RBC 5.42 H (3.80-5.40) m/uL Hct 46.7 H (34.0-46.0) % Neutrophils # 12.8 H (1.3-7.7) k/uL Potassium 3.1 L (3.5-5.1) mmol/L Carbon Dioxide 33 H (22-30) mmol/L Glucose 122 H (74-99) mg/dL Triglycerides 208 H (<150) mg/dL Cholesterol 238 H (<200) mg/dL LDL Cholesterol, Calc 160 H (0-99) mg/dL HDL Cholesterol 36 L (40-60) mg/dL Thrombosis Risk Factor Assmnt - Choose All That Apply Each Factor Represents 1 point: Age 41-60 years, Obesity (BMI >25) Other Risk Factors: Yes Each Risk Factor Represents 3 Points: Family history of DVT/PE Thrombosis Risk Factor Assessment Total Risk Factor Score: 5 Thrombosis Risk Factor Assessment Level: High Risk
[2020-05-28] MEDS ORDERED: ALPRAZolam 0.5 MG TAB PO SCH (16:00)
[2020-05-28 16:48] VITALS: BP 124/81; PULSE 70; RESP 16; TEMP 98
--- NOTE | 2020-05-28 17:00 | ECHOF ---
Referral Reason:Chest pain MEASUREMENTS -------- HEIGHT: 165.1 cm WEIGHT: 149.7 kg BP: IVSd: 1.2 cm (0.6 - 1.1) LVIDd: 4.6 cm (3.9 - 5.3) LVPWd: 1.3 cm (0.6 - 1.1) IVSs: 1.4 cm LVIDs: 3.6 cm LVPWs: 1.7 cm Ao Diam: 2.8 cm (2.0 - 3.7) LA Diam: 3.9 cm (2.7 - 3.8) MV E Yusef: 0.53 m/s MV DecT: 131 ms MV A Yusef: 0.52 m/s MV E/A Ratio: 1.02 RAP: 5.00 mmHg RVSP: 22.38 mmHg FINDINGS -------- Sinus rhythm. Morbid Obesity This was a techncally difficult study with suboptimal views, , Lumason utilized for enhancement of images. The left ventricular size is normal. There is mild concentric left ventricular hypertrophy. Overa ll left ventricular systolic function is normal with, an EF between 55 - 60 %. The right ventricle is normal in size. The left atrial size is normal. The right atrial size is normal. The aortic valve was not well visualized. The mitral valve was not well visualized. The tricuspid valve was not well visualized. The pulmonic valve was not well visualized. The aortic root size is normal. There is no pericardial effusion. CONCLUSIONS -------- 1. Morbid Obesity 2. This was a techncally difficult study with suboptimal views, , Lumason utilized for enhancement of images. 3. The left ventricular size is normal. 4. Overall left ventricular systolic function is normal with, an EF between 55 - 60 %. 5. The right ventricle is normal in size. 6. The left atrial size is normal. 7. The right atrial size is normal. 8. The aortic valve was not well visualized. 9. The mitral valve was not well visualized. 10. The tricuspid valve was not well visualized. 11. The pulmonic valve was not well visualized. 12. The aortic root size is normal. 13. There is no pericardial effusion. MUNITIONS HANDLER SUPERVISOR: Marina Haddad RDCS
[2020-05-28] MEDS ORDERED: ATORVASTATIN 20 MG TAB PO SCH (21:00)
== END 2020-05-28 17:00 | disposition home or self-care (01) ==
LOC: EC 13:27 → 3NCARDOBS 21:57
PROVIDERS: ADMIT Internal Medicine; ATTEND Internal Medicine
DX: R07.89 Other chest pain (principal); E03.9 Hypothyroidism, unspecified; E66.01 Morbid (severe) obesity due to excess calories; E78.5 Hyperlipidemia, unspecified; F12.90 Cannabis use, unspecified, uncomplicated; F17.200 Nicotine dependence, unspecified, uncomplicated; F33.9 Major depressive disorder, recurrent, unspecified; F41.0 Panic disorder [episodic paroxysmal anxiety]; F41.1 Generalized anxiety disorder; I10 Essential (primary) hypertension; I25.10 Atherosclerotic heart disease of native coronary artery without angina pectoris; J40 Bronchitis, not specified as acute or chronic; J45.20 Mild intermittent asthma, uncomplicated; K21.9 Gastro-esophageal reflux disease without esophagitis; M1A.9XX0 Chronic gout, unspecified, without tophus (tophi); R73.03 Prediabetes; Z79.899 Other long term (current) drug therapy; Z80.3 Family history of malignant neoplasm of breast; Z80.7 Family history of other malignant neoplasms of lymphoid, hematopoietic and related tissues; Z87.442 Personal history of urinary calculi; Z68.43 Body mass index [BMI] 50.0-59.9, adult
CPT/HCPCS: 93005 ×2; 96372; 96374; 99285; 36415; 85379; 83880; 80061; 80053; 83690; 83735; 84484; 85025; 85610; 85730; 71046; 71260; G0378 ×2; C8929; J2060; J1644; Q9950; Q9967; 93306

== ENCOUNTER 2020-06-08 15:48 | Inpatient (IN) | payer MEDICAID, OTHER ==
--- NOTE | 2020-06-08 16:35 | ED ---
General Adult HPI - General Chief complaint: Psychiatric Symptoms Stated complaint: mental health-sent by PCP Time Seen by Provider: 06/08/20 16:14 Source: patient, family, RN notes reviewed Mode of arrival: ambulatory Limitations: no limitations - History of Present Illness Initial comments: Patient is a pleasant 44-year-old female presenting to the emergency Department with complaints of depression. Patient states symptoms have progressed over the past couple of weeks. Patient does have thoughts of self-harm. Patient states she does not feel she would harm herself because she hasn't 9-year-old that she needs to take care of. Patient denies homicidal thoughts. Patient does smoke marijuana. No alcohol use. No hallucinations. Patient does not sleep well. Patient has loss of appetite. - Related Data Home Medications Medication Instructions Recorded Confirmed Docusate [Colace] 100 mg PO BID 11/21/15 05/27/20 Lisinopril/Hydrochlorothiazide 1 tab PO DAILY 11/21/15 05/27/20 [Lisinopril-Hctz 20-12.5 mg Tab] Citalopram Hydrobromide [CeleXA] 20 mg PO DAILY 02/24/19 05/27/20 DULoxetine HCL [Cymbalta] 60 mg PO DAILY 02/24/19 05/27/20 Ibuprofen [Motrin] 800 mg PO TID PRN 02/24/19 05/27/20 allopurinoL [Zyloprim] 100 mg PO DAILY 02/24/19 05/27/20 ALPRAZolam [Xanax] 1 mg PO TID 05/06/19 05/27/20 Cetirizine HCl [Zyrtec] 10 mg PO DAILY 05/06/19 05/27/20 DULoxetine HCL [Cymbalta] 30 mg PO DAILY 05/06/19 05/27/20 Potassium Chloride ER [K-Dur 20] 20 meq PO DAILY 05/27/20 05/27/20 Previous Rx's Medication Instructions Recorded Atorvastatin Calcium [Lipitor] 20 mg PO HS #30 tab 05/28/20 Metoprolol Tartrate [Lopressor] 12.5 mg PO BID #60 dose 05/28/20 Allergies Allergy/AdvReac Type Severity Reaction Status Date / Time levofloxacin [From Levaquin] Allergy Anaphylaxis Verified 06/08/20 16:07 milk Allergy Unknown Verified 06/08/20 16:07 shellfish derived [Shellfish] Allergy Anaphylaxis Verified 06/08/20 16:07 Sulfa (Sulfonamide Allergy Unknown Verified 06/08/20 16:07 Antibiotics) Childhood doxycycline AdvReac Nausea & Verified 06/08/20 16:07 Vomiting RYE BREAD Allergy Unknown Uncoded 06/08/20 16:07 Review of Systems ROS Statement: Those systems with pertinent positive or pertinent negative responses have been documented in the HPI. ROS Other: All systems not noted in ROS Statement are negative. Constitutional: Denies: fever Eyes: Denies: eye pain ENT: Denies: ear pain Respiratory: Denies: cough Cardiovascular: Denies: chest pain Endocrine: Denies: fatigue Gastrointestinal: Denies: abdominal pain Genitourinary: Denies: dysuria Musculoskeletal: Denies: back pain Skin: Denies: rash Neurological: Denies: weakness Psychiatric: Reports: depression Past Medical History Past Medical History: Asthma, GERD/Reflux, Hypertension, Thyroid Disorder Additional Past Medical History / Comment(s): migraine headaches, pt states she was admitted to [facility] with similar R flank/low abdominal pain and told she had kidney stones, sinus problems., History of Any Multi-Drug Resistant Organisms: None Reported Past Surgical History: Adenoidectomy, Appendectomy, Section, Cholecystectomy, Ear Surgery, Orthopedic Surgery, Tonsillectomy, Tubal Ligation, Uterine Ablation Additional Past Surgical History / Comment(s): L index finger reattatched, bilateral carpal tunnel releases, hysteroscopy with failed uterine ablation then D&C with successful uterine ablation, thyroid bx, bilateral myrinotomies/tubes. Past Anesthesia/Blood Transfusion Reactions: Postoperative Nausea & Vomiting (PONV) Past Psychological History: Anxiety, Depression Smoking Status: Current every day smoker Past Alcohol Use History: None Reported Past Drug Use History: Marijuana - Past Family History Sister(s) Family Medical History: No Reported History Additional Family Medical History / Comment(s): Patient is living with her fianc has 8 kids 2 are not hers. Father Additional Family Medical History / Comment(s): pacemaker Mother Family Medical History: AFIB, Myocardial Infarction (CT) Additional Family Medical History / Comment(s): TIA/mini strokes General Exam Limitations: no limitations General appearance: alert, in no apparent distress Head exam: Present: normocephalic Eye exam: Present: normal appearance Neck exam: Present: normal inspection Respiratory exam: Present: normal lung sounds bilaterally Cardiovascular Exam: Present: regular rate, normal rhythm GI/Abdominal exam: Present: soft. Absent: tenderness Extremities exam: Present: normal inspection Neurological exam: Present: alert Psychiatric exam: Present: depressed Skin exam: Present: normal color Course Vital Signs 06/08/20 06/08/20 16:03 18:42 Temperature 98.8 F Pulse Rate 104 H 89 Respiratory 20 16 Rate Blood Pressure 118/81 140/72 O2 Sat by Pulse 97 95 Oximetry Medical Decision Making - Medical Decision Making Patient was seen by mental health services plan for admission. - Lab Data Lab Results 06/08/20 Range/Units 16:36 Urine Opiates Screen Not Detected (NotDetected) Ur Oxycodone Screen Not Detected (NotDetected) Urine Methadone Screen Not Detected (NotDetected) Ur Propoxyphene Screen Not Detected (NotDetected) Ur Barbiturates Screen Not Detected (NotDetected) U Tricyclic Antidepress Not Detected (NotDetected) Ur Phencyclidine Scrn Not Detected (NotDetected) Ur Amphetamines Screen Not Detected (NotDetected) U Methamphetamines Scrn Not Detected (NotDetected) U Benzodiazepines Scrn Detected H (NotDetected) Urine Cocaine Screen Not Detected (NotDetected) U Marijuana (THC) Screen Detected H (NotDetected) Disposition Clinical Impression: Depression, Suicidal ideation Disposition: TRANSFER TO PSYCH HOSP/UNIT Is patient prescribed a controlled substance at d/c from ED?: No Decision Time: 19:54
[2020-06-08 16:53] LABS: Amphetamine Screen,Urine Not Detected (NotDetected); Barbiturate Screen,Urine Not Detected (NotDetected); Benzodiazepines Screen,Urine Detected (NotDetected); Cocaine Screen,Urine Not Detected (NotDetected); Methadone Screen, Urine Not Detected (NotDetected); Opiate Screen,Urine Not Detected (NotDetected); Oxycodone Screen, Urine Not Detected (NotDetected); Phencyclidine Screen,Urine Not Detected (NotDetected); Tricyclic Antidepressant,Urine Not Detected (NotDetected); Urn Cannabinoid Scrn Detected (NotDetected)
[2020-06-08] MEDS ORDERED: LORazepam 1 MG TAB PO PRN (19:51)
[2020-06-08] MEDS ORDERED: ACETAMINOPHEN TAB 325 MG TAB PO PRN (19:51)
[2020-06-08] MEDS ORDERED: ZIPRASIDONE 20 MG VIAL IM PRN (19:51)
[2020-06-08] MEDS ORDERED: MAGNESIUM HYDROXIDE 2,400 MG/10 ML CUP PO PRN (19:51)
[2020-06-08] MEDS ORDERED: MAG HYDROX/AL HYDROX/SIMETH 30 ML CUP PO PRN (19:51)
[2020-06-08] MEDS: ATORVASTATIN 20 MG TAB PO SCH (21:51)
[2020-06-08] MEDS: DOCUSATE 100 MG CAP PO SCH (21:51)
[2020-06-08] MEDS: METOPROLOL TARTRATE 12.5 MG TAB PO SCH (21:52)
--- NOTE | 2020-06-08 22:58 | P.MDCNMH ---
History of Present Illness H&P Date: 06/08/20 Chief Complaint: medical evaluation 44-year-old female with hypertension, borderline diabetes, hyperlipidemia Patient comes in due to depressed mood she admits to suicidal ideation however she reassures me that she would never commit suicide as she has a 9-year-old kid that needs her. She denies any active medical complaints at this time denies any upper respiratory symptoms denies any fevers chills nausea vomiting or abdominal pain She admits to tobacco smoking but declined taking replacement therapy at this time She admits to smoking marijuana she denies use of alcohol Review of Systems Pertinent positives as noted in HPI. All other systems were reviewed and are negative Past Medical History Past Medical History: Asthma, GERD/Reflux, Hypertension, Thyroid Disorder Additional Past Medical History / Comment(s): migraine headaches, pt states she was admitted to [facility] with similar R flank/low abdominal pain and told she had kidney stones, sinus problems., History of Any Multi-Drug Resistant Organisms: None Reported Past Surgical History: Adenoidectomy, Appendectomy, Section, Cholecystectomy, Ear Surgery, Orthopedic Surgery, Tonsillectomy, Tubal Ligation, Uterine Ablation Additional Past Surgical History / Comment(s): L index finger reattatched, bilateral carpal tunnel releases, hysteroscopy with failed uterine ablation then D&C with successful uterine ablation, thyroid bx, bilateral myrinotomies/tubes. Past Anesthesia/Blood Transfusion Reactions: Postoperative Nausea & Vomiting (PONV) Past Psychological History: Anxiety, Depression Additional Psychological History / Comment(s): Pt resides with her significant other and 3 children ages 25, 22 and 7 yrs. Pt is independent. She is a homemaker. Smoking Status: Current every day smoker Past Alcohol Use History: None Reported Additional Past Alcohol Use History / Comment(s): Pt started smoking in 1956 and smokes 1 pack every day and a half. Past Drug Use History: Marijuana Additional Drug Use History / Comment(s): Pt smokes 3 joints per day. Last smoked alittle yesterday. - Past Family History Sister(s) Family Medical History: No Reported History Additional Family Medical History / Comment(s): Patient is living with her fianc has 8 kids 2 are not hers. Father Additional Family Medical History / Comment(s): pacemaker Mother Family Medical History: AFIB, Myocardial Infarction (PR) Additional Family Medical History / Comment(s): TIA/mini strokes Medications and Allergies Home Medications Medication Instructions Recorded Confirmed Type Docusate [Colace] 100 mg PO BID 11/21/15 06/08/20 History Lisinopril/Hydrochlorothiazide 1 tab PO DAILY 11/21/15 06/08/20 History [Lisinopril-Hctz 20-12.5 mg Tab] Citalopram Hydrobromide [CeleXA] 20 mg PO DAILY 02/24/19 06/08/20 History DULoxetine HCL [Cymbalta] 60 mg PO DAILY 02/24/19 06/08/20 History Ibuprofen [Motrin] 800 mg PO TID PRN 02/24/19 06/08/20 History allopurinoL [Zyloprim] 100 mg PO DAILY 02/24/19 06/08/20 History ALPRAZolam [Xanax] 1 mg PO TID 05/06/19 06/08/20 History Cetirizine HCl [Zyrtec] 10 mg PO DAILY 05/06/19 06/08/20 History DULoxetine HCL [Cymbalta] 30 mg PO DAILY 05/06/19 06/08/20 History Potassium Chloride ER [K-Dur 20] 20 meq PO DAILY 05/27/20 06/08/20 History Atorvastatin Calcium [Lipitor] 20 mg PO HS #30 tab 05/28/20 06/08/20 Rx Metoprolol Tartrate [Lopressor] 12.5 mg PO BID 06/08/20 06/08/20 History Allergies Allergy/AdvReac Type Severity Reaction Status Date / Time levofloxacin [From Levaquin] Allergy Anaphylaxis Verified 06/08/20 19:59 milk Allergy Unknown Verified 06/08/20 19:59 shellfish derived [Shellfish] Allergy Anaphylaxis Verified 06/08/20 19:59 Sulfa (Sulfonamide Allergy Unknown Verified 06/08/20 19:59 Antibiotics) Childhood doxycycline AdvReac Nausea & Verified 06/08/20 19:59 Vomiting RYE BREAD Allergy Unknown Uncoded 06/08/20 16:07 Physical Exam Vitals: Vital Signs Temp Pulse Pulse Resp BP BP Pulse Ox 06/08/20 21:16 99.3 F 105 H 20 135/88 97 06/08/20 18:42 89 16 140/72 95 06/08/20 16:03 98.8 F 104 H 20 118/81 97 Intake and Output 06/08/20 06/08/20 06/08/20 06:59 14:59 22:59 Other: Weight 136.7 kg Constitutional: No acute distress, conversant, pleasant Eyes: Anicteric sclerae, moist conjunctiva, Pupils equal round reactive to light ENMT: NC/AT Oropharynx clear, no erythema, or exudates Neck: Supple, FROM, no masses, or JVD No carotid bruits No thyromegaly Lungs: Clear to auscultation Clear to percussion Normal respiratory effort, no accessory muscle use Cardiovascular: Heart regular in rate and rhythm, No murmurs, gallops, or rubs No peripheral edema Abdominal: Soft Nontender, no guarding, rebound or rigidity Abdomen moving with respiration Normoactive bowel sounds No hepatomegaly, No splenomegaly No palpable mass No abdominal wall hernia noted Skin: Normal temperature, tone, texture, turgor No induration No subcutaneous nodules No rash, lesions No ulcers Extremities: No digital cyanosis No clubbing Pedal pulses intact and symmetrical Radial pulses intact and symmetrical No calf tenderness Psychiatric: Alert and oriented to person, place and time depressed affect fair judgement Neuro Muscles Strength 5/5 in all 4 extremities Sensation to light touch grossly present throughout Cranial nerves II-XII grossly intact No focal sensory deficits Lymphatics: no palpable cervical or supraclavicular , or inguinal lymph nodes Cranial Nerve Examination - Cranial Nerves Cranial Nerve II- Optic: Intact Cranial Nerve III- Oculomotor: Intact Cranial Nerve IV- Trochlear: Intact Cranial Nerve V- Trigeminal: Intact Cranial Nerve - Abducens: Intact Cranial Nerve VII- Facial: Intact Cranial Nerve VIII- Auditory: Intact Cranial Nerve IX- Glossopharyngeal: Intact Cranial Nerve X- Vagus: Intact Cranial Nerve XI- Accessory: Intact Cranial Nerve XII- Hypoglossal: Intact Results Labs: Abnormal Lab Results - Last 24 Hours (Table) 06/08/20 Range/Units 16:36 U Benzodiazepines Scrn Detected H (NotDetected) U Marijuana (THC) Screen Detected H (NotDetected) Assessment and Plan Assessment: Depression and suicidal ideation Management per psych Hypertension resume home meds monitor blood pressure Borderline diabetes Insulin sliding scale Diabetic diet hyperLipidemia resume statin Follow-up labs Thank you for allowing us to participate in the care of this patient. We will follow peripherally. Do not hesitate to contact us with questions. Someone can be reached from the [facility] hospitalist group at all hours of the day at [phone].
[2020-06-09] MEDS: IBUPROFEN 800 MG TAB PO PRN (03:01)
[2020-06-09 07:49] LABS: Glucose,Whole Blood 123 mg/dL (75-99)
[2020-06-09] MEDS: INSULIN ASPART (NovoLOG) 100 UNIT/ML VIAL SQ SCH ×3 (08:14→17:56)
[2020-06-09] MEDS: NICOTINE 21MG/24HR PATCH TRANSDERM SCH (08:45)
[2020-06-09] MEDS: DOCUSATE 100 MG CAP PO SCH ×2 (08:46→21:22)
[2020-06-09] MEDS: allopurinoL 100 MG TAB PO SCH (08:46)
[2020-06-09] MEDS: LORATADINE 10 MG TAB PO SCH (08:47)
[2020-06-09] MEDS: POTASSIUM CHLORIDE ER 20 MEQ TAB.ER PO SCH (08:47)
[2020-06-09] MEDS: LISINOPRIL-HCTZ 20-12.5 MG 1 EACH TAB PO SCH (08:47)
[2020-06-09] MEDS: METOPROLOL TARTRATE 12.5 MG TAB PO SCH ×2 (08:47→21:22)
[2020-06-09] MEDS: CITALOPRAM HYDROBROMIDE 20 MG TAB PO SCH (08:48)
[2020-06-09] MEDS ORDERED: DULoxetine HCL 60 MG CAPSULE.DR PO SCH (09:00)
[2020-06-09] MEDS ORDERED: DULoxetine HCL 30 MG CAPSULE.DR PO SCH (09:00)
[2020-06-09 11:18] LABS: Basophils # (A) 0.1 k/uL (0-0.2); Basophils % (A) 1 %; Eosinophils # (A) 0.4 k/uL (0-0.7); Eosinophils % (A) 2 %; HCT 47.8 % (34.0-46.0); HGB 14.9 gm/dL (11.4-16.0); Lymphocytes # (A) 4.3 k/uL (1.0-4.8); Lymphocytes % (A) 24 %; MCH 27.7 pg (25.0-35.0); MCHC 31.2 g/dL (31.0-37.0); MCV 88.7 fL (80.0-100.0); Mean Platelet Volume 7.5; Monocytes # (A) 0.8 k/uL (0-1.0); Monocytes % (A) 5 %; Neutrophils # (A) 12.1 k/uL (1.3-7.7); Neutrophils % (A) 67 %; Platelet Count 456 k/uL (150-450); RBC 5.39 m/uL (3.80-5.40); RDW 14.7 % (11.5-15.5)
[2020-06-09 11:22] LABS: Albumin 3.5 g/dL (3.5-5.0); Potassium 3.3 mmol/L (3.5-5.1); Total Bilirubin 0.8 mg/dL (0.2-1.3); Total Protein 6.8 g/dL (6.3-8.2)
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
[2020-06-09 12:44] LABS: Glucose,Whole Blood 142 mg/dL (75-99)
[2020-06-09 15:47] LABS: Hemoglobin A1C 6.5 % (4.0-6.0)
[2020-06-09 17:50] LABS: Glucose,Whole Blood 115 mg/dL (75-99)
[2020-06-09 19:59] LABS: Glucose,Whole Blood 135 mg/dL (75-99)
[2020-06-09] MEDS: ATORVASTATIN 20 MG TAB PO SCH (21:22)
[2020-06-10] MEDS: IBUPROFEN 800 MG TAB PO PRN (04:57)
[2020-06-10 07:31] LABS: HCT 45.6 % (34.0-46.0); HGB 14.3 gm/dL (11.4-16.0); MCH 27.7 pg (25.0-35.0); MCHC 31.4 g/dL (31.0-37.0); MCV 88.3 fL (80.0-100.0); Mean Platelet Volume 7.6; Platelet Count 413 k/uL (150-450); RBC 5.17 m/uL (3.80-5.40); RDW 14.8 % (11.5-15.5)
[2020-06-10 07:49] LABS: African American GFR (CKD) >90 (>60 ml/min/1.73 sqM); Anion Gap 6 mmol/L; Blood Urea Nitrogen 6 mg/dL (7-17); Calcium 8.9 mg/dL (8.4-10.2); Carbon Dioxide 33 mmol/L (22-30); Chloride 98 mmol/L (98-107); Glucose 138 mg/dL (74-99); Non-African American GFR(CKD) >90 (>60 ml/min/1.73 sqM); Potassium 3.4 mmol/L (3.5-5.1); Sodium 137 mmol/L (137-145)
[2020-06-10 07:49] LABS: Glucose,Whole Blood 134 mg/dL (75-99)
[2020-06-10] MEDS: INSULIN ASPART (NovoLOG) 100 UNIT/ML VIAL SQ SCH ×3 (07:54→17:46)
[2020-06-10] MEDS: buPROPion XL 150 MG TAB.ER.24H PO SCH (08:06)
[2020-06-10] MEDS: LORATADINE 10 MG TAB PO SCH (08:06)
[2020-06-10] MEDS: CITALOPRAM HYDROBROMIDE 20 MG TAB PO SCH (08:06)
[2020-06-10] MEDS: POTASSIUM CHLORIDE ER 20 MEQ TAB.ER PO SCH (08:06)
[2020-06-10] MEDS: DULoxetine HCL 60 MG CAPSULE.DR PO SCH ×2 (08:06→08:13)
[2020-06-10] MEDS: allopurinoL 100 MG TAB PO SCH (08:06)
[2020-06-10] MEDS: DOCUSATE 100 MG CAP PO SCH ×2 (08:06→20:38)
[2020-06-10] MEDS: LISINOPRIL-HCTZ 20-12.5 MG 1 EACH TAB PO SCH (08:12)
[2020-06-10] MEDS: METOPROLOL TARTRATE 12.5 MG TAB PO SCH ×2 (08:12→20:38)
[2020-06-10] MEDS: NICOTINE 21MG/24HR PATCH TRANSDERM SCH (08:13)
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
[2020-06-10 12:45] LABS: Glucose,Whole Blood 125 mg/dL (75-99)
[2020-06-10 17:46] LABS: Glucose,Whole Blood 111 mg/dL (75-99)
[2020-06-10] MEDS: ATORVASTATIN 20 MG TAB PO SCH (20:38)
[2020-06-10 21:03] LABS: Glucose,Whole Blood 121 mg/dL (75-99)
[2020-06-11] MEDS: IBUPROFEN 800 MG TAB PO PRN (06:24)
[2020-06-11 08:02] LABS: Glucose,Whole Blood 137 mg/dL (75-99)
[2020-06-11] MEDS: allopurinoL 100 MG TAB PO SCH (08:10)
[2020-06-11] MEDS: LISINOPRIL-HCTZ 20-12.5 MG 1 EACH TAB PO SCH ×2 (08:10→08:12)
[2020-06-11] MEDS: DULoxetine HCL 60 MG CAPSULE.DR PO SCH (08:11)
[2020-06-11] MEDS: CITALOPRAM HYDROBROMIDE 20 MG TAB PO SCH (08:11)
[2020-06-11] MEDS: DOCUSATE 100 MG CAP PO SCH ×2 (08:11→20:16)
[2020-06-11] MEDS: INSULIN ASPART (NovoLOG) 100 UNIT/ML VIAL SQ SCH ×3 (08:11→20:14)
[2020-06-11] MEDS: buPROPion XL 150 MG TAB.ER.24H PO SCH (08:11)
[2020-06-11] MEDS: POTASSIUM CHLORIDE ER 20 MEQ TAB.ER PO SCH (08:11)
[2020-06-11] MEDS: METOPROLOL TARTRATE 12.5 MG TAB PO SCH ×2 (08:12→20:18)
[2020-06-11] MEDS: LORATADINE 10 MG TAB PO SCH (08:16)
[2020-06-11 12:39] LABS: Glucose,Whole Blood 110 mg/dL (75-99)
[2020-06-11 16:01] LABS: Glucose,Whole Blood 105 mg/dL (75-99)
[2020-06-11 17:39] LABS: Glucose,Whole Blood 102 mg/dL (75-99)
[2020-06-11 20:10] LABS: Glucose,Whole Blood 181 mg/dL (75-99)
[2020-06-11] MEDS: ATORVASTATIN 20 MG TAB PO SCH (20:16)
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
[2020-06-12] MEDS: IBUPROFEN 800 MG TAB PO PRN (02:47)
[2020-06-12 07:52] LABS: Glucose,Whole Blood 123 mg/dL (75-99)
[2020-06-12] MEDS: POTASSIUM CHLORIDE ER 20 MEQ TAB.ER PO SCH (08:38)
[2020-06-12] MEDS: CITALOPRAM HYDROBROMIDE 20 MG TAB PO SCH (08:39)
[2020-06-12] MEDS: LISINOPRIL-HCTZ 20-12.5 MG 1 EACH TAB PO SCH (08:39)
[2020-06-12] MEDS: METOPROLOL TARTRATE 12.5 MG TAB PO SCH ×2 (08:39→22:37)
[2020-06-12] MEDS: DULoxetine HCL 30 MG CAPSULE.DR PO SCH (08:39)
[2020-06-12] MEDS: buPROPion XL 150 MG TAB.ER.24H PO SCH (08:39)
[2020-06-12] MEDS: allopurinoL 100 MG TAB PO SCH (08:39)
[2020-06-12] MEDS: LORATADINE 10 MG TAB PO SCH (08:39)
[2020-06-12] MEDS: DOCUSATE 100 MG CAP PO SCH ×2 (08:39→20:17)
[2020-06-12] MEDS: INSULIN ASPART (NovoLOG) 100 UNIT/ML VIAL SQ SCH ×4 (08:41→20:14)
[2020-06-12 12:57] LABS: Glucose,Whole Blood 118 mg/dL (75-99)
[2020-06-12 17:42] LABS: Glucose,Whole Blood 111 mg/dL (75-99)
[2020-06-12 20:05] LABS: Glucose,Whole Blood 217 mg/dL (75-99)
[2020-06-12] MEDS: ATORVASTATIN 20 MG TAB PO SCH (20:17)
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
[2020-06-13 07:21] VITALS: RESP 20; TEMP 96.7
[2020-06-13] MEDS: INSULIN ASPART (NovoLOG) 100 UNIT/ML VIAL SQ SCH (07:59)
[2020-06-13] MEDS: DOCUSATE 100 MG CAP PO SCH (08:02)
[2020-06-13] MEDS: LORATADINE 10 MG TAB PO SCH (08:02)
[2020-06-13] MEDS: POTASSIUM CHLORIDE ER 20 MEQ TAB.ER PO SCH (08:02)
[2020-06-13] MEDS: DULoxetine HCL 30 MG CAPSULE.DR PO SCH (08:02)
[2020-06-13] MEDS: CITALOPRAM HYDROBROMIDE 20 MG TAB PO SCH (08:02)
[2020-06-13] MEDS: METOPROLOL TARTRATE 12.5 MG TAB PO SCH (08:03)
[2020-06-13] MEDS: buPROPion XL 150 MG TAB.ER.24H PO SCH (08:03)
[2020-06-13] MEDS: allopurinoL 100 MG TAB PO SCH (08:03)
[2020-06-13 08:06] VITALS: BP 137/74; PULSE 110
[2020-06-13 08:10] LABS: Glucose,Whole Blood 122 mg/dL (75-99)
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
== END 2020-06-13 12:25 | disposition home or self-care (01) | DRG 885 ==
LOC: EC 15:48 → 3MHU 19:40
PROVIDERS: ADMIT Psychiatry & Neurology Psychiatry; ATTEND Psychiatry & Neurology Psychiatry
DX: F33.2 Major depressive disorder, recurrent severe without psychotic features (principal); R45.851 Suicidal ideations; Z68.42 Body mass index [BMI] 45.0-49.9, adult; F12.20 Cannabis dependence, uncomplicated; K21.9 Gastro-esophageal reflux disease without esophagitis; R73.03 Prediabetes; E78.5 Hyperlipidemia, unspecified; F17.200 Nicotine dependence, unspecified, uncomplicated; F41.9 Anxiety disorder, unspecified; F81.9 Developmental disorder of scholastic skills, unspecified; I10 Essential (primary) hypertension; J45.909 Unspecified asthma, uncomplicated; E07.9 Disorder of thyroid, unspecified; G43.909 Migraine, unspecified, not intractable, without status migrainosus; E66.01 Morbid (severe) obesity due to excess calories; Z79.899 Other long term (current) drug therapy; Z87.442 Personal history of urinary calculi; Z91.5 Personal history of self-harm; Z88.1 Allergy status to other antibiotic agents; Z91.011 Allergy to milk products; Z91.013 Allergy to seafood; Z88.2 Allergy status to sulfonamides; Z91.018 Allergy to other foods; Z90.89 Acquired absence of other organs; Z90.49 Acquired absence of other specified parts of digestive tract; Z87.19 Personal history of other diseases of the digestive system; Z86.2 Personal history of diseases of the blood and blood-forming organs and certain disorders involving the immune mechanism; Z98.51 Tubal ligation status; Z98.890 Other specified postprocedural states; Z82.49 Family history of ischemic heart disease and other diseases of the circulatory system
CPT/HCPCS: 80048; 80053; 80061; 80306; 82075; 83036; 84443; 85025; 85027; 99285

== ENCOUNTER 2020-07-30 15:46 | Emergency (ER) | payer OTHER ==
[2020-07-30] MEDS ORDERED: ACET/COD 300 MG/30 MG STARTER PACK 6 TAB BTL PO STA (16:20)
--- NOTE | 2020-07-30 16:33 | ED ---
Fall HPI - General Chief Complaint: Fall Stated Complaint: Fall Time Seen by Provider: 07/30/20 16:13 Source: patient Mode of arrival: wheelchair - History of Present Illness Initial Comments: 45-year-old male presenting to the emergency department with a chief complaint of left knee injury. Patient states she was getting out of her car and her foot was on ice. Patient reports that she attempted to climb out of the car, her foot slid out of the way and she twisted her left knee. Patient reports pain along the medial and lateral aspect of her left knee . She reports the pain is exacerbated with weightbearing and alleviated at rest. Patient states he feels like her knee is giving out while she is walking. States this occurred about 2 hours prior to arrival. Denies taking any medications over the symptoms. No blood thinners. No head injury. - Related Data Home Medications Medication Instructions Recorded Confirmed Docusate [Colace] 100 mg PO BID 11/21/15 06/08/20 Lisinopril/Hydrochlorothiazide 1 tab PO DAILY 11/21/15 06/08/20 [Lisinopril-Hctz 20-12.5 mg Tab] Ibuprofen [Motrin] 800 mg PO TID PRN 02/24/19 06/08/20 allopurinoL [Zyloprim] 100 mg PO DAILY 02/24/19 06/08/20 Cetirizine HCl [Zyrtec] 10 mg PO DAILY 05/06/19 06/08/20 Potassium Chloride ER [K-Dur 20] 20 meq PO DAILY 05/27/20 06/08/20 Metoprolol Tartrate [Lopressor] 12.5 mg PO BID 06/08/20 06/08/20 Previous Rx's Medication Instructions Recorded Atorvastatin Calcium [Lipitor] 20 mg PO HS #30 tab 05/28/20 Citalopram Hydrobromide [CeleXA] 20 mg PO DAILY #30 tab 06/13/20 buPROPion XL [Wellbutrin XL] 300 mg PO DAILY #60 tab.er.24h 06/13/20 Allergies Allergy/AdvReac Type Severity Reaction Status Date / Time levofloxacin [From Levaquin] Allergy Anaphylaxis Verified 07/30/20 16:07 milk Allergy Unknown Verified 07/30/20 16:07 shellfish derived [Shellfish] Allergy Anaphylaxis Verified 07/30/20 16:07 Sulfa (Sulfonamide Allergy Unknown Verified 07/30/20 16:07 Antibiotics) Childhood doxycycline AdvReac Nausea & Verified 07/30/20 16:07 Vomiting RYE BREAD Allergy Unknown Uncoded 07/30/20 16:07 Review of Systems ROS Statement: Those systems with pertinent positive or pertinent negative responses have been documented in the HPI. ROS Other: All systems not noted in ROS Statement are negative. Past Medical History Past Medical History: Asthma, GERD/Reflux, Hypertension, Thyroid Disorder Additional Past Medical History / Comment(s): migraine headaches, pt states she was admitted to [facility] with similar R flank/low abdominal pain and told she had kidney stones, sinus problems., History of Any Multi-Drug Resistant Organisms: None Reported Past Surgical History: Adenoidectomy, Appendectomy, Section, Cholecystectomy, Ear Surgery, Orthopedic Surgery, Tonsillectomy, Tubal Ligation, Uterine Ablation Additional Past Surgical History / Comment(s): L index finger reattatched, bilateral carpal tunnel releases, hysteroscopy with failed uterine ablation then D&C with successful uterine ablation, thyroid bx, bilateral myrinotomies/tubes. Past Anesthesia/Blood Transfusion Reactions: Postoperative Nausea & Vomiting (PONV) Past Psychological History: Anxiety, Depression Smoking Status: Current every day smoker Past Alcohol Use History: None Reported Past Drug Use History: Marijuana - Past Family History Sister(s) Family Medical History: No Reported History Additional Family Medical History / Comment(s): Patient is living with her fianc has 8 kids 2 are not hers. Father Additional Family Medical History / Comment(s): pacemaker Mother Family Medical History: AFIB, Myocardial Infarction (NH) Additional Family Medical History / Comment(s): TIA/mini strokes General Exam Limitations: no limitations General appearance: alert, in no apparent distress, obese Head exam: Present: atraumatic, normocephalic, normal inspection Eye exam: Present: normal appearance, PERRL, EOMI Pupils: Present: normal accommodation ENT exam: Present: normal exam, normal oropharynx, mucous membranes moist, TM's normal bilaterally, normal external ear exam Respiratory exam: Present: normal lung sounds bilaterally. Absent: respiratory distress, wheezes, rales Cardiovascular Exam: Present: regular rate, normal rhythm, normal heart sounds. Absent: systolic murmur, diastolic murmur Extremities exam: Present: normal inspection, tenderness (Medial lateral tenderness. Positive Tracie sign. Negative anterior drawer test.), normal capillary refill, pedal edema (+2 pitting edema bilateral lower extremities.), other (Palpable dorsalis pedis and posterior tibialis bilaterally.). Absent: full ROM (Slight limitation with range of motion with flexion and the left knee.), joint swelling, calf tenderness Back exam: Present: normal inspection, full ROM. Absent: tenderness, CVA tenderness (R), CVA tenderness (L) Neurological exam: Present: alert, oriented X3 Skin exam: Present: warm, dry, intact, normal color Course Vital Signs 07/30/20 07/30/20 16:06 17:28 Temperature 98.6 F 98.2 F Pulse Rate 90 86 Respiratory 20 18 Rate Blood Pressure 112/65 118/65 O2 Sat by Pulse 99 98 Oximetry Medical Decision Making - Medical Decision Making 45-year-old female presenting to the emergency department with a chief complaint of left knee pain. On physical examination, patient has positive Tracie test. X-rays negative. The suspect a possible meniscal injury. She is otherwise neurovascularly intact. Patient vised to follow-up with claims account specialist. Return parameters discussed. Case discussed with physician. Disposition Clinical Impression: Fall, Left knee sprain Disposition: HOME SELF-CARE Condition: Stable Instructions (If sedation given, give patient instructions): Knee Sprain (ED) Additional Instructions: Follow-up with claims account specialist. Return to emergency department if symptoms worsen. Is patient prescribed a controlled substance at d/c from ED?: No Referrals: Dieudonne Copeland DO [Primary Care Provider] - 1-2 days David Cochran DO [Doctor of Osteopathic Medicine] - 1-2 days Time of Disposition: 17:16
--- NOTE | 2020-07-30 16:59 | XR ---
EXAMINATION TYPE: XR knee complete LT DATE OF EXAM: 07/30/2020 COMPARISON: NONE HISTORY: Knee pain TECHNIQUE: 3 views FINDINGS: There is some spurring of the medial femoral and tibial condyles. There is spurring on the patella. Small knee joint effusion. I see no fracture nor dislocation. IMPRESSION: Osteoarthritic joint space narrowing. No fracture seen.
[2020-07-30 17:29] VITALS: BP 118/65; PULSE 86; RESP 18; TEMP 98.2
== END 2020-07-30 17:28 | disposition home or self-care (01) ==
LOC: EC 15:46
DX: S83.92XA Sprain of unspecified site of left knee, initial encounter (principal); I10 Essential (primary) hypertension; F17.200 Nicotine dependence, unspecified, uncomplicated; Z79.899 Other long term (current) drug therapy; Z88.1 Allergy status to other antibiotic agents; Z88.2 Allergy status to sulfonamides; Z91.013 Allergy to seafood; Z91.011 Allergy to milk products; Z91.018 Allergy to other foods; X50.9XXA Other and unspecified overexertion or strenuous movements or postures, initial encounter
CPT/HCPCS: 99283

== ENCOUNTER 2020-11-10 08:17 | Emergency (ER) | payer OTHER ==
[2020-11-10 08:24] VITALS: TEMP 98
[2020-11-10] MEDS ORDERED: DIPH,PERTUS(ACELL)TETVAC-LF 0.5 ML VIAL IM ONE (08:33)
--- NOTE | 2020-11-10 08:41 | ED ---
General Adult HPI - General Chief complaint: Fall Stated complaint: Fall, Injury Time Seen by Provider: 11/10/20 08:25 Source: patient, RN notes reviewed, old records reviewed Mode of arrival: ambulatory Limitations: no limitations - History of Present Illness Initial comments: This is a 45-year-old female who presents emergency Department complaining of a fall yesterday at 8:30 in the morning. Patient states yesterday she hit her left knee and she was concerned about that and didn't notice that her right ankle was hurting. Patient states when she woke up this morning her left knee continued her but her right ankle hurt more. Patient stated was a lateral aspect of her right ankle that was hurt. Patient states she noticed some swelling there. Patient denies hitting her head or neck pain patient denies any chest back or abdominal pain or trauma. Patient's knee has a abrasion on the anterior surface of the knee just a low the patella. Patient states it was bleeding quite a bit yesterday but has stopped overnight. - Related Data Home Medications Medication Instructions Recorded Confirmed Docusate [Colace] 100 mg PO BID 11/21/15 06/08/20 Lisinopril/Hydrochlorothiazide 1 tab PO DAILY 11/21/15 06/08/20 [Lisinopril-Hctz 20-12.5 mg Tab] Ibuprofen [Motrin] 800 mg PO TID PRN 02/24/19 06/08/20 allopurinoL [Zyloprim] 100 mg PO DAILY 02/24/19 06/08/20 Cetirizine HCl [Zyrtec] 10 mg PO DAILY 05/06/19 06/08/20 Potassium Chloride ER [K-Dur 20] 20 meq PO DAILY 05/27/20 06/08/20 Metoprolol Tartrate [Lopressor] 12.5 mg PO BID 06/08/20 06/08/20 Previous Rx's Medication Instructions Recorded Atorvastatin Calcium [Lipitor] 20 mg PO HS #30 tab 05/28/20 Citalopram Hydrobromide [CeleXA] 20 mg PO DAILY #30 tab 06/13/20 buPROPion XL [Wellbutrin XL] 300 mg PO DAILY #60 tab.er.24h 06/13/20 Ibuprofen [Motrin] 600 mg PO Q6HR PRN #20 tab 11/10/20 Allergies Allergy/AdvReac Type Severity Reaction Status Date / Time levofloxacin [From Levaquin] Allergy Anaphylaxis Verified 11/10/20 08:22 milk Allergy Unknown Verified 11/10/20 08:22 shellfish derived [Shellfish] Allergy Anaphylaxis Verified 11/10/20 08:22 Sulfa (Sulfonamide Allergy Unknown Verified 11/10/20 08:22 Antibiotics) Childhood doxycycline AdvReac Nausea & Verified 11/10/20 08:22 Vomiting RYE BREAD Allergy Unknown Uncoded 07/30/20 16:07 Review of Systems ROS Statement: Those systems with pertinent positive or pertinent negative responses have been documented in the HPI. ROS Other: All systems not noted in ROS Statement are negative. Past Medical History Past Medical History: Asthma, GERD/Reflux, Hypertension, Thyroid Disorder Additional Past Medical History / Comment(s): migraine headaches, pt states she was admitted to [facility] with similar R flank/low abdominal pain and told she had kidney stones, sinus problems., History of Any Multi-Drug Resistant Organisms: None Reported Past Surgical History: Adenoidectomy, Appendectomy, Section, Cholecystectomy, Ear Surgery, Orthopedic Surgery, Tonsillectomy, Tubal Ligation, Uterine Ablation Additional Past Surgical History / Comment(s): L index finger reattatched, bilateral carpal tunnel releases, hysteroscopy with failed uterine ablation then D&C with successful uterine ablation, thyroid bx, bilateral myrinotomies/tubes. Past Anesthesia/Blood Transfusion Reactions: Postoperative Nausea & Vomiting (PONV) Past Psychological History: Anxiety, Depression Smoking Status: Current every day smoker Past Alcohol Use History: None Reported Past Drug Use History: Marijuana - Past Family History Sister(s) Family Medical History: No Reported History Additional Family Medical History / Comment(s): Patient is living with her fianc has 8 kids 2 are not hers. Father Additional Family Medical History / Comment(s): pacemaker Mother Family Medical History: AFIB, Myocardial Infarction ([place]) Additional Family Medical History / Comment(s): TIA/mini strokes General Exam - General Exam Comments Initial Comments: GENERAL: Patient is well-developed and well-nourished. Patient is nontoxic and well- hydrated and is in mild distress. ENT: Neck is soft and supple. No significant lymphadenopathy is noted. Oropharynx is clear. Moist mucous membranes. Neck has full range of motion without eliciting any pain. EYES: The sclera were anicteric and conjunctiva were pink and moist. Extraocular movements were intact and pupils were equal round and reactive to light. Eyelids were unremarkable. PULMONARY: Unlabored respirations. Good breath sounds bilaterally. No audible rales rhonchi or wheezing was noted. CARDIOVASCULAR: There is a regular rate and rhythm without any murmurs gallops or rubs. ABDOMEN: Soft and nontender with normal bowel sounds. SKIN: Skin is clear with no lesions or rashes and otherwise unremarkable. NEUROLOGIC: Patient is alert and oriented x3. Cranial nerves II through XII are grossly intact. Motor and sensory are also intact. Normal speech, volume and content. Symmetrical smile. MUSCULOSKELETAL: Patient has tenderness in the infrapatellar region where there is an abrasion however there is no ligament laxity noted. Right ankle swollen on the lateral aspect and is tender to palpation. LYMPHATICS: No significant lymphadenopathy is noted PSYCHIATRIC: Normal psychiatric evaluation. Limitations: no limitations Course Vital Signs 11/10/20 08:22 Temperature 98 F Pulse Rate 95 Respiratory 18 Rate Blood Pressure 93/65 O2 Sat by Pulse 98 Oximetry Medical Decision Making - Medical Decision Making Both knee and ankle x-ray showed no acute abnormality. Patient did receive a tetanus while in the emergency department. Patient received an Aircast for the ankle and an Manish wrap to the knee. Disposition Clinical Impression: Ankle sprain, Knee strain Disposition: HOME SELF-CARE Instructions (If sedation given, give patient instructions): Ankle Sprain (ED) Additional Instructions: Patient should weight-bear as tolerated and if necessary use crutches. Prescriptions: Ibuprofen [Motrin] 600 mg PO Q6HR PRN #20 tab PRN Reason: For pain Is patient prescribed a controlled substance at d/c from ED?: No Referrals: Dieudonne Copeland DO [Primary Care Provider] - 1-2 days Time of Disposition: 09:46
--- NOTE | 2020-11-10 09:13 | XR ---
EXAMINATION TYPE: XR knee complete LT DATE OF EXAM: 11/10/2020 CLINICAL HISTORY: pain TECHNIQUE: Three views of the left knee are obtained. COMPARISON: 07/30/2020 FINDINGS: There is no acute fracture/dislocation. The tri-compartment joint spaces appear moderatel y narrowed. The overlying soft tissue appears unremarkable. IMPRESSION: There is no acute fracture or dislocation ICD 10 NO FRACTURE, INITIAL EVALUATION
--- NOTE | 2020-11-10 09:14 | XR ---
EXAMINATION TYPE: XR ankle limited RT DATE OF EXAM: 11/10/2020 COMPARISON: 10/29/2018 HISTORY: Pain TECHNIQUE: Frontal, lateral images of the right ankle are obtained. COMPARISON: None. FINDINGS: There is no acute fracture/dislocation evident. Well-corticated ossific density again rede monstrated adjacent to the medial malleolar tip. Mild lateral soft tissue swelling seen. Plantar calc aneal spur identified. The joint spaces appear within normal limits. IMPRESSION: There is no acute fracture or dislocation seen.
[2020-11-10 10:11] VITALS: BP 127/86; PULSE 86; RESP 17
== END 2020-11-10 10:15 | disposition home or self-care (01) ==
LOC: EC 08:17
DX: S93.401A Sprain of unspecified ligament of right ankle, initial encounter (principal); S86.912A Strain of unspecified muscle(s) and tendon(s) at lower leg level, left leg, initial encounter; J45.909 Unspecified asthma, uncomplicated; I10 Essential (primary) hypertension; F32.9 Major depressive disorder, single episode, unspecified; F41.9 Anxiety disorder, unspecified; F17.200 Nicotine dependence, unspecified, uncomplicated; W18.30XA Fall on same level, unspecified, initial encounter
CPT/HCPCS: 90471; 90715; 99284

== ENCOUNTER 2020-11-14 12:35 | Day surgery (SDC) | payer OTHER ==
[2020-11-14 13:05] VITALS: RESP 16
[2020-11-14 13:06] VITALS: TEMP 98.4
[2020-11-14 14:32] VITALS: BP 105/67; PULSE 88
--- NOTE | 2020-11-14 14:59 | US ---
ULTRASOUND GUIDED FNA THYROID BIOPSY: CLINICAL HISTORY: Request for 2 right-sided and a left-sided thyroid nodule FINDINGS: The procedure was explained to the patient. The risks, complications, benefits and alternatives were discussed and any questions were answered. Informed consent was obtained. Patient was placed supin e on the ultrasound table and prepped and draped in the usual sterile fashion. Utilizing a 25 gauge needle, five passes were made into the requested right-sided thyroid nodules. The left thyroid nodul e was very far posterior not accessible percutaneously. Patient was stable throughout the procedure. Pathology is pending. All elements of maximal barrier technique were utilized. IMPRESSION: 1. Successful ultrasound guided FNA thyroid biopsy 2 right-sided thyroid nodules. The left thyroid n odule could not be access percutaneously. Correlate clinically.
--- NOTE | 2020-11-14 15:02 | US ---
EXAMINATION TYPE: US thyroid st tissue head/neck DATE OF EXAM: 11/14/2020 COMPARISON: NONE CLINICAL HISTORY: E04.1 thyroid nodule. follow up thyroid nodules GLAND SIZE: Right Lobe: 5.5 x 2.1 x 2.0cm Overall Parenchyma: heterogenous Left Lobe: 4.7 x 2.3 x 1.8cm Overall Parenchyma: heterogeneous Isthmus Thickness: 0.5cm NODULES RIGHT: # of nodules measured on right: 2 1. 1.9 X 1.1 x 1.7 cm, upper , solid, hypoechoic nodule, which is wider than tall, with ill-defined margins, with echogenic foci. Prior size: 1.7 x 1.4 x 1.1cm 2. 1.4 X 1.1 x 1.5 cm, lower , solid, hypoechoic nodule, which is wider than tall, with smooth lam ins, without echogenic foci. Prior size: 1.4 x 1.4 x 1.0cm LEFT: # of nodules measured on left: 2 1. 1.6 X 1.1 x 1.5 cm, mid lateral, solid, hypoechoic nodule, which is wider than tall, with smooth margins, without echogenic foci. Prior size: 1.5 x 0.8 x 1.3cm 2. 0.9 X 0.7 x 0.9 cm, mid , solid, hypoechoic nodule, which is wider than tall, with smooth jay ns, without echogenic foci. Prior size: not measured on prior exam ISTHMUS: # of nodules measured in the isthmus: 0 Bilateral neck scanned, no evidence of lymphadenopathy. Multiple thyroid nodules noted with largest 2 measured bilaterally. IMPRESSION: 1. Bilateral thyroid nodules as measured above. A couple nodules as demonstrated minimal incremental increase in size relative to the prior exam. See below. 2. Correlate for thyromegaly thyroiditis. 2017 ACR TI-RADS LEVEL: TR-RADS 4 - Moderately Suspicious: Follow if > 1 cm, FNA if > 1.5 cm *Highest TI-RADS level nodule reported
== END 2020-11-14 14:15 | disposition home or self-care (01) ==
LOC: RADPROMAIN 12:35
PROVIDERS: ATTEND Surgery Plastic and Reconstructive Surgery
DX: E04.1 Nontoxic single thyroid nodule (principal)
CPT/HCPCS: 10005; 10006; 76536; 88173; 88305

== ENCOUNTER 2020-11-16 09:20 | Day surgery (SDC) | payer OTHER ==
[2020-11-14 15:56] VITALS: BMI 45.1
--- NOTE | 2020-11-16 08:17 | P.GSHP ---
History of Present Illness H&P Date: 11/16/20 CHIEF COMPLAINT: GERD HISTORY OF PRESENT ILLNESS: The patient is a 45-year-old female who presents reports gastroesophageal reflux disease. Upper endoscopy was offered for further evaluation and management. PAST MEDICAL HISTORY: Please see list. PAST SURGICAL HISTORY: Please see list. MEDICATIONS: Please see list. ALLERGIES: Please see list. SOCIAL HISTORY: No illicit drug use FAMILY HISTORY: No reports of Crohn disease or ulcerative colitis. REVIEW OF ORGAN SYSTEMS: CONSTITUTIONAL: No reports of fevers or chills. GI: Denies any blood in stools or constipation. PHYSICAL EXAM: VITAL SIGNS: Stable GENERAL: Well-developed and pleasant in no acute distress. HEENT: No scleral icterus. Extraocular movements grossly intact. Moist buccal mucosa. NECK: Supple without lymphadenopathy. CHEST: Unlabored respirations. Equal bilateral excursions. CARDIOVASCULAR: Regular rate and rhythm. Distal 2+ pulses. ABDOMEN: Soft, nondistended. MUSCULOSKELETAL: No clubbing, cyanosis, or edema. ASSESSMENT: 1. Gastroesophageal reflux disease PLAN: 1. Recommend proceeding with an upper endoscopy Past Medical History Past Medical History: Asthma, GERD/Reflux, Hyperlipidemia, Hypertension, Osteoarthritis (OA), Thyroid Disorder Additional Past Medical History / Comment(s): migraine headachesKIDNEY STONE , sinus problems., History of Any Multi-Drug Resistant Organisms: None Reported Past Surgical History: Adenoidectomy, Appendectomy, Section, Cholecystectomy, Ear Surgery, Orthopedic Surgery, Tonsillectomy, Tubal Ligation, Uterine Ablation Additional Past Surgical History / Comment(s): L index finger reattatched, bilateral carpal tunnel releases, hysteroscopy with failed uterine ablation then D&C with successful uterine ablation, thyroid bx, Past Anesthesia/Blood Transfusion Reactions: Postoperative Nausea & Vomiting (PONV) Smoking Status: Current every day smoker - Past Family History Sister(s) Family Medical History: Cancer Additional Family Medical History / Comment(s): Patient is living with her fianc has 8 kids 2 are not hers. Father Family Medical History: Cancer Additional Family Medical History / Comment(s): pacemaker Mother Family Medical History: AFIB, Deep Vein Thrombosis (DVT), Myocardial Infarction ([place]) Additional Family Medical History / Comment(s): TIA/mini strokes Medications and Allergies Home Medications Medication Instructions Recorded Confirmed Type Docusate [Colace] 100 mg PO BID 11/21/15 11/14/20 History Lisinopril/Hydrochlorothiazide 1 tab PO DAILY 11/21/15 11/14/20 History [Lisinopril-Hctz 20-12.5 mg Tab] Ibuprofen [Motrin] 800 mg PO TID PRN 02/24/19 11/14/20 History allopurinoL [Zyloprim] 100 mg PO DAILY 02/24/19 11/14/20 History Cetirizine HCl [Zyrtec] 10 mg PO DAILY 05/06/19 11/14/20 History Potassium Chloride ER [K-Dur 20] 20 meq PO DAILY 05/27/20 11/14/20 History Atorvastatin Calcium [Lipitor] 20 mg PO HS #30 tab 05/28/20 11/14/20 Rx Metoprolol Tartrate [Lopressor] 12.5 mg PO BID 06/08/20 11/14/20 History Citalopram Hydrobromide [CeleXA] 20 mg PO DAILY #30 tab 06/13/20 11/14/20 Rx buPROPion XL [Wellbutrin XL] 300 mg PO DAILY #60 tab.er.24h 06/13/20 11/14/20 Rx Allergies Allergy/AdvReac Type Severity Reaction Status Date / Time adhesive tape Allergy RED SKIN Verified 11/14/20 16:03 AND ITCHING levofloxacin [From Levaquin] Allergy Anaphylaxis Verified 11/14/20 12:59 milk Allergy Abdominal Verified 11/14/20 12:59 Pain shellfish derived [Shellfish] Allergy Anaphylaxis Verified 11/14/20 12:59 Sulfa (Sulfonamide Allergy Unknown Verified 11/14/20 12:59 Antibiotics) Childhood doxycycline AdvReac Nausea & Verified 11/14/20 12:59 Vomiting RYE BREAD Allergy Unknown Uncoded 11/14/20 12:59
[~2020-11-16 09:20] MED LIST: LACTATED RINGERS 1,000 ML IV SCH; LIDOCAINE 1% (10MG/ML) FOR IV START INTRADERMA PRN
[2020-11-16 09:47] VITALS: TEMP 97
[2020-11-16] MEDS ORDERED: ONDANSETRON 4 MG/2 ML VIAL ONE (09:54)
[2020-11-16] MEDS ORDERED: ONDANSETRON 4 MG/2 ML VIAL IVP ONE (09:55)
[2020-11-16] MEDS ORDERED: LIDOCAINE 1% INJ 10MG/ML (20 ML MDV) ONE (10:11)
[2020-11-16] MEDS ORDERED: PROPOFOL 10 MG/ML 20 ML VIAL IV ONE (10:11)
--- NOTE | 2020-11-16 10:43 | P.PCN ---
Date of Procedure: 11/16/20 Description of Procedure: PREOPERATIVE DIAGNOSIS: Dysphagia Morbid obesity POSTOPERATIVE DIAGNOSIS: Dysphagia Morbid obesity Gastritis. Gastroesophageal reflux disease. OPERATION: Esophagogastroduodenoscopy with biopsies along antrum. SURGEON: Debi Hatch MD ANESTHESIA: MAC. INDICATIONS: The patient is a 45-year-old female who presents with dysphagia. Benefits and risks of the procedure were described. Informed consent was obtained. DESCRIPTION: The patient was brought into the endoscopy suite and laid in the left lateral decubitus position. An Olympus gastroscope was passed along the posterior oropharynx down to the distal esophagus where the squamocolumnar junction was encountered at 40 cm from the incisors. The stomach was entered and no bile reflux was found. Additional findings are listed below. Biopsies with cold forceps were obtained of the antrum. The first through third portion of the duodenum was examined and unremarkable. Retroflexion of the scope confirmed Hill grade 2 lower esophageal valve. The squamocolumnar junction demonstrated LA grade A erosive esophagitis. The stomach was desufflated. In the procedure, patient had oxygen desaturation consistent with sleep apnea. The patient tolerated the procedure well. FINDINGS: Squamocolumnar junction 40 cm from the incisors. Diaphragmatic hiatus at 40 cm. Hill grade 2 lower esophageal valve. LA grade A erosive esophagitis. No active duodenitis. Chronic gastritis Desaturation during procedure consistent with treated for sleep apnea Mild stenosis of the upper esophagus RECOMMENDATIONS: Upper endoscopy as needed. Recommend further evaluation and treatment for sleep apnea Recommend manometry Plan - Discharge Summary Discharge Rx Participant: No New Discharge Prescriptions: Continue Lisinopril/Hydrochlorothiazide [Lisinopril-Hctz 20-12.5 mg Tab] 1 tab PO DAILY Docusate [Colace] 100 mg PO BID allopurinoL [Zyloprim] 100 mg PO DAILY Ibuprofen [Motrin] 800 mg PO TID PRN PRN Reason: Pain Cetirizine HCl [Zyrtec] 10 mg PO DAILY Potassium Chloride ER [K-Dur 20] 20 meq PO DAILY Atorvastatin Calcium [Lipitor] 20 mg PO HS #30 tab Metoprolol Tartrate [Lopressor] 12.5 mg PO BID buPROPion XL [Wellbutrin XL] 300 mg PO DAILY #60 tab.er.24h Citalopram Hydrobromide [CeleXA] 20 mg PO DAILY #30 tab Discharge Medication List Docusate [Colace] 100 mg PO BID 11/21/15 [History] Lisinopril/Hydrochlorothiazide [Lisinopril-Hctz 20-12.5 mg Tab] 1 tab PO DAILY 11/21/15 [History] Ibuprofen [Motrin] 800 mg PO TID PRN 02/24/19 [History] allopurinoL [Zyloprim] 100 mg PO DAILY 02/24/19 [History] Cetirizine HCl [Zyrtec] 10 mg PO DAILY 05/06/19 [History] Potassium Chloride ER [K-Dur 20] 20 meq PO DAILY 05/27/20 [History] Atorvastatin Calcium [Lipitor] 20 mg PO HS #30 tab 05/28/20 [Rx] Metoprolol Tartrate [Lopressor] 12.5 mg PO BID 06/08/20 [History] Citalopram Hydrobromide [CeleXA] 20 mg PO DAILY #30 tab 06/13/20 [Rx] buPROPion XL [Wellbutrin XL] 300 mg PO DAILY #60 tab.er.24h 06/13/20 [Rx]
[2020-11-16 11:04] VITALS: BP 104/70; PULSE 81; RESP 16
== END 2020-11-16 11:18 | disposition home or self-care (01) ==
LOC: ORWHC2ENDO 09:20
PROVIDERS: ATTEND Surgery Plastic and Reconstructive Surgery
DX: K29.50 Unspecified chronic gastritis without bleeding (principal); K31.9 Disease of stomach and duodenum, unspecified; K21.9 Gastro-esophageal reflux disease without esophagitis; K22.10 Ulcer of esophagus without bleeding; K22.2 Esophageal obstruction; R09.02 Hypoxemia; E66.01 Morbid (severe) obesity due to excess calories; J45.909 Unspecified asthma, uncomplicated; E78.5 Hyperlipidemia, unspecified; I10 Essential (primary) hypertension; M19.90 Unspecified osteoarthritis, unspecified site; E07.9 Disorder of thyroid, unspecified; G43.909 Migraine, unspecified, not intractable, without status migrainosus; K08.409 Partial loss of teeth, unspecified cause, unspecified class; K08.89 Other specified disorders of teeth and supporting structures; F17.210 Nicotine dependence, cigarettes, uncomplicated; F32.9 Major depressive disorder, single episode, unspecified; Z68.42 Body mass index [BMI] 45.0-49.9, adult; Z88.2 Allergy status to sulfonamides; Z88.1 Allergy status to other antibiotic agents; Z87.442 Personal history of urinary calculi; Z87.09 Personal history of other diseases of the respiratory system; Z90.89 Acquired absence of other organs; Z90.49 Acquired absence of other specified parts of digestive tract; Z98.890 Other specified postprocedural states; Z98.51 Tubal ligation status; Z91.89 Other specified personal risk factors, not elsewhere classified; Z79.899 Other long term (current) drug therapy; Z91.09 Other allergy status, other than to drugs and biological substances; Z91.011 Allergy to milk products; Z91.013 Allergy to seafood; Z91.018 Allergy to other foods; Z80.9 Family history of malignant neoplasm, unspecified; Z82.49 Family history of ischemic heart disease and other diseases of the circulatory system; Z82.3 Family history of stroke
CPT/HCPCS: 88305; 43239; J2405; J2001; J2704

== ENCOUNTER 2021-01-08 18:18 | Emergency (ER) | payer OTHER ==
[2021-01-08 18:29] VITALS: TEMP 98
[2021-01-08] MEDS ORDERED: IPRATROPIUM-ALBUTEROL 3 ML NEB INHALATION STA (19:01)
[2021-01-08] MEDS ORDERED: SODIUM CHLORIDE 0.9% 1,000 ML IV STA (19:01)
[2021-01-08] MEDS ORDERED: methylPREDNISolone SOD SUCCI 125 MG/2 ML VIAL IV STA (19:01)
--- NOTE | 2021-01-08 19:04 | ED ---
SOB HPI - General Chief Complaint: Shortness of Breath Stated Complaint: sob Time Seen by Provider: 01/08/21 18:49 Source: patient Mode of arrival: ambulatory Limitations: no limitations - History of Present Illness Initial Comments: 45-year-old female with history of asthma presents to the emergency department with a chief complaint of shortness of breath for 3 days. States that this was a gradual onset increasing severity even though she continues to use her nebulized treatments 4 times a day. She denies any chest pain or tightness but states the dyspnea is worse on exertion. She does report chills but no fevers. She reports having a slight headache but denies any visual changes To the Weakness or Paresthesias. He Has a Nausea Vomiting Abdominal Pain or Back Pain. Reports Smoking for over 30 Years. - Related Data Home Medications Medication Instructions Recorded Confirmed Docusate [Colace] 100 mg PO BID 11/21/15 01/08/21 Lisinopril/Hydrochlorothiazide 1 tab PO DAILY 11/21/15 01/08/21 [Lisinopril-Hctz 20-12.5 mg Tab] Ibuprofen [Motrin] 800 mg PO TID PRN 02/24/19 01/08/21 allopurinoL [Zyloprim] 100 mg PO DAILY 02/24/19 01/08/21 Cetirizine HCl [Zyrtec] 10 mg PO DAILY 05/06/19 01/08/21 Potassium Chloride ER [K-Dur 20] 20 meq PO DAILY 05/27/20 01/08/21 Metoprolol Tartrate [Lopressor] 12.5 mg PO BID 06/08/20 01/08/21 buPROPion XL [Wellbutrin XL] 150 mg PO DAILY 01/08/21 01/08/21 Previous Rx's Medication Instructions Recorded Atorvastatin Calcium [Lipitor] 20 mg PO HS #30 tab 05/28/20 Citalopram Hydrobromide [CeleXA] 20 mg PO DAILY #30 tab 06/13/20 Azithromycin [Zithromax Z-pack (6 0 mg PO DIRECTED #1 pack 01/08/21 tabs)] methylPREDNISolone [Medrol Dose 4 mg PO DIRECTED #1 pack 01/08/21 Pack] Allergies Allergy/AdvReac Type Severity Reaction Status Date / Time adhesive tape Allergy RED SKIN Verified 01/08/21 20:00 AND ITCHING levofloxacin [From Levaquin] Allergy Anaphylaxis Verified 01/08/21 20:00 milk Allergy Abdominal Verified 01/08/21 20:00 Pain shellfish derived [Shellfish] Allergy Anaphylaxis Verified 01/08/21 20:00 Sulfa (Sulfonamide Allergy Unknown Verified 01/08/21 20:00 Antibiotics) Childhood doxycycline AdvReac Nausea & Verified 01/08/21 20:00 Vomiting RYE BREAD Allergy Unknown Uncoded 01/08/21 18:28 Review of Systems ROS Statement: Those systems with pertinent positive or pertinent negative responses have been documented in the HPI. ROS Other: All systems not noted in ROS Statement are negative. Past Medical History Past Medical History: Asthma, GERD/Reflux, Hyperlipidemia, Hypertension, Osteoarthritis (OA), Thyroid Disorder Additional Past Medical History / Comment(s): migraine headachesKIDNEY STONE , sinus problems., History of Any Multi-Drug Resistant Organisms: None Reported Past Surgical History: Adenoidectomy, Appendectomy, Section, Cholecystectomy, Ear Surgery, Orthopedic Surgery, Tonsillectomy, Tubal Ligation, Uterine Ablation Additional Past Surgical History / Comment(s): L index finger reattatched, bilateral carpal tunnel releases, hysteroscopy with failed uterine ablation then D&C with successful uterine ablation, thyroid bx, Past Anesthesia/Blood Transfusion Reactions: Postoperative Nausea & Vomiting (PONV) Past Psychological History: Anxiety, Depression Smoking Status: Current every day smoker Past Alcohol Use History: None Reported Past Drug Use History: None Reported - Past Family History Sister(s) Family Medical History: Cancer Additional Family Medical History / Comment(s): Patient is living with her fianc has 8 kids 2 are not hers. Father Family Medical History: Cancer Additional Family Medical History / Comment(s): pacemaker Mother Family Medical History: AFIB, Deep Vein Thrombosis (DVT), Myocardial Infarction ([place]) Additional Family Medical History / Comment(s): TIA/mini strokes General Exam Limitations: no limitations General appearance: alert, in no apparent distress, obese Head exam: Present: atraumatic, normocephalic, normal inspection Eye exam: Present: normal appearance, PERRL, EOMI Pupils: Present: normal accommodation ENT exam: Present: normal exam, normal oropharynx, mucous membranes moist, TM's normal bilaterally, normal external ear exam Neck exam: Present: normal inspection, full ROM. Absent: tenderness Respiratory exam: Present: wheezes (Mild, diffuse bilateral wheezing), decreased breath sounds. Absent: respiratory distress, rales, rhonchi, stridor, chest wall tenderness, accessory muscle use Cardiovascular Exam: Present: regular rate, normal rhythm, normal heart sounds. Absent: systolic murmur Extremities exam: Present: normal inspection, full ROM, normal capillary refill. Absent: tenderness, pedal edema, joint swelling Back exam: Present: normal inspection, full ROM. Absent: tenderness, CVA tenderness (R), CVA tenderness (L) Neurological exam: Present: alert, oriented X3 Psychiatric exam: Present: normal affect, normal mood Skin exam: Present: warm, dry, intact, normal color Course Vital Signs 01/08/21 01/08/21 01/08/21 18:26 19:38 20:01 Temperature 98 F Pulse Rate 100 100 98 Respiratory 28 H Rate Blood Pressure 147/82 O2 Sat by Pulse 98 Oximetry 01/08/21 21:40 Temperature Pulse Rate 92 Respiratory 18 Rate Blood Pressure 114/87 O2 Sat by Pulse 98 Oximetry Medical Decision Making - Medical Decision Making 45-year-old female with history of asthma presents to the emergency department with a chief complaint of shortness of breath for 3 days. On physical examinati on, diffuse bilateral wheezing. Breath sounds are within normal limits. Chest x-ray is unremarkable. She did have leukocytosis of 15k. Coags within normal limits. Negative d-dimer. CMP is unremarkable. covid-19ag negative. Patient was given Solu-Medrol and DuoNeb treatments. On reevaluation, patient reports improvement in his symptoms. I will discharge her with a steroid taper and azithromycin. We'll also send a prescription for albuterol inhaler. Return parameters were discussed with patient was understanding and agreeable. Also advised follow-up with the degreasing solution mixer. Case discussed with Dr. Jose Nava - Lab Data Result diagrams: 01/08/21 19:14 01/08/21 19:14 Lab Results 01/08/21 01/08/21 01/08/21 Range/Units 19:14 19:14 19:14 WBC 15.2 H (3.8-10.6) k/uL RBC 4.90 (3.80-5.40) m/uL Hgb 13.2 (11.4-16.0) gm/dL Hct 41.3 (34.0-46.0) % MCV 84.2 (80.0-100.0) fL MCH 26.9 (25.0-35.0) pg MCHC 32.0 (31.0-37.0) g/dL RDW 15.8 H (11.5-15.5) % Plt Count 396 (150-450) k/uL MPV 7.9 Neutrophils % 71 % Lymphocytes % 22 % Monocytes % 3 % Eosinophils % 3 % Basophils % 1 % Neutrophils # 10.8 H (1.3-7.7) k/uL Lymphocytes # 3.3 (1.0-4.8) k/uL Monocytes # 0.5 (0-1.0) k/uL Eosinophils # 0.4 (0-0.7) k/uL Basophils # 0.1 (0-0.2) k/uL PT 9.9 (9.0-12.0) sec INR 0.9 (<1.2) APTT 24.5 (22.0-30.0) sec D-Dimer 0.53 (<0.60) mg/L FEU Sodium 139 (137-145) mmol/L Potassium 3.0 L (3.5-5.1) mmol/L Chloride 102 (98-107) mmol/L Carbon Dioxide 29 (22-30) mmol/L Anion Gap 8 mmol/L BUN 10 (7-17) mg/dL Creatinine 0.94 (0.52-1.04) mg/dL Est GFR (CKD-EPI)AfAm 84 (>60 ml/min/1.73 sqM) Est GFR (CKD-EPI)NonAf 73 (>60 ml/min/1.73 sqM) Glucose 132 H (74-99) mg/dL Calcium 8.9 (8.4-10.2) mg/dL Total Bilirubin 0.2 (0.2-1.3) mg/dL AST 15 (14-36) U/L ALT 8 (4-34) U/L Alkaline Phosphatase 107 (38-126) U/L Troponin I (0.000-0.034) ng/mL Total Protein 6.5 (6.3-8.2) g/dL Albumin 3.5 (3.5-5.0) g/dL Coronavirus (PCR) (Not Detectd) 01/08/21 01/08/21 Range/Units 19:14 19:20 WBC (3.8-10.6) k/uL RBC (3.80-5.40) m/uL Hgb (11.4-16.0) gm/dL Hct (34.0-46.0) % MCV (80.0-100.0) fL MCH (25.0-35.0) pg MCHC (31.0-37.0) g/dL RDW (11.5-15.5) % Plt Count (150-450) k/uL MPV Neutrophils % % Lymphocytes % % Monocytes % % Eosinophils % % Basophils % % Neutrophils # (1.3-7.7) k/uL Lymphocytes # (1.0-4.8) k/uL Monocytes # (0-1.0) k/uL Eosinophils # (0-0.7) k/uL Basophils # (0-0.2) k/uL PT (9.0-12.0) sec INR (<1.2) APTT (22.0-30.0) sec D-Dimer (<0.60) mg/L FEU Sodium (137-145) mmol/L Potassium (3.5-5.1) mmol/L Chloride (98-107) mmol/L Carbon Dioxide (22-30) mmol/L Anion Gap mmol/L BUN (7-17) mg/dL Creatinine (0.52-1.04) mg/dL Est GFR (CKD-EPI)AfAm (>60 ml/min/1.73 sqM) Est GFR (CKD-EPI)NonAf (>60 ml/min/1.73 sqM) Glucose (74-99) mg/dL Calcium (8.4-10.2) mg/dL Total Bilirubin (0.2-1.3) mg/dL AST (14-36) U/L ALT (4-34) U/L Alkaline Phosphatase (38-126) U/L Troponin I <0.012 (0.000-0.034) ng/mL Total Protein (6.3-8.2) g/dL Albumin (3.5-5.0) g/dL Coronavirus (PCR) Not Detected (Not Detectd) - EKG Data EKG Comments: Sinus rhythm and no acute ischemic changes Ventricular rate 93, ID 174, QRS 90, QTC 447. Disposition Clinical Impression: COPD exacerbation Disposition: HOME SELF-CARE Condition: Stable Instructions (If sedation given, give patient instructions): COPD (Chronic Obstructive Pulmonary Disease) (DC) Additional Instructions: Take prescribed medication as directed. Stop smoking. Follow with the degreasing solution mixer. Return to emergency department if symptoms worsen. Prescriptions: methylPREDNISolone [Medrol Dose Pack] 4 mg PO DIRECTED #1 pack Azithromycin [Zithromax Z-pack (6 tabs)] 0 mg PO DIRECTED #1 pack Is patient prescribed a controlled substance at d/c from ED?: No Referrals: Dieudonne Copeland DO [Primary Care Provider] - 1-2 days Steffi Alvarado MD [STAFF PHYSICIAN] - 1-2 days Time of Disposition: 21:02
[2021-01-08 19:22] LABS: Basophils # (A) 0.1 k/uL (0-0.2); Basophils % (A) 1 %; Eosinophils # (A) 0.4 k/uL (0-0.7); Eosinophils % (A) 3 %; HCT 41.3 % (34.0-46.0); HGB 13.2 gm/dL (11.4-16.0); Lymphocytes # (A) 3.3 k/uL (1.0-4.8); Lymphocytes % (A) 22 %; MCH 26.9 pg (25.0-35.0); MCV 84.2 fL (80.0-100.0); Mean Platelet Volume 7.9; Monocytes # (A) 0.5 k/uL (0-1.0); Monocytes % (A) 3 %; Neutrophils # (A) 10.8 k/uL (1.3-7.7); Neutrophils % (A) 71 %; Platelet Count 396 k/uL (150-450); RDW 15.8 % (11.5-15.5); WBC 15.2 k/uL (3.8-10.6)
[2021-01-08 19:30] LABS: Albumin 3.5 g/dL (3.5-5.0); Calcium 8.9 mg/dL (8.4-10.2); Total Bilirubin 0.2 mg/dL (0.2-1.3); Total Protein 6.5 g/dL (6.3-8.2)
[2021-01-08 19:36] LABS: D-Dimer 0.53 mg/L FEU (<0.60); INR 0.9 (<1.2); Partial Thromboplastin Time 24.5 sec (22.0-30.0); Prothrombin Time 9.9 sec (9.0-12.0)
--- NOTE | 2021-01-08 20:39 | XR ---
EXAMINATION TYPE: XR chest 2V DATE OF EXAM: 01/08/2021 COMPARISON: 05/27/2020 HISTORY: Short of breath TECHNIQUE: FINDINGS: Heart and mediastinum are normal. Lungs are clear. Diaphragm is normal. Bony thorax is inta ct. IMPRESSION: Normal chest. No change.
[2021-01-08] MEDS ORDERED: POTASSIUM CHLORIDE ER 20 MEQ TAB.ER PO STA (21:21)
[2021-01-08 21:41] VITALS: BP 114/87; PULSE 92; RESP 18
== END 2021-01-08 21:41 | disposition home or self-care (01) ==
LOC: EC 18:18
DX: J44.1 Chronic obstructive pulmonary disease with (acute) exacerbation (principal); R51.9 Headache, unspecified; I10 Essential (primary) hypertension; K21.9 Gastro-esophageal reflux disease without esophagitis; E78.5 Hyperlipidemia, unspecified; F32.9 Major depressive disorder, single episode, unspecified; F41.9 Anxiety disorder, unspecified; F17.200 Nicotine dependence, unspecified, uncomplicated; M19.90 Unspecified osteoarthritis, unspecified site; Z20.822 Contact with and (suspected) exposure to COVID-19
CPT/HCPCS: 36415; 94640; 93005; 85379; 80053; 84484; 85025; 85610; 85730; 87635; 71046; 99285; 96374; 96361; J2930

== ENCOUNTER → 2021-02-16 | Outpatient (CLI) | payer OTHER ==
--- NOTE | 2021-02-16 21:56 | CONS ---
CONSULTATION DATE OF SERVICE: 02/16/2021. HISTORY: This 45-year-old lady has been evaluated in the sleep center for possible obstructive sleep apnea-hypopnea syndrome. Patient has various sleep schedule, usually goes to bed around 9 falling asleep around 2 and sleeps until 11:30 in the morning. She does have TV set in bedroom. She sleeps in different positions. She snores and has witnessed episodes of stopped breathing during sleep. She wakes up from sleep more than 10 times with up to 10 episodes of nocturia at night according to her. Positive history of choking awakenings with dry mouth, heartburn, gasping for air. In the morning patient wakes up tired, has difficulties to pay attention, falling asleep during the day, worries about her sleep, has problems with concentration, irritability, depression, anxiety, sexual dysfunction. [place] Sleepiness Scale increased to 11. PAST MEDICAL HISTORY: Positive for hypertension, asthma, arthritis, headaches, diabetes mellitus, thyroid nodules, gout, depression. PAST SURGICAL HISTORY: Tonsillectomy, adenoidectomy, cholecystectomy, , uterus ablation. MEDICATIONS: Lisinopril, Lasix, Wellbutrin, albuterol, Motrin, Docusate. SOCIAL HISTORY: Smoker for about 50 years. Alcohol consumption none. FAMILY HISTORY: Heart problems and lung problems. REVIEW OF SYSTEMS: Multiple awakenings from sleep, sleepiness during the day. PHYSICAL EXAMINATION: GENERAL: lady without distress. VITAL SIGNS: BP 95/58, HR 91, RR 18, height 5 feet 5 inches, weight 284.4, body mass index 47.2, temperature 97.5, oxygen saturation at room air 95%. HEENT: Normal position of soft palate, Mallampati 2, but good uvula. Neck is wide, 18 inches in circumference. ABDOMEN: Obese. EXTREMITIES: No clubbing or cyanosis. CLEANER GREASER: Awake, alert, and oriented X3. Cranial nerves 2 to 7 intact. There is no fasciculation or atrophy. noted. No focal deficits observed. IMPRESSION: 1. Snoring, witnessed episodes of stopped breathing during sleep, multiple awakenings from sleep, wide 18 inches in circumference, sleepiness. [place] Sleepiness Scale is 11, obstructive sleep apnea-hypopnea syndrome. 2. Morbid obesity. BMI 47.2. 3. Hypertension. 4. Asthma. 5. Arthritis. 6. Episodes of headaches. 7. Diabetes mellitus. 8. Thyroid nodules. 9. Gout. 10.History of depression. 11.Status post uterus ablation. 12.Status post tonsillectomy and adenoidectomy. 13.Status post cholecystectomy. 14.Status post C-sections. PLAN: 1. Polysomnography for evaluation of patient's breathing during sleep. 2. CPAP/BiPAP titration if sleep study confirms obstructive sleep apnea-hypopnea syndrome. 3. Preferable position during sleep on the side. 4. No driving if patient feels any sleepiness. 5. I will see patient for follow up visit to explain results of testing and following plan. Thank you very much for referring the patient for consultation. Davis Castañeda MD, PhD, FAASM Diplomat of [employer] Reinforcement Maker of [facility] [place] MMJAKEL / RICHIE: [phone] /
== END ==
LOC: SLEEP 15:44
PROVIDERS: ATTEND Internal Medicine
DX: G47.33 Obstructive sleep apnea (adult) (pediatric) (principal); E66.01 Morbid (severe) obesity due to excess calories; I10 Essential (primary) hypertension; J45.909 Unspecified asthma, uncomplicated; M19.90 Unspecified osteoarthritis, unspecified site; R51.9 Headache, unspecified; E11.9 Type 2 diabetes mellitus without complications; E04.1 Nontoxic single thyroid nodule; M10.9 Gout, unspecified; F32.9 Major depressive disorder, single episode, unspecified; F17.200 Nicotine dependence, unspecified, uncomplicated; Z98.890 Other specified postprocedural states; Z90.89 Acquired absence of other organs; Z90.49 Acquired absence of other specified parts of digestive tract; Z87.59 Personal history of other complications of pregnancy, childbirth and the puerperium; Z79.899 Other long term (current) drug therapy; Z91.048 Other nonmedicinal substance allergy status; Z88.1 Allergy status to other antibiotic agents; Z88.2 Allergy status to sulfonamides; Z91.018 Allergy to other foods; Z91.011 Allergy to milk products; Z68.42 Body mass index [BMI] 45.0-49.9, adult
CPT/HCPCS: 99211

== ENCOUNTER → 2021-03-17 | Outpatient (CLI) | payer OTHER ==
--- NOTE | 2021-03-20 12:56 | XR ---
EXAMINATION TYPE: XR knee limited bilateral DATE OF EXAM: 03/17/2021 COMPARISON: NONE HISTORY: Pain TECHNIQUE: Three views are submitted. FINDINGS: Hypertrophic change and moderate narrowing of the patellofemoral and medial compartment of the knee j oint bilaterally. No erosive changes. Small amount of fluid in the suprapatellar bursa bilaterally. O sseous structures are intact. No acute fracture seen. IMPRESSION: 1. Bilateral moderate osteoarthritis..
== END | disposition home or self-care (01) ==
LOC: RADXRMAIN 12:52
PROVIDERS: ATTEND Family Medicine
DX: M17.0 Bilateral primary osteoarthritis of knee (principal)

== ENCOUNTER → 2021-09-27 | Outpatient (CLI) | payer OTHER ==
--- NOTE | 2021-09-27 15:44 | SFUN ---
SLEEP CENTER FOLLOW UP NOTE DATE OF SERVICE: 09/27/2021 46-year-old lady has been followed in Sleep Center for treatment of obstructive sleep apnea-hypopnea syndrome. Recently the patient had a home sleep apnea test and then CPAP titration procedure for correction of respiratory abnormalities. Subsequently, I wrote her prescription for CPAP therapy. Therapy was started. Today is her first visit after she started to use CPAP equipment. I discussed results of sleep studies with patient in detail. She was able to use her CPAP equipment every night and she feels better with the machine with regarding to sleep and feeling during the day. [place] Sleepiness Scale today is 2. I checked information from her machine. Usage is 100% of nights and 83% of nights more than 4 hours, which is good compliance. Average usage 5 hours 17 minutes. Machine is on automatic regimen. Range of the pressure 5-18, average pressure 95% at 17 cm of water. Leak is 12.3 L/minute 95%. Apnea-hypopnea index is 1.4 which is totally normal. MEDICATIONS: Lisinopril, Wellbutrin, albuterol, Motrin, Docusate. PHYSICAL EXAMINATION: GENERAL: Patient in no distress. BP 103/70, HR 76, RR 14, weight 255.8, temp 96.4, oxygen saturation at room air 94%. HEENT: PERRLA, EOMI, evaluation of oropharynx showed tongue protrudes midline. NECK: Supple, no JVD. Thyroid is not palpable. LUNGS: Clear to percussion and to auscultation. Good air exchange. No wheezing or rhonchi. HEART: S1, S2 regular. No murmurs, gallops, or rubs. ABDOMEN: Obese. Soft and nontender. Bowel sounds are present. No organomegaly appreciated. EXTREMITIES: No clubbing or cyanosis. TRAWL NET MAKER: Awake, alert, and oriented X3. Cranial nerves 2 to 7 intact. There is no fasciculation or atrophy. noted. No focal deficits observed. IMPRESSION: 1. Obstructive sleep apnea-hypopnea syndrome. Patient demonstrated good compliance with treatment. Normal respiration on CPAP, benefitting from treatment. Normalization of [place] Sleepiness Scale down from 11 to 2. 2. Obesity. 3. Hypertension. 4. Asthma. 5. Arthritis. 6. Diabetes mellitus. 7. History of thyroid nodules. 8. Gout. 9. History of depression. 10.Status post uterus ablation. 11.Status post tonsillectomy and adenoidectomy. 12.Status post cholecystectomy. 13.Status post . PLAN: 1. Patient will continue to use PAP equipment every night for the whole night. 2. Sleep hygiene with regular time in bed for at least 7-1/2 to 8 hours. 3. Precautions related to driving. No driving if feeling sleepiness. 4. I will maintain all necessary prescription for PAP supplies including mask, tube, filters. 5. Watching weight. 6. Follow-up visit in one year or earlier if patient has any problems. Thank you very much for allowing me to participate in the management of your patient. Sincerely, Davis Castañeda MD, PhD, FAASM Diplomat of [employer] Sleep Medicine Board of [employer] Helpdesk Specialist of [facility] [place] MMJAKEL / RICHIE: [phone] /
== END ==
LOC: SLEEP 10:06
PROVIDERS: ATTEND Internal Medicine
DX: G47.33 Obstructive sleep apnea (adult) (pediatric) (principal); Z99.89 Dependence on other enabling machines and devices; E66.9 Obesity, unspecified; I10 Essential (primary) hypertension; J45.909 Unspecified asthma, uncomplicated; M19.90 Unspecified osteoarthritis, unspecified site; E11.9 Type 2 diabetes mellitus without complications; M10.9 Gout, unspecified; Z86.39 Personal history of other endocrine, nutritional and metabolic disease; F32.A Depression, unspecified; F17.200 Nicotine dependence, unspecified, uncomplicated; Z98.890 Other specified postprocedural states; Z90.09 Acquired absence of other part of head and neck; Z90.49 Acquired absence of other specified parts of digestive tract; Z87.59 Personal history of other complications of pregnancy, childbirth and the puerperium; Z91.048 Other nonmedicinal substance allergy status; Z88.1 Allergy status to other antibiotic agents; Z91.011 Allergy to milk products; Z91.013 Allergy to seafood; Z88.2 Allergy status to sulfonamides; Z91.018 Allergy to other foods

== ENCOUNTER → 2021-10-24 | Outpatient (CLI) | payer OTHER ==
[2021-10-24 12:56] LABS: Basophils # (A) 0.1 k/uL (0-0.2); Basophils % (A) 1 %; Eosinophils # (A) 0.2 k/uL (0-0.7); Eosinophils % (A) 1 %; HGB 14.4 gm/dL (11.4-16.0); Lymphocytes # (A) 3.7 k/uL (1.0-4.8); Lymphocytes % (A) 24 %; MCH 28.1 pg (25.0-35.0); MCHC 32.7 g/dL (31.0-37.0); MCV 85.9 fL (80.0-100.0); Mean Platelet Volume 8.8; Monocytes # (A) 0.6 k/uL (0-1.0); Monocytes % (A) 4 %; Neutrophils % (A) 69 %; Platelet Count 411 k/uL (150-450); RBC 5.12 m/uL (3.80-5.40); RDW 14.4 % (11.5-15.5); WBC 15.9 k/uL (3.8-10.6)
[2021-10-24 13:04] LABS: African American GFR (CKD) 69 (>60 ml/min/1.73 sqM); Anion Gap 6 mmol/L; Blood Urea Nitrogen 5 mg/dL (7-17); Calcium 8.9 mg/dL (8.4-10.2); Carbon Dioxide 37 mmol/L (22-30); Chloride 96 mmol/L (98-107); Glucose 91 mg/dL (74-99); Non-African American GFR(CKD) 60 (>60 ml/min/1.73 sqM); Sodium 139 mmol/L (137-145)
== END | disposition home or self-care (01) ==
LOC: LABWHC1 11:08
PROVIDERS: ATTEND Family Medicine
DX: E87.6 Hypokalemia (principal); D72.829 Elevated white blood cell count, unspecified
CPT/HCPCS: 36415; 80048; 85025

== ENCOUNTER → 2022-01-22 | Outpatient (CLI) | payer OTHER ==
--- NOTE | 2022-01-22 14:37 | NM ---
EXAMINATION TYPE: NM bone scan whole body DATE OF EXAM: 01/22/2022 COMPARISON: NONE HISTORY: R 63.4 Delayed whole-body scanning was performed following the injection of 23.4 mCi Tc 99m MDP. Images acq uired 3 hours post injection. FINDINGS: Soft tissue uptake is within normal limits. Uptake within the feet, knees, shoulders may be due to so me underlying arthropathy. No abnormal increased or decreased uptake to suggest metastatic disease ho wever. Uptake in the maxilla and mandible may be due to periodontal disease. IMPRESSION: Nonspecific findings described above.
== END | disposition home or self-care (01) ==
LOC: RADNMMAIN 09:43
PROVIDERS: ATTEND Family Medicine
DX: R63.4 Abnormal weight loss (principal)
CPT/HCPCS: 78306; A9503

== ENCOUNTER 2022-01-26 16:00 | Emergency (ER) | payer OTHER ==
[2022-01-26 17:04] VITALS: BP 132/87; PULSE 92; RESP 18; TEMP 99.4
--- NOTE | 2022-01-26 17:56 | ED ---
General Adult HPI - General Chief complaint: Urogenital Stated complaint: Possible [place] Infection Source: patient, RN notes reviewed, old records reviewed Mode of arrival: ambulatory Limitations: no limitations - History of Present Illness Initial comments: 46-year-old female presents with right flank pain throughout the day today. She states this is typical of previous infections that she's had in the past. She denies dysuria but states she has had increased urinary frequency. She denies fever. She denies vomiting. She states her symptoms are similar to prior urina ry tract infections. She denies injury. She denies anterior abdominal pain. - Related Data Home Medications Medication Instructions Recorded Confirmed Docusate [Colace] 100 mg PO DAILY 11/21/15 08/10/21 Lisinopril/Hydrochlorothiazide 0.5 tab PO DAILY 11/21/15 08/10/21 [Lisinopril-Hctz 20-12.5 mg Tab] allopurinoL [Zyloprim] 100 mg PO DAILY 02/24/19 08/10/21 Cetirizine HCl [Zyrtec] 10 mg PO DAILY 05/06/19 08/10/21 Potassium Chloride ER [K-Dur 20] 20 meq PO DAILY 05/27/20 08/10/21 Metoprolol Tartrate [Lopressor] 12.5 mg PO BID 06/08/20 08/10/21 buPROPion XL [Wellbutrin XL] 150 mg PO DAILY 01/08/21 08/10/21 Previous Rx's Medication Instructions Recorded Atorvastatin Calcium [Lipitor] 20 mg PO HS #30 tab 05/28/20 Citalopram Hydrobromide [CeleXA] 20 mg PO DAILY #30 tab 06/13/20 Cephalexin [Keflex] 500 mg PO TID 10 Days #30 cap 01/26/22 Allergies Allergy/AdvReac Type Severity Reaction Status Date / Time adhesive tape Allergy RED SKIN Verified 01/26/22 17:04 AND ITCHING levofloxacin [From Levaquin] Allergy Anaphylaxis Verified 01/26/22 17:04 milk Allergy Abdominal Verified 01/26/22 17:04 Pain shellfish derived [Shellfish] Allergy Anaphylaxis Verified 01/26/22 17:04 Sulfa (Sulfonamide Allergy Unknown Verified 01/26/22 17:04 Antibiotics) Childhood doxycycline AdvReac Nausea & Verified 01/26/22 17:04 Vomiting RYE BREAD Allergy Unknown Uncoded 01/26/22 17:04 Review of Systems ROS Statement: Those systems with pertinent positive or pertinent negative responses have been documented in the HPI. ROS Other: All systems not noted in ROS Statement are negative. Past Medical History Past Medical History: Asthma, GERD/Reflux, Hyperlipidemia, Hypertension, Osteoarthritis (OA), Thyroid Disorder Additional Past Medical History / Comment(s): migraine headachesKIDNEY STONE , sinus problems., History of Any Multi-Drug Resistant Organisms: None Reported Past Surgical History: Adenoidectomy, Appendectomy, Section, Cholecystectomy, Ear Surgery, Orthopedic Surgery, Tonsillectomy, Tubal Ligation, Uterine Ablation Additional Past Surgical History / Comment(s): L index finger reattatched, bilateral carpal tunnel releases, hysteroscopy with failed uterine ablation then D&C with successful uterine ablation, thyroid bx, Past Anesthesia/Blood Transfusion Reactions: Postoperative Nausea & Vomiting (PONV) Past Psychological History: Anxiety, Depression Smoking Status: Current every day smoker Past Alcohol Use History: None Reported Past Drug Use History: None Reported - Past Family History Sister(s) Family Medical History: Cancer Additional Family Medical History / Comment(s): Patient is living with her fianc has 8 kids 2 are not hers. Father Family Medical History: Cancer Additional Family Medical History / Comment(s): pacemaker Mother Family Medical History: AFIB, Deep Vein Thrombosis (DVT), Myocardial Infarction ([place]) Additional Family Medical History / Comment(s): TIA/mini strokes General Exam Limitations: no limitations General appearance: alert, in no apparent distress Head exam: Present: atraumatic, normocephalic Eye exam: Present: normal appearance, PERRL ENT exam: Present: normal exam, mucous membranes moist Neck exam: Present: normal inspection. Absent: tenderness, meningismus Respiratory exam: Present: normal lung sounds bilaterally. Absent: respiratory distress, wheezes Cardiovascular Exam: Present: regular rate, normal rhythm GI/Abdominal exam: Present: soft. Absent: distended, tenderness, guarding, rebound Extremities exam: Present: normal inspection, normal capillary refill Back exam: Absent: CVA tenderness (R), CVA tenderness (L) Neurological exam: Present: alert, oriented X3, CN II-XII intact. Absent: motor sensory deficit Psychiatric exam: Present: normal affect, normal mood Skin exam: Present: warm, dry, intact. Absent: cyanosis, diaphoretic Course Vital Signs 01/26/22 17:02 Temperature 99.4 F Pulse Rate 92 Respiratory 18 Rate Blood Pressure 132/87 O2 Sat by Pulse 98 Oximetry Medical Decision Making - Medical Decision Making 38-year-old female with flank pain and urinary frequency. Patient's pain is mild. She was going to follow with the primary care physician but the office was closed. She is afebrile, well-appearing with stable vitals. No CVA tenderness. No vomiting. Urinalysis shows both red cells and significant amount of white cells without apparent bacteria. Urinalysis will be sent for culture. I will start the patient on antibiotics at this time. Return parameters discussed including worsening pain, fever, vomiting. - Lab Data Lab Results 01/26/22 Range/Units 17:49 Urine Color Light Yellow Urine Appearance Cloudy H (Clear) Urine pH 6.5 (5.0-8.0) Ur Specific Electra 1.006 (1.001-1.035) Urine Protein 1+ H (Negative) Urine Glucose (UA) Negative (Negative) Urine Ketones Negative (Negative) Urine Blood Large H (Negative) Urine Nitrite Negative (Negative) Urine Bilirubin Negative (Negative) Urine Urobilinogen <2.0 (<2.0) mg/dL Ur Leukocyte Esterase Large H (Negative) Urine RBC 53 H (0-5) /hpf Urine WBC 161 H (0-5) /hpf Urine WBC Clumps Rare H (None) /hpf Ur Squamous Epith Cells 1 (0-4) /hpf Urine Mucus Rare H (None) /hpf Disposition Clinical Impression: Urinary tract infection Disposition: HOME SELF-CARE Condition: Fair Instructions (If sedation given, give patient instructions): Urinary Tract Infection in Women (ED) Prescriptions: Cephalexin [Keflex] 500 mg PO TID 10 Days #30 cap Is patient prescribed a controlled substance at d/c from ED?: No Referrals: Dieudonne Copeland DO [Primary Care Provider] - 1-2 days Time of Disposition: 18:18
[2022-01-26 18:15] LABS: Appearance,Urine Cloudy (Clear); Bilirubin,Urine Negative (Negative); Blood,Urine Large (Negative); Color,Urine Light Yellow; Glucose,Urine (UA) Negative (Negative); Ketones,Urine Negative (Negative); Leukocyte Esterase,Urine Large (Negative); Mucus,Urine Rare /hpf; Nitrite,Urine Negative (Negative); PH, Urine 6.5 (5.0-8.0); Protein,Urine 1+ (Negative); RBC,Urine 53 /hpf (0-5); Specific Gravity,Urine 1.006 (1.001-1.035); Squamous Epithelial Cell,Urine 1 /hpf (0-4); Urobilinogen,Urine <2.0 mg/dL (<2.0); WBC,Urine 161 /hpf (0-5)
== END 2022-01-26 18:49 | disposition home or self-care (01) ==
LOC: EC 16:00
DX: N39.0 Urinary tract infection, site not specified (principal); J45.909 Unspecified asthma, uncomplicated; E78.5 Hyperlipidemia, unspecified; I10 Essential (primary) hypertension; F17.200 Nicotine dependence, unspecified, uncomplicated; Z91.011 Allergy to milk products; Z91.048 Other nonmedicinal substance allergy status; Z88.8 Allergy status to other drugs, medicaments and biological substances; Z91.013 Allergy to seafood; Z88.2 Allergy status to sulfonamides; Z88.1 Allergy status to other antibiotic agents
CPT/HCPCS: 81001; 87086

== ENCOUNTER 2022-05-06 17:39 | Emergency (ER) | payer OTHER ==
[2022-05-06 18:52] VITALS: TEMP 98.2
[2022-05-06] MEDS ORDERED: diphenhydrAMINE 50 MG/ML 1 ML VIAL IVP STA (21:23)
[2022-05-06] MEDS ORDERED: KETOROLAC 15 MG/ML 1 ML VIAL IVP STA (21:23)
[2022-05-06] MEDS ORDERED: PROCHLORPERAZINE INJ 10 MG/2 ML VIAL IVP STA (21:23)
[2022-05-06] MEDS ORDERED: SODIUM CHLORIDE 0.9% 1,000 ML IV STA (21:23)
--- NOTE | 2022-05-06 21:26 | ED ---
Headache HPI - General Chief Complaint: Headache Stated Complaint: Headache/Hot flashes/Nausea Time Seen by Provider: 05/06/22 21:22 Source: RN notes reviewed, old records reviewed Mode of arrival: ambulatory Limitations: no limitations - History of Present Illness Initial Comments: This is a 46-year-old female to the ER for evaluation. Patient to the emergency department for evaluation in regards to positive headache history of migraines migraine headache. This is just like her typical migraines with no trauma, no head injury. No fevers. No neck pain. No modifying factors for symptoms at home MD Complaint: headache, "migraine" -: days(s) Onset Description: gradual Location: right, left, frontal, temporal Severity: moderate Severity scale (1-10): 6 Quality: throbbing, pulsatile, constant Consistency: constant Improves With: nothing Worsens With: none Context: occurred at rest Associated Symptoms: nausea, photophobia, sensitivity to sound Treatments Prior to Arrival: none - Related Data Home Medications Medication Instructions Recorded Confirmed Docusate [Colace] 100 mg PO DAILY 11/21/15 08/10/21 Lisinopril/Hydrochlorothiazide 0.5 tab PO DAILY 11/21/15 08/10/21 [Lisinopril-Hctz 20-12.5 mg Tab] allopurinoL [Zyloprim] 100 mg PO DAILY 02/24/19 08/10/21 Cetirizine HCl [Zyrtec] 10 mg PO DAILY 05/06/19 08/10/21 Potassium Chloride ER [K-Dur 20] 20 meq PO DAILY 05/27/20 08/10/21 Metoprolol Tartrate [Lopressor] 12.5 mg PO BID 06/08/20 08/10/21 buPROPion XL [Wellbutrin XL] 150 mg PO DAILY 01/08/21 08/10/21 Previous Rx's Medication Instructions Recorded Atorvastatin Calcium [Lipitor] 20 mg PO HS #30 tab 05/28/20 Citalopram Hydrobromide [CeleXA] 20 mg PO DAILY #30 tab 06/13/20 Cephalexin [Keflex] 500 mg PO TID 10 Days #30 cap 01/26/22 Allergies Allergy/AdvReac Type Severity Reaction Status Date / Time adhesive tape Allergy RED SKIN Verified 05/06/22 18:52 AND ITCHING levofloxacin [From Levaquin] Allergy Anaphylaxis Verified 05/06/22 18:52 milk Allergy Abdominal Verified 05/06/22 18:52 Pain shellfish derived [Shellfish] Allergy Anaphylaxis Verified 05/06/22 18:52 Sulfa (Sulfonamide Allergy Unknown Verified 05/06/22 18:52 Antibiotics) Childhood doxycycline AdvReac Nausea & Verified 05/06/22 18:52 Vomiting RYE BREAD Allergy Unknown Uncoded 05/06/22 18:52 Review of Systems ROS Statement: Those systems with pertinent positive or pertinent negative responses have been documented in the HPI. ROS Other: All systems not noted in ROS Statement are negative. Past Medical History Past Medical History: Asthma, GERD/Reflux, Hyperlipidemia, Hypertension, Osteoarthritis (OA), Thyroid Disorder Additional Past Medical History / Comment(s): migraine headachesKIDNEY STONE , sinus problems., History of Any Multi-Drug Resistant Organisms: None Reported Past Surgical History: Adenoidectomy, Appendectomy, Section, Cholecystectomy, Ear Surgery, Orthopedic Surgery, Tonsillectomy, Tubal Ligation, Uterine Ablation Additional Past Surgical History / Comment(s): L index finger reattatched, bilateral carpal tunnel releases, hysteroscopy with failed uterine ablation then D&C with successful uterine ablation, thyroid bx, Past Anesthesia/Blood Transfusion Reactions: Postoperative Nausea & Vomiting (PO NV) Past Psychological History: Anxiety, Depression Smoking Status: Current every day smoker Past Alcohol Use History: None Reported Past Drug Use History: None Reported - Past Family History Sister(s) Family Medical History: Cancer Additional Family Medical History / Comment(s): Patient is living with her fianc has 8 kids 2 are not hers. Father Family Medical History: Cancer Additional Family Medical History / Comment(s): pacemaker Mother Family Medical History: AFIB, Deep Vein Thrombosis (DVT), Myocardial Infarction ([place]) Additional Family Medical History / Comment(s): TIA/mini strokes General Exam Limitations: no limitations General appearance: alert, in no apparent distress Head exam: Present: atraumatic, normocephalic, normal inspection Eye exam: Present: normal appearance, PERRL, EOMI. Absent: scleral icterus, conjunctival injection, periorbital swelling ENT exam: Present: normal exam, mucous membranes moist Neck exam: Present: normal inspection. Absent: tenderness, meningismus, lymphadenopathy Respiratory exam: Present: normal lung sounds bilaterally. Absent: respiratory distress, wheezes, rales, rhonchi, stridor Cardiovascular Exam: Present: regular rate, normal rhythm, normal heart sounds. Absent: systolic murmur, diastolic murmur, rubs, gallop, clicks GI/Abdominal exam: Present: soft, normal bowel sounds. Absent: distended, tenderness, guarding, rebound, rigid Extremities exam: Present: normal inspection, full ROM, normal capillary refill. Absent: tenderness, pedal edema, joint swelling, calf tenderness Back exam: Present: normal inspection Neurological exam: Present: alert, oriented X3, CN II-XII intact Psychiatric exam: Present: normal affect, normal mood Skin exam: Present: warm, dry, intact, normal color. Absent: rash Course Vital Signs 05/06/22 18:50 Temperature 98.2 F Pulse Rate 91 Respiratory 20 Rate Blood Pressure 158/100 O2 Sat by Pulse 96 Oximetry - Reevaluation(s) Reevaluation #1: 05/06/22 21:24 Medical record is reviewed Reevaluation #2: 05/06/22 22:24 Patient informed results and Reevaluation #3: 05/06/22 22:24 Patient symptoms improved in the ER and can be discharged Medical Decision Making - Medical Decision Making 46 female to the emergency department for evaluation positive nausea vomiting migraine headache, acute on chronic migraine headache Disposition Clinical Impression: Migraine headache Disposition: HOME SELF-CARE Condition: Good Instructions (If sedation given, give patient instructions): Acute Headache (ED) Is patient prescribed a controlled substance at d/c from ED?: No Referrals: Dieudonne Copeland DO [Primary Care Provider] - 1-2 days Time of Disposition: 22:45
[2022-05-06] MEDS ORDERED: methylPREDNISolone SOD SUCCIN 250 MG in SODIUM CHLORIDE 0.9% 100 ML IVPB ONE (21:30)
[2022-05-06] MEDS ORDERED: MORPHINE SULFATE 4 MG/ML SYRINGE IVP STA (22:35)
[2022-05-06] MEDS ORDERED: ONDANSETRON 4 MG/2 ML VIAL IVP STA (22:35)
[2022-05-06 22:55] VITALS: BP 142/84; PULSE 85; RESP 18
== END 2022-05-06 23:00 | disposition home or self-care (01) ==
LOC: EC 17:39
DX: G43.909 Migraine, unspecified, not intractable, without status migrainosus (principal); J45.909 Unspecified asthma, uncomplicated; K21.9 Gastro-esophageal reflux disease without esophagitis; E78.5 Hyperlipidemia, unspecified; I10 Essential (primary) hypertension; M19.90 Unspecified osteoarthritis, unspecified site; E07.9 Disorder of thyroid, unspecified; F41.9 Anxiety disorder, unspecified; F32.A Depression, unspecified; F17.200 Nicotine dependence, unspecified, uncomplicated; Z91.048 Other nonmedicinal substance allergy status; Z88.1 Allergy status to other antibiotic agents; Z91.011 Allergy to milk products; Z91.013 Allergy to seafood; Z88.2 Allergy status to sulfonamides; Z91.018 Allergy to other foods; Z79.899 Other long term (current) drug therapy
CPT/HCPCS: 99283; 96365; 96375 ×3; J1200; J0780; J2930; J1885

== ENCOUNTER 2022-06-01 20:31 | Emergency (ER) | payer OTHER ==
[2022-06-01 20:54] VITALS: BP 126/85; PULSE 88; RESP 18; TEMP 98
--- NOTE | 2022-06-01 21:45 | XR ---
EXAMINATION TYPE: XR knee complete RT DATE OF EXAM: 06/01/2022 COMPARISON: NONE HISTORY: Pain TECHNIQUE: 3 views FINDINGS: There is spurring of the medial femoral and tibial condyles. I see no fracture nor dislocat ion. There is spurring on the patella. No evidence of joint effusion. No significant joint space narr owing. IMPRESSION: There is hypertrophic osteoarthritis. No fracture. No evidence of patellar fracture.
--- NOTE | 2022-06-01 22:14 | ED ---
General Adult HPI - General Chief complaint: Extremity Injury, Lower Stated complaint: rt knee pain Time Seen by Provider: 06/01/22 21:56 Source: patient, RN notes reviewed, old records reviewed Mode of arrival: wheelchair Limitations: no limitations - History of Present Illness Initial comments: Patient is a 46-year-old female presents Department complaining of acute onset chronic right knee pain. Does have history of chronic right knee pain secondary to arthritis. Presents after slipping on a toy and she states she is somewhat did the splits and landed on her right knee. Had some pain afterwards. States it is in the outside aspect of her right knee. Worse with movement. He has ambulated. Presents for further evaluation of this time. Denies any sensory deficits. Worse with movement. Patient was evaluated in [facility] after x-rays were obtained. - Related Data Home Medications Medication Instructions Recorded Confirmed Docusate [Colace] 100 mg PO DAILY 11/21/15 08/10/21 Lisinopril/Hydrochlorothiazide 0.5 tab PO DAILY 11/21/15 08/10/21 [Lisinopril-Hctz 20-12.5 mg Tab] allopurinoL [Zyloprim] 100 mg PO DAILY 02/24/19 08/10/21 Cetirizine HCl [Zyrtec] 10 mg PO DAILY 05/06/19 08/10/21 Potassium Chloride ER [K-Dur 20] 20 meq PO DAILY 05/27/20 08/10/21 Metoprolol Tartrate [Lopressor] 12.5 mg PO BID 06/08/20 08/10/21 buPROPion XL [Wellbutrin XL] 150 mg PO DAILY 01/08/21 08/10/21 Previous Rx's Medication Instructions Recorded Atorvastatin Calcium [Lipitor] 20 mg PO HS #30 tab 05/28/20 Citalopram Hydrobromide [CeleXA] 20 mg PO DAILY #30 tab 06/13/20 Cephalexin [Keflex] 500 mg PO TID 10 Days #30 cap 01/26/22 Allergies Allergy/AdvReac Type Severity Reaction Status Date / Time adhesive tape Allergy RED SKIN Verified 06/01/22 20:51 AND ITCHING levofloxacin [From Levaquin] Allergy Anaphylaxis Verified 06/01/22 20:51 milk Allergy Abdominal Verified 06/01/22 20:51 Pain shellfish derived [Shellfish] Allergy Anaphylaxis Verified 06/01/22 20:51 Sulfa (Sulfonamide Allergy Unknown Verified 06/01/22 20:51 Antibiotics) Childhood doxycycline AdvReac Nausea & Verified 06/01/22 20:51 Vomiting RYE BREAD Allergy Unknown Uncoded 06/01/22 20:51 Review of Systems ROS Statement: Those systems with pertinent positive or pertinent negative responses have been documented in the HPI. Review of Systems: CONST: Denies fever EYES: Denies blurry vision ENT: Denies nasal congestion C/V: Denies Chest pain RESP: Denies shortness of breath GI: Denies abdominal pain : Denies dysuria SKIN: Denies rash. MSK: Endorses right knee pain NEURO: Denies headache ROS Other: All systems not noted in ROS Statement are negative. Past Medical History Past Medical History: Asthma, GERD/Reflux, Hyperlipidemia, Hypertension, Osteoarthritis (OA), Thyroid Disorder Additional Past Medical History / Comment(s): migraine headachesKIDNEY STONE , sinus problems., History of Any Multi-Drug Resistant Organisms: None Reported Past Surgical History: Adenoidectomy, Appendectomy, Section, Cholecystectomy, Ear Surgery, Orthopedic Surgery, Tonsillectomy, Tubal Ligation, Uterine Ablation Additional Past Surgical History / Comment(s): L index finger reattatched, b ilateral carpal tunnel releases, hysteroscopy with failed uterine ablation then D&C with successful uterine ablation, thyroid bx, Past Anesthesia/Blood Transfusion Reactions: Postoperative Nausea & Vomiting (PONV) Past Psychological History: Anxiety, Depression Smoking Status: Current every day smoker Past Alcohol Use History: None Reported Past Drug Use History: None Reported - Past Family History Sister(s) Family Medical History: Cancer Additional Family Medical History / Comment(s): Patient is living with her fianc has 8 kids 2 are not hers. Father Family Medical History: Cancer Additional Family Medical History / Comment(s): pacemaker Mother Family Medical History: AFIB, Deep Vein Thrombosis (DVT), Myocardial Infarction ([place]) Additional Family Medical History / Comment(s): TIA/mini strokes General Exam - General Exam Comments Initial Comments: General: Appears in no acute distress. HEAD: Normal with no signs of head trauma. EYES: EOMI ENT: Normal oropharynx RESPIRATORY: No respiratory distress C/V: Peripheral pulses 2+ and intact throughout. ABD: Nondistended EXT: Normal range of motion but with pain of the right knee. No obvious deformity. Tenderness over the lateral joint line. Anterior drawer test negative. Neurovascularly intact. No obvious deformities. Can hold the knee in full extension and flexion. SKIN: No rashes or lesions observed on exposed skin. NEURO: Alert and oriented 4. No focal sensory or strength deficits. Limitations: no limitations Course Vital Signs 06/01/22 20:51 Temperature 98.0 F Pulse Rate 88 Respiratory 18 Rate Blood Pressure 126/85 O2 Sat by Pulse 98 Oximetry Medical Decision Making - Medical Decision Making Based on the patient's presentation and physical exam, she presents with right knee injury. Exam is unremarkable. X-ray was obtained while the patient was in triage and showed no acute traumatic injury. Does show chronic osteoarthritis. I evaluated the patient and she was placed in a TPA room which is after x- rays. We discussed her x-ray. She declines analgesic medications at this time. She was tension-like is a knee sprain. Will follow up with PCP. Referral to orthopedic was given. She can use [id number] analgesic medications. She was in agreement this plan. Discussed rest, ice. Discussed elevation. I instructed the patient to follow up with their PCP in the next 1-3 days. I provided contact information for follow up with orthopedics. I explained that the patient should return to the emergency department if they experience any worsening symptoms. Strict return precautions were discussed with the patient. The patient expressed understanding of these instructions. I answered all questions that the patient had. The patient was discharged home in good condition with their prescriptions and follow up information. Disposition Clinical Impression: Right knee sprain Disposition: HOME SELF-CARE Condition: Good Instructions (If sedation given, give patient instructions): Knee Sprain (ED) Is patient prescribed a controlled substance at d/c from ED?: No Referrals: Dieudonne Copeland DO [Primary Care Provider] - 1-2 days Nohelia Baires DO [Doctor of Osteopathic Medicine] - 1-2 days Time of Disposition: 22:10
== END 2022-06-01 22:25 | disposition home or self-care (01) ==
LOC: EC 20:31
DX: S83.91XA Sprain of unspecified site of right knee, initial encounter (principal); J45.909 Unspecified asthma, uncomplicated; E78.5 Hyperlipidemia, unspecified; I10 Essential (primary) hypertension; M19.90 Unspecified osteoarthritis, unspecified site; F32.A Depression, unspecified; F41.9 Anxiety disorder, unspecified; F17.200 Nicotine dependence, unspecified, uncomplicated; Z79.811 Long term (current) use of aromatase inhibitors; Z79.891 Long term (current) use of opiate analgesic; Z79.02 Long term (current) use of antithrombotics/antiplatelets; Z79.899 Other long term (current) drug therapy; L23.1 Allergic contact dermatitis due to adhesives; Z88.1 Allergy status to other antibiotic agents; Z91.011 Allergy to milk products; Z91.013 Allergy to seafood; W01.0XXA Fall on same level from slipping, tripping and stumbling without subsequent striking against object, initial encounter
CPT/HCPCS: 99283

== ENCOUNTER → 2022-10-23 | Outpatient (CLI) | payer OTHER ==
--- NOTE | 2022-10-23 14:31 | XR ---
EXAM TYPE: LUMBAR SPINE X RAY SERIES COMPARISON: NONE HISTORY: Pain TECHNIQUE: 4 views are submitted. FINDINGS: Alignment is anatomic. The pedicles are intact. The transverse processes are intact. There is no s pondylolysis or spondylolisthesis. Surgical clips right upper quadrant. Mild hypertrophic changes of the spine. Facet arthropathy lower lumbar spine. Vascular calcifications noted. IMPRESSION: 1. Mild hypertrophic changes of the spine with facet arthropathy noted at L4-5 and L5-S1..
== END | disposition home or self-care (01) ==
LOC: RADXRMAIN 13:44
PROVIDERS: ATTEND Family Medicine
DX: M47.817 Spondylosis without myelopathy or radiculopathy, lumbosacral region (principal)
CPT/HCPCS: 72110

== ENCOUNTER → 2022-12-24 | Outpatient (CLI) | payer OTHER ==
--- NOTE | 2022-12-24 15:59 | MR ---
EXAMINATION TYPE: MR lumbar spine wo con DATE OF EXAM: 12/24/2022 3:49 PM COMPARISON: Radiograph 10/23/2022, CT 02/24/2019. CLINICAL INDICATION:Female, 47 years old with history of M54.16; Radiculopathy, [facility] TECHNIQUE: Multi planar, multi sequence imaging was performed utilizing: T1-weighted, T2-weighted, a nd turbo inversion recovery imaging of the lumbar spine. IV Contrast: None. FINDINGS: Alignment: The lumbar vertebral bodies have preserved heights and alignment. Cord: The conus medullaris and the distal spinal cord appear unremarkable with regards to their signa l intensity and morphology. Bones/Discs: Modic endplate changes most pronounced at L4 and L5. High T1/T2 is signal L2 vertebral b vitaliy hemangioma. Mild reactive bony edema involving the inferior endplate of L4 anteriorly. Multilevel disc degenerative is noted and most pronounced at the L4 inferior endplate. Mild disc desiccation L5 -S1. T12-L1: No evidence of significant spinal canal stenosis or neural foraminal stenosis. L1-L2: No evidence of significant spinal canal stenosis or neural foraminal stenosis. L2-L3: No evidence of significant spinal canal stenosis or neural foraminal stenosis. L3-L4: No evidence of significant spinal canal stenosis or neural foraminal stenosis. L4-L5: No evidence of significant spinal canal stenosis or neural foraminal stenosis. L5-S1: The disc is rounded posterior morphology without significant spinal canal stenosis. Facet join t arthropathy with mild neural foraminal stenosis. No significant spinal canal or neural foraminal stenosis in the remainder of the visualized levels. Other findings: None. IMPRESSION: 1. No definitive evidence of disc herniation or significant spinal canal stenosis. 2. Mild disc degeneration with associated osteoarthritic changes worse at L4 anterior inferior endpl ate with some bony edema likely reactive.
== END | disposition home or self-care (01) ==
LOC: RADMRIMAIN 14:28
PROVIDERS: ATTEND Neurological Surgery
DX: M51.16 Intervertebral disc disorders with radiculopathy, lumbar region (principal); M47.26 Other spondylosis with radiculopathy, lumbar region
CPT/HCPCS: 72148

== ENCOUNTER → 2023-09-25 | Outpatient (CLI) | payer OTHER ==
--- NOTE | 2023-09-25 11:27 | P.PN ---
Subjective DATE: 09/25/2023 FOLLOW UP VISIT. Patient with obstructive sleep apnea hypopnea syndrome return to sleep center for follow-up visit. Information from previous visit have been reviewed. Patient is using PAP equipment every night for the whole night, getting PAP supplies in time. The patient does not have significant problems with the mask, PAP unit and humidification. [place] sleepiness scale is increased to 13. I checked information from PAP unit. PAP unit pressure 5-18, average 14.4 cm H2O. Usage is 90% and 63 % for more then 4 hours, average point three quarters hours per night. Leak is 22.3 l/m, which is in acceptable range. Apnea Hypopnea Index is 1.1, which is normal. MEDICATIONS:1. Allopurinol 2. Celexa 3. Wellbutrin 4. Xanax 5. Flexeril 6. Zyrtec During physical exam: GENERAL: A pleasant patient without any distress. VITAL SIGNS: BP 122/85, HR 102, RR 12 , weight 617.4, temperature 98.0, oxygen saturation at room air 93 % . HEENT: PERRLA, EOMI.low position of soft palate, Mallapati 3 . NECK: Supple. No JVD. LUNGS: Clear to percussion and to auscultation. Good air exchange. No wheezing or rhonchi. HEART: S1, S2 regular. ABDOMEN: Soft and nontender. Obese EXTREMITIES: No clubbing or cyanosis. SAFETY INSTRUCTION POLICE OFFICER: Awake, alert, and oriented x3. No focal deficit. Impressions: 1. Obstructive sleep apnea-hypopnea syndrome. Patient demonstrated good compliance with treatment, benefiting from treatment. 2. Patient feels sleepiness during the day, [place] Sleepiness Scale increased to 13. Many nights patient using CPAP equipment short time, only around 2 hours. 3. Obesity, patient increased her wait on around 30 pounds comparing his previous visit. 4. Asthma. 5. Diabetes mellitus. 6. Hypertension. 7. Gout. 8. Arthritis. 9. History of thyroid nodules. 10. History of depression. 11. Status post uterus ablation. 12. Status post tonsillectomy and adenoidectomy. Plan: 1. Continue using PAP equipment every night for the whole night. 2. To change air filter at least 1-2 times per month. 3. PAP unit should stay lower then position of the head. 4. Advised patient to remove all remaining water from humidifier canister daily and make it dry after each usage. Refill canister with fresh distilled water before each usage. 5. Sleep hygiene with regular time in bed for at least 8 hours. 6. Precautions related to driving. No driving if feel any sleepiness. 7. I will maintain prescription for PAP supplies including mask, tube, filters. 8.Watching and losing weight. 9. Follow up visit in 6 months or earlier if patient has any problems. Thank you very much for allowing me to participate in the management of your patient. Davis Castañeda MD, PhD, FAASM. Diplomat of [employer], Sleep Medicine Board by [employer] Supervisor of [facility] [place]
== END ==
LOC: 3 N SLEEP 10:36
PROVIDERS: ATTEND Internal Medicine
DX: G47.33 Obstructive sleep apnea (adult) (pediatric) (principal); G47.10 Hypersomnia, unspecified; E66.9 Obesity, unspecified; J45.909 Unspecified asthma, uncomplicated; E11.9 Type 2 diabetes mellitus without complications; I10 Essential (primary) hypertension; M10.9 Gout, unspecified; M19.90 Unspecified osteoarthritis, unspecified site; F32.A Depression, unspecified; F17.200 Nicotine dependence, unspecified, uncomplicated; Z86.39 Personal history of other endocrine, nutritional and metabolic disease; Z98.890 Other specified postprocedural states; Z90.89 Acquired absence of other organs; Z99.89 Dependence on other enabling machines and devices; Z91.048 Other nonmedicinal substance allergy status; Z88.1 Allergy status to other antibiotic agents; Z91.011 Allergy to milk products; Z91.013 Allergy to seafood; Z88.2 Allergy status to sulfonamides; Z91.018 Allergy to other foods; Z79.899 Other long term (current) drug therapy
CPT/HCPCS: 99212

== ENCOUNTER 2024-01-16 13:25 | Emergency (ER) | payer OTHER ==
[2024-01-16 13:36] VITALS: TEMP 98
--- NOTE | 2024-01-16 13:39 | ED ---
Extremity Problem HPI - General Source: patient, RN notes reviewed Mode of arrival: ambulatory Limitations: no limitations <Nahed Meredith - Last Filed: 01/16/24 13:39> <Adeola Schmitt - Last Filed: 01/21/24 12:30> - General Chief complaint: Extremity Problem,Nontraumatic Stated complaint: feet swelling Time Seen by Provider: 01/16/24 13:39 - History of Present Illness Initial comments: Quick note: 48-year-old female presented to the ER with a chief complaint of pedal edema. Patient states her left ankle has been increasing swelling over the past 3 weeks. She states she started to notice swelling in her right ankle recently as well. She states for the past 3 weeks she has been more short of breath. Denies any history of heart failure. Denies any recent travel, long car rides or blood clot history (Nahed Meredith) 48-year-old female presents to the emergency department for evaluation of left lower extremity swelling. Patient states that this has been going on for around 3 weeks. She states that she initially noticed this in her left lower extremity and worsens throughout the day. She does note that it is somewhat bilateral now. She does note some increased shortness of breath. Denies any chest pain. Denies recent fever, chills. Denies any overlying skin changes of the legs. (Adeola Schmitt) - Related Data Home Medications Medication Instructions Recorded Confirmed Docusate [Colace] 100 mg PO DAILY 11/21/15 08/10/21 Lisinopril/Hydrochlorothiazide 0.5 tab PO DAILY 11/21/15 08/10/21 [Lisinopril-Hctz 20-12.5 mg Tab] allopurinoL [Zyloprim] 100 mg PO DAILY 02/24/19 08/10/21 Cetirizine HCl [Zyrtec] 10 mg PO DAILY 05/06/19 08/10/21 Potassium Chloride ER [K-Dur 20] 20 meq PO DAILY 05/27/20 08/10/21 Metoprolol Tartrate [Lopressor] 12.5 mg PO BID 06/08/20 08/10/21 buPROPion XL [Wellbutrin XL] 150 mg PO DAILY 01/08/21 08/10/21 Previous Rx's Medication Instructions Recorded Atorvastatin Calcium [Lipitor] 20 mg PO HS #30 tab 05/28/20 Citalopram Hydrobromide [CeleXA] 20 mg PO DAILY #30 tab 06/13/20 Cephalexin [Keflex] 500 mg PO TID 10 Days #30 cap 01/26/22 Allergies Allergy/AdvReac Type Severity Reaction Status Date / Time adhesive tape Allergy RED SKIN Verified 01/16/24 13:36 AND ITCHING levofloxacin [From Levaquin] Allergy Anaphylaxis Verified 01/16/24 13:36 milk Allergy Abdominal Verified 01/16/24 13:36 Pain shellfish derived [Shellfish] Allergy Anaphylaxis Verified 01/16/24 13:36 Sulfa (Sulfonamide Allergy Unknown Verified 01/16/24 13:36 Antibiotics) Childhood doxycycline AdvReac Nausea & Verified 01/16/24 13:36 Vomiting RYE BREAD Allergy Unknown Uncoded 06/01/22 20:51 Review of Systems ROS Other: All systems not noted in ROS Statement are negative. <Nahed Meredith - Last Filed: 01/16/24 13:39> ROS Other: All systems not noted in ROS Statement are negative. <Adeola Schmitt - Last Filed: 01/21/24 12:30> ROS Statement: Those systems with pertinent positive or pertinent negative responses have been documented in the HPI. Past Medical History Past Medical History: Asthma, GERD/Reflux, Hyperlipidemia, Hypertension, Osteoarthritis (OA), Thyroid Disorder Additional Past Medical History / Comment(s): migraine headachesKIDNEY STONE , sinus problems., History of Any Multi-Drug Resistant Organisms: None Reported Past Surgical History: Adenoidectomy, Appendectomy, Section, Cholecystectomy, Ear Surgery, Orthopedic Surgery, Tonsillectomy, Tubal Ligation, Uterine Ablation Additional Past Surgical History / Comment(s): L index finger reattatched, bilateral carpal tunnel releases, hysteroscopy with failed uterine ablation then D&C with successful uterine ablation, thyroid bx, Past Anesthesia/Blood Transfusion Reactions: Postoperative Nausea & Vomiting (PONV) Past Psychological History: Anxiety, Depression Smoking Status: Current every day smoker Past Alcohol Use History: None Reported Past Drug Use History: None Reported - Past Family History Sister(s) Family Medical History: Cancer Additional Family Medical History / Comment(s): Patient is living with her fianc has 8 kids 2 are not hers. Father Family Medical History: Cancer Additional Family Medical History / Comment(s): pacemaker Mother Family Medical History: AFIB, Deep Vein Thrombosis (DVT), Myocardial Infarction ([place]) Additional Family Medical History / Comment(s): TIA/mini strokes <Nahed Meredith - Last Filed: 01/16/24 13:39> General Exam Limitations: no limitations <Nahed Meredith - Last Filed: 01/16/24 13:39> Limitations: no limitations General appearance: alert, in no apparent distress Head exam: Present: atraumatic, normocephalic, normal inspection Eye exam: Present: normal appearance, PERRL, EOMI. Absent: scleral icterus, conjunctival injection, periorbital swelling ENT exam: Present: normal exam, mucous membranes moist Neck exam: Present: normal inspection. Absent: tenderness, meningismus, lymphadenopathy Respiratory exam: Present: wheezes. Absent: respiratory distress, rales, rhonchi, stridor Cardiovascular Exam: Present: regular rate, normal rhythm, normal heart sounds. Absent: systolic murmur, diastolic murmur, rubs, gallop, clicks Extremities exam: Present: full ROM, normal capillary refill, pedal edema, other (DP and PT pulses 2+). Absent: tenderness, joint swelling, calf tenderness Back exam: Present: normal inspection Neurological exam: Present: alert, oriented X3 Psychiatric exam: Present: normal affect, normal mood Skin exam: Present: warm, dry, intact, normal color. Absent: rash <Adeola Schmitt - Last Filed: 01/21/24 12:30> - General Exam Comments Initial Comments: Visual Physical Exam Vital signs reviewed General: Well-appearing, nontoxic, no acute distress. Head: Normocephalic, atraumatic Eyes: PERRLA, EOMI ENT: Airway patent Chest: Nonlabored breathing Skin: No visual rash, normal skin tone Neuro: Alert and oriented 3 Musculoskeletal: No gross abnormalities (Nahed Meredith) Course Vital Signs 01/16/24 01/16/24 13:32 23:23 Temperature 98.0 F Pulse Rate 105 H 95 Respiratory 18 20 Rate Blood Pressure 151/98 134/83 O2 Sat by Pulse 95 95 Oximetry Medical Decision Making <Nahed Meredith - Last Filed: 01/16/24 13:39> - Lab Data Result diagrams: 01/16/24 15:44 01/16/24 15:44 <Adeola Schmitt - Last Filed: 01/21/24 12:30> - Medical Decision Making I performed the quick note portion of this chart. Electronically signed by Nahed Meredith PA-C (Nahed Meredith) Was pt. sent in by a medical professional or institution ([facility] Kwok, [employer], urgent care, hospital, or [facility]...) When possible be specific @ -No Did you speak to anyone other than the patient for history (EMS, parent, family, police, friend...)? What history was obtained from this source @ -No Did you review nursing and triage notes (agree or disagree)? Why? @ -I reviewed and agree with nursing and triage notes Were old charts reviewed (outside hosp., previous admission, EMS record, old EKG, old radiological studies, urgent care reports/EKG's, [facility] records)? Report findings @ -No old charts were reviewed Differential Diagnosis (chest pain, altered mental status, abdominal pain women, abdominal pain men, vaginal bleeding, weakness, fever, dyspnea, syncope, headache, dizziness, GI bleed, back pain, seizure, CVA, palpatations, mental he alth, musculoskeletal)? @ -Not applicable EKG interpreted by me (3pts min.). @ -None X-rays interpreted by me (1pt min.). @ -Chest x-ray shows no acute process CT interpreted by me (1pt min.). @ -CTA for PE shows no evidence of acute pulmonary embolism U/S interpreted by me (1pt. min.). @ -Ultrasound obtained of the left lower extremity difficult visualization of the distal left femoral vein, otherwise negative for DVT What testing was considered but not performed or refused? (CT, X-rays, U/S, labs)? Why? @ -None What meds were considered but not given or refused? Why? @ -None Did you discuss the management of the patient with other professionals (professionals i.e. [facility] Kwok, [employer], lab, RT, psych nurse, hospice social worker, websphere message broker developer, teacher, compliance review officer, case consultant)? Give summary @ -No Was smoking cessation discussed for >3mins.? @ -No Was critical care preformed (if so, how long)? @ -No Were there social determinants of health that impacted care today? How? (Homelessness, low income, unemployed, alcoholism, drug addiction, transportation, low edu. Level, literacy, decrease access to med. care, senior care, rehab)? @ -No Was there de-escalation of care discussed even if they declined (Discuss DNR or withdrawal of care, Hospice)? DNR status @ -No What co-morbidities impacted this encounter? (DM, HTN, Smoking, COPD, CAD, Cancer, CVA, ARF, Chemo, Hep., AIDS, mental health diagnosis, sleep apnea, morbid obesity)? @ -None Was patient admitted / discharged? Hospital course, mention meds given and route, prescriptions, significant lab abnormalities, going to OR and other pertinent info. @ -Discharge. Patient presented to the emergency department for evaluation of lower extremity edema. Amatory studies obtained which show a WBC of 14.3, normal 0.3; CMP shows normal electrolytes, kidney function. Patient underwent an ultrasound of the left lower extremity which appears negative for DVT but the distal femoral vein was difficult to visualize. A D-dimer was obtained which came back elevated at 1.53. Patient underwent CTA of the chest which shows no evidence for PE. Patient was advised on these findings. He will be discharged home at this time. Patient understanding and agreeable plan. Patient is written discharge. Case discussed with Dr. Palomares. Undiagnosed new problem with uncertain prognosis? @ -No Drug Therapy requiring intensive monitoring for toxicity (Heparin, Nitro, Insulin, Cardizem)? @ -No Were any procedures done? @ -No Diagnosis/symptom? @ -Lower extremity edema Acute, or Chronic, or Acute on Chronic? @ -Acute Uncomplicated (without systemic symptoms) or Complicated (systemic symptoms)? @ -Uncomplicated Side effects of treatment? @ -No Exacerbation, Progression, or Severe Exacerbation? @ -No Poses a threat to life or bodily function? How? (Chest pain, [place], [place], pneumonia, PE, COPD, DKA, ARF, appy, cholecystitis, CVA, Diverticulitis, Homicidal, Suicidal, threat to staff... and all critical care pts) @ -No (Adeola Schmitt) - Lab Data Lab Results 01/16/24 01/16/24 01/16/24 Range/Units 15:44 15:44 21:37 WBC 14.3 H (3.8-10.6) k/uL RBC 5.21 (3.80-5.40) m/uL Hgb 13.3 (11.4-16.0) gm/dL Hct 43.0 (34.0-46.0) % MCV 82.6 (80.0-100.0) fL MCH 25.5 (25.0-35.0) pg MCHC 30.9 L (31.0-37.0) g/dL RDW 15.7 H (11.5-15.5) % Plt Count 167 (150-450) k/uL MPV 12.9 Neutrophils % 72 % Lymphocytes % 19 % Monocytes % 5 % Eosinophils % 3 % Basophils % 1 % Neutrophils # 10.3 H (1.3-7.7) k/uL Lymphocytes # 2.7 (1.0-4.8) k/uL Monocytes # 0.7 (0-1.0) k/uL Eosinophils # 0.4 (0-0.7) k/uL Basophils # 0.1 (0-0.2) k/uL Manual Slide Review Performed Hypochromasia Slight D-Dimer 1.53 H (<0.60) mg/L FEU Sodium 138 (137-145) mmol/L Potassium 4.5 (3.5-5.1) mmol/L Chloride 105 (98-107) mmol/L Carbon Dioxide 26 (22-30) mmol/L Anion Gap 7 mmol/L BUN 8 (7-17) mg/dL Creatinine 1.00 (0.52-1.04) mg/dL Est GFR (CKD-EPI)AfAm 76 (>60 ml/min/1.73 sqM) Est GFR (CKD-EPI)NonAf 66 (>60 ml/min/1.73 sqM) Glucose 87 (74-99) mg/dL Calcium 8.9 (8.4-10.2) mg/dL Total Bilirubin 0.8 (0.2-1.3) mg/dL AST 17 (14-36) U/L ALT 8 (4-34) U/L Alkaline Phosphatase 121 (38-126) U/L NT-Pro-B Natriuret Pep 61 pg/mL Total Protein 6.8 (6.3-8.2) g/dL Albumin 3.8 (3.5-5.0) g/dL Disposition <Nahed Meredith - Last Filed: 01/16/24 13:39> Is patient prescribed a controlled substance at d/c from ED?: No <Adeola Schmitt - Last Filed: 01/21/24 12:30> Clinical Impression: Lower extremity edema Disposition: HOME SELF-CARE Condition: Stable Instructions (If sedation given, give patient instructions): Leg Edema (ED) Additional Instructions: Please follow up for repeat ultrasound in 1 week. Return to the emergency department for new or worsening symptoms. Referrals: Dieudonne Copeland DO [Primary Care Provider] - 1-2 days
--- NOTE | 2024-01-16 14:55 | XR ---
EXAMINATION TYPE: XR chest 2V DATE OF EXAM: 01/16/2024 COMPARISON: 01/08/2021 TECHNIQUE: PA and lateral views submitted. HISTORY: Shortness of breath FINDINGS: The lungs are clear and there is no pneumothorax, pleural effusion, or focal pneumonia. Heart size normal and no overt failure. Osseous structures demonstrate hypertrophic and degenerative changes of the spine. Near changes in the bilateral lower lobes suggestive of scar or atelectasis. IMPRESSION: 1. No acute process.
[2024-01-16 16:46] LABS: ALT 8 U/L (4-34); AST 17 U/L (14-36); African American GFR (CKD) 76 (>60 ml/min/1.73 sqM); Albumin 3.8 g/dL (3.5-5.0); Alkaline Phosphatase 121 U/L (38-126); Anion Gap 7 mmol/L; Blood Urea Nitrogen 8 mg/dL (7-17); Calcium 8.9 mg/dL (8.4-10.2); Carbon Dioxide 26 mmol/L (22-30); Chloride 105 mmol/L (98-107); Glucose 87 mg/dL (74-99); Non-African American GFR(CKD) 66 (>60 ml/min/1.73 sqM); Potassium 4.5 mmol/L (3.5-5.1); Sodium 138 mmol/L (137-145); Total Bilirubin 0.8 mg/dL (0.2-1.3); Total Protein 6.8 g/dL (6.3-8.2)
[2024-01-16 16:53] LABS: NT-Pro-B-Type Natriuretic Pept 61 pg/mL
[2024-01-16 17:23] LABS: Basophils # (A) 0.1 k/uL (0-0.2); Basophils % (A) 1 %; Eosinophils # (A) 0.4 k/uL (0-0.7); Eosinophils % (A) 3 %; HGB 13.3 gm/dL (11.4-16.0); Hypochromasia Slight; Lymphocytes # (A) 2.7 k/uL (1.0-4.8); Lymphocytes % (A) 19 %; MCH 25.5 pg (25.0-35.0); MCHC 30.9 g/dL (31.0-37.0); MCV 82.6 fL (80.0-100.0); Mean Platelet Volume 12.9; Monocytes # (A) 0.7 k/uL (0-1.0); Monocytes % (A) 5 %; Neutrophils # (A) 10.3 k/uL (1.3-7.7); Neutrophils % (A) 72 %; Platelet Count 167 k/uL (150-450); RBC 5.21 m/uL (3.80-5.40); RDW 15.7 % (11.5-15.5); WBC 14.3 k/uL (3.8-10.6)
--- NOTE | 2024-01-16 21:08 | US ---
EXAMINATION TYPE: US venous doppler duplex LE LT DATE OF EXAM: 01/16/2024 8:15 PM COMPARISON: US 2019 CLINICAL INDICATION: Female, 48 years old with history of swelling; Patient states left leg swelling for 3 weeks now SIDE PERFORMED: Left TECHNIQUE: The lower extremity deep venous system is examined utilizing real time linear array sonog funmi with graded compression, doppler sonography and color-flow sonography. VESSELS IMAGED: Common Femoral Vein Deep Femoral Vein Greater Saphenous Vein * Femoral Vein Popliteal Vein Small Saphenous Vein * Proximal Calf Veins (* superficial vessels) FINDINGS / IMPRESSION: Most of the deep veins of the left lower extremity are negative for thrombus but the distal left femo ral vein is difficult to visualize due to body habitus and the deep course of the vasculature. Theref ore, cannot exclude deep venous thrombosis.
[2024-01-16 23:24] VITALS: BP 134/83; PULSE 95; RESP 20
--- NOTE | 2024-01-17 01:26 | CT ---
EXAM: CT Angiography Chest With Intravenous Contrast CLINICAL HISTORY: CT Reason: leg swelling, elevated dimer TECHNIQUE: Axial computed tomographic angiography images of the chest with intravenous contrast. CTDI is 56.7 mGy and DLP is 1448.2 mGy-cm. This CT exam was performed using one or more of the following dose reduction techniques: automated exposure control, adjustment of the mA and/or kV according to patient size, and/or use of iterative reconstruction technique. MIP reconstructed images were created and reviewed. COMPARISON: No relevant prior studies available. FINDINGS: Pulmonary arteries: The pulmonary arterial tree is well opacified with contrast. No pulmonary embolism is identified. Aorta: The thoracic aorta is nondilated. There is no aneurysm or dissection. Lungs: Mild central bronchial wall thickening suggesting bronchitis. There is a small amount of atelectasis or infiltrates in the lung bases bilaterally, mostly on the right. No pneumothorax or pleural effusion. No mass. Pleural space: See above. Heart: Unremarkable. No cardiomegaly. No significant pericardial effusion. No evidence of RV dysfunction. Bones/joints: Mild degenerative changes throughout the spine. No acute fracture or destructive bone lesion is seen. No dislocation. Soft tissues: Unremarkable. Lymph nodes: Unremarkable. No enlarged lymph nodes. IMPRESSION: 1. Mild central bronchial wall thickening suggesting bronchitis. There is a small amount of atelectasis or infiltrates in the lung bases bilaterally, mostly on the right. No pneumothorax or pleural effusion. 2. The pulmonary arterial tree is well opacified with contrast. No pulmonary embolism is identified. 3. The thoracic aorta is nondilated. There is no aneurysm or dissection.
== END 2024-01-17 01:55 | disposition home or self-care (01) ==
LOC: EC 13:25
DX: R22.42 Localized swelling, mass and lump, left lower limb (principal); F17.200 Nicotine dependence, unspecified, uncomplicated; Z88.2 Allergy status to sulfonamides; Z88.8 Allergy status to other drugs, medicaments and biological substances; Z91.011 Allergy to milk products
CPT/HCPCS: 36415; 93005; 85379; 83880; 80053; 85025; 71046; 93971; 71275; 99284; Q9967

== ENCOUNTER 2024-03-03 18:13 | Observation (INO) | payer OTHER ==
[2024-03-03 18:52] LABS: Basophils # (A) 0.1 k/uL (0-0.2); Basophils % (A) 1 %; Eosinophils # (A) 0.5 k/uL (0-0.7); Eosinophils % (A) 4 %; HCT 40.8 % (34.0-46.0); HGB 12.7 gm/dL (11.4-16.0); Hypochromasia Marked; Lymphocytes % (A) 21 %; MCH 25.4 pg (25.0-35.0); MCHC 31.1 g/dL (31.0-37.0); MCV 81.7 fL (80.0-100.0); Mean Platelet Volume 8.1; Monocytes # (A) 0.6 k/uL (0-1.0); Monocytes % (A) 4 %; Neutrophils # (A) 9.9 k/uL (1.3-7.7); Neutrophils % (A) 70 %; Platelet Count 300 k/uL (150-450); RDW 15.9 % (11.5-15.5); WBC 14.2 k/uL (3.8-10.6)
[2024-03-03 19:08] LABS: ALT 8 U/L (4-34); AST 14 U/L (14-36); African American GFR (CKD) 61 (>60 ml/min/1.73 sqM); Albumin 3.6 g/dL (3.5-5.0); Alkaline Phosphatase 107 U/L (38-126); Anion Gap 5 mmol/L; Blood Urea Nitrogen 9 mg/dL (7-17); Calcium 8.9 mg/dL (8.4-10.2); Carbon Dioxide 28 mmol/L (22-30); Chloride 105 mmol/L (98-107); Creatine Kinase 37 U/L (30-135); Glucose 133 mg/dL (74-99); Non-African American GFR(CKD) 53 (>60 ml/min/1.73 sqM); Potassium 3.8 mmol/L (3.5-5.1); Sodium 138 mmol/L (137-145); Total Bilirubin 0.5 mg/dL (0.2-1.3); Total Protein 6.5 g/dL (6.3-8.2)
[2024-03-03 19:34] LABS: Partial Thromboplastin Time 28.1 sec (22.0-30.0); Prothrombin Time 10.7 sec (10.0-12.5)
[2024-03-03 20:14] LABS: T4, Free (Free Thyroxine) 1.03 ng/dL (0.78-2.19)
--- NOTE | 2024-03-03 20:17 | ED ---
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 Patient denies having any visual field disturbances that she is aware of however. Patient's only complaint is having intermittent central chest pain for the past couple of weeks. Patient denies having any chest pain at this time. Patient denies having any symptoms at all at this time. Patient admits to mild associated dyspnea when her chest pain is present. Patient denies fever or chills, headache, focal numbness/weakness, speech difficulty, neck/arm/jaw/back pain, pleuritic pain, cough or cold symptoms, palpitations, dizziness, nausea/vomiting/diaphoresis, abdominal pain, bloody or melanotic stool, urinary symptoms, leg or calf swelling or pain, or any other symptoms or complaints. Patient states that she did take a full dose (325 mg) aspirin earlier today. - Related Data Home Medications Medication Instructions Recorded Confirmed Docusate [Colace] 100 mg PO DAILY 11/21/15 08/10/21 Lisinopril/Hydrochlorothiazide 0.5 tab PO DAILY 11/21/15 08/10/21 [Lisinopril-Hctz 20-12.5 mg Tab] allopurinoL [Zyloprim] 100 mg PO DAILY 02/24/19 08/10/21 Cetirizine HCl [Zyrtec] 10 mg PO DAILY 05/06/19 08/10/21 Potassium Chloride ER [K-Dur 20] 20 meq PO DAILY 05/27/20 08/10/21 Metoprolol Tartrate [Lopressor] 12.5 mg PO BID 06/08/20 08/10/21 buPROPion XL [Wellbutrin XL] 150 mg PO DAILY 01/08/21 08/10/21 Previous Rx's Medication Instructions Recorded Atorvastatin Calcium [Lipitor] 20 mg PO HS #30 tab 05/28/20 Citalopram Hydrobromide [CeleXA] 20 mg PO DAILY #30 tab 06/13/20 Cephalexin [Keflex] 500 mg PO TID 10 Days #30 cap 01/26/22 Allergies Allergy/AdvReac Type Severity Reaction Status Date / Time adhesive tape Allergy RED SKIN Verified 01/16/24 13:36 AND ITCHING levofloxacin [From Levaquin] Allergy Anaphylaxis Verified 01/16/24 13:36 milk Allergy Abdominal Verified 01/16/24 13:36 Pain shellfish derived [Shellfish] Allergy Anaphylaxis Verified 01/16/24 13:36 Sulfa (Sulfonamide Allergy Unknown Verified 01/16/24 13:36 Antibiotics) Childhood doxycycline AdvReac Nausea & Verified 01/16/24 13:36 Vomiting RYE BREAD Allergy Unknown Uncoded 06/01/22 20:51 Review of Systems ROS Statement: Those systems with pertinent positive or pertinent negative responses have been documented in the HPI. ROS Other: All systems not noted in ROS Statement are negative. Past Medical History Past Medical History: Asthma, GERD/Reflux, Hyperlipidemia, Hypertension, Osteoarthritis (OA), Thyroid Disorder Additional Past Medical History / Comment(s): migraine headachesKIDNEY STONE , sinus problems., History of Any Multi-Drug Resistant Organisms: None Reported Past Surgical History: Adenoidectomy, Appendectomy, Section, Cholecystectomy, Ear Surgery, Orthopedic Surgery, Tonsillectomy, Tubal Ligation, Uterine Ablation Additional Past Surgical History / Comment(s): L index finger reattatched, bilateral carpal tunnel releases, hysteroscopy with failed uterine ablation then D&C with successful uterine ablation, thyroid bx, Past Anesthesia/Blood Transfusion Reactions: Postoperative Nausea & Vomiting (PONV) Past Psychological History: Anxiety, Depression Smoking Status: Current every day smoker Past Alcohol Use History: None Reported Past Drug Use History: None Reported - Past Family History Sister(s) Family Medical History: Cancer Additional Family Medical History / Comment(s): Patient is living with her fianc has 8 kids 2 are not hers. Father Family Medical History: Cancer Additional Family Medical History / Comment(s): pacemaker Mother Family Medical History: AFIB, Deep Vein Thrombosis (DVT), Myocardial Infarction (SC) Additional Family Medical History / Comment(s): TIA/mini strokes General Exam Limitations: no limitations General appearance: alert, in no apparent distress Head exam: Present: atraumatic, normocephalic Eye exam: Present: normal appearance, PERRL, EOMI ENT exam: Present: mucous membranes moist Neck exam: Present: other (Trachea is in midline) Respiratory exam: Present: normal lung sounds bilaterally. Absent: respiratory distress, wheezes, rales, rhonchi, stridor Cardiovascular Exam: Present: regular rate, normal rhythm, normal heart sounds, other (Normal radial pulses bilaterally) GI/Abdominal exam: Present: soft. Absent: tenderness, guarding Extremities exam: Present: full ROM. Absent: tenderness, pedal edema, calf tenderness Neurological exam: Present: alert, oriented X3, CN II-XII intact. Absent: motor sensory deficit Skin exam: Present: warm, dry, normal color Course Vital Signs 03/03/24 03/03/24 18:25 21:27 Temperature 98.3 F Pulse Rate 100 87 Respiratory 20 16 Rate Blood Pressure 158/97 127/93 O2 Sat by Pulse 98 95 Oximetry - Reevaluation(s) Reevaluation #1: 03/03/24 21:50 Case, H&P test results were discussed with AIRBRUSH PAINTER Dirk Daniel. He accepts hospital admission on behalf of himself and Dr. Cordero. He agrees with neurology consultation. He has no further recommendations at this time. 03/03/24 21:54 Patient remains alert and breathing comfortably. Patient continues to have a nonfocal neurological exam. Patient denies development of any new symptoms while in the ED, and she continues to deny having any chest pain in the ED. Patient is aware of her test results, and she agrees with hospital admission at this time. EKG Findings - EKG Comments: EKG Findings:: ED physician interpretation (interpreted by me): Sinus tachycardia, no ectopy, ventricular rate of 102 bpm, normal [place] and QRS intervals, normal QT interval, normal axis, no ST or T wave abnormality Medical Decision Making - Medical Decision Making Was pt. sent in by a medical professional or institution (, PA, AIRBRUSH PAINTER, urgent care, hospital, or fci...) When possible be specific @ -No Did you speak to anyone other than the patient for history (EMS, parent, family, police, friend...)? What history was obtained from this source @ -No Did you review nursing and triage notes (agree or disagree)? Why? @ -I reviewed and agree with nursing and triage notes Were old charts reviewed (outside hosp., previous admission, EMS record, old EKG, old radiological studies, urgent care reports/EKG's, fci records)? Report findings @ -No old charts were reviewed Differential Diagnosis (chest pain, altered mental status, abdominal pain women, abdominal pain men, vaginal bleeding, weakness, fever, dyspnea, syncope, headache, dizziness, GI bleed, back pain, seizure, CVA, palpatations, mental health, musculoskeletal)? @ -Differential Chest Pain: Stable Angina, Unstable Angina, STEMI, NSTEMI, Pneumothorax, Musculoskeletal, Esophageal Spasm GERD, pleurisy, CVA, TIA, visual field defect, neurological disease, eye disease, this is not meant to be an all-inclusive list. EKG interpreted by me (3pts min.). @ -As above X-rays interpreted by me (1pt min.). @ -Chest x-ray was reviewed myself and shows no acute cardiopulmonary process. I agree with the radiologist's interpretation as above. CT interpreted by me (1pt min.). @ -Noncontrast head CT was reviewed myself and shows no acute intracranial abnormality. I agree with the radiologist's interpretation as above. U/S interpreted by me (1pt. min.). @ -None done What testing was considered but not performed or refused? (CT, X-rays, U/S, labs)? Why? @ -None What meds were considered but not given or refused? Why? @ -None Did you discuss the management of the patient with other professionals (professionals i.e. , PA, AIRBRUSH PAINTER, lab, RT, psych nurse, health care social worker, dynamometer tuner, teacher, tax compliance officer, dependency case manager)? Give summary @ -As above. Was smoking cessation discussed for >3mins.? @ -No Was critical care preformed (if so, how long)? @ -No Were there social determinants of health that impacted care today? How? (Homelessness, low income, unemployed, alcoholism, drug addiction, transportation, low edu. Level, literacy, decrease access to med. care, care home, rehab)? @ -No Was there de-escalation of care discussed even if they declined (Discuss DNR or withdrawal of care, Hospice)? DNR status @ -No What co-morbidities impacted this encounter? (DM, HTN, Smoking, COPD, CAD, C ancer, CVA, ARF, Chemo, Hep., AIDS, mental health diagnosis, sleep apnea, morbid obesity)? @ -None Was patient admitted / discharged? Hospital course, mention meds given and route, prescriptions, significant lab abnormalities, going to OR and other pertinent info. @ -Patient has a normal/nonfocal neurological exam in the ED. Patient's ED workup is fairly unremarkable, including a negative noncontrast head CT and a normal troponin level. Given the patient's reported intermittent chest pain and given the patient's hand flatwork finisher's concern for possible TIA/CVA (due to finding of superior quadrantanopsia), will admit the patient to the hospital for further evaluation/management, cardiac monitoring and neurology consultation. Patient agrees with this plan. AIRBRUSH PAINTER Dirk Daniel has accepted hospital admission. Undiagnosed new problem with uncertain prognosis? @ -No Drug Therapy requiring intensive monitoring for toxicity (Heparin, Nitro, Insulin, Cardizem)? @ -No Were any procedures done? @ -No Diagnosis/symptom? @ -Chest pain Acute, or Chronic, or Acute on Chronic? @ -Default Uncomplicated (without systemic symptoms) or Complicated (systemic symptoms)? @ -Default Side effects of treatment? @ -No Exacerbation, Progression, or Severe Exacerbation? @ -No Poses a threat to life or bodily function? How? (Chest pain, USA, SC, pneumonia, PE, COPD, DKA, ARF, appy, cholecystitis, CVA, Diverticulitis, Homicidal, Suicidal, threat to staff... and all critical care pts) @ -No Diagnosis/symptom? @ -Superior quadrantanopsia Acute, or Chronic, or Acute on Chronic? @ -Default Uncomplicated (without systemic symptoms) or Complicated (systemic symptoms)? @ -Default Side effects of treatment? @ -None Exacerbation, Progression, or Severe Exacerbation] @ -No Poses a threat to life or bodily function? @ -No - Lab Data Result diagrams: 03/03/24 18:32 03/03/24 18:32 Lab Results 03/03/24 03/03/24 03/03/24 Range/Units 18:32 18:32 18:32 WBC 14.2 H (3.8-10.6) k/uL RBC 5.00 (3.80-5.40) m/uL Hgb 12.7 (11.4-16.0) gm/dL Hct 40.8 (34.0-46.0) % MCV 81.7 (80.0-100.0) fL MCH 25.4 (25.0-35.0) pg MCHC 31.1 (31.0-37.0) g/dL RDW 15.9 H (11.5-15.5) % Plt Count 300 (150-450) k/uL MPV 8.1 Neutrophils % 70 % Lymphocytes % 21 % Monocytes % 4 % Eosinophils % 4 % Basophils % 1 % Neutrophils # 9.9 H (1.3-7.7) k/uL Lymphocytes # 3.0 (1.0-4.8) k/uL Monocytes # 0.6 (0-1.0) k/uL Eosinophils # 0.5 (0-0.7) k/uL Basophils # 0.1 (0-0.2) k/uL Hypochromasia Marked PT 10.7 (10.0-12.5) sec INR 1.0 (<1.2) APTT 28.1 (22.0-30.0) sec Sodium 138 (137-145) mmol/L Potassium 3.8 (3.5-5.1) mmol/L Chloride 105 (98-107) mmol/L Carbon Dioxide 28 (22-30) mmol/L Anion Gap 5 mmol/L BUN 9 (7-17) mg/dL Creatinine 1.20 H (0.52-1.04) mg/dL Est GFR (CKD-EPI)AfAm 61 (>60 ml/min/1.73 sqM) Est GFR (CKD-EPI)NonAf 53 (>60 ml/min/1.73 sqM) Glucose 133 H (74-99) mg/dL Calcium 8.9 (8.4-10.2) mg/dL Total Bilirubin 0.5 (0.2-1.3) mg/dL AST 14 (14-36) U/L ALT 8 (4-34) U/L Alkaline Phosphatase 107 (38-126) U/L Creatine Kinase 37 (30-135) U/L Troponin I (0.000-0.034) ng/mL Total Protein 6.5 (6.3-8.2) g/dL Albumin 3.6 (3.5-5.0) g/dL TSH 0.102 L (0.465-4.680) mIU/L Free T4 1.03 (0.78-2.19) ng/dL 03/03/24 Range/Units 18:32 WBC (3.8-10.6) k/uL RBC (3.80-5.40) m/uL Hgb (11.4-16.0) gm/dL Hct (34.0-46.0) % MCV (80.0-100.0) fL MCH (25.0-35.0) pg MCHC (31.0-37.0) g/dL RDW (11.5-15.5) % Plt Count (150-450) k/uL MPV Neutrophils % % Lymphocytes % % Monocytes % % Eosinophils % % Basophils % % Neutrophils # (1.3-7.7) k/uL Lymphocytes # (1.0-4.8) k/uL Monocytes # (0-1.0) k/uL Eosinophils # (0-0.7) k/uL Basophils # (0-0.2) k/uL Hypochromasia PT (10.0-12.5) sec INR (<1.2) APTT (22.0-30.0) sec Sodium (137-145) mmol/L Potassium (3.5-5.1) mmol/L Chloride (98-107) mmol/L Carbon Dioxide (22-30) mmol/L Anion Gap mmol/L BUN (7-17) mg/dL Creatinine (0.52-1.04) mg/dL Est GFR (CKD-EPI)AfAm (>60 ml/min/1.73 sqM) Est GFR (CKD-EPI)NonAf (>60 ml/min/1.73 sqM) Glucose (74-99) mg/dL Calcium (8.4-10.2) mg/dL Total Bilirubin (0.2-1.3) mg/dL AST (14-36) U/L ALT (4-34) U/L Alkaline Phosphatase (38-126) U/L Creatine Kinase (30-135) U/L Troponin I <0.012 (0.000-0.034) ng/mL Total Protein (6.3-8.2) g/dL Albumin (3.5-5.0) g/dL TSH (0.465-4.680) mIU/L Free T4 (0.78-2.19) ng/dL - Radiology Data Noncontrast head CT: No acute intracranial process. Chest x-ray: No acute cardiopulmonary disease/process. Disposition Clinical Impression: Left homonymous superior quadrantanopia, Right homonymous superior quadrantanopia, Chest pain Disposition: ADMITTED IP TO THIS HOSP Condition: Stable Is patient prescribed a controlled substance at d/c from ED?: No Referrals: Dieudonne Copeland DO [Primary Care Provider] - 1-2 days Time of Disposition: 21:50
--- NOTE | 2024-03-03 21:11 | XR ---
EXAMINATION TYPE: XR chest 2V DATE OF EXAM: 03/03/2024 8:51 PM CLINICAL INDICATION:Female, 48 years old with history of chest pain; [facility] COMPARISON: Chest radiographs from 01/16/2024 TECHNIQUE: XR chest 2V Frontal and lateral views of the chest. FINDINGS: Lungs/Pleura: There is no evidence of pleural effusion, focal consolidation, or pneumothorax. Pulmonary vascularity: Unremarkable. Heart/mediastinum: Cardiomediastinal silhouette is unremarkable. Musculoskeletal: No acute osseous pathology. Other findings: None Lines/Tubes: IMPRESSION: No acute cardiopulmonary disease/process.
--- NOTE | 2024-03-03 21:21 | CT ---
EXAMINATION TYPE: CT brain wo con CT DLP: 1154.4 mGycm, Automated exposure control for dose reduction was used. DATE OF EXAM: 03/03/2024 9:05 PM COMPARISON: . CLINICAL INDICATION:Female, 48 years old with history of new superior quadrantanopsia, sent in by oph thalmologist, seen strokes in eye TECHNIQUE: Brain: Axial CT images of the brain were obtained with coronal and sagittal reformats created and rev iewed. Contrast used: None. Oral contrast used: None. FINDINGS: Brain: Extra-axial spaces: No abnormal extra-axial fluid collections. Ventricular system: Within normal limits Cerebral parenchyma: No acute intraparenchymal hemorrhage or mass effect. The grider-white junction is well differentiated. Cerebellum: Unremarkable. Mass effect: No evidence of midline shift. Dense areas normal. Midline structures are also otherwis e normal Intracranial vasculature: unremarkable Soft tissues: Normal. Calvarium/osseous structures: No depressed skull fracture. Paranasal sinuses and mastoid air cells: Mild scattered paranasal sinus disease. Visualized orbits: Orbital contents are intact. IMPRESSION: No acute intracranial process. Pituitary another midline structures are unremarkable. No lesion seen in the optic nerves, chiasm reg ion and optic tract region
[2024-03-03] MEDS ORDERED: NALOXONE 0.4 MG/ML 1 ML VIAL IV PRN (21:51)
[2024-03-04 03:46] LABS: ALT 7 U/L (4-34); AST 13 U/L (14-36); African American GFR (CKD) 75 (>60 ml/min/1.73 sqM); Albumin 3.2 g/dL (3.5-5.0); Alkaline Phosphatase 109 U/L (38-126); Anion Gap 3 mmol/L; Blood Urea Nitrogen 11 mg/dL (7-17); Calcium 8.6 mg/dL (8.4-10.2); Carbon Dioxide 27 mmol/L (22-30); Chloride 107 mmol/L (98-107); Glucose 98 mg/dL (74-99); Non-African American GFR(CKD) 65 (>60 ml/min/1.73 sqM); Potassium 3.7 mmol/L (3.5-5.1); Sodium 137 mmol/L (137-145); Total Bilirubin 0.5 mg/dL (0.2-1.3); Total Protein 5.9 g/dL (6.3-8.2)
[2024-03-04 03:49] LABS: Basophils # (A) 0.1 k/uL (0-0.2); Basophils % (A) 1 %; Eosinophils # (A) 0.5 k/uL (0-0.7); Eosinophils % (A) 4 %; HGB 12.4 gm/dL (11.4-16.0); Hypochromasia Moderate; Lymphocytes # (A) 2.9 k/uL (1.0-4.8); Lymphocytes % (A) 24 %; MCH 26.5 pg (25.0-35.0); MCHC 32.7 g/dL (31.0-37.0); MCV 81.2 fL (80.0-100.0); Mean Platelet Volume 8.2; Monocytes # (A) 0.8 k/uL (0-1.0); Monocytes % (A) 6 %; Neutrophils # (A) 7.5 k/uL (1.3-7.7); Neutrophils % (A) 64 %; Platelet Count 276 k/uL (150-450); RBC 4.67 m/uL (3.80-5.40); RDW 15.8 % (11.5-15.5); WBC 11.8 k/uL (3.8-10.6)
--- NOTE | 2024-03-04 15:52 | US ---
EXAMINATION TYPE: US carotid duplex BILAT DATE OF EXAM: 03/04/2024 COMPARISON: NONE CLINICAL INDICATION: Female, 48 years old with history of stroke; TECHNIQUE: Carotid duplex ultrasound examination. Indirect Doppler criteria was utilized. FINDINGS: EXAM MEASUREMENTS: RIGHT: Peak Systolic Velocity (PSV) cm/sec ----- Right CCA: 74.2 ----- Right ICA: 78.1 ----- Right ECA: 112.0 ICA/CCA ratio: 1.1 RIGHT: End Diastole cm/sec ----- Right CCA: 24.7 ----- Right ICA: 20.7 ----- Right ECA: 22.0 LEFT: Peak Systolic Velocity (PSV) cm/sec ----- Left CCA: 69.5 ----- Left ICA: 81.1 ----- Left ECA: 81.1 ICA/CCA ratio: 1.2 LEFT: End Diastole cm/sec ----- Left CCA: 13.7 ----- Left ICA: 30.0 ----- Left ECA: 13.7 VERTEBRALS (direction of flow): Right Vertebral: Antegrade Left Vertebral: Antegrade Rhythm: Normal SALES ASSISTANT INSTITUTIONAL SALES NOTES: No significant stenosis seen IMPRESSION: Less than 50% stenosis of the bilateral carotid bifurcations. Criteria for Assigning % of Stenosis / Diameter reduction (Estimation based on the indirect measurements of the internal carotid artery velocities (ICA PSV). 1. Normal (no stenosis)=ICA PSV < 125 cm/s: ratio < 2.0: ICA EDV<40 cm/s. 2. Less than 50% stenosis=ICA PSV < 125 cm/s: ratio < 2.0: ICA EDV<40 cm/s. 3. 50 to 69% stenosis=ICA PSV of 125 to 230 cm/s: ration 2.0 ? 4.0: ICA EDV 40-100 cm/s. 4. Greater than 70% stenosis to near occlusion= ICA PSV > 230 cm/s: ratio > 4.0: ICA EDV > 100 cm/s. 5. Near occlusion= ICA PSV velocities may be low or undetectable: variable ratio and ICA EDV. 6. Total occlusion=unable to detect flow.
[2024-03-04] MEDS: POTASSIUM CHLORIDE ER 20 MEQ TAB.ER PO SCH (16:56)
[2024-03-04] MEDS: DOCUSATE 100 MG CAP PO SCH (16:56)
[2024-03-04] MEDS: ASPIRIN 81 MG PO SCH (16:56)
--- NOTE | 2024-03-04 18:12 | P.CNNES ---
History of Present Illness Consult date: 03/04/24 Requesting physician: Joaquim Clarke Reason for Consult: supperio quandrantanopsia History of Present Illness: Is a 48-year-old woman who presented to hospital because a request for software tools developer for concern for stroke workup. She stated that she went for a routine eye exam and Dr[facility] and she was seen by his colleague and it was felt that the patient had a stroke possibly and it was requested to come to the hospital for further evaluation. She denies of any visual disturbance, any double vision, any focal weakness numbness speech difficulty. Denies of any headache. Denies of any head trauma. She denies any history of stroke in the past or atrial fibrillation. Per the ED physician it seems at software tools developer was felt the patient has new superior quadrant anopsia right greater than the left. She stated that she has been on aspirin for the last 2 weeks. She does have a history of hypertension and does not require any medication since it is controlled. Patient smokes half a pack a day and she states she is cutting down. Some of the workup during this hospital visit consisted of: TSH is 0.102, free T4 is 1.03 CK level is 37 CT of the head is reported as no acute intracranial process. Pituitary another midline structures are unremarkable. No lesions seen in the optic nerve, chiasm region and optic tract region. I reviewed the CT of the head and I feel there is no acute or subacute stroke Carotid duplex is reported as less than 50% stenosis bilateral carotid bifurcation next Hemoglobin A1c is 6.3 on 08/16/2023 Review of Systems The positive and negative as per HPI. Past Medical History Past Medical History: Asthma, GERD/Reflux, Hyperlipidemia, Hypertension, Osteoarthritis (OA), Thyroid Disorder Additional Past Medical History / Comment(s): migraine headachesKIDNEY STONE , sinus problems., History of Any Multi-Drug Resistant Organisms: None Reported Past Surgical History: Ablation, Appendectomy, Section, C holecystectomy, Ear Surgery, Orthopedic Surgery, Tonsillectomy, Tubal Ligation, Uterine Ablation Additional Past Surgical History / Comment(s): L index finger reattatched, nicolas ateral carpal tunnel releases, hysteroscopy with failed uterine ablation then D&C with successful uterine ablation, thyroid bx, Past Anesthesia/Blood Transfusion Reactions: Postoperative Nausea & Vomiting (PONV) Past Psychological History: Anxiety, Depression Additional Psychological History / Comment(s): Pt resides with her significant other and 3 children ages 25, 22 and 7 yrs. Pt is independent. She is a homemaker. Smoking Status: Current every day smoker Past Alcohol Use History: None Reported Additional Past Alcohol Use History / Comment(s): smokes 1/2 pack a day Past Drug Use History: Marijuana - Past Family History Sister(s) Family Medical History: Cancer Additional Family Medical History / Comment(s): Patient is living with her fianc has 8 kids 2 are not hers. Father Family Medical History: Cancer Additional Family Medical History / Comment(s): pacemaker Mother Family Medical History: AFIB, Deep Vein Thrombosis (DVT), Myocardial Infarction ([place]) Additional Family Medical History / Comment(s): TIA/mini strokes Medications and Allergies Home Medications Medication Instructions Recorded Confirmed Type Docusate [Colace] 100 mg PO Q2D 11/21/15 03/04/24 History allopurinoL [Zyloprim] 100 mg PO DAILY 02/24/19 03/04/24 History Cetirizine HCl [Zyrtec] 10 mg PO DAILY 05/06/19 03/04/24 History Potassium Chloride ER [K-Dur 20] 20 meq PO DAILY 05/27/20 03/04/24 History Atorvastatin Calcium [Lipitor] 20 mg PO HS #30 tab 05/28/20 03/04/24 Rx ALPRAZolam [Xanax] 1 mg PO [id number]@209903/04/24 03/04/24 History ARIPiprazole [Abilify] 10 mg PO HS 03/04/24 03/04/24 History Citalopram Hydrobromide [CeleXA] 20 mg PO HS 03/04/24 03/04/24 History Cyclobenzaprine [Flexeril] 10 mg PO SUTUTHSA@2100 03/04/24 03/04/24 History Ergocalciferol [Vitamin D2 (1250 1,250 mcg PO TU 03/04/24 03/04/24 History Mcg = 79191 Iu)] buPROPion SR [Wellbutrin SR] 150 mg PO BID 03/04/24 03/04/24 History traZODone HCL 150 mg PO HS 03/04/24 03/04/24 History Allergies Allergy/AdvReac Type Severity Reaction Status Date / Time adhesive tape Allergy RED SKIN Verified 03/04/24 10:11 AND ITCHING levofloxacin [From Levaquin] Allergy Anaphylaxis Verified 03/04/24 10:11 milk Allergy Abdominal Verified 03/04/24 10:11 Pain shellfish derived [Shellfish] Allergy Anaphylaxis Verified 03/04/24 10:11 Sulfa (Sulfonamide Allergy Unknown Verified 03/04/24 10:11 Antibiotics) Childhood doxycycline AdvReac Nausea & Verified 03/04/24 10:11 Vomiting RYE BREAD Allergy Unknown Uncoded 03/04/24 10:11 Physical Examination - Vital Signs Vital Signs: Vital Signs Temp Pulse Pulse Resp BP BP Pulse Ox 03/04/24 16:00 98.2 F 89 16 132/74 92 L 03/04/24 11:51 98.7 F 88 16 160/97 92 L 03/04/24 08:00 97.9 F 88 16 134/66 94 L 03/04/24 03:29 98.5 F 92 18 117/77 93 L 03/04/24 00:00 98.9 F 92 18 121/80 96 03/03/24 23:15 98.9 F 92 18 121/80 96 03/03/24 22:52 98.3 F 94 22 122/79 95 03/03/24 21:27 87 16 127/93 95 03/03/24 18:25 98.3 F 100 20 158/97 98 Intake and Output 03/04/24 03/04/24 03/04/24 06:59 14:59 22:59 Intake Total 240 Output Total 0 Balance 0 240 Intake: Oral 240 Output: Urine 0 Other: Voiding Method Toilet # Voids 2 Weight 144.3 kg GENERAL: The patient is an obese woman sitting up in bed and is not in acute distress. NEUROLOGICAL: Higher mental function: The patient is awake, alert, oriented to self, place and time. Patient is following commands. No aphasia and no neglect. Cranial nerves: The pupils are round, equal and reactive to light and accommodation. Visual cabrera is at time questionable right homonymous upper quandrntanposie. Extraocular movement is intact no nystagmus is noted. Facial sensation is normal to touch throughout. The facial strength is normal throughout. Hearing is normal bilaterally to hand rub. Tongue is midline and moved [id number] without any difficulty. No dysarthria is noted. Shoulder s hrug is normal bilaterally. Motor: The strength is 5 over 5 throughout. Normal tone and bulk. Cerebellum: Normal finger to nose heel to allen bilaterally. Sensation: Sensation is normal to touch throughout. Reflexes (right/left): 2+ throughout. Plantars are downgoing bilaterally. Results - Laboratory Findings CBC and BMP: 03/04/24 03:10 03/04/24 03:10 Abnormal Lab Findings: Abnormal Labs 03/03/24 03/03/24 03/04/24 18:32 18:32 03:10 WBC 14.2 H 11.8 H RDW 15.9 H 15.8 H Neutrophils # 9.9 H Creatinine 1.20 H Glucose 133 H AST Total Protein Albumin TSH 0.102 L 03/04/24 03:10 WBC RDW Neutrophils # Creatinine Glucose AST 13 L Total Protein 5.9 L Albumin 3.2 L TSH Assessment and Plan Assessment: This is a 50-year-old woman who was sent by her software tools developer after being evaluated for routine eye check and it was felt there is a concern for stroke and needed further evaluation. It appears the finding was new superior quadrant in your right greater than left per the ED physician. Patient denies of any focal weakness numbness headache speech difficulty. No history of stroke or A- fib or flutter. On examination it appears possibly she has right hand homonym ous right upper quandrant anposia. Right homonymous upper quandrant anopsia: Probable acute to subacute stroke. Unsure last normal but is outside window and risk outweigh benefit. Hypertension Diabetes Morbid obesity Tobacco use Plan: Patient is on aspirin 81 mg daily. Patient was already taking aspirin daily and if MRI is positive for stroke then recommend starting on Plavix 75 mg daily. I increased her Lipitor from 20 mg nightly to 40 mg nightly for secondary stroke prophylaxis I ordered MRI of the brain. 2D echo was ordered and is pending I ordered ESR, vitamin B12 Lipid panel is ordered and is pending Continue neurochecks Cardiac monitoring Will defer the rest of the medical management to primary and other specialist Patient was counseled on tobacco cessation. For DVT prophylaxis I started the patient on subcu heparin 5000 units every 12 hours. The plan is discussed with patient and her nurse. Thank you for the consultation. Time with Patient: Greater than 30
--- NOTE | 2024-03-04 18:59 | CA ---
Transthoracic Echo Report Name: Stacy Jack Age: 48 Gender: F : 1975 Exam Date: 03/04/2024 14:34 Exam Location: [place] [facility] Ht (in): 66 Wt (lb): 318 Ordering Physician: Bakari Cordero MD Attending/Referring Phys: Director Of Securities And Real Estate Cate Reyes RDCS Procedure CPT: Indications: stroke Cardiac Hx: Technical Quality: Technically difficult study Contrast 1: Definity Total Dose (mL): 2 Contrast 2: Total Dose (mL): MEASUREMENTS (Male / Female) Normal Values 2D ECHO LV Diastolic Diameter PLAX 5.3 cm 4.2 - 5.9 / 3.9 - 5.3 cm LV Systolic Diameter PLAX 3.7 cm IVS Diastolic Thickness 1.3 cm 0.6 - 1.0 / 0.6 - 0.9 cm LVPW Diastolic Thickness 1.4 cm 0.6 - 1.0 / 0.6 - 0.9 cm LV Relative Wall Thickness 0.5 RV Internal Dim ED PLAX 2.8 cm LA Systolic Diameter LX 3.6 cm 3.0 - 4.0 / 2.7 - 3.8 cm LA Volume 81.0 cm??? 18 - 58 / 22 - 52 cm??? LA Volume Index 30.2 cm???/m??? 16 - 28 cm???/m??? M-MODE Aortic Root Diameter MM 3.4 cm DOPPLER AV Peak Velocity 188.8 cm/s AV Peak Gradient 14.3 mmHg TR Peak Velocity 284.6 cm/s TR Peak Gradient 32.4 mmHg Right Ventricular Systolic Press 37.4 mmHg FINDINGS Left Ventricle Left ventricular ejection fraction is estimated at 50-55 %. Moderately increased septal wall thickness. Moderately increased posterior wall thickness. No obvious regional wall motion abnormalities. Right Ventricle Normal right ventricular size and function. Mild pulmonary hypertension. Right Atrium Right atrium not well visualized. Left Atrium Mildly increased left atrial volume. Mildly increased left atrial area. Mitral Valve Structurally normal mitral valve. No mitral stenosis, regurgitation or prolapse. Aortic Valve Aortic valve not well visualized. No aortic valve stenosis or regurgitation. Tricuspid Valve Tricuspid valve not well visualized. Mild tricuspid regurgitation. Pulmonic Valve Pulmonic valve not well visualized. Pericardium No pericardial effusion. Aorta Normal size aortic root and proximal ascending aorta. CONCLUSIONS Diagnosis chest pain, possible CVA Preserved LV size and systolic function Preserved RV size and function No intracardiac masses, contrast echo used Previewed by: Dr. Jayson Salmon MD (Electronically Signed) Final Date: 04 March 2024 18:58
[2024-03-04] MEDS ORDERED: ATORVASTATIN 20 MG TAB PO SCH (21:00)
[2024-03-04] MEDS: traZODone HCL 50 MG TAB PO SCH (21:39)
[2024-03-04] MEDS: ALPRAZolam 1 MG TAB PO SCH (21:39)
[2024-03-04] MEDS: HEPARIN SODIUM,PORCINE 5,000 UNIT/ML 1 ML VIAL SQ SCH (21:39)
[2024-03-04] MEDS: buPROPion SR 150 MG TABLET.ER PO SCH (21:39)
[2024-03-04] MEDS: CITALOPRAM HYDROBROMIDE 20 MG TAB PO SCH (21:40)
[2024-03-04] MEDS: ARIPiprazole 10 MG TAB PO SCH (21:40)
[2024-03-04] MEDS: ATORVASTATIN 40 MG TAB PO SCH (21:41)
[2024-03-04 22:35] LABS: Appearance,Urine Clear (Clear); Bilirubin,Urine Negative (Negative); Blood,Urine Small (Negative); Color,Urine Colorless; Glucose,Urine (UA) Negative (Negative); Ketones,Urine Negative (Negative); Leukocyte Esterase,Urine Negative (Negative); Mucus,Urine Rare /hpf; Nitrite,Urine Negative (Negative); PH, Urine 7.5 (5.0-8.0); Protein,Urine Negative (Negative); RBC,Urine 1 /hpf (0-5); Squamous Epithelial Cell,Urine 5 /hpf (0-4); Urobilinogen,Urine <2.0 mg/dL (<2.0); WBC,Urine 1 /hpf (0-5)
--- NOTE | 2024-03-04 23:57 | HP ---
HISTORY AND PHYSICAL CHIEF COMPLAINT: Visual abnormalities and chest pain. HISTORY OF PRESENT ILLNESS: This is a 48-year-old woman with a past medical history of asthma, GERD, was admitted with intermittent chest pain over the past several days, which was felt in anterior part of the chest. The patient also evaluated by Pulmonology, was found to have a left superior quadrantanopia, the left eye more than the right and the patient was admitted for further evaluation and treatment. The patient apparently was sent to the hospital for stroke workup. There is no history of any fever, rigors, or chills at this time. CT of the brain showed no acute abnormality. There is no history of any fever, rigors, or chills. PAST MEDICAL HISTORY: History of asthma, GERD, hypertension. Rest of the chart and rest of the history noted. HOME MEDICATIONS: Trazodone. Dose and rest of medications noted. ALLERGIES: Adhesive tapes. FAMILY HISTORY: History of cancer in the family. SOCIAL HISTORY: Smoking and THC. REVIEW OF SYSTEMS: A 14-point review is negative except as mentioned earlier. PHYSICAL EXAMINATION: VITAL SIGNS: Pulse is 88, blood pressure 130/62, respirations 16. HEENT: Conjunctivae normal. NECK: No JVD. CARDIOVASCULAR: S1, S2. RESPIRATIONS: Breath sounds diminished at the bases. ABDOMEN: Soft. NERVOUS SYSTEM: Left superior quadrantanopia as mentioned earlier, left more than the right eye. Otherwise, no other neurological abnormalities. LABORATORY DATA: WBC 11.8. Rest of the labs are noted. ASSESSMENT: 1. Chest pain for evaluation, possible unstable angina. 2. Left superior quadrantanopia, rule out acute stroke. 3. Elevated WBC. 4. Diminished TSH. 5. History of asthma. 6. Hypertension. 7. Hyperlipidemia. 8. Multiple complex medical issues. RECOMMENDATIONS AND DISCUSSION: This is a 48-year-old woman presented with multiple complex medical issues, we will monitor the patient closely. Recommend antiplatelets, Cardiology and Neurology consultations. Otherwise, symptomatic treatment. Home medications will be continued. DVT prophylaxis. Full neurovascular workup including 2D echo, carotid Doppler. I would also recommend MRI after seen by Neurology. Prognosis guarded. Further recommendations to follow. MMODL / IJN: [id number] /
[2024-03-05] MEDS: LORATADINE 10 MG TAB PO SCH (08:23)
[2024-03-05] MEDS: allopurinoL 100 MG TAB PO SCH (08:24)
[2024-03-05] MEDS ORDERED: LORazepam 2 MG/ML INJ IV PRN (09:07)
--- NOTE | 2024-03-05 09:07 | P.PN ---
Subjective This is a pleasant 48 years old female who presents to the hospital because of vision problem with Homonymous Superior Quadrantanopia Patient evaluated by neurologist, she has unremarkable carotid duplex with less than 50% stenosis with normal ejection fraction 50-56 %. MRI of the brain still pending. CT of the brain was negative on admission as well as chest x-ray Patient was complaining from chest pain and heel sewer also been consulted Patient this morning feels her vision is back to normal and she denies chest pain she denies any other new complaint She is going for MRI today and she states she is claustrophobic so Ativan as needed is provided Hemodynamically stable She has mild leukocytosis 14,000 down to 11,000 most likely reactive Other labs were unremarkable including BMP liver enzymes troponin and urine analysis TSH is low but T4 is normal Currently patient continued on home dose of aspirin 81 mg Objective - Vital Signs Vital signs: Vital Signs Temp 97.6 F 03/05/24 03:07 Pulse 94 03/05/24 03:07 Resp 16 03/05/24 03:07 BP 146/85 03/05/24 03:07 Pulse Ox 92 L 03/05/24 03:07 FiO2 Intake & Output 03/04/24 03/05/24 03/05/24 18:59 06:59 18:59 Intake Total 240 10 Balance 240 10 Weight 142.1 kg Intake: IV 10 Invasive Line 1 10 Oral 240 Other: Voiding Method Toilet # Voids 2 1 - Exam -GENERAL: The patient is alert and oriented x3, not in any acute distress. Well developed, well nourished. Obese HEENT: Pupils are round and equally reacting to light. EOMI. No scleral icterus. No conjunctival pallor. Normocephalic, atraumatic. No pharyngeal erythema. No thyromegaly. CARDIOVASCULAR: S1 and S2 present. No murmurs, rubs, or gallops. PULMONARY: Chest is clear to auscultation, no wheezing , no crackles. ABDOMEN: Soft, nontender, nondistended, normoactive bowel sounds. No palpable organomegaly. MUSCULOSKELETAL: No joint swelling or deformity. EXTREMITIES: No cyanosis, clubbing, or pedal edema. NEUROLOGICAL: Gross neurological examination did not reveal any focal deficits. SKIN: No rashes. no petechiae. Obese - Labs CBC & Chem 7: 03/04/24 03:10 07/31/24 03:10 Labs: Abnormal Lab Results - Last 24 Hours (Table) 03/04/24 03/04/24 Range/Units 03:10 22:22 ESR 53 H (0-20) mm/Hr Urine Blood Small H (Negative) Ur Squamous Epith Cells 5 H (0-4) /hpf Urine Mucus Rare H (None) /hpf Assessment and Plan Assessment: Homonymous Superior Quadrantanopia, right ,, now completely resolved with no other neurological symptoms Transient chest pain, currently resolved Morbid obesity with BMI of 50.6 Hypertension Hyperlipidemia GERD Asthma not an active issue Migraine headache Hypothyroidism Plan: Continue with aspirin Follow-up MRI Neurology consult Cardiology consult Labs and medication were reviewed.. Continue same treatment. Continue with symptomatic treatment. Resume home medication. Monitor labs and vitals. DVT and GI prophylaxis. Further recommendations as per clinical course of the patient DVT prophylaxis: Subcutaneous heparin GI Prophylaxis: Pepcid Prognosis is guarded
[2024-03-05 09:12] LABS: Basophils # (A) 0.1 k/uL (0-0.2); Basophils % (A) 1 %; Eosinophils # (A) 0.4 k/uL (0-0.7); Eosinophils % (A) 4 %; HCT 41.4 % (34.0-46.0); HGB 13.1 gm/dL (11.4-16.0); Hypochromasia Moderate; Lymphocytes # (A) 2.5 k/uL (1.0-4.8); Lymphocytes % (A) 21 %; MCH 25.5 pg (25.0-35.0); MCHC 31.5 g/dL (31.0-37.0); Mean Platelet Volume 8.8; Monocytes # (A) 0.7 k/uL (0-1.0); Monocytes % (A) 6 %; Neutrophils # (A) 7.9 k/uL (1.3-7.7); Neutrophils % (A) 68 %; Platelet Count 294 k/uL (150-450); RBC 5.11 m/uL (3.80-5.40); WBC 11.7 k/uL (3.8-10.6)
[2024-03-05 09:22] LABS: ALT 7 U/L (4-34); AST 15 U/L (14-36); African American GFR (CKD) 81 (>60 ml/min/1.73 sqM); Albumin 3.3 g/dL (3.5-5.0); Alkaline Phosphatase 115 U/L (38-126); Anion Gap 6 mmol/L; Blood Urea Nitrogen 8 mg/dL (7-17); Calcium 8.8 mg/dL (8.4-10.2); Carbon Dioxide 26 mmol/L (22-30); Chloride 107 mmol/L (98-107); Glucose 118 mg/dL (74-99); Non-African American GFR(CKD) 71 (>60 ml/min/1.73 sqM); Potassium 3.8 mmol/L (3.5-5.1); Sodium 139 mmol/L (137-145); Total Bilirubin 0.9 mg/dL (0.2-1.3); Total Protein 6.3 g/dL (6.3-8.2)
[2024-03-05] MEDS: FAMOTIDINE 20 MG/2 ML VIAL IV SCH (12:07)
--- NOTE | 2024-03-05 13:40 | P.PN ---
Subjective Progress Note Date: 03/05/24 I am following-up with patient and she feels about the same. Pending MRI Brain. Objective - Vital Signs Vital signs: Vital Signs Temp 98.3 F 03/05/24 11:35 Pulse 95 03/05/24 11:35 Resp 20 03/05/24 11:35 BP 147/80 03/05/24 11:35 Pulse Ox 93 L 03/05/24 11:35 FiO2 Intake & Output 03/04/24 03/05/24 03/05/24 18:59 06:59 18:59 Intake Total 240 10 0 Output Total 0 Balance 240 10 0 Weight 142.1 kg Intake: IV 10 Invasive Line 1 10 Oral 240 0 Output: Gastric Drainage 0 Urine 0 Stool 0 Urine/Stool Mix 0 Emesis 0 Oral Regurgitation 0 Other 0 Other: Voiding Method Toilet # Voids 2 1 0 # Bowel Movements 0 - Exam GENERAL: The patient is an obese woman sitting up in bed and is not in acute distress. NEUROLOGICAL: Higher mental function: The patient is awake, alert, oriented to self, place and time. Patient is following commands. No aphasia and no neglect. Cranial nerves: The pupils are round, equal and reactive to light and accommodation. Visual cabrera is at time questionable right homonymous upper quandrntanposie. Extraocular movement is intact no nystagmus is noted. Facial sensation is normal to touch throughout. The facial strength is normal throug hout. Hearing is normal bilaterally to hand rub. Tongue is midline and moved [id number] without any difficulty. No dysarthria is noted. Shoulder shrug is normal bilaterally. Motor: The strength is 5 over 5 throughout. Normal tone and bulk. Cerebellum: Normal finger to nose heel to allen bilaterally. Sensation: Sensation is normal to touch throughout. Reflexes (right/left): 2+ throughout. Plantars are downgoing bilaterally. Some of the workup during this hospital visit consisted of: TSH is 0.102, free T4 is 1.03 CK level is 37 Vitamin B12 is [address] of the head is reported as no acute intracranial process. Pituitary another midline structures are unremarkable. No lesions seen in the optic nerve, chiasm region and optic tract region. I reviewed the CT of the head and I feel there is no acute or subacute stroke Carotid duplex is reported as less than 50% stenosis bilateral carotid bifurcation 2D echo: Preserved left ventricular size and systolic function. Preserved right ventricular size and function. No intracardiac masses, contrast echo used. Hemoglobin A1c is 6.3 on 08/16/2023 - Labs CBC & Chem 7: 03/05/24 09:01 03/05/24 09:01 Labs: Abnormal Lab Results - Last 24 Hours (Table) 03/04/24 03/04/24 03/05/24 Range/Units 03:10 22:22 09:01 WBC 11.7 H (3.8-10.6) k/uL RDW 16.0 H (11.5-15.5) % Neutrophils # 7.9 H (1.3-7.7) k/uL ESR 53 H (0-20) mm/Hr Glucose (74-99) mg/dL Albumin (3.5-5.0) g/dL Urine Blood Small H (Negative) Ur Squamous Epith Cells 5 H (0-4) /hpf Urine Mucus Rare H (None) /hpf 03/05/24 Range/Units 09:01 WBC (3.8-10.6) k/uL RDW (11.5-15.5) % Neutrophils # (1.3-7.7) k/uL ESR (0-20) mm/Hr Glucose 118 H (74-99) mg/dL Albumin 3.3 L (3.5-5.0) g/dL Urine Blood (Negative) Ur Squamous Epith Cells (0-4) /hpf Urine Mucus (None) /hpf Assessment and Plan Assessment: This is a 50-year-old woman who was sent by her cobol mainframe developer after being evaluated for routine eye check and it was felt there is a concern for stroke and needed further evaluation. It appears the finding was new superior quadrant in your right greater than left per the ED physician. Patient denies of any focal weakness numbness headache speech difficulty. No history of stroke or A- fib or flutter. On examination it appears possibly she has right hand homonymous right upper quandrant anposia. Right homonymous upper quandrant anopsia: Probable acute to subacute stroke. Unsure last normal but is outside window and risk outweigh benefit. ESR is slightly elevated 53 Hypertension Diabetes Morbid obesity Tobacco use Plan: Patient is on aspirin 81 mg daily. Patient was already taking aspirin daily and if MRI is positive for stroke then recommend starting on Plavix 75 mg daily. I increased her Lipitor from 20 mg nightly to 40 mg nightly for secondary stroke prophylaxis Pending MRI of the brain. Lipid panel is pending. Continue neurochecks Cardiac monitoring Will defer the rest of the medical management to primary and other specialist Patient was counseled on tobacco cessation. For DVT prophylaxis I started the patient on subcu heparin 5000 units every 12 hours. The plan is discussed with patient. Time with Patient: Less than 30
--- NOTE | 2024-03-05 15:51 | P.CRDCN ---
History of Present Illness Consult date: 03/05/24 History of present illness: Dr. Becker's addendum Patient was evaluated with the resident and I personally performed the patient's history, physical examination. Patient was referred to the hospital because of concern of hemianopsia and concerns of stroke. Patient is getting evaluated by neurologist and is awaiting an MRI. Her echocardiogram did not show any concerns of structural or valvular abnormality. Hemianopsia Concerns of CVA HTN Dyslipidemia Obesity Atypical chest pain Dyspnea on exertsion If the MRI is positive for evidence of stroke, May consider outpatient DIANNA with bubble study to evaluate for PFO May benefit from a 30-day event monitor to look for any arrhythmias like atrial fibrillation Because of her nonspecific symptoms of atypical chest pain, and her risk factors, I would recommend outpatient nuclear Lexiscan/treadmill stress test. Patient is a 48-year-old female with a past medical history of hyperlipidemia w ho is being consulted for chest pain. On 03/03/2024 she presented to the ED after her core laying machine operator referred her due to new finding of superior quadrantanopsia. However, her only complaint was having chest pain the day before that was relieved with rest. She states that she has had similar intermittent chest pain before but this time it was worse. She denies dizziness or radiation of the pain. ECG on admission shows sinus tachycardia. Chest x-ray was noncontributory. Echocardiogram shows normal ejection fraction. TSH is low at 0.102. Review of Systems Negative except what is mentioned in HPI. Past Medical History Past Medical History: Asthma, GERD/Reflux, Hyperlipidemia, Hypertension, Osteoarthritis (OA), Thyroid Disorder Additional Past Medical History / Comment(s): migraine headachesKIDNEY STONE , sinus problems., History of Any Multi-Drug Resistant Organisms: None Reported Past Surgical History: Ablation, Appendectomy, Section, Cholecystectomy, Ear Surgery, Orthopedic Surgery, Tonsillectomy, Tubal Ligation, Uterine Ablation Additional Past Surgical History / Comment(s): L index finger reattatched, bilateral carpal tunnel releases, hysteroscopy with failed uterine ablation then D&C with successful uterine ablation, thyroid bx, Past Anesthesia/Blood Transfusion Reactions: Postoperative Nausea & Vomiting (PONV) Past Psychological History: Anxiety, Depression Additional Psychological History / Comment(s): Pt resides with her significant other and 3 children ages 25, 22 and 7 yrs. Pt is independent. She is a homemaker. Smoking Status: Current every day smoker Past Alcohol Use History: None Reported Additional Past Alcohol Use History / Comment(s): smokes 1/2 pack a day Past Drug Use History: Marijuana - Past Family History Sister(s) Family Medical History: Cancer Additional Family Medical History / Comment(s): Patient is living with her fianc has 8 kids 2 are not hers. Father Family Medical History: Cancer Additional Family Medical History / Comment(s): pacemaker Mother Family Medical History: AFIB, Deep Vein Thrombosis (DVT), Myocardial Infarction ([place]) Additional Family Medical History / Comment(s): TIA/mini strokes Medications and Allergies Home Medications Medication Instructions Recorded Confirmed Type Docusate [Colace] 100 mg PO Q2D 11/21/15 03/04/24 History allopurinoL [Zyloprim] 100 mg PO DAILY 02/24/19 03/04/24 History Cetirizine HCl [Zyrtec] 10 mg PO DAILY 05/06/19 03/04/24 History Potassium Chloride ER [K-Dur 20] 20 meq PO DAILY 05/27/20 03/04/24 History Atorvastatin Calcium [Lipitor] 20 mg PO HS #30 tab 05/28/20 03/04/24 Rx ALPRAZolam [Xanax] 1 mg PO MOWEFR@209903/04/24 03/04/24 History ARIPiprazole [Abilify] 10 mg PO HS 03/04/24 03/04/24 History Citalopram Hydrobromide [CeleXA] 20 mg PO HS 03/04/24 03/04/24 History Cyclobenzaprine [Flexeril] 10 mg PO SUTUTHSA@2100 03/04/24 03/04/24 History Ergocalciferol [Vitamin D2 (1250 1,250 mcg PO TU 03/04/24 03/04/24 History Mcg = 16244 Iu)] buPROPion SR [Wellbutrin SR] 150 mg PO BID 03/04/24 03/04/24 History traZODone HCL 150 mg PO HS 03/04/24 03/04/24 History Allergies Allergy/AdvReac Type Severity Reaction Status Date / Time adhesive tape Allergy RED SKIN Verified 03/04/24 10:11 AND ITCHING levofloxacin [From Levaquin] Allergy Anaphylaxis Verified 03/04/24 10:11 milk Allergy Abdominal Verified 03/04/24 10:11 Pain shellfish derived [Shellfish] Allergy Anaphylaxis Verified 03/04/24 10:11 Sulfa (Sulfonamide Allergy Unknown Verified 03/04/24 10:11 Antibiotics) Childhood doxycycline AdvReac Nausea & Verified 03/04/24 10:11 Vomiting RYE BREAD Allergy Unknown Uncoded 03/04/24 10:11 Physical Exam Vitals: Vital Signs Temp Pulse Resp BP Pulse Ox 03/05/24 11:35 98.3 F 95 20 147/80 93 L 03/05/24 08:00 97.7 F 86 20 138/82 93 L 03/05/24 03:07 97.6 F 94 16 146/85 92 L 03/04/24 23:16 97.8 F 88 16 139/86 95 03/04/24 19:46 98.7 F 90 16 127/82 92 L 03/04/24 16:00 98.2 F 89 16 132/74 92 L Intake and Output 03/04/24 03/05/24 03/05/24 22:59 06:59 14:59 Intake Total 10 0 Output Total 0 Balance 10 0 Intake: IV 10 Invasive Line 1 10 Oral 0 Output: Gastric Drainage 0 Urine 0 Stool 0 Urine/Stool Mix 0 Emesis 0 Oral Regurgitation 0 Other 0 Other: Voiding Method Toilet Toilet # Voids 1 1 0 # Bowel Movements 0 Weight 142.1 kg Vital signs are stable. General: No acute distress. HEENT: Head exam is unremarkable. Lungs: Bilateral breath sounds present; no rhonchi, wheezes, or rales. Heart: Rate and rhythm are regular. Abdomen: Nontender. Extremities: No edema present. Results 03/05/24 09:01 03/05/24 09:01 Cardiac Enzymes 03/05/24 Range/Units 09:01 AST 15 (14-36) U/L CBC 03/05/24 Range/Units 09:01 WBC 11.7 H (3.8-10.6) k/uL RBC 5.11 (3.80-5.40) m/uL Hgb 13.1 (11.4-16.0) gm/dL Hct 41.4 (34.0-46.0) % Plt Count 294 (150-450) k/uL Comprehensive Metabolic Panel 03/05/24 Range/Units 09:01 Sodium 139 (137-145) mmol/L Potassium 3.8 (3.5-5.1) mmol/L Chloride 107 (98-107) mmol/L Carbon Dioxide 26 (22-30) mmol/L BUN 8 (7-17) mg/dL Creatinine 0.95 (0.52-1.04) mg/dL Glucose 118 H (74-99) mg/dL Calcium 8.8 (8.4-10.2) mg/dL AST 15 (14-36) U/L ALT 7 (4-34) U/L Alkaline Phosphatase 115 (38-126) U/L Total Protein 6.3 (6.3-8.2) g/dL Albumin 3.3 L (3.5-5.0) g/dL Current Medications Generic Name Dose Route Start Last Admin Trade Name Freq PRN Reason Stop Dose Admin Allopurinol 100 mg 03/05/24 09:00 03/05/24 08:24 Allopurinol 100 Mg Tab PO 100 mg DAILY PAR[facility] Administration Alprazolam 1 mg 03/04/24 21:00 03/04/24 21:39 Alprazolam 1 Mg Tab PO 1 mg MOWEFR@2100 PARTH Administration Aripiprazole 10 mg 03/04/24 21:00 03/04/24 21:40 Aripiprazole 10 Mg Tab PO 10 mg HS PARTH Administration Aspirin 81 mg 03/04/24 13:30 03/05/24 08:23 Aspirin 81 Mg PO 81 mg DAILY PAR[facility] Administration Atorvastatin Calcium 40 mg 03/04/24 21:00 03/04/24 21:41 Atorvastatin 40 Mg Tab PO 40 mg HS PARTH Administration Bupropion HCl 150 mg 03/04/24 21:00 03/05/24 08:23 Bupropion Sr 150 Mg Tablet.Er PO 150 mg BID PAR[facility] Administration Citalopram Hydrobromide 20 mg 03/04/24 21:00 03/04/24 21:40 Citalopram Hydrobromide 20 Mg Tab PO 20 mg HS PAR[facility] Administration Cyclobenzaprine HCl 10 mg 03/05/24 21:00 Cyclobenzaprine 10 Mg Tab PO SUTUTHSA@2100 PAR[facility] Docusate Sodium 100 mg 03/04/24 13:30 03/04/24 16:56 Docusate 100 Mg Cap PO 100 mg Q2D@0900 [facility] Administration Famotidine 20 mg 03/05/24 09:15 03/05/24 12:07 Famotidine 20 Mg/2 Ml Vial IV 20 mg Q12HR [facility] Administration Heparin Sodium (Porcine) 5,000 unit 03/04/24 21:00 03/05/24 08:24 Heparin Sodium,Porcine 5,000 Unit/Ml 1 Ml Vial SQ 5,000 unit Q12HR [facility] Administration Loratadine 10 mg 03/05/24 09:00 03/05/24 08:23 Loratadine 10 Mg Tab PO 10 mg DAILY [facility] Administration Lorazepam 1 mg 03/05/24 09:07 Lorazepam 2 Mg/Ml Inj IV ONCE PRN Anxiety Naloxone HCl 0.2 mg 03/03/24 21:51 Naloxone 0.4 Mg/Ml 1 Ml Vial IV Q2M PRN Opioid Reversal Potassium Chloride 20 meq 03/04/24 13:30 03/05/24 08:23 Potassium Chloride Er 20 Meq Tab.Er PO 20 meq DAILY [facility] Administration Trazodone HCl 150 mg 03/04/24 21:00 03/04/24 21:39 Trazodone Hcl 50 Mg Tab PO 150 mg HS PARTH Administration Intake and Output 03/04/24 03/05/24 03/05/24 22:59 06:59 14:59 Intake Total 10 0 Output Total 0 Balance 10 0 Intake: IV 10 Invasive Line 1 10 Oral 0 Output: Gastric Drainage 0 Urine 0 Stool 0 Urine/Stool Mix 0 Emesis 0 Oral Regurgitation 0 Other 0 Other: Voiding Method Toilet Toilet # Voids 1 1 0 # Bowel Movements 0 Weight 142.1 kg 03/05/24 09:01 03/05/24 09:01 Assessment and Plan Assessment: 1. Sinus tachycardia. 2. Hypertension. 3. Diabetes. Plan: Monitor blood pressure. Maintain Lipitor. Check lipid panel. Thank you for the consultation. We will continue to monitor her during her hospital stay.
[2024-03-05 16:35] LABS: LDL Cholesterol,Calculated 85.5 mg/dL (0.0-131.0)
[2024-03-05] MEDS: CYCLOBENZAPRINE 10 MG TAB PO SCH (20:38)
[2024-03-06] MEDS: ONDANSETRON 4 MG/2 ML VIAL IVP PRN (00:12)
[2024-03-06] MEDS: METOCLOPRAMIDE 5 MG/ML 2 ML VIAL IVP PRN (09:38)
--- NOTE | 2024-03-06 09:59 | P.PN ---
Subjective Progress Note Date: 03/06/24 Progress note 03/06/24 Patient is doing well from cardiovascular standpoint. She is normotensive, no concerns of arrhythmia on telemetry. Denies any active chest pain chest pressure or shortness of breath. On exam S1-S2 is audible, regular pulses, no significant murmurs appreciated Lungs are clear to auscultate bilaterally, no crackles wheezing or rhonchi Abdomen soft and nontender No significant swelling in bilateral lower extremity, Alert oriented, no weakness in bilateral upper and lower extremity, detailed exam was not performed Impression Hemianopsia Concerns of CVA HTN Dyslipidemia Obesity Atypical chest pain Dyspnea on exertsion Plan If the MRI is positive for evidence of stroke, May consider outpatient DIANNA with bubble study to evaluate for PFO May benefit from a 30-day event monitor to look for any arrhythmias like atrial fibrillation Because of her nonspecific symptoms of atypical chest pain, and her risk factors, I would recommend outpatient nuclear Lexiscan/treadmill stress test. Objective - Vital Signs Vital signs: Vital Signs Temp 98.0 F 03/06/24 08:09 Pulse 92 03/06/24 08:09 Resp 20 03/06/24 08:09 BP 134/86 03/06/24 08:09 Pulse Ox 92 L 03/06/24 08:09 FiO2 Intake & Output 03/05/24 03/06/24 03/06/24 18:59 06:59 18:59 Intake Total 0 Output Total 0 0 Balance 0 0 Weight 139.3 kg Intake: Oral 0 Output: Gastric Drainage 0 Urine 0 0 Stool 0 0 Urine/Stool Mix 0 Emesis 0 Oral Regurgitation 0 Other 0 Other: Voiding Method Toilet Toilet # Voids 0 # Bowel Movements 0 - Labs CBC & Chem 7: 03/05/24 09:01 03/05/24 09:01 Labs: Abnormal Lab Results - Last 24 Hours (Table) 03/05/24 Range/Units 09:01 HDL Cholesterol 36.50 L (40.00-60.00) mg/dL
--- NOTE | 2024-03-06 12:59 | P.PN ---
Subjective Progress Note Date: 03/06/24 am following-up with patient and feels about the same. Pending MRI Brain and is scheduled today. Objective - Vital Signs Vital signs: Vital Signs Temp 97.7 F 03/06/24 11:27 Pulse 96 03/06/24 11:27 Resp 20 03/06/24 11:27 BP 137/85 03/06/24 11:27 Pulse Ox 93 L 03/06/24 11:27 FiO2 Intake & Output 03/05/24 03/06/24 03/06/24 18:59 06:59 18:59 Intake Total 0 Output Total 0 0 Balance 0 0 Weight 139.3 kg Intake: Oral 0 Output: Gastric Drainage 0 Urine 0 0 Stool 0 0 Urine/Stool Mix 0 Emesis 0 Oral Regurgitation 0 Other 0 Other: Voiding Method Toilet Toilet # Voids 0 1 # Bowel Movements 0 - Exam GENERAL: The patient is an obese woman sitting up in bed and is not in acute dis tress. NEUROLOGICAL: Higher mental function: The patient is awake, alert, oriented to self, place and time. Patient is following commands. No aphasia and no neglect. Cranial nerves: The pupils are round, equal and reactive to light and accommodation. Visual cabrera is at time questionable right homonymous upper quandrntanposie. Extraocular movement is intact no nystagmus is noted. Facial sensation is normal to touch throughout. The facial strength is normal throughout. Hearing is normal bilaterally to hand rub. Tongue is midline and moved [id number] without any difficulty. No dysarthria is noted. Shoulder shrug is normal bilaterally. Motor: The strength is 5 over 5 throughout. Normal tone and bulk. Cerebellum: Normal finger to nose heel to allen bilaterally. Sensation: Sensation is normal to touch throughout. Reflexes (right/left): 2+ throughout. Plantars are downgoing bilaterally. Some of the workup during this hospital visit consisted of: TSH is 0.102, free T4 is 1.03 CK level is 37 Vitamin B12 is 332 ESR 53 Lipid panel: TG 120, Cholestrol 146, LDL [address] of the head is reported as no acute intracranial process. Pituitary another midline structures are unremarkable. No lesions seen in the optic nerve, chiasm region and optic tract region. I reviewed the CT of the head and I feel there is no acute or subacute stroke Carotid duplex is reported as less than 50% stenosis bilateral carotid bifurcation 2D echo: Preserved left ventricular size and systolic function. Preserved right ventricular size and function. No intracardiac masses, contrast echo used. Hemoglobin A1c is 6.3 on 08/16/2023 - Labs CBC & Chem 7: 03/05/24 09:01 03/05/24 09:01 Labs: Abnormal Lab Results - Last 24 Hours (Table) 03/05/24 Range/Units 09:01 HDL Cholesterol 36.50 L (40.00-60.00) mg/dL Assessment and Plan Assessment: This is a 50-year-old woman who was sent by her estate planning counselor after being evaluated for routine eye check and it was felt there is a concern for stroke and needed further evaluation. It appears the finding was new superior quadrant in your right greater than left per the ED physician. Patient denies of any focal weakness numbness headache speech difficulty. No history of stroke or A- fib or flutter. On examination it appears possibly she has right hand homonymous right upper quandrant anposia. Right homonymous upper quandrant anopsia: Probable acute to subacute stroke. Unsure last normal but is outside window and risk outweigh benefit. ESR is slightly elevated 53 Hypertension Diabetes Morbid obesity Tobacco use Plan: Patient is on aspirin 81 mg daily. Patient was already taking aspirin daily and if MRI is positive for stroke then recommend starting on Plavix 75 mg daily. I increased her Lipitor from 20 mg nightly to 40 mg nightly for secondary stroke prophylaxis Pending MRI of the brain. Continue neurochecks Cardiac monitoring Will defer the rest of the medical management to primary and other specialist Patient was counseled on tobacco cessation. For DVT prophylaxis On subcu heparin 5000 units every 12 hours. The plan is discussed with patient. Time with Patient: Less than 30
[2024-03-06] MEDS: LORazepam 2 MG/ML INJ IV PRN (15:08)
--- NOTE | 2024-03-06 16:03 | P.PN ---
Subjective Progress Note Date: 03/06/24 48 years old female who presents to the hospital because of vision problem with Homonymous Superior Quadrantanopia Patient evaluated by neurologist, she has unremarkable carotid duplex with less than 50% stenosis with normal ejection fraction 50-56 %. MRI of the brain still pending. CT of the brain was negative on admission as well as chest x-ray Patient was complaining from chest pain and hearing impaired itinerant teacher also been consulted Patient this morning feels her vision is back to normal and she denies chest pain she denies any other new complaint She is going for MRI today and she states she is claustrophobic so Ativan as needed is provided Hemodynamically stable She has mild leukocytosis 14,000 down to 11,000 most likely reactive Other labs were unremarkable including BMP liver enzymes troponin and urine analysis TSH is low but T4 is normal Currently patient continued on home dose of aspirin 81 mg Objective - Vital Signs Vital signs: Vital Signs Temp 98.0 F 03/06/24 08:09 Pulse 92 03/06/24 08:09 Resp 20 03/06/24 08:09 BP 134/86 03/06/24 08:09 Pulse Ox 92 L 03/06/24 08:09 FiO2 Intake & Output 03/05/24 03/06/24 03/06/24 18:59 06:59 18:59 Intake Total 0 Output Total 0 0 Balance 0 0 Weight 139.3 kg Intake: Oral 0 Output: Gastric Drainage 0 Urine 0 0 Stool 0 0 Urine/Stool Mix 0 Emesis 0 Oral Regurgitation 0 Other 0 Other: Voiding Method Toilet Toilet # Voids 0 # Bowel Movements 0 - Exam -GENERAL: The patient is alert and oriented x3, not in any acute distress. Well developed, well nourished. Obese HEENT: Pupils are round and equally reacting to light. EOMI. No scleral icterus. No conjunctival pallor. Normocephalic, atraumatic. No pharyngeal erythema. No thyromegaly. CARDIOVASCULAR: S1 and S2 present. No murmurs, rubs, or gallops. PULMONARY: Chest is clear to auscultation, no wheezing , no crackles. ABDOMEN: Soft, nontender, nondistended, normoactive bowel sounds. No palpable organomegaly. MUSCULOSKELETAL: No joint swelling or deformity. EXTREMITIES: No cyanosis, clubbing, or pedal edema. NEUROLOGICAL: Gross neurological examination did not reveal any focal deficits. SKIN: No rashes. no petechiae. - Labs CBC & Chem 7: 03/05/24 09:01 03/05/24 09:01 Labs: Abnormal Lab Results - Last 24 Hours (Table) 03/05/24 Range/Units 09:01 HDL Cholesterol 36.50 L (40.00-60.00) mg/dL Assessment and Plan Assessment: Homonymous Superior Quadrantanopia, right ,, now completely resolved with no other neurological symptoms Transient chest pain, currently resolved Morbid obesity with BMI of 50.6 Hypertension Hyperlipidemia GERD Asthma not an active issue Migraine headache Hypothyroidism Plan: Continue with aspirin Follow-up MRI Neurology consult Cardiology consult Labs and medication were reviewed.. Continue same treatment. Continue with symptomatic treatment. Resume home medication. Monitor labs and vitals. DVT and GI prophylaxis. Further recommendations as per clinical course of the patient DVT prophylaxis: Subcutaneous heparin GI Prophylaxis: Pepcid
[2024-03-06] MEDS: ACETAMINOPHEN TAB 325 MG TAB PO PRN (16:20)
--- NOTE | 2024-03-06 23:18 | MR ---
INDICATION: Patient age:Female; 48 years old; Reason for study: stroke. vision change; PHH. COMPARISON: CT brain 03/03/2024. TECHNIQUE: Multi planar, multi sequence imaging was performed through the brain. The patient was then given 14 cc of Gadavist intravenously and multi planar, T1 fat-saturation images were obtained. FINDINGS: The grider-white junctions, ventricular system, basal cisterns appear unremarkable. Diffusion-weighted imaging shows no evidence of restricted diffusion to suggest acute/subacute infarct. Intracranial art erial flow voids are maintained. Midline structures show no abnormality. Several foci of high T2/FLAI R signal intensity are seen within the subcortical white matter bilaterally. Largest measures up to 6 mm in the left parietal lobe. Approximately 20 foci identified. The susceptibility weighted images d o not reveal any evidence for micro-hemorrhage. After administration of gadolinium, no abnormal enhan cement is seen. There are 2 right parotid gland T2 hyperintense cysts with largest measuring up to 1. 1 cm. The bone marrow signal is within normal limits. The paranasal sinuses and globes are unremarkable. B ilateral mastoid effusions. IMPRESSION: 1. No evidence of intracranial mass, acute/subacute infarct, or abnormal enhancement. 2. Nonspecific white matter changes, likely related to small vessel ischemic disease. 3. Bilateral mastoid effusions. Clinically correlate for mastoiditis.
[2024-03-07 10:12] LABS: African American GFR (CKD) 67 (>60 ml/min/1.73 sqM); Anion Gap 9 mmol/L; Blood Urea Nitrogen 10 mg/dL (7-17); Carbon Dioxide 25 mmol/L (22-30); Chloride 104 mmol/L (98-107); Glucose 134 mg/dL (74-99); Non-African American GFR(CKD) 58 (>60 ml/min/1.73 sqM); Potassium 3.9 mmol/L (3.5-5.1); Sodium 138 mmol/L (137-145)
[2024-03-07 10:18] LABS: Basophils # (A) 0.1 k/uL (0-0.2); Basophils % (A) 1 %; Eosinophils % (A) 0 %; HCT 46.2 % (34.0-46.0); HGB 14.7 gm/dL (11.4-16.0); Hypochromasia Marked; Lymphocytes # (A) 2.5 k/uL (1.0-4.8); Lymphocytes % (A) 26 %; MCHC 31.8 g/dL (31.0-37.0); MCV 81.9 fL (80.0-100.0); Mean Platelet Volume 8.9; Monocytes # (A) 0.8 k/uL (0-1.0); Monocytes % (A) 8 %; Neutrophils # (A) 6.2 k/uL (1.3-7.7); Neutrophils % (A) 64 %; Platelet Count 268 k/uL (150-450); RBC 5.64 m/uL (3.80-5.40); RDW 15.8 % (11.5-15.5); WBC 9.7 k/uL (3.8-10.6)
--- NOTE | 2024-03-07 14:13 | P.PN ---
Subjective Progress Note Date: 03/07/24 I am following-up with patient and she feels drastically better. Yesterday she had headache over bilateral frontal region with some nausea but no vomiting and felt aching. Today she feels better and vision is better. Denies any new neurological issues. Objective - Vital Signs Vital signs: Vital Signs Temp 97.3 F L 03/07/24 07:54 Pulse 91 03/07/24 11:54 Resp 18 03/07/24 11:54 BP 114/83 03/07/24 11:54 Pulse Ox 92 L 03/07/24 11:54 FiO2 Intake & Output 03/06/24 03/07/24 03/07/24 18:59 06:59 18:59 Intake Total 10 Output Total 0 Balance 0 10 Weight 138.7 kg Intake: IV 10 Invasive Line 1 10 Output: Stool 0 Other: Voiding Method Toilet Toilet Toilet # Voids 1 4 2 - Exam GENERAL: The patient is an obese woman sitting up in bed and is not in acute distress. NEUROLOGICAL: Higher mental function: The patient is awake, alert, oriented to self, place and time. Patient is following commands. No aphasia and no neglect. Cranial nerves: The pupils are round, equal and reactive to light and accommodation. Visual cabrera are full to confrontation. Extraocular movement is intact no nystagmus is noted. Facial sensation is normal to touch throughout. The facial strength is normal throughout. Hearing is normal bilaterally to hand rub. Tongue is midline and moved [id number] without any difficulty. No dysarthria is noted. Shoulder shrug is normal bilaterally. Motor: The strength is 5 over 5 throughout. Normal tone and bulk. Cerebellum: Normal finger to nose heel to allen bilaterally. Sensation: Sensation is normal to touch throughout. Reflexes (right/left): 2+ throughout. Plantars are downgoing bilaterally. Some of the workup during this hospital visit consisted of: TSH is 0.102, free T4 is 1.03 CK level is 37 Vitamin B12 is 332 ESR 53 Lipid panel: TG 120, Cholestrol 146, LDL [address] of the head is reported as no acute intracranial process. Pituitary another midline structures are unremarkable. No lesions seen in the optic nerve, chiasm region and optic tract region. I reviewed the CT of the head and I feel there is no acute or subacute stroke Carotid duplex is reported as less than 50% stenosis bilateral carotid bifurcation 2D echo: Preserved left ventricular size and systolic function. Preserved right ventricular size and function. No intracardiac masses, contrast echo used. Hemoglobin A1c is 6.3 on 08/16/2023 MRI Brain: It is reported as no evidence of intracranial mass, acute/subacute infarct or abnormal enhancement. Nonspecific white matter changes, likely related to small vessel ischemic disease. Bilateral mastoid effusion. Clinically correlate for mastoiditis. I personally reviewed the MRI and agree there is no acute or subacute ischemia. - Labs CBC & Chem 7: 03/07/24 09:07 03/07/24 09:07 Labs: Abnormal Lab Results - Last 24 Hours (Table) 03/07/24 03/07/24 Range/Units 09:07 09:07 RBC 5.64 H (3.80-5.40) m/uL Hct 46.2 H (34.0-46.0) % RDW 15.8 H (11.5-15.5) % Creatinine 1.11 H (0.52-1.04) mg/dL Glucose 134 H (74-99) mg/dL Assessment and Plan Assessment: This is a 50-year-old woman who was sent by her log washer after being evaluated for routine eye check and it was felt there is a concern for stroke and needed further evaluation. It appears the finding was new superior quadrant in your right greater than left per the ED physician. Patient denies of any focal weakness numbness headache speech difficulty. No history of stroke or A- fib or flutter. On examination it appears possibly she has right hand homonymous right upper quandrant anposia. Visual field deficit in the right upper quadrant but on examination today her visual cabrera is normal. Yesterday she had a headache in the frontal region but denies any headache on presentation and the headache is resolved. MRI of the brain is unremarkable for any acute or subacute stroke. Unsure if this visual deficit that the log washer appreciated is more ophthalmology called the neurological. I cannot rule out vasculitis since it has mildly elevated ESR of 53 but seems atypical. Today she feels back to baseline. Hypertension Diabetes Morbid obesity Tobacco use Plan: Patient is on aspirin 81 mg daily. Patient was already taking aspirin daily at home. I spoke with the primary attending and we will get a repeat ESR. Will consider consulting vascular surgery team for temporal artery biopsy but again as stated earlier I feel the vasculitis seems atypical. I increased her Lipitor from 20 mg nightly to 40 mg nightly for secondary stroke prophylaxis Continue neurochecks Cardiac monitoring Will defer the rest of the medical management to primary and other specialist Patient was counseled on tobacco cessation. For DVT prophylaxis On subcu heparin 5000 units every 12 hours. The plan is discussed with patient and primary attending. Time with Patient: Less than 30
--- NOTE | 2024-03-07 15:43 | P.PN ---
Subjective Progress Note Date: 03/07/24 48 years old female who presents to the hospital because of vision problem with Homonymous Superior Quadrantanopia Patient evaluated by neurologist, she has unremarkable carotid duplex with less than 50% stenosis with normal ejection fraction 50-56 %. MRI of the brain still pending. CT of the brain was negative on admission as well as chest x-ray Patient was complaining from chest pain and quality control industrial engineer also been consulted Patient this morning feels her vision is back to normal and she denies chest meg n she denies any other new complaint She is going for MRI today and she states she is claustrophobic so Ativan as needed is provided Hemodynamically stable She has mild leukocytosis 14,000 down to 11,000 most likely reactive Other labs were unremarkable including BMP liver enzymes troponin and urine analysis TSH is low but T4 is normal Currently patient continued on home dose of aspirin 81 mg 24-hour interval change 03/07/2024 Patient is seen and evaluated resting comfortably in bed; reports headache has resolved Vital signs are reviewed and remained stable Blood work reveals WBC of 9.7, hemoglobin of 14.7 and platelet count of 268, sodium 138, potassium 2.9, BUNs/creatinine of 10/1.21, ESR of 53 --MRI of the brain is completed and is negative; patient discussed with neurology; given negative workup patient is recommended to have a vascular surgery consult for possible temporal artery biopsy in view of elevated sed rate, headache and vision changes Objective - Vital Signs Vital signs: Vital Signs Temp 97.3 F L 03/07/24 07:54 Pulse 97 03/07/24 07:54 Resp 18 03/07/24 07:54 BP 156/95 03/07/24 07:54 Pulse Ox 92 L 03/07/24 07:54 FiO2 Intake & Output 03/06/24 03/07/24 03/07/24 18:59 06:59 18:59 Intake Total 10 Output Total 0 Balance 0 10 Weight 138.7 kg Intake: IV 10 Invasive Line 1 10 Output: Stool 0 Other: Voiding Method Toilet Toilet Toilet # Voids 1 4 - Exam -GENERAL: The patient is alert and oriented x3, not in any acute distress. Well developed, well nourished. Obese HEENT: Pupils are round and equally reacting to light. EOMI. No scleral icterus. No conjunctival pallor. Normocephalic, atraumatic. No pharyngeal erythema. No thyromegaly. CARDIOVASCULAR: S1 and S2 present. No murmurs, rubs, or gallops. PULMONARY: Chest is clear to auscultation, no wheezing , no crackles. ABDOMEN: Soft, nontender, nondistended, normoactive bowel sounds. No palpable organomegaly. MUSCULOSKELETAL: No joint swelling or deformity. EXTREMITIES: No cyanosis, clubbing, or pedal edema. NEUROLOGICAL: Gross neurological examination did not reveal any focal deficits. SKIN: No rashes. no petechiae. - Labs CBC & Chem 7: 03/07/24 09:07 03/07/24 09:07 Labs: Abnormal Lab Results - Last 24 Hours (Table) 03/07/24 03/07/24 Range/Units 09:07 09:07 RBC 5.64 H (3.80-5.40) m/uL Hct 46.2 H (34.0-46.0) % RDW 15.8 H (11.5-15.5) % Creatinine 1.11 H (0.52-1.04) mg/dL Glucose 134 H (74-99) mg/dL Assessment and Plan Assessment: Homonymous Superior Quadrantanopia, right ,, now completely resolved with no other neurological symptoms Transient chest pain, currently resolved Morbid obesity with BMI of 50.6 Hypertension Hyperlipidemia GERD Asthma not an active issue Migraine headache Hypothyroidism Plan: Continue with aspirin Follow-up MRI Neurology consult Cardiology consult Labs and medication were reviewed.. Continue same treatment. Continue with symptomatic treatment. Resume home medication. Monitor labs and vitals. DVT and GI prophylaxis. Further recommendations as per clinical course of the patient DVT prophylaxis: Subcutaneous heparin GI Prophylaxis: Pepcid
--- NOTE | 2024-03-07 18:56 | P.PN ---
Subjective Progress Note Date: 03/07/24 Progress note 03/06/24 Patient is doing well from cardiovascular standpoint. She is normotensive, no concerns of arrhythmia on telemetry. Denies any active chest pain chest pressure or shortness of breath. Progress note 03/07/2024 Patient is doing well from cardiovascular standpoint. No concerns of stroke on MRI. On exam S1-S2 is audible, regular pulses, no significant murmurs appreciated Lungs are clear to auscultate bilaterally, no crackles wheezing or rhonchi Abdomen soft and nontender No significant swelling in bilateral lower extremity, Alert oriented, no weakness in bilateral upper and lower extremity, detailed exam was not performed Impression Hemianopsia Concerns of CVA, HTN Dyslipidemia Obesity Atypical chest pain Dyspnea on exertsion Plan MRI is negative and resting echocardiogram did not show significant abnormalities. Because of her nonspecific symptoms of atypical chest pain, and her risk factors, I would recommend outpatient nuclear Lexiscan/treadmill stress test. Cardiology team will sign off Objective - Vital Signs Vital signs: Vital Signs Temp 98.3 F 03/07/24 15:52 Pulse 91 03/07/24 15:52 Resp 18 03/07/24 15:52 BP 148/88 03/07/24 15:52 Pulse Ox 93 L 03/07/24 15:52 FiO2 Intake & Output 03/06/24 03/07/24 03/07/24 18:59 06:59 18:59 Intake Total 10 500 Output Total 0 Balance 0 10 500 Weight 138.7 kg Intake: IV 10 Invasive Line 1 10 Oral 500 Output: Stool 0 Other: Voiding Method Toilet Toilet Toilet # Voids 1 4 2 - Labs CBC & Chem 7: 03/07/24 09:07 03/07/24 09:07 Labs: Abnormal Lab Results - Last 24 Hours (Table) 03/07/24 03/07/24 Range/Units 09:07 09:07 RBC 5.64 H (3.80-5.40) m/uL Hct 46.2 H (34.0-46.0) % RDW 15.8 H (11.5-15.5) % Creatinine 1.11 H (0.52-1.04) mg/dL Glucose 134 H (74-99) mg/dL
[2024-03-08 05:54] VITALS: PULSE 94
[2024-03-08 07:38] LABS: Anisocytosis Slight; Basophils # (A) 0.1 k/uL (0-0.2); Basophils % (A) 1 %; Eosinophils # (A) 0.2 k/uL (0-0.7); Eosinophils % (A) 2 %; HCT 44.5 % (34.0-46.0); HGB 13.8 gm/dL (11.4-16.0); Hypochromasia Marked; Lymphocytes # (A) 2.7 k/uL (1.0-4.8); Lymphocytes % (A) 29 %; MCH 25.5 pg (25.0-35.0); MCHC 30.9 g/dL (31.0-37.0); MCV 82.6 fL (80.0-100.0); Mean Platelet Volume 8.3; Monocytes # (A) 0.9 k/uL (0-1.0); Monocytes % (A) 10 %; Neutrophils # (A) 5.2 k/uL (1.3-7.7); Neutrophils % (A) 57 %; Platelet Count 216 k/uL (150-450); RBC 5.39 m/uL (3.80-5.40); RDW 16.1 % (11.5-15.5); WBC 9.2 k/uL (3.8-10.6)
[2024-03-08 07:49] LABS: African American GFR (CKD) 67 (>60 ml/min/1.73 sqM); Anion Gap 7 mmol/L; Blood Urea Nitrogen 11 mg/dL (7-17); Calcium 8.5 mg/dL (8.4-10.2); Carbon Dioxide 27 mmol/L (22-30); Chloride 103 mmol/L (98-107); Glucose 143 mg/dL (74-99); Non-African American GFR(CKD) 58 (>60 ml/min/1.73 sqM); Potassium 3.3 mmol/L (3.5-5.1); Sodium 137 mmol/L (137-145)
[2024-03-08 08:28] VITALS: BP 131/87; RESP 18; TEMP 97.7
[2024-03-08] MEDS: POTASSIUM CHLORIDE ER 20 MEQ TAB.ER PO SCH (10:42)
--- NOTE | 2024-03-08 11:06 | P.GSCN ---
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 She states she does have headaches occasionally but describes them as migraines usually will go away after Motrin and sleeping or a hot shower. During her workup she had carotid duplex which demonstrated no evidence of significant carotid stenosis. Her CT of the neck as well as head was unremarkable and therefore we were consulted for possible symptoms of temporal arteritis. She denies any history of stroke or atrial fibrillation in the past. She denies any lateralizing symptoms such as weakness, vision changes or speech issues currently. She denies any fevers, chills, chest pain or shortness of breath. Review of Systems All systems: negative (What is mentioned in the HPI or past medical history) Past Medical History Past Medical History: Asthma, GERD/Reflux, Hyperlipidemia, Hypertension, Osteoarthritis (OA), Thyroid Disorder Additional Past Medical History / Comment(s): migraine headachesKIDNEY STONE , sinus problems., History of Any Multi-Drug Resistant Organisms: None Reported Past Surgical History: Ablation, Appendectomy, Section, Cholecystectomy, Ear Surgery, Orthopedic Surgery, Tonsillectomy, Tubal Ligation, Uterine Ablation Additional Past Surgical History / Comment(s): L index finger reattatched, bilateral carpal tunnel releases, hysteroscopy with failed uterine ablation then D&C with successful uterine ablation, thyroid bx, Past Anesthesia/Blood Transfusion Reactions: Postoperative Nausea & Vomiting (PONV) Past Psychological History: Anxiety, Depression Additional Psychological History / Comment(s): Pt resides with her significant other and 3 children ages 25, 22 and 7 yrs. Pt is independent. 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 Smoking Status: Current every day smoker Past Alcohol Use History: None Reported Additional Past Alcohol Use History / Comment(s): smokes 1/2 pack a day Past Drug Use History: Marijuana - Past Family History Sister(s) Family Medical History: Cancer Additional Family Medical History / Comment(s): Patient is living with her fianc has 8 kids 2 are not hers. Father Family Medical History: Cancer Additional Family Medical History / Comment(s): pacemaker Mother Family Medical History: AFIB, Deep Vein Thrombosis (DVT), Myocardial Infarction ([place]) Additional Family Medical History / Comment(s): TIA/mini strokes Medications and Allergies Home Medications Medication Instructions Recorded Confirmed Type Docusate [Colace] 100 mg PO Q2D 11/21/15 03/04/24 History allopurinoL [Zyloprim] 100 mg PO DAILY 02/24/19 03/04/24 History Cetirizine HCl [Zyrtec] 10 mg PO DAILY 05/06/19 03/04/24 History Potassium Chloride ER [K-Dur 20] 20 meq PO DAILY 05/27/20 03/04/24 History Atorvastatin Calcium [Lipitor] 20 mg PO HS #30 tab 05/28/20 03/04/24 Rx ALPRAZolam [Xanax] 1 mg PO MOWEFR@2100 03/04/24 03/04/24 History ARIPiprazole [Abilify] 10 mg PO HS 03/04/24 03/04/24 History Citalopram Hydrobromide [CeleXA] 20 mg PO HS 03/04/24 03/04/24 History Cyclobenzaprine [Flexeril] 10 mg PO SUTUTHSA@2100 03/04/24 03/04/24 History Ergocalciferol [Vitamin D2 (1250 1,250 mcg PO TU 03/04/24 03/04/24 History Mcg = [id number] Iu)] buPROPion SR [Wellbutrin SR] 150 mg PO BID 03/04/24 03/04/24 History traZODone HCL 150 mg PO HS 03/04/24 03/04/24 History Allergies Allergy/AdvReac Type Severity Reaction Status Date / Time adhesive tape Allergy RED SKIN Verified 03/04/24 10:11 AND ITCHING levofloxacin [From Levaquin] Allergy Anaphylaxis Verified 03/04/24 10:11 milk Allergy Abdominal Verified 03/04/24 10:11 Pain shellfish derived [Shellfish] Allergy Anaphylaxis Verified 03/04/24 10:11 Sulfa (Sulfonamide Allergy Unknown Verified 03/04/24 10:11 Antibiotics) Childhood doxycycline AdvReac Nausea & Verified 03/04/24 10:11 Vomiting RYE BREAD Allergy Unknown Uncoded 03/04/24 10:11 Surgical - Exam Vital Signs Temp Pulse Resp BP Pulse Ox 98.3 F 100 20 158/97 98 03/03/24 18:25 03/03/24 18:25 03/03/24 18:25 03/03/24 18:25 03/03/24 18:25 Patient Seen Date: 03/08/24 Patient Seen Time: 10:30 - General well developed, well nourished, no distress - Eyes PERRL, normal ocular movement - ENT normal pinna, normal nares - Neck no masses, no bruits - Respiratory normal expansion, normal respiratory effort - Cardiovascular Rhythm: regular - Abdomen Obese Abdomen: soft, non tender - Integumentary no rash, no growths - Neurologic normal coordination, normal sensation - Musculoskeletal normal gait - Psychiatric oriented to time, oriented to person, oriented to place, speech is normal Palpable DP and PT pulse Results - Labs 03/08/24 06:56 03/08/24 06:56 Abnormal Lab Results - Last 24 Hours (Table) 03/07/24 03/08/24 03/08/24 Range/Units 09:07 06:56 06:56 MCHC 30.9 L (31.0-37.0) g/dL RDW 16.1 H (11.5-15.5) % ESR 69 H (0-20) mm/Hr Potassium 3.3 L (3.5-5.1) mmol/L Creatinine 1.11 H (0.52-1.04) mg/dL Glucose 143 H (74-99) mg/dL Diabetes panel 03/08/24 Range/Units 06:56 Sodium 137 (137-145) mmol/L Potassium 3.3 L (3.5-5.1) mmol/L Chloride 103 (98-107) mmol/L Carbon Dioxide 27 (22-30) mmol/L BUN 11 (7-17) mg/dL Creatinine 1.11 H (0.52-1.04) mg/dL Glucose 143 H (74-99) mg/dL Calcium 8.5 (8.4-10.2) mg/dL Calcium panel 03/08/24 Range/Units 06:56 Calcium 8.5 (8.4-10.2) mg/dL Pituitary panel 03/08/24 Range/Units 06:56 Sodium 137 (137-145) mmol/L Potassium 3.3 L (3.5-5.1) mmol/L Chloride 103 (98-107) mmol/L Carbon Dioxide 27 (22-30) mmol/L BUN 11 (7-17) mg/dL Creatinine 1.11 H (0.52-1.04) mg/dL Glucose 143 H (74-99) mg/dL Calcium 8.5 (8.4-10.2) mg/dL Adrenal panel 03/08/24 Range/Units 06:56 Sodium 137 (137-145) mmol/L Potassium 3.3 L (3.5-5.1) mmol/L Chloride 103 (98-107) mmol/L Carbon Dioxide 27 (22-30) mmol/L BUN 11 (7-17) mg/dL Creatinine 1.11 H (0.52-1.04) mg/dL Glucose 143 H (74-99) mg/dL Calcium 8.5 (8.4-10.2) mg/dL Assessment and Plan Assessment: Chronic headaches Elevated ESR Possible CVA Morbid obesity Diabetes Plan: Reviewed imaging and labs with the patient which she does have slightly elevated inflammatory markers but highly unlikely to have temporal arteritis. From a surgical standpoint there is no need for any temporal artery biopsy at this time especially in the hospital. If needed for headaches persist then would recommend as an outpatient. Thank you for the consultation. Patient is stable for discharge from vascular surgery standpoint.
== END 2024-03-08 12:38 | disposition home or self-care (01) ==
LOC: EC 18:13 → 3SCARD 21:52
PROVIDERS: ADMIT Hospitalist; ATTEND Hospitalist
DX: R51.9 Headache, unspecified (principal); H53.462 Homonymous bilateral field defects, left side; H53.461 Homonymous bilateral field defects, right side; R70.0 Elevated erythrocyte sedimentation rate; R07.89 Other chest pain; R06.09 Other forms of dyspnea; D72.829 Elevated white blood cell count, unspecified; E03.9 Hypothyroidism, unspecified; J45.909 Unspecified asthma, uncomplicated; K21.9 Gastro-esophageal reflux disease without esophagitis; E78.5 Hyperlipidemia, unspecified; I10 Essential (primary) hypertension; F32.A Depression, unspecified; F41.9 Anxiety disorder, unspecified; E11.9 Type 2 diabetes mellitus without complications; R00.0 Tachycardia, unspecified; E66.01 Morbid (severe) obesity due to excess calories; Z68.43 Body mass index [BMI] 50.0-59.9, adult; Z72.0 Tobacco use; Z79.82 Long term (current) use of aspirin; Z79.899 Other long term (current) drug therapy; Z88.1 Allergy status to other antibiotic agents; Z88.2 Allergy status to sulfonamides
CPT/HCPCS: 36415; 93005; 84439; 84481; 80061; 80053 ×3; 80048 ×2; 85652 ×2; 84443; 82607; 82550; 84484 ×2; 85025 ×5; 85610; 85730; 81001; 71046; 93880; 70450; 70553; G0378 ×6; C8929; J2060; J1644 ×5; J2765; S0106 ×5; J2405; J3490 ×4; Q9957; A9585; 93306; 96372; 96374; 96375; 96376; 99285